=== PATIENT | male | born 1955 | race Caucasian/White ===

== ENCOUNTER 2017-10-19 18:27 | Emergency (ER) | payer MEDICARE, MEDICAID, SELFPAY ==
[2017-10-19 18:29] VITALS: BP 143/115; PULSE 88; RESP 16; TEMP 37.5; O2SAT 96; BMI 30.2
--- NOTE | 2017-10-19 21:20 | CT_ITS ---
STUDY: CT BRAIN WITHOUT CONTRAST REASON FOR EXAM: Male, 62 years old. Sore throat x3 weeks questionable injury RADIATION DOSAGE (If Supplied By Facility): CTDIvol = ( 44.99 ) mGy, DLP = ( 745.49 ) mGycm TECHNIQUE: Transaxial CT imaging of the brain was performed without administration of intravenous contrast material. Individualized dose optimization techniques were used for this CT. COMPARISON: None. FINDINGS: Normal soft tissue structures. Normal calvarium. There is mild cerebral atrophy with widening of the extra-axial spaces and ventricular dilatation. Normal white matter tracts of the cerebral hemispheres. Normal basal ganglia and thalami. Normal brainstem. Normal cerebellum. There is no intracranial hemorrhage. There are no findings of an acute ischemic infarction. Normal visualized paranasal sinuses. CT/Brain/Head without Contrast IMPRESSION: Chronic involutional changes of the brain. Electronically Signed: Brent Lee MD at 22:07 EDT , Service support ,
--- NOTE | 2017-10-19 21:21 | CT_ITS ---
STUDY: CT SOFT TISSUE NECK WITHOUT CONTRAST REASON FOR EXAM: Male, 62 years old. Sore throat x3 weeks RADIATION DOSAGE (If Supplied By Facility): CTDIvol = ( 22.63 ) mGy, DLP = ( 576.29 ) mGycm TECHNIQUE: The patient was scanned in a multi-detector CT scanner. High resolution transaxial imaging was performed without the administration of intravenous contrast material. Sagittal and coronal images were reconstructed. Individualized dose optimization techniques were used for this CT. COMPARISON: None. FINDINGS: The study is technically limited, being performed without intravenous contrast. Normal bilateral parotid glands. Normal bilateral bottom ironer spaces. There is a soft tissue mass containing several small calcifications of the right parapharyngeal region measuring 2.0 x 2.2 cm. Ill-defined diffuse soft tissue density of the right parapharyngeal region is noted. Normal bilateral carotid spaces. Normal bilateral sublingual and submandibular glands and spaces. Normal visualized nasopharynx. Normal retropharyngeal space. Normal perivertebral space. Normal visualized bilateral faucial tonsils. The visualized tongue, tongue base and oropharynx are normal. There are enlarged right cervical lymph nodes anterior and medial to the right sternocleidomastoid. Normal epiglottis, bilateral vallecula and hypopharynx. The pre-epiglottic and paraglottic adipose spaces are normal. Normal visualized bilateral piriform sinuses, aryepiglottic folds, vocal cords, and arytenoid-cricoid articulations. Normal subglottic trachea. Normal bilateral lobes of the thyroid gland. Normal visualized pulmonary apices. Normal visualized paranasal sinuses. There is nasal septal deviation toward the right. Normal visualized cervical spine. CT/Soft Tissue Neck without Contr IMPRESSION: The study is technically limited, being performed without intravenous contrast. Soft tissue mass containing several calcifications of the right parapharyngeal region measuring approximately 2.0 x 2.2 cm. There is diffusely increased ill-defined soft tissue density of the right parapharyngeal region. Findings raise the suspicion of malignancy. Right cervical adenopathy anteromedial to the right sternocleidomastoid. MRI is recommended for further evaluation. Electronically Signed: Brent Lee MD at 22:17 EDT , Service support ,
[2017-10-19 21:40] VITALS: RESP 18
--- NOTE | 2017-10-19 23:25 | ED.VISSUMM ---
- ER Visit Summary Date of Service: 10/19/17 Chief Complaint: Neck pain History of Present Illness: The patient is a 62 M who presents with neck pain that has been getting worse over the past 3 days. Patient describes the pain as a pressure. Patient states the pain is over his throat. Patient states the pain is worse with swallowing. Patient states he fell one week ago and thinks he may have hit his throat. Patient denies any loss of consciousness with the fall. Patient denies any chest pain or shortness of breath. Patient denies any difficulty breathing. Physical Examination: Vital signs are stable. Patient is afebrile. Patient is in no acute distress. Oral mucosa is pink and moist. Oropharynx is clear. Airway is patent. Tympanic membranes are clear bilaterally. There is some tenderness over the right anterior neck. There is no edema or ecchymosis. There is no bony crepitance or step-off. There is full range of motion of the cervical spine. Heart was regular rate and rhythm. Lungs are clear and equal bilaterally. Abdomen is soft and nontender. Cranial nerves II through XII are intact. There are no focal motor or sensory deficits noted. Test Results: CT scan of the brain was obtained and was within normal limits. CT scan of the soft tissue neck was obtained. There is a 2 x 2 centimeter mass in the right anterior neck. There is no involvement of the airway. Emergency Department Course and Treatment: Patient was given a dose of ibuprofen here. Patient is given a prescription for Breese. Patient was instructed to follow-up with his primary care physician in 3-5 days. Patient was also given a referral for ENT. Patient understood and was agreeable with the plan. All questions were answered. Disposition: Discharge home Impression: Neck pain This note was generated with [employer] dictation software. It may contain incorrect words, spelling, and punctuation that were not noted in review of the chart prior to signing ED Disposition - Plan for ED Patient: Disposition: Home or Assisted Living Chief Complaint: Sore Throat Diagnosis: Mass of right side of neck Instructions: ED Neck Pain No Trauma Prescriptions: Hydrocodone Bitart/Apap 5-325 [Breese 5/325] 1 tab PO Q6H PRN PRN 5 Days #20 tab PRN Reason: Pain Referrals: Riky Seals [Primary Care Provider] -
--- NOTE | 2017-10-19 23:28 | ED.DCSUM_ITS ---
- ER Visit Summary Date of Service: 10/19/17 Chief Complaint: Neck pain History of Present Illness: The patient is a 62 M who presents with neck pain that has been getting worse over the past 3 days. Patient describes the pain as a pressure. Patient states the pain is over his throat. Patient states the pain is worse with swallowing. Patient states he fell one week ago and thinks he may have hit his throat. Patient denies any loss of consciousness with the fall. Patient denies any chest pain or shortness of breath. Patient denies any difficulty breathing. Physical Examination: Vital signs are stable. Patient is afebrile. Patient is in no acute distress. Oral mucosa is pink and moist. Oropharynx is clear. Airway is patent. Tympanic membranes are clear bilaterally. There is some tenderness over the right anterior neck. There is no edema or ecchymosis. There is no bony crepitance or step-off. There is full range of motion of the cervical spine. Heart was regular rate and rhythm. Lungs are clear and equal bilaterally. Abdomen is soft and nontender. Cranial nerves II through XII are intact. There are no focal motor or sensory deficits noted. Test Results: CT scan of the brain was obtained and was within normal limits. CT scan of the soft tissue neck was obtained. There is a 2 x 2 centimeter mass in the right anterior neck. There is no involvement of the airway. Emergency Department Course and Treatment: Patient was given a dose of ibuprofen here. Patient is given a prescription for Newton. Patient was instructed to follow-up with his primary care physician in 3-5 days. Patient was also given a referral for ENT. Patient understood and was agreeable with the plan. All questions were answered. Disposition: Discharge home Impression: Neck pain This note was generated with [employer] dictation software. It may contain incorrect words, spelling, and punctuation that were not noted in review of the chart prior to signing ED Disposition - Plan for ED Patient: Disposition: Home or Assisted Living Chief Complaint: Sore Throat Diagnosis: Mass of right side of neck Instructions: ED Neck Pain No Trauma Prescriptions: Hydrocodone Bitart/Apap 5-325 [Newton 5/325] 1 tab PO Q6H PRN PRN 5 Days #20 tab PRN Reason: Pain Referrals: Riky Seals [Primary Care Provider] -
[2017-10-19] MEDS: Ibuprofen 400 MG Tablet 800 MG PO (23:46)
[2017-10-19 23:47] VITALS: BP 175/91; PULSE 117; RESP 18; O2SAT 99
== END 2017-10-19 23:48 | disposition home or self-care (01) ==
PROVIDERS: Emergency Provider Emergency Medicine; Family Provider Family Medicine; PCP Family Medicine
DX: R22.1 Localized swelling, mass and lump, neck (principal); M54.2 Cervicalgia; W19.XXXA Unspecified fall, initial encounter; Y93.9 Activity, unspecified; Y92.9 Unspecified place or not applicable; Z86.73 Personal history of transient ischemic attack (TIA), and cerebral infarction without residual deficits; I25.2 Old myocardial infarction; Z95.5 Presence of coronary angioplasty implant and graft; F17.200 Nicotine dependence, unspecified, uncomplicated
CPT/HCPCS: 70450; 70490; 99284

== ENCOUNTER 2019-02-07 21:28 | Emergency (ER) | payer MEDICARE, MEDICAID, SELFPAY ==
[2019-02-07 21:29] VITALS: BP 104/70; PULSE 78; RESP 18; TEMP 36.9; O2SAT 98; BMI 29.7
--- NOTE | 2019-02-07 22:07 | EKG12_ITS ---
Test Reason : Blood Pressure : / mmHG Vent. Rate : 075 BPM Atrial Rate : 075 BPM P-R Int : 180 ms QRS Dur : 092 ms QT Int : 422 ms P-R-T Axes : 064 076 085 degrees QTc Int : 471 ms Normal sinus rhythm Normal ECG Confirmed by LEDY MORRELL, ADRIENNE ([id number]), scientific publications editor GRETCHEN GLEASON ([id number]) on 02/12/2019 10:31:45 AM Referred By: DC Confirmed By:ADRIENNE VILLAFANA MD
--- NOTE | 2019-02-07 22:07 | CT_ITS ---
STUDY: CT BRAIN WITHOUT CONTRAST REASON FOR EXAM: Male, 63 years old. Fall. RADIATION DOSAGE (If Supplied By Facility): CTDIvol = ( 44.99 ) mGy, DLP = ( 798.92 ) mGycm TECHNIQUE: Transaxial CT imaging of the brain was performed without administration of intravenous contrast material. Individualized dose optimization techniques were used for this CT. COMPARISON: 10/19/2017 FINDINGS: No change. No acute abnormality. Normal soft tissue structures. Normal calvarium. There is mild cerebral atrophy with widening of the extra-axial spaces and ventricular dilatation. Normal white matter tracts of the cerebral hemispheres. Normal basal ganglia and thalami. Normal brainstem. Normal cerebellum. There is no intracranial hemorrhage. There are no findings of an acute ischemic infarction. Normal visualized paranasal sinuses. CT/Brain/Head without Contrast IMPRESSION: Chronic involutional changes of the brain. Electronically Signed: Jose Lara MD at 23:24 EDT , Service support ,
--- NOTE | 2019-02-07 22:08 | CT_ITS ---
STUDY: CT ABDOMEN AND PELVIS WITHOUT CONTRAST REASON FOR EXAM: Male, 63 years old. Fall. Hematuria. RADIATION DOSAGE (If Supplied By Facility): CTDIvol = ( 17.07 ) mGy, DLP = ( 921.40 ) mGycm TECHNIQUE: Transaxial images were obtained from the dome of the diaphragm to the symphysis pubis without oral contrast, and without intravenous contrast. Sagittal and coronal images were reconstructed. Individualized dose optimization techniques were used for this CT. COMPARISON: None. FINDINGS: The visualized lung bases are unremarkable. The visualized portions of the heart are within normal limits. Normal liver. Normal gallbladder and extrahepatic biliary system. Normal spleen. Normal pancreas. Normal bilateral adrenal glands. Normal right kidney. 3.7 cm cyst of the lower pole. Normal left kidney. Evaluation of the GI tract is limited by absence of oral contrast. Small hiatal hernia. Cannot exclude stomach wall thickening. No dilated loops of bowel or evidence for obstruction. Cannot exclude segmental thickening of the saxena of the small or large bowel. Cannot exclude enteritis or colitis. Moderate diffuse fecal retention. Diverticulosis without definite diverticulitis. Appendix within normal limits. There is diffuse atherosclerotic calcification of the abdominal aorta, with ectasia but without a demonstrated aneurysm. Normal inferior vena cava. Normal retroperitoneum. Normal urinary bladder. Bilateral small fat-containing inguinal hernias. Induration and increased density of the subcutaneous fat of the left buttocks consistent with bruising. Normal osseous structures. CT/Abdomen/Pelvis without Cont IMPRESSION: No acute abnormality in the abdomen or pelvis. Electronically Signed: Jose Lara MD at 23:29 EDT , Service support ,
--- NOTE | 2019-02-07 22:08 | CT_ITS ---
STUDY: CT CERVICAL SPINE WITHOUT CONTRAST REASON FOR EXAM: Male, 63 years old. Fall. RADIATION DOSAGE (If Supplied By Facility): CTDIvol = ( 27.24 ) mGy, DLP = ( 532.30 ) mGycm TECHNIQUE: High resolution transaxial imaging was performed without contrast material. Sagittal and coronal images were reconstructed. Individualized dose optimization techniques were used for this CT. COMPARISON: None FINDINGS: Normal craniovertebral junction. Normal anterior atlantoaxial articulation. Normal odontoid process. Normal cervical lordosis. Normal vertebral bodies and posterior osseous elements. C2-3: Normal endplates. Normal disc height and morphology. Normal central canal and intervertebral neuroforamina. C3-4: Normal endplates. Normal disc height and morphology. Normal central canal and intervertebral neuroforamina. C4-5: Normal endplates. Normal disc height and morphology. Normal central canal and intervertebral neuroforamina. C5-6: Normal endplates. Normal disc height and morphology. Normal central canal and intervertebral neuroforamina. C6-7: Normal endplates. Normal disc height and morphology. Normal central canal and intervertebral neuroforamina. C7-T1: Normal endplates. Normal disc height and morphology. Normal central canal and intervertebral neuroforamina. Normal visualized soft tissue structures. CT/Spine Cervical without Contras IMPRESSION: Normal unenhanced CT examination of the cervical spine. Electronically Signed: Jose Lara MD at 23:25 EDT , Service support ,
--- NOTE | 2019-02-07 22:10 | RAD_ITS ---
STUDY: X-RAY CHEST REASON FOR EXAM: Male, 63 years old. Fall. Chest pain. TECHNIQUE: Single frontal view of the chest. COMPARISON: None. FINDINGS: The lungs are clear and expanded. There is no demonstrated pleural abnormality. Normal size heart. Normal mediastinum and dirk. Normal visualized pulmonary arteries. Normal visualized aortic arch and descending thoracic aorta. Normal visualized thoracic spine. Normal visualized ribs, clavicles, and shoulders. There is no demonstrated abnormality of the visualized soft tissue structures of the upper abdomen. RAD/Chest 1 View (Portable) IMPRESSION: Normal x-ray examination of the chest. Electronically Signed: Jose Lara MD at 22:48 EDT , Service support ,
[2019-02-07 22:28] LABS: Absolute Lymphocyte Count 3.13 X10^3/uL (0.83-4.51); Absolute Neutrophil Count 2.9 X10^3/uL (2.0-7.7); Basophil# 0.05 X10^3/uL; Basophil% 0.7 % (0-1); Eosinophil# 0.28 X10^3/uL; Hematocrit 36.6 % (40-54); Hemoglobin 11.9 g/dL (13.0-16.5); Lymphocyte # 3.13 X10^3/ul (4.0); Lymphocyte % 45.2 % (19-41); Mean Corp Hgb Conc 32.5 g/dL (32-36); Mean Corpuscular Hgb 28.6 pg (27.0-32.0); Mean Platelet Vol. 10.5 fl (6.2-12.0); Monocyte# 0.51 X10^3/uL; Monocyte% 7.4 % (0-10); NRBC Flagged by Analyzer 0 % (0-5); Neutrophil # 2.94 X10^3/uL (2.7-7.7); Neutrophil % 42.4 % (47-70); Platelet Count 270 K/mm3 (150-450); RBC Distribution Width CV 15.3 % (11.6-14.6); RBC Distribution Width SD 48.8 fl (35.1-43.9); Red Blood Count 4.16 M/mm3 (4.6-6.2); White Blood Count 6.9 K/mm3 (4.4-11.0)
[2019-02-07] MEDS: Diphth,Pertuss(Acell),Tet Vac 0.5 ML Vial IM (22:31)
[2019-02-07 22:32] LABS: Bacteria 0 SEEN /hpf (None Seen); Mucous, Urine 0 SEEN /hpf (<or=2+); Red Blood Cells-Urine 0 SEEN /hpf (0-5); Squamous Epithelial Cells - UA 0 SEEN /hpf (0-5); White Blood Cells 0 SEEN /hpf (0-5)
[2019-02-07 22:38] LABS: Color, Urine Straw (Yellow); Glucose, Dipstick Normal (Normal); Ketone-Dipstick Negative (Negative); Leukocyte Esterase-Dipstick Negative /ul (Negative); Nitrite-Dipstick Negative (Negative); Occult Blood-Urine Negative /ul (Negative); Protein-Dipstick Negative (Negative); Urine Bilirubin Dipstick Negative (Negative); Urine Clarity Clear (Clear); Urine Urobilinogen Normal (Normal)
[2019-02-07 22:48] LABS: Anion Gap 7 (5-15); BUN 5 mg/dL (7-18); BUN/Creat Ratio 5.9 RATIO (10-20); Calcium,Total 8.6 mg/dL (8.5-10.1); Chloride 105 mmol/L (98-107); Creatinine, Serum 0.85 mg/dL (0.70-1.30); EST Glomerular Filtration Rate 97 mL/min (>60); Est Glom Filt Rate - Afr Amer 117 mL/min (>60); Estimated Creatinine Clearance 94.23 ml/min; Glucose 102 mg/dL (74-106); Potassium 3.5 mmol/L (3.5-5.1); Sodium Level 138 mmol/L (136-145)
[2019-02-07 22:59] VITALS: BP 130/77; PULSE 104; RESP 18; O2SAT 94
--- NOTE | 2019-02-07 23:12 | ED.RN ---
Dr. Weathers notified of alcohol 384
--- NOTE | 2019-02-08 00:10 | ED.VISSUMM ---
- ER Visit Summary Date of Service: 02/08/19 Chief Complaint: Fall History of Present Illness: The patient is a 63 M presenting with EMS after fall. He states his friend called EMS. He fell 2 hours ago. He initially stated that he blacked out but is not sure if he lost consciousness. He does not recall the events surrounding the fall. He has been drinking alcohol tonight. He states he had chest pain earlier tonight. He was also concerned that he urinated blood. Denies other complaints. Physical Examination: Vitals are stable. Patient is afebrile. Alert no acute distress. HEENT exam is unremarkable. Neck is supple. Nontender Lungs are clear and equal bilaterally. Heart is regular rate and rhythm. Abdomen is soft nontender nondistended. No guarding or rebound Extremities right forearm abrasion, active full range of motion, normal distal pulses. Skin is warm and dry. No focal neurologic deficit. Positive EtOH Remainder of exam is unremarkable. Emergency Department Course and Treatment: EKG is sinus rate of 75 with no acute ischemic changes. Chest x-ray shows no acute process. CT head and neck show no acute process. CT abdomen pelvis shows no acute process. CBC, chemistries unremarkable other than hemoglobin 11.9. Urinalysis shows 0 white blood cells, 0 red blood cells. Troponin is negative. Alcohol level 384. Patient was given tetanus IM. He was given aspirin p.o. He will be observed in the ED and have a repeat troponin and will be observed until sober. He will be checked out to the oncoming physician. Disposition: Pending Impression: Alcohol intoxication This note was generated with [employer] dictation software. It may contain incorrect words, spelling, and punctuation that were not noted in review of the chart prior to signing ED Disposition - Plan for ED Patient: Referrals: Riky Seals [Primary Care Provider] -
[2019-02-08] MEDS: Aspirin 325 MG Tablet PO (00:12)
[2019-02-08 00:13] VITALS: BP 123/83; PULSE 72; RESP 18; O2SAT 96
[2019-02-08 01:29] VITALS: BP 98/68; PULSE 61; RESP 18
[2019-02-08 02:10] VITALS: BP 111/76; PULSE 69; RESP 16; O2SAT 96
[2019-02-08 04:00] VITALS: BP 103/67; PULSE 64; RESP 16; O2SAT 98
--- NOTE | 2019-02-08 06:25 | ED.DEP ---
ED Disposition - Plan for ED Patient: Disposition: Home or Assisted Living Diagnosis: Alcohol intoxication Instructions: CHEST PAIN, Uncertain Cause, Alcohol Intoxication Referrals: Riky Seals [Primary Care Provider] - As Needed Eighty,Vannesa [STAFF PHYSICIAN] - (as needed for alcohol problems)
[2019-02-08 06:29] VITALS: BP 144/94; PULSE 65; RESP 15; O2SAT 94
== END 2019-02-08 06:36 | disposition home or self-care (01) ==
PROVIDERS: Emergency Provider Emergency Medicine; Family Provider Family Medicine; PCP Family Medicine
DX: Z04.3 Encounter for examination and observation following other accident (principal); F10.129 Alcohol abuse with intoxication, unspecified; W19.XXXA Unspecified fall, initial encounter; R07.9 Chest pain, unspecified; I25.10 Atherosclerotic heart disease of native coronary artery without angina pectoris; I10 Essential (primary) hypertension; E78.00 Pure hypercholesterolemia, unspecified; Z86.73 Personal history of transient ischemic attack (TIA), and cerebral infarction without residual deficits; Z72.0 Tobacco use; Y90.8 Blood alcohol level of 240 mg/100 ml or more
CPT/HCPCS: 70450; 71045; 72125; 74176; 80048; 80320; 81001; 84484; 85025; 90715; 93005; 99285; A4216; G0480

== ENCOUNTER 2019-02-20 19:59 | Observation (INO) | payer MEDICARE, MEDICAID, SELFPAY ==
[2019-02-20] VITALS (7 sets, daily range): BP systolic 93–110; BP diastolic 61–70; PULSE 73–82; RESP 16–24; TEMP 36.6–36.9; O2SAT 94–96; BMI 29.0; BMI 29.2; BMI 29.3
--- NOTE | 2019-02-20 20:14 | EKG12_ITS ---
Test Reason : CP Blood Pressure : / mmHG Vent. Rate : 078 BPM Atrial Rate : 078 BPM P-R Int : 172 ms QRS Dur : 080 ms QT Int : 408 ms P-R-T Axes : 060 068 066 degrees QTc Int : 465 ms Normal sinus rhythm Normal ECG Confirmed by VIVIANA MORRELL, KARL ([id number]), editor & co founder RENALDO BUCKLEY ([id number]) on 02/24/2019 1:18:55 PM Referred By: Kathleen Shelton Confirmed By:MARGE MICHELLE MD
[2019-02-20 20:27] LABS: Absolute Lymphocyte Count 3.37 X10^3/uL (0.83-4.51); Absolute Neutrophil Count 3.4 X10^3/uL (2.0-7.7); Basophil# 0.04 X10^3/uL; Basophil% 0.5 % (0-1); Eosinophil# 0.33 X10^3/uL; Eosinophils% 4.3 % (0-5); Hemoglobin 11.6 g/dL (13.0-16.5); Lymphocyte # 3.37 X10^3/ul (4.0); Lymphocyte % 43.6 % (19-41); Mean Corp Hgb Conc 32.2 g/dL (32-36); Mean Corpuscular Hgb 28.9 pg (27.0-32.0); Mean Corpuscular Volume 89.6 fL (80-94); Mean Platelet Vol. 9.7 fl (6.2-12.0); Monocyte# 0.59 X10^3/uL; Monocyte% 7.6 % (0-10); NRBC Flagged by Analyzer 0 % (0-5); Neutrophil # 3.36 X10^3/uL (2.7-7.7); Neutrophil % 43.5 % (47-70); Platelet Count 236 K/mm3 (150-450); RBC Distribution Width CV 15.8 % (11.6-14.6); Red Blood Count 4.02 M/mm3 (4.6-6.2); White Blood Count 7.7 K/mm3 (4.4-11.0)
[2019-02-20] MEDS: Albuterol 2.5 MG/3 ML VIAL.NEB. INHALATION (20:37)
[2019-02-20 20:45] LABS: Anion Gap 7 (5-15); BUN 9 mg/dL (7-18); BUN/Creat Ratio 9.4 RATIO (10-20); Calcium,Total 8.6 mg/dL (8.5-10.1); Chloride 104 mmol/L (98-107); Creatinine, Serum 0.96 mg/dL (0.70-1.30); EST Glomerular Filtration Rate 84 mL/min (>60); Est Glom Filt Rate - Afr Amer 102 mL/min (>60); Estimated Creatinine Clearance 86.06 ml/min; Glucose 93 mg/dL (74-106); Potassium 3.8 mmol/L (3.5-5.1); Sodium Level 136 mmol/L (136-145)
--- NOTE | 2019-02-20 20:50 | RAD_ITS ---
STUDY: X-RAY CHEST REASON FOR EXAM: Male, 63 years old. Chest pressure. TECHNIQUE: PA and lateral chest. COMPARISON: 02/07/2019. FINDINGS: The lungs are clear and expanded. There is no demonstrated pleural abnormality. Normal size heart. Normal mediastinum and dirk. Normal visualized pulmonary arteries. Normal visualized aortic arch and descending thoracic aorta. Normal visualized thoracic spine. Normal visualized ribs, clavicles, and shoulders. There is no demonstrated abnormality of the visualized soft tissue structures of the upper abdomen. RAD/Chest PA and Lateral IMPRESSION: Normal x-ray examination of the chest. Electronically Signed: Daya Renner MD at 21:15 EDT Tel , Service support ,
--- NOTE | 2019-02-20 21:34 | ED.DCSUM_ITS ---
History of Present Illness Chief Complaint: Chest Pain Informant: EMS Narrative: Patient presenting for evaluation secondary to chest pain. Patient has a underlying history of coronary artery disease with 3 stents. Patient states that today he developed chest pain. Patient states that about 630 prior to arrival he had an onset of sharp chest pain. He reports it was associated with some lightheadedness and diaphoresis. It lasted a couple minutes and then resolved. Patient states that he has been having intermittent bouts of this since then. It is not exertional. No real exacerbating relieving factors associated with it. Patient denies that he has had any sort of recent provocati ve testing in the last 1 to 2 years. Past Medical History - Allergies and Home Meds Allergies/Adverse Reactions: Allergies lisinopril Allergy (Verified 02/20/19 20:00) COUGH COUGH Primary Care Physician: Riky Seals [Primary Care Provider] - Past Medical History: - - Coronary artery disease Smoking Status: Current every day smoker Review of Systems All systems negative except as indicated Cardiovascular: Reports: Chest pain Physical Exam Vital Signs/Narrative: Vital Signs Temp Pulse Resp BP Pulse Ox 02/20/19 20:38 82 18 02/20/19 20:16 95 02/20/19 20:12 100/62 02/20/19 20:01 98.4 F 79 23 H 93/61 96 General: Well nourished, Well developed, No Acute Distress Head: Normocephalic, Atraumatic Eyes: Perrl, EOMI ENT: Moist mucous membranes, No rhinorrhea Neck: Supple, Nontender Cardiovascular: Regular rate, Regular rhythm, No murmurs Respiratory: No distress, Wheezing Abdomen: Soft, Nontender, Nondistended, Normal bowel sounds Back: Nontender, Normal Inspection Extremities: Nontender, No edema Skin: Normal color, No rash Neurological: Alert, Oriented x3, Cranial nerves II-XII grossly intact, Normal Strength, Normal Sensation Psychological: Normal affect, Normal Mood Diagnostic/Tx/Re-eval - EKG Initial EKG Interpretation: - - Sinus rhythm at [address] segments normal T waves no evidence of acute ischemia or arrhythmia - Medical Decision Making Patient presenting secondary to chest pain. EKG showed no ischemic changes. CBC chemistry and troponin found to be unremarkable. Patient's heart score is 4, I do believe that he requires admission for cardiac rule out. I discussed this with the hospitalist. ED Disposition - Plan for ED Patient: Disposition: Acute Care [facility] Diagnosis: Chest pain
--- NOTE | 2019-02-20 21:36 | HP.PCM_ITS ---
History of Present Illness Date of Admission: 02/20/19 Chief Complaint: chest pain The patient is a 63 year old M with a past medical history of CAD status post stents back in 1996 thereabouts. He was admitted to the ED on 02/20/2019 with a complaint of chest pain was started on the afternoon of admission. States chest pain was sharp with no aggravating or relieving factors. He had assisted lightheadedness and some diaphoresis but chest pain was nonradiating. Patient states he follows up with costume specialist in [place]. He still smokes about 1 pack/day and drinks alcohol though he is a bit evasive about the quantities. The ED, respiratory rate was 24 and blood pressure was a bit low at 97/70 though patient says he did not take his blood pressure this morning his blood pressure usually runs high. CBC was unremarkable about hemoglobin of 11.6. Chemistry was unremarkable and initial troponin was negative. Chest x-ray done was essentially normal. He has been admitted to be managed for chest pain to rule out ACS. [] Past Medical History Allergies lisinopril Allergy (Verified 02/20/19 20:00) COUGH COUGH Home Medications: Ambulatory Orders Medication Instructions Recorded Atorvastatin Calcium 20 mg PO DAILY 02/20/19 Clopidogrel Bisulfate [Plavix] 75 mg PO DAILY 02/20/19 Dexlansoprazole [Dexilant] 30 mg PO DAILY 02/20/19 Losartan Potassium 50 mg PO DAILY 02/20/19 Metoprolol Succinate [Toprol Xl] 100 mg PO DAILY 02/20/19 Paroxetine HCl [Paxil] 40 mg PO DAILY 02/20/19 Surgical History: no surgical history Psychiatric History: No pertinent psych hx Lives: Alone Smoking Status: Current every day smoker Tobacco Use: Cigarettes Alcohol: Heavy Drugs: None - *Family History Maternal History Items: Heart Disease, Hypertension Review of Systems Constitutional: Denies: Chills, Fever, Malaise, Weakness, Weight Change Eyes: Denies: Blurred vision HEENT: Denies: Head Aches, Sinus Congestion, Sinus Drainage Cardiovascular: Reports: Chest Pain. Denies: Chest Pressure, Chest Tightness, Heaviness, Light Headedness, Orthopnea, Palpitations Respiratory: Denies: Cough, Shortness of Breath, Shortness of breath at rest, Shortness of breath upon exertion, Sputum production Gastrointestinal: Denies: Abdominal Pain, Nausea, Vomiting Genitourinary: Denies: Dysuria Musculoskeletal: Denies: Joint Pain, Joint Tenderness Skin: Denies: Rash, Wounds Neurological: Denies: Numbness, Tingling, Focal weakness Psychiatric: Denies: Anxiety, Depression, Homicidal Ideations, Suicidal Ideations Hematologic/ Lymphatic: Denies: Easy Bruising, Easy Bleeding VTE Information - Inpt Only VTE Present on Admission: No VTE Pharm Prophylaxis ordered?: Yes Patient Problems: Active and Suspected Problems Chest pain (Acute) - Physical Exam General: Alert, Oriented x3, Cooperative, No apparent distress HEENT: Atraumatic, PERRLA, EOMI, Normocephalic Oral: Moist Mucosa Neck: Supple, No JVD, Negative Carotid Bruits Lungs: Clear to auscultation, Normal air movement Cardiovascular: Regular rate, Regular Rhythm, Normal S1, Normal S2, No murmurs Abdomen: Bowel Sounds Present, Soft, Non Tender, Non-Distended, No Hepato- splenomegaly Extremities: No clubbing, No cyanosis, No edema, Capillary Refill Less than 3 Seconds Skin: No rashes, No breakdown Musculoskeletal: No Tenderness to Palpation of Joints or Extremities Lymphatic: No Cervical, Supraclavicular, or Inguinal Adenopathy Neurological: Cranial nerves II-XII grossly intact, Neuro grossly intact, Motor Exam 5/5 strength throughout Psych/Mental Status: Normal Affect, Appropriate, Alert and oriented to time, place, person, mood and affect Vital Signs Temp Pulse Resp BP Pulse Ox 98.4 F 82 18 100/62 95 02/20/19 20:01 02/20/19 20:38 02/20/19 20:38 02/20/19 20:12 02/20/19 20:16 Oxygen Delivery Method Room Air Weight: 208 lb 8.917 oz Body Mass Index (BMI) 29.0 Laboratory Tests Past 24 Hrs 02/20/19 02/20/19 20:10 20:10 WBC 7.7 RBC 4.02 L Hgb 11.6 L Hct 36.0 L MCV 89.6 MCH 28.9 MCHC 32.2 RDW Std Deviation 52.0 H RDW Coeff of Madelin 15.8 H Plt Count 236 MPV 9.7 Immature Gran % (Auto) 0.500 Neut % (Auto) 43.5 L Lymph % (Auto) 43.6 H [place] % (Auto) 7.6 Eos % (Auto) 4.3 Baso % (Auto) 0.5 Absolute Neuts (auto) 3.4 Absolute Lymphs (auto) 3.37 Nucleated RBC % 0 Sodium 136 Potassium 3.8 Chloride 104 Carbon Dioxide 25.0 Anion Gap 7 BUN 9 Creatinine 0.96 Estim Creat Clear Calc 86.06 Est GFR (MDRD) Af Amer 102 Est GFR (MDRD) Non-Af 84 BUN/Creatinine Ratio 9.4 L Glucose 93 Calcium 8.6 Troponin I < 0.015 Diagnostic Data Chest X-Ray 02/20/19 20:50 IMPRESSION: Normal x-ray examination of the chest. Electronically Signed: Daya Renner MD at 21:15 EDT Tel , Service support , Assessment/Plan All Active Problems Chest pain (Acute) 63-year-old male admitted with complaint of chest pain. 1. Chest pain to r/o ACS * admit to PCU with telemetry * cycle troponins * PO aspirin 81mg daily, SL nitroglycerin prn * for stress test tomorrow if troponins are negative * 2. Hypotension of unclear etiology * says his BP is usually high, didnt take his meds today * BP was in the systolic during review and came up to 90 systolic after being given IV fluids. * BP meds and continue gentle hydration. * 3. History of CAD status post stents: On Plavix and statin. 4. Hypertension: Currently hypotensive. Will hold metoprolol and losartan. 5. Anxiety: On paroxetine. DVT Prophylaxis: Lovenox Code Visit OBSV E&M: 01140 Initial observation care L3
[2019-02-20] MEDS: 0.9% Normal Saline 1,000 ML 999 ML IV (21:45)
--- NOTE | 2019-02-20 23:12 | EKG12_ITS ---
Test Reason : CP ADMIT Blood Pressure : / mmHG Vent. Rate : 067 BPM Atrial Rate : 067 BPM P-R Int : 174 ms QRS Dur : 090 ms QT Int : 432 ms P-R-T Axes : 069 074 081 degrees QTc Int : 456 ms Normal sinus rhythm Normal ECG When compared with ECG of 20-FEB-2019 20:08, MANUAL COMPARISON REQUIRED, DATA IS UNCONFIRMED Confirmed by VIVIANA MORRELL, KARL ([id number]), advertising editor GRETCHEN GLEASON ([id number]) on 02/25/2019 1:52:02 PM Referred By: Kathleen Shelton Confirmed By:MARGE MICHELLE MD
[2019-02-21] VITALS: PULSE 72
--- NOTE | 2019-02-21 00:28 | NURSING ---
Pt came in with home meds from ED. States he does not want medications locked up on unit. Pt educated on not taking home medications while admitted to the hospital. Pt verbalized understanding.
[2019-02-21] MEDS: 0.9% Normal Saline 1,000 ML 150 ML IV (02:20)
[2019-02-21 02:27] LABS: Absolute Lymphocyte Count 2.73 X10^3/uL (0.83-4.51); Absolute Neutrophil Count 1.7 X10^3/uL (2.0-7.7); Basophil# 0.03 X10^3/uL; Basophil% 0.6 % (0-1); Eosinophil# 0.24 X10^3/uL; Eosinophils% 4.6 % (0-5); Hematocrit 35.3 % (40-54); Hemoglobin 11.1 g/dL (13.0-16.5); Lymphocyte # 2.73 X10^3/ul (4.0); Lymphocyte % 52.7 % (19-41); Mean Corp Hgb Conc 31.4 g/dL (32-36); Mean Corpuscular Hgb 28.5 pg (27.0-32.0); Mean Corpuscular Volume 90.5 fL (80-94); Mean Platelet Vol. 10.1 fl (6.2-12.0); Monocyte# 0.45 X10^3/uL; Monocyte% 8.7 % (0-10); NRBC Flagged by Analyzer 0 % (0-5); Neutrophil # 1.69 X10^3/uL (2.7-7.7); Neutrophil % 32.6 % (47-70); Platelet Count 198 K/mm3 (150-450); RBC Distribution Width CV 16.1 % (11.6-14.6); RBC Distribution Width SD 53.1 fl (35.1-43.9); White Blood Count 5.2 K/mm3 (4.4-11.0)
[2019-02-21 03:03] LABS: Anion Gap 8 (5-15); BUN 8 mg/dL (7-18); BUN/Creat Ratio 8.4 RATIO (10-20); Calcium,Total 8.3 mg/dL (8.5-10.1); Chloride 109 mmol/L (98-107); Creatinine, Serum 0.96 mg/dL (0.70-1.30); EST Glomerular Filtration Rate 85 mL/min (>60); Est Glom Filt Rate - Afr Amer 103 mL/min (>60); Estimated Creatinine Clearance 83.43 ml/min; Glucose 88 mg/dL (74-106); Potassium 3.9 mmol/L (3.5-5.1); Sodium Level 141 mmol/L (136-145)
[2019-02-21 04:00] VITALS: PULSE 64
[2019-02-21 05:00] VITALS: BP 155/94; PULSE 71; RESP 14; TEMP 36.4; O2SAT 99
[2019-02-21 05:23] VITALS: RESP 16
[2019-02-21] MEDS: Clopidogrel Bisulfate 75 MG Tablet PO (06:31)
[2019-02-21] MEDS: Aspirin 81 MG TAB.CHEW PO (06:31)
[2019-02-21 07:00] VITALS: PULSE 80
[2019-02-21 09:25] VITALS: BP 159/98; PULSE 70; RESP 14; TEMP 36.3; O2SAT 99
[2019-02-21] MEDS: Paroxetine 20 MG Tablet 40 MG PO (11:18)
[2019-02-21] MEDS: Pantoprazole Sodium 40 MG Tablet PO (11:18)
--- NOTE | 2019-02-21 11:24 | STRESSREP ---
Stress Test Report Date: 02/21/2019 Procedure: Pharmacologic stress nuclear imaging study Indications: Chest pain Consent: Per the patient Procedure: The patient underwent pharmacologic (Regadenoson) evaluation with a peak heart rate of 96 beats per minute (60 %predicted maximal heart rate) and a peak blood pressure of 162/90 mmHg. The baseline ECG demonstrated normal sinus rhythm. EKG during lexiscan infusion revealed no significant change from baseline. EKG post infusion revealed no significant change from baseline [There were no cardiac dysrhythmias pretest, during pharmacologic infusion, or recovery]. [There was no complaint of chest discomfort during pharmacologic infusion or recovery]. Patient had some dyspnea with Lexiscan infusion. The examination was discontinued secondary to completion of protocol. Impression: 1. Lexiscan stress test test is negative for Lexiscan infusion induced EKG changes of ischemia. 2. Lexiscan stress test test is negative for Lexiscan infusion induced chest pain. 3. Results of the nuclear portion of the test is as below Myocardial perfusion imaging study: Technique: The patient was injected with 12 millicuries of technetium 99m Cardiolite and subsequently rest SPECT Cardiolite nuclear imaging was obtained in the horizontal long, vertical long, and short axis views. The patient underwent pharmacologic (Regadenoson) evaluation. Please see above for details. The patient was injected with 34.3 millicuries of technetium 99m Cardiolite and subsequently stress SPECT Cardiolite nuclear imaging was obtained in the horizontal long, vertical long, and short axis views. A gated Cardiolite study at peak stress was obtained. Interpretation: Rest and stress SPECT Cardiolite nuclear imaging status post realignment, normalization, and attenuation correction demonstrate normal myocardial radioisotope uptake. Gated images reveal no significant regional wall motion abnormalities. The reported LVEF is 63 %. Impression: 1. There is no evidence of significant ischemia or infarction. 2. Estimated ejection fraction is 63%. This note was generated with [employer]IKT[employer] software. It may contain incorrect words, spelling, and punctuation that were not noted in checking the note before signing.
--- NOTE | 2019-02-21 11:55 | DCINST_ITS ---
- Discharge Diagnoses Current Active Problems: Current Active and Chronic Problems Chest pain (Acute) You will use the following diet at home:: Cardiac Your food should be the consistency of: Regular Your liquids should be the consistency of: Regular/Thin Discharge Activity: Return to Normal Activity Call your doctor if you observe: Shortness of breath, Chest pain - worsening Instructions: CHEST PAIN, NonCardiac Allergies/Adverse Reactions: Allergies lisinopril Allergy (Verified 02/20/19 20:00) COUGH COUGH Medications to take at Discharge Atorvastatin Calcium 20 mg PO DAILY 02/20/19 Clopidogrel Bisulfate [Plavix] 75 mg PO DAILY 02/20/19 Dexlansoprazole [Dexilant] 30 mg PO DAILY 02/20/19 Losartan Potassium 50 mg PO DAILY 02/20/19 Metoprolol Succinate [Toprol Xl] 100 mg PO DAILY 02/20/19 Paroxetine HCl [Paxil] 40 mg PO DAILY 02/20/19 Primary Care Physician: Riky Seals [Primary Care Provider] - Within 2 Weeks Test Results: Test results from this visit will be discussed in further detail at your follow- up appointment, if applicable. Proposed Discharge Date: 02/21/19
--- NOTE | 2019-02-21 11:56 | PCM.DC.SUM ---
Discharge Date and Diagnosis - Problem List Patient Problems: Active and Suspected Problems Chest pain (Acute) Date of Admission: 02/20/19 Date of Discharge: 02/21/19 - Primary Discharge Diagnosis Active and Suspected Problems Chest pain (Acute) Hospital Course and Treatment Imaging Results: 02/21/19 05:55 Nuclear Stress Test - [facility] [NM] AM (NON MEDS) Operations: None Procedures: Stress test Summary of Care Provided: The patient is a 63 year old M's with left-sided chest pain associated when he was pulling weeds. States it is worse when he coughs. Just feels weak. States that he has had a tach in the past but at that time his symptoms were different where he felt like he was having heartburn for 24 hours. Patient was then brought to the hospital and underwent a cardiac work-up, including stress test which were negative. On exam, patient had a does have a reproducible anterior chest wall tenderness and explained that this could be related with muscle strain or costochondritis. Reassurance was provided. Advised the patient to stop smoking and advised of the risk factors when he does return home regards to the initial nature associated with tobacco abuse. He expressed understanding and had no further questions. [] Patient Problems: Active and Suspected Problems Chest pain (Acute) - Physical Exam General: Alert, No apparent distress HEENT: Atraumatic, Normocephalic Oral: Moist Mucosa, No Gingival or Mucosal Lesions/ Ulcerations Musculoskeletal: - - Left anterior chest wall tenderness Vital Signs Temp Pulse Resp BP Pulse Ox 36.3 C L 70 14 159/98 H 99 02/21/19 09:25 02/21/19 09:25 02/21/19 09:25 02/21/19 09:25 02/21/19 09:25 Oxygen Delivery Method Room Air Weight: 92.6 kg Body Mass Index (BMI) 29.2 Intake and Output for Last 24 Hours 02/19/19 02/20/19 02/21/19 23:59 23:59 23:59 Intake Total 1653 / 1653 Balance 1653 / 1653 Laboratory Tests Past 24 Hrs 02/20/19 02/20/19 02/20/19 20:10 20:10 23:29 WBC 7.7 RBC 4.02 L Hgb 11.6 L Hct 36.0 L MCV 89.6 MCH 28.9 MCHC 32.2 RDW Std Deviation 52.0 H RDW Coeff of Madelin 15.8 H Plt Count 236 MPV 9.7 Immature Gran % (Auto) 0.500 Neut % (Auto) 43.5 L Lymph % (Auto) 43.6 H [place] % (Auto) 7.6 Eos % (Auto) 4.3 Baso % (Auto) 0.5 Absolute Neuts (auto) 3.4 Absolute Lymphs (auto) 3.37 Nucleated RBC % 0 Sodium 136 Potassium 3.8 Chloride 104 Carbon Dioxide 25.0 Anion Gap 7 BUN 9 Creatinine 0.96 Estim Creat Clear Calc 86.06 Est GFR (MDRD) Af Amer 102 Est GFR (MDRD) Non-Af 84 BUN/Creatinine Ratio 9.4 L Glucose 93 Calcium 8.6 Troponin I < 0.015 < 0.015 02/21/19 02/21/19 02/21/19 02:01 02:01 02:01 WBC 5.2 RBC 3.90 L Hgb 11.1 L Hct 35.3 L MCV 90.5 MCH 28.5 MCHC 31.4 L RDW Std Deviation 53.1 H RDW Coeff of Madelin 16.1 H Plt Count 198 MPV 10.1 Immature Gran % (Auto) 0.800 Neut % (Auto) 32.6 L Lymph % (Auto) 52.7 H [place] % (Auto) 8.7 Eos % (Auto) 4.6 Baso % (Auto) 0.6 Absolute Neuts (auto) 1.7 L Absolute Lymphs (auto) 2.73 Nucleated RBC % 0 Sodium 141 Potassium 3.9 Chloride 109 H Carbon Dioxide 24.0 Anion Gap 8 BUN 8 Creatinine 0.96 Estim Creat Clear Calc 83.43 Est GFR (MDRD) Af Amer 103 Est GFR (MDRD) Non-Af 85 BUN/Creatinine Ratio 8.4 L Glucose 88 Calcium 8.3 L Troponin I < 0.015 Discharge Diet: Low fat/ Low Cholesterol Discharge Activity: Return to Normal Activity Call your doctor if you observe: Shortness of breath, Chest pain - worsening Home Medications: Medications to take at Discharge Atorvastatin Calcium 20 mg PO DAILY 02/20/19 Clopidogrel Bisulfate [Plavix] 75 mg PO DAILY 02/20/19 Dexlansoprazole [Dexilant] 30 mg PO DAILY 02/20/19 Losartan Potassium 50 mg PO DAILY 02/20/19 Metoprolol Succinate [Toprol Xl] 100 mg PO DAILY 02/20/19 Paroxetine HCl [Paxil] 40 mg PO DAILY 02/20/19 Primary Care Physician: Riky Seals [Primary Care Provider] - Within 2 Weeks Patient Instructions: CHEST PAIN, NonCardiac Disposition: Home Minutes spent on discharge:: 24 Patient Condition:: Good Medical Necessity - Tobacco Use Smoking Status: Current every day smoker Tobacco Use: Cigarettes Meaningful Use Info Meaningful Use Diagnoses (Choose all that apply): None applicable Code Visit OBSV E&M: 71689 Observation care discharge
== END 2019-02-21 11:55 | disposition home or self-care (01) ==
LOC: ED 21:42 → PCU 21:58
PROVIDERS: Admitting Provider Student in an Organized Health Care Education/Training Program; Emergency Provider Emergency Medicine; Family Provider Family Medicine; PCP Family Medicine; Referring Provider Student in an Organized Health Care Education/Training Program
DX: R07.89 Other chest pain (principal); I95.9 Hypotension, unspecified; I25.10 Atherosclerotic heart disease of native coronary artery without angina pectoris; F41.9 Anxiety disorder, unspecified; F17.210 Nicotine dependence, cigarettes, uncomplicated; Z95.5 Presence of coronary angioplasty implant and graft; Z88.8 Allergy status to other drugs, medicaments and biological substances; Z79.899 Other long term (current) drug therapy
CPT/HCPCS: 36415; 71046; 78452; 80048; 84484; 85025; 93005; 93017; 94640; 96360; 96361; 99218; 99285; 99406; A9500; J7030; A4216; G0378; J2785

== ENCOUNTER 2019-03-28 11:11 | Emergency (ER) | payer MEDICARE, MEDICAID, SELFPAY ==
[2019-02-20 23:23] VITALS: BMI 29.2
[2019-03-28 11:12] VITALS: BP 151/95; PULSE 89; RESP 18; TEMP 36.6; O2SAT 100; BMI 29.0
--- NOTE | 2019-03-28 11:59 | EKG12_ITS ---
Test Reason : DIZZINESS Blood Pressure : / mmHG Vent. Rate : 082 BPM Atrial Rate : 082 BPM P-R Int : 164 ms QRS Dur : 086 ms QT Int : 394 ms P-R-T Axes : 052 064 080 degrees QTc Int : 460 ms Normal sinus rhythm Normal ECG Confirmed by JYOTSNA MORRELL, LUIS ALBERTO ([id number]), international editorial producer GRETCHEN GLEASON ([id number]) on 03/31/2019 8:55:59 AM Referred By: MULU Confirmed By:LUIS ALBERTO GOYAL MD
--- NOTE | 2019-03-28 12:58 | ED.DCSUM_ITS ---
History of Present Illness Chief Complaint: Dizziness Informant: Patient Onset: Today Narrative: Chief complaint reports dizziness however patient denies any symptoms. He comes for evaluation stating somebody took his medications 10 days ago. He does not have a secure home and stays with friends and sometimes in the park. He states he was at the park when it witnessing. Denies chest pain shortness of breath or lightheaded symptoms. No nausea or vomiting. He was seen physician in [place] I was trying to get situated with [facility] here. Past Medical History - Allergies and Home Meds Allergies/Adverse Reactions: Allergies lisinopril Allergy (Verified 03/28/19 11:12) COUGH COUGH Primary Care Physician: Riky Seals [Primary Care Provider] - Surgical History: no surgical history Smoking Status: Current every day smoker - Family History Maternal Family History: Reports: Heart Disease, Hypertension Review of Systems General: Denies: Chills, Fever, Sweats Eyes: Denies: Visual changes - bilaterally, Diplopia ENT: Denies: Rhinorrhea, Sore throat Cardiovascular: Denies: Chest pain, Palpitations Respiratory: Denies: Dyspnea, Cough, Dyspnea on exertion Gastrointestinal: Denies: Abdominal pain, Nausea, Vomiting, Diarrhea, Melena, Hematochezia Genitourinary: Denies: Dysuria, Hematuria, Frequency Musculoskeletal: Denies: Back pain, Extremity Pain Skin: Denies: Rash, Wounds Neurological: Denies: Headache, Weakness, Numbness Physical Exam Vital Signs/Narrative: Vital Signs Temp Pulse Resp BP Pulse Ox 03/28/19 11:12 97.8 F 89 18 151/95 H 100 Inital Vital Signs reviewed: Yes General: Well nourished, Well developed, No Acute Distress Head: Normocephalic, Atraumatic Eyes: Perrl, EOMI ENT: Moist mucous membranes, No rhinorrhea Neck: Supple, Nontender Cardiovascular: Regular rate, Regular rhythm, No murmurs Respiratory: No distress, CTA bilaterally, Chest nontender Abdomen: Soft, Nontender, Nondistended, Normal bowel sounds Back: Nontender, Normal Inspection Extremities: Nontender, No edema Skin: Normal color, No rash Neurological: Alert, Oriented x3, Cranial nerves II-XII grossly intact, Normal Strength, Normal Sensation Psychological: Normal affect, Normal Mood Diagnostic/Tx/Re-eval - EKG Initial EKG Interpretation: Sinus Rhythm - Normal sinus, rate of 82, no ST changes, T wave inversion in aVL. - Medical Decision Making Patient nontoxic, EKG per nursing protocol obtained shows nonspecific changes. Vitals stable slightly elevated blood pressure on arrival at 150 improved transiently with no intervention. Reports medications would cost $30 total for the month and he does not have any starr currently. I spoke with social work evaluated they are able to help with a month supply of medications to be dispensed from pharmacy here. Patient will follow up with [facility]. ED Disposition - Plan for ED Patient: Disposition: Home or Assisted Living Diagnosis: Medication refill Instructions: Med Refill Prescriptions: Atorvastatin Calcium 20 mg PO DAILY #30 tablet Losartan Potassium [Cozaar] 50 mg PO DAILY #30 tablet Dexlansoprazole [Dexilant] 30 mg PO DAILY #30 kathryn. Metoprolol Succinate 100 mg PO DAILY #30 tab.er.24h Paroxetine HCl [Paxil] 40 mg PO DAILY #30 tablet Clopidogrel Bisulfate [Plavix] 75 mg PO DAILY #30 tablet Referrals: Nubia Licea [NON-STAFF] - 5-7 Days
--- NOTE | 2019-03-28 13:26 | CM.ED ---
SOCIAL WORK INFORMANT: DR. HARDWICK REASON FOR REFERRAL: RESOURCES-RX ASSIST MET WITH PATIENT IN ROOM. INTRODUCED ROLE AND REASON FOR REFERRAL. PATIENT REPORTS IS CURRENTLY HOMELESS AND HAS BEEN STAYING WITH FRIENDS. PATIENT STATES HAS ALREADY SPOKEN WITH [facility] [employer] FOR ASSISTANCE WITH HOUSING. PATIENT REPORTS DOES NOT HAVE MONEY TO COVER CO-PAY FOR MEDICATIONS. PATIENT STATES BAG WITH [facility] AND MEDICATIONS WAS STOLEN. EMOTIONAL SUPPORT PROVIDED. PATIENT STATES HAS RECEIVED HELP FROM PEOPLE TO PEOPLE IN THE PAST. PATIENT HOPING TO GET CONNECTED WITH THE FREE CLINIC AND STATES WILL BE FOLLOWING UP WITH THEM. DISCUSSED WITH [employer] BUSINESS DEVELOPER AND RECEIVED APPROVAL TO ASSIST WITH MEDICATION COST. RX ASSIST FORM TO BE COMPLETED. PATIENT UPDATED THIS ASSISTANCE CAN ONLY BE PROVIDED THIS ONE TIME. PATIENT VERBALIZED UNDERSTANDING AND THANKED THIS WORKER. PRESCRIPTIONS AND RX ASSISTANCE FORM TAKEN TO PHARMACY. PLAN: HOME WITH FRIENDS. ASSISTANCE WITH MEDICATION COVERAGE PROVIDED.
[2019-03-28 13:39] VITALS: BP 132/80; PULSE 74; RESP 16; O2SAT 98
== END 2019-03-28 13:40 | disposition home or self-care (01) ==
PROVIDERS: Emergency Provider Emergency Medicine; Family Provider Family Medicine; PCP Family Medicine
DX: Z76.0 Encounter for issue of repeat prescription (principal); R42 Dizziness and giddiness; Z82.49 Family history of ischemic heart disease and other diseases of the circulatory system; Z88.8 Allergy status to other drugs, medicaments and biological substances; F17.200 Nicotine dependence, unspecified, uncomplicated
CPT/HCPCS: 93005; 99282

== ENCOUNTER → 2019-07-29 12:11 | Outpatient (CLI) | payer MEDICARE, MEDICAID, SELFPAY ==
--- NOTE | 2019-07-29 12:23 | CT_ITS ---
STUDY: CT BRAIN WITH AND WITHOUT CONTRAST REASON FOR EXAM: Male, 63 years old. POST CVA RADIATION DOSAGE (If Supplied By Facility): CTDIvol = ( 44.99 ) mGy, DLP = ( 1547.23 ) mGycm TECHNIQUE: Transaxial CT imaging of the brain was performed pre and post contrast administration. The examination was performed with intravenous administration of . Individualized dose optimization techniques were used for this CT. COMPARISON: Comparison is made with prior study dated February 07, 2019. FINDINGS: Normal soft tissue structures. Normal calvarium. There is mild cerebral atrophy with widening of the extra-axial spaces and ventricular dilatation. Normal white matter tracts of the cerebral hemispheres. 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 Normal brainstem. Normal cerebellum. There is no intracranial hemorrhage. There are no findings of an acute ischemic infarction. Atherosclerotic calcification of the vertebral arteries and cavernous portions of the internal carotid arteries bilaterally. Normal visualized paranasal sinuses. CT/Brain/Head W/WO Contrast IMPRESSION: Chronic involutional changes of the brain. 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 Electronically Signed: Lew Ojeda, at 13:25 EST , Service support ,
[2019-07-29 12:40] LABS: CREATININE FINGERSTICK 1.1 mg/dL (0.70-1.30); EGFR FINGERSTICK > 60.0000 mL/min (>60)
== END ==
PROVIDERS: PCP Nurse Practitioner Family; Referring Provider Nurse Practitioner Family; Visit Provider Nurse Practitioner Family
DX: R55 Syncope and collapse (principal)
CPT/HCPCS: 70470; Q9967

== ENCOUNTER 2020-01-24 17:18 | Emergency (ER) | payer MEDICARE, MEDICAID, SELFPAY ==
[2020-01-24 17:21] VITALS: BP 161/136; PULSE 98; RESP 17; TEMP 36.9; O2SAT 95; BMI 27.7
--- NOTE | 2020-01-24 17:47 | EKG12_ITS ---
Test Reason : SOB Blood Pressure : / mmHG Vent. Rate : 097 BPM Atrial Rate : 097 BPM P-R Int : 164 ms QRS Dur : 088 ms QT Int : 370 ms P-R-T Axes : 069 077 070 degrees QTc Int : 469 ms Normal sinus rhythm Normal ECG Confirmed by JYOTSNA MORRELL, LUIS ALBERTO ([id number]), publishing editor GRETCHEN GLEASON ([id number]) on 01/27/2020 9:26:53 AM Referred By: KATHRINE Confirmed By:LUIS ALBERTO GOYAL MD
--- NOTE | 2020-01-24 17:49 | CT_ITS ---
STUDY: CTA HEAD AND NECK WITH CONTRAST REASON FOR EXAM: Male, 64 years old. Weakness and dizziness, history of CVA. RADIATION DOSAGE (If Supplied By Facility): CTDIvol = ( 29.63 ) mGy, DLP = ( 1578.33 ) mGycm TECHNIQUE: CT angiography was performed with a multi-detector CT scanner. Data acquisition was obtained from the skull base through the vertex following intravenous administration of IV 100mL Isovue-370. MIP images were reconstructed from the axial data set. Post-processing of the angiographic images was performed, with multiplanar reformation and 3D reconstruction. Individualized dose optimization techniques were used for this CT. COMPARISON: No relevant priors. FINDINGS: Normal bilateral petrous carotid arteries. Normal right cavernous carotid artery with a normal supraclinoid bifurcation. There is mild calcified plaque formation of the left cavernous carotid artery, without a cross-sectional luminal stenosis. There is non-visualization of the right A1 segment of the anterior cerebral arteries likely due to aplastic development . Normal left A1 segments of the anterior cerebral artery. Normal intact anterior communicating artery (ACOM). Single prominent anterior cerebral artery bifurcates distally. Normal right M1 and M2 segments of the middle cerebral arteries, with a normal M1 bifurcation. Normal left M1 and M2 segments of the middle cerebral arteries, with a normal M1 bifurcation. There is non-visualization of the right posterior communicating artery (PCOM). Normal left posterior communicating artery (PCOM). There is a small left vertebral artery with a dominant right vertebral artery. Normal basilar artery with a normal basilar bifurcation. The visualized bilateral superior cerebellar (SCA) arteries are normal. There is no demonstrated definite aneurysm of the [place] of [place] within the scope and limitation of this examination. There is no demonstrated acute abnormality of the visualized brain. AORTIC ARCH: There is atherosclerotic calcific plaque formation of the aortic arch and great vessels arising from the aortic arch, without a hemodynamically significant stenosis. There is a normal origin of the brachiocephalic, left common carotid, and left subclavian arteries. Normal origins of the brachiocephalic, left common carotid, and left subclavian arteries. RIGHT CAROTID ARTERIES: Normal right common carotid artery (CCA). There is mild atherosclerotic plaque formation with minimal narrowing of the right carotid bulb. There is mild atherosclerotic plaque formation of the origin of the right internal carotid artery with less than 50% cross sectional diameter stenosis. Normal visualized cervical portion of the right internal carotid artery. Normal origin of the right external carotid artery (ECA). LEFT CAROTID ARTERIES: Normal left common carotid artery (CCA). There is mild atherosclerotic plaque formation with minimal narrowing of the left carotid bulb. There is mild atherosclerotic plaque formation of the origin of the left internal carotid artery with less than 50% cross sectional diameter stenosis. Normal visualized cervical portion of the left internal carotid artery. Normal origin of the left external carotid artery (ECA). VERTEBRAL ARTERIES: Normal bilateral vertebral arteries. CT/CTA Head AND Neck W/ Contrast IMPRESSION: 1. 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 Conclusion is unlikely. 2. No demonstrated flow limiting stenosis. 3. Mild atherosclerotic changes with less than 50% stenosis in the bulb region and proximal internal carotid arteries without significant stenosis. 4. Patent bilateral vertebral arteries. Electronically Signed: Juan Schaeffer MD at 19:00 EDT Tel , Service support ,
--- NOTE | 2020-01-24 17:50 | ED.DCSUM_ITS ---
History of Present Illness Chief Complaint: Dizziness Informant: Patient Onset: Weeks Timing: Waxes and wanes Current Severity: Moderate Maximum Severity: Moderate Narrative: Patient presents feeling weak and dizzy. He states he has not felt well for the last 3 weeks but symptoms seem to be progressively worsening. He does note he is been out of his fluoxetine for the past 2 days. He states he is not been able to sleep and eat. He feels like he might have another stroke as he has had a stroke and multiple TIAs in the past. He is not able to further delineate why he feels like he thinks he is going to have a stroke. - Past Medical History (1) Old myocardial infarction Status: Chronic (2) Atherosclerotic heart disease of [place] coronary artery without angina pectoris Status: Chronic (3) Essential hypertension Status: Chronic (4) Presence of stent in coronary artery Status: Chronic Comment: PCI/stent to mid RCA and CX 06/2013;PCI/KAT to instent restenosis of mid RCA 03/28/17 (5) Pure hypercholesterolemia Status: Chronic (6) CVA (cerebral vascular accident) Status: Chronic Past Medical History - Allergies and Home Meds Allergies/Adverse Reactions: Allergies lisinopril Allergy (Verified 01/24/20 17:25) COUGH COUGH Primary Care Physician: Shannon Conde NP-C [Primary Care Provider] - Prior records reviewed: Yes Surgical History: no surgical history Smoking Status: Current every day smoker - Family History Maternal Family History: Family History (Last Updated 08/12/19 @ 17:15 by Zoila Yousif) Father Heart disease Mother Alzheimers disease Brother COPD (chronic obstructive pulmonary disease) Brother Heart disease Sister Cancer Family History: Reports: Heart Disease, Hypertension Review of Systems General: Denies: Chills, Fever Eyes: Denies: Visual changes - bilaterally ENT: Denies: Bilateral ear pain Cardiovascular: Denies: Chest pain Respiratory: Denies: Dyspnea Gastrointestinal: Denies: Abdominal pain, Nausea, Vomiting Musculoskeletal: Denies: Extremity Pain Skin: Denies: Rash Neurological: Reports: Weakness - Generalized weakness. Denies: Headache Hematologic: Denies: Easy bruising, Easy bleeding Allergy: Denies: Uticaria Physical Exam Vital Signs/Narrative: Vital Signs Temp Pulse Resp BP Pulse Ox 01/24/20 17:21 98.5 F 98 17 161/136 H 95 Inital Vital Signs reviewed: Yes General: Well nourished, Well developed Head: Normocephalic ENT: Moist mucous membranes Neck: Supple Cardiovascular: Regular rate, Regular rhythm Respiratory: No distress, Wheezing Abdomen: Soft, Nontender Back: Nontender Extremities: Nontender Neurological: Alert, Oriented x3 Psychological: Normal affect Diagnostic/Tx/Re-eval Impressions Head/Neck CTA 01/24/20 17:49 IMPRESSION: 1. 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 Conclusion is unlikely. 2. No demonstrated flow limiting stenosis. 3. Mild atherosclerotic changes with less than 50% stenosis in the bulb region and proximal internal carotid arteries without significant stenosis. 4. Patent bilateral vertebral arteries. Electronically Signed: Juan Schaeffer MD at 19:00 EDT Tel , Service support , Chest X-Ray 01/24/20 19:00 IMPRESSION: No active pulmonary disease. Electronically Signed: Juan Schaeffer MD at 19:21 EDT Tel , Service support , 01/24/20 17:49 CTA Head AND Neck W/ Contrast [CT] Stat 01/24/20 19:00 Chest 1 View (Portable) [RAD] Stat Laboratory Results 01/24/20 01/24/20 17:28 17:28 WBC 5.3 RBC 4.04 L Hgb 12.4 L Hct 37.9 L MCV 93.8 MCH 30.7 MCHC 32.7 RDW Std Deviation 50.5 H RDW Coeff of Mad[place] 14.6 Plt Count 193 MPV 10.2 Immature Gran % (Auto) 0.400 Neut % (Auto) 43.3 L Lymph % (Auto) 42.2 H Whitman % (Auto) 7.9 Eos % (Auto) 5.3 H Baso % (Auto) 0.9 Absolute Neuts (auto) 2.3 Absolute Lymphs (auto) 2.23 Nucleated RBC % 0 Sodium 136 Potassium 4.7 Chloride 106 Carbon Dioxide 24.0 Anion Gap 6 BUN 5 L Creatinine 0.75 Estim Creat Clear Calc 105.44 Est GFR (MDRD) Af Amer 135 Est GFR (MDRD) Non-Af 112 BUN/Creatinine Ratio 6.6 L Glucose 99 Calcium 8.4 L Troponin I < 0.015 - Medical Decision Making Patient is given IV fluids here. He is given a dose of Paxil as well as a dose of Vistaril. Social work did meet with the patient. Test results are discussed with him and he is reassured with our findings here. Patient now states he thinks his symptoms are secondary to anxiety. He will be given a very short course of Vistaril for home and will follow-up with his doctor on Sunday. ED Disposition - Plan for ED Patient: Disposition: Home or Assisted Living Diagnosis: Dizziness, Anxiety Prescriptions: hydrOXYzine pamoate capsule [Vistaril] 50 mg PO TID PRN PRN #12 cap PRN Reason: Anxiety Transmission Status: Pending to [id number] Referrals: Shannon Conde, TAY-C [Primary Care Provider] - As soon as possible
[2020-01-24 17:59] LABS: Absolute Lymphocyte Count 2.23 X10^3/uL (0.83-4.51); Absolute Neutrophil Count 2.3 X10^3/uL (2.0-7.7); Basophil# 0.05 X10^3/uL; Basophil% 0.9 % (0-1); Eosinophil# 0.28 X10^3/uL; Eosinophils% 5.3 % (0-5); Hematocrit 37.9 % (40-54); Hemoglobin 12.4 g/dL (13.0-16.5); Lymphocyte # 2.23 X10^3/ul (4.0); Lymphocyte % 42.2 % (19-41); Mean Corp Hgb Conc 32.7 g/dL (32-36); Mean Corpuscular Hgb 30.7 pg (27.0-32.0); Mean Corpuscular Volume 93.8 fL (80-94); Mean Platelet Vol. 10.2 fl (6.2-12.0); Monocyte# 0.42 X10^3/uL; Monocyte% 7.9 % (0-10); NRBC Flagged by Analyzer 0 % (0-5); Neutrophil # 2.29 X10^3/uL (2.7-7.7); Neutrophil % 43.3 % (47-70); Platelet Count 193 K/mm3 (150-450); RBC Distribution Width CV 14.6 % (11.6-14.6); RBC Distribution Width SD 50.5 fl (35.1-43.9); Red Blood Count 4.04 M/mm3 (4.6-6.2); White Blood Count 5.3 K/mm3 (4.4-11.0)
[2020-01-24 18:05] VITALS: PULSE 96; RESP 22
[2020-01-24] MEDS: Ipratropium/Albuterol Sulfate 3 ML AMPUL.NEB INHALATION (18:05)
[2020-01-24] MEDS: 0.9% Normal Saline 1,000 ML 150 ML IV (18:07)
[2020-01-24 18:14] LABS: Anion Gap 6 (5-15); BUN 5 mg/dL (7-18); BUN/Creat Ratio 6.6 RATIO (10-20); Calcium,Total 8.4 mg/dL (8.5-10.1); Chloride 106 mmol/L (98-107); Creatinine, Serum 0.75 mg/dL (0.70-1.30); EST Glomerular Filtration Rate 112 mL/min (>60); Est Glom Filt Rate - Afr Amer 135 mL/min (>60); Estimated Creatinine Clearance 105.44 ml/min; Glucose 99 mg/dL (74-106); Potassium 4.7 mmol/L (3.5-5.1); Sodium Level 136 mmol/L (136-145)
--- NOTE | 2020-01-24 19:00 | RAD_ITS ---
STUDY: X-RAY CHEST REASON FOR EXAM: Male, 64 years old. Weakness and dizziness. TECHNIQUE: Single AP portable view of the chest. COMPARISON: 02/07/2019 FINDINGS: The lungs are clear and expanded. There is no demonstrated pleural abnormality. Normal size heart. Normal mediastinum and dirk. Normal visualized pulmonary arteries. Normal visualized aortic arch and descending thoracic aorta. Normal visualized thoracic spine. There is an old fracture of the outer end of the right clavicle. There is no demonstrated abnormality of the visualized soft tissue structures of the upper abdomen. RAD/Chest 1 View (Portable) IMPRESSION: No active pulmonary disease. Electronically Signed: Juan Schaeffer MD at 19:21 EDT Tel , Service support ,
--- NOTE | 2020-01-24 19:20 | CM.ED ---
SOCIAL WORK Informant: Dr. Damon Reason for Consult: Resources Met with patient in room. Introduced role and reason for referral. Patient states has been feeling like I'm having another stroke. Patient reports has been out of medications. Patient denies issues in paying for medications and states needs to see the doctor to get medications refilled. Patient reports has been having anxiety and states doctor took him off Ativan. Patient admits to alcohol use and states, I drink daily. 3 cans of beer a day. Patient requesting Dr. Damon give me something for this anxiety. Discussed follow up with counseling and psych services. Patient denies need to see a shrink. Encouraged patient to follow up with PCP- Dr. Conde on Sunday. Patient agrees with plan. Collaboration with Dr. Damon. Plan for discharge home with short term prescription for Vistaril. Rosa Isela Kim, POTASH FLAKER, PIECE JOBBER
[2020-01-24 19:48] VITALS: BP 131/72; PULSE 87; RESP 20; O2SAT 96
[2020-01-24] MEDS: hydrOXYzine PAM 25 MG Capsule 50 MG PO (20:39)
[2020-01-24] MEDS: Paroxetine 20 MG Tablet 40 MG PO (20:40)
[2020-01-24 20:41] VITALS: BP 132/70; PULSE 90; RESP 17; O2SAT 97
== END 2020-01-24 20:49 | disposition home or self-care (01) ==
PROVIDERS: Emergency Provider Emergency Medicine; PCP Nurse Practitioner Family
DX: R42 Dizziness and giddiness (principal); F41.9 Anxiety disorder, unspecified; Z86.73 Personal history of transient ischemic attack (TIA), and cerebral infarction without residual deficits; I25.2 Old myocardial infarction; I25.10 Atherosclerotic heart disease of native coronary artery without angina pectoris; I10 Essential (primary) hypertension; E78.00 Pure hypercholesterolemia, unspecified; Z79.02 Long term (current) use of antithrombotics/antiplatelets; Z79.899 Other long term (current) drug therapy; F17.200 Nicotine dependence, unspecified, uncomplicated
CPT/HCPCS: 70496; 70498; 71045; 80048; 84484; 85025; 93005; 94640; 96360; 96361; 99285; J7030; Q9967; A4216

== ENCOUNTER 2021-07-08 11:12 | Inpatient (IN) | payer MEDICARE, MEDICAID, SELFPAY ==
[2021-07-08] VITALS (23 sets, daily range): BP systolic 90–144; BP diastolic 53–89; PULSE 63–87; RESP 15–21; TEMP 36.2–36.9; O2SAT 94–100; BMI 25.1; BMI 26.7
--- NOTE | 2021-07-08 11:23 | EKG12_ITS ---
Test Reason : CP Blood Pressure : / mmHG Vent. Rate : 070 BPM Atrial Rate : 070 BPM P-R Int : 160 ms QRS Dur : 090 ms QT Int : 444 ms P-R-T Axes : 069 028 093 degrees QTc Int : 479 ms Normal sinus rhythm Inferior infarct , possibly acute ACUTE MS / STEMI Consider right ventricular involvement in acute inferior infarct Abnormal ECG Confirmed by LEDY MORRELL, ADRIENNE ([id number]), international editorial producer GRETCHEN GLEASON ([id number]) on 07/21/2021 8:52:35 AM Referred By: Ledy Abebe Confirmed By:ADRIENNE VILLAFANA MD
--- NOTE | 2021-07-08 11:27 | NURSING ---
STEMI CALLED [id number] STEMI DOCTOR CALLED BACK
--- NOTE | 2021-07-08 11:31 | EKG12_ITS ---
Test Reason : CP RIGHT SIDED Blood Pressure : / mmHG Vent. Rate : 076 BPM Atrial Rate : 076 BPM P-R Int : 160 ms QRS Dur : 078 ms QT Int : 432 ms P-R-T Axes : 074 033 095 degrees QTc Int : 486 ms Right sided EKG Normal sinus rhythm with sinus arrhythmia Inferior infarct , age undetermined : Possibly acute/recent Possible RV infarct: possibly acute Abnormal ECG Confirmed by LEDY MORRELL, ADRIENNE ([id number]), magazine editor GRETCHEN GLEASON ([id number]) on 07/21/2021 8:41:48 AM Referred By: Ledy Abebe Confirmed By:ADRIENNE VILLAFANA MD
--- NOTE | 2021-07-08 11:31 | RAD_ITS ---
STUDY: X-RAY CHEST REASON FOR EXAM: Male, 65 years old. chest pain TECHNIQUE: Single AP portable view of the chest. COMPARISON: 01/24/2020 FINDINGS: The lungs are clear and expanded. There is no demonstrated pleural abnormality. Normal size heart. Normal mediastinum and dirk. Normal visualized pulmonary arteries. Normal visualized aortic arch and descending thoracic aorta. Normal visualized thoracic spine. Normal visualized ribs, clavicles, and shoulders. There is no demonstrated abnormality of the visualized soft tissue structures of the upper abdomen. RAD/Chest 1 View (Portable) IMPRESSION: Normal x-ray examination of the chest. Electronically Signed: Klaus Farris MD at 12:02 EST Tel , Service support ,
--- NOTE | 2021-07-08 11:33 | ED.VIS.CHEST ---
HPI History of Present Illness Chief Complaint: Chest Pain Detail of Chief Complaint: Chest pain that started yesterday Informant: patient Onset/Context/Timing Current Severity: 02/15 Narrative Narrative: Patient presents with chest pain that started yesterday. He describes pain across his chest and radiating into his neck and down his left arm. Feels short of breath with it. He has had similar pains in the past when he had a heart attack. Patient has several heart stents and the last time was a couple years ago at [facility]. Patient currently rates the tightness an 8 out of 10. Patient has history of hypertension. Patient states that he is not been taking his medications. Prior Similar Symptoms: Yes PFSH [facility] Medical History (Updated 07/08/21 @ 11:[address] Britta Lopez DO) Alcohol abuse Atherosclerotic heart disease of [place] coronary artery without angina pectoris Essential hypertension History of stroke Old myocardial infarction Presence of stent in coronary artery (~03/28/17) Pure hypercholesterolemia Tobacco abuse Home Medications paroxetine HCl 40 mg PO DAILY 02/20/19 [History Last Taken Unknown] atorvastatin 20 mg PO DAILY #30 tab 03/28/19 [Rx Last Taken Unknown] clopidogrel 75 mg PO DAILY #30 tab 03/28/19 [Rx Last Taken Unknown] dexlansoprazole 30 mg PO DAILY #30 cap.[email or web address] 03/28/19 [Rx Last Taken Unknown] losartan 50 mg PO DAILY #30 tab 03/28/19 [Rx Last Taken Unknown] metoprolol succinate 100 mg PO DAILY #30 tab.er.24h 03/28/19 [Rx Last Taken Unknown] nitroglycerin 0.4 mg sublingual tablet 0.4 mg SUBLINGUAL Q5-15M PRN 08/12/19 [History Last Taken Unknown] hydroxyzine pamoate 50 mg PO TID PRN PRN #12 cap 01/24/20 [Rx Last Taken Unknown] Allergy/AdvReac Type Severity Reaction Status Date / Time lisinopril Allergy COUGH Verified 07/08/21 11:15 Family History (Updated 08/12/19 @ 17:15 by Zoila Yousif) Father Heart disease Mother Alzheimers disease Brother COPD (chronic obstructive pulmonary disease) Brother Heart disease Sister Cancer Lung Surgical History (Updated 01/24/20 @ 17:[address] Bethany Damon MD) History of gastrectomy History of tracheostomy Presence of coronary angioplasty implant and graft (~03/28/17) Social History (Updated 08/12/19 @ 17:16 by Zoila Yousif) Smoking Status: Current every day smoker alcohol intake: current details: occasional substance use type: does not use caffeine: Yes Type: coffee Number of servings: 2 ROS ROS ED Review of Systems ROS Unobtainable: other Constitutional Constitutional ED: Reports lethargy; Denies chills, fever(s), sweats or weight loss Eyes Eyes: Denies blurry vision, change in vision or diplopia ENT ENT ED: Denies rhinorrhea or sore throat Cardiovascular Cardiovascular: Reports chest pain and racing heartbeat; Denies orthopnea Respiratory/Chest Respiratory/Chest: Reports dyspnea and dyspnea on exertion; Denies cough, orthopnea or sputum Gastrointestinal Gastrointestinal: Denies abdominal pain, diarrhea, nausea or vomiting Genitourinary Genitourinary ED: Denies dysuria, hematuria or urinary frequency Musculoskeletal Musculoskeletal: Denies arthralgias, back pain, myalgias or neck pain Integumentary Denies abscess, Abrasions or rash Neurologic Neurologic: Denies headache(s) or weakness Psychiatric Psychiatric: Denies anxiety, depression or suicidal thoughts Endocrine Endocrinology: Denies polydipsia, polyphagia or polyuria Hematologic/Lymphatic Hematologic/Lymphatic: Denies easy bleeding, easy bruising or lymphadenopathy Allergic/Immunologic Allergic/Immunologic ED: Denies mouth swelling, tongue swelling or urticaria EXAM Physical Exam Const Vital Signs: 07/08/21 11:12 Temperature 97.2 F L Temperature Source Temporal Pulse Rate 72 Respiratory Rate 16 Blood Pressure 136/89 H Blood Pressure Mean 104 Pulse Ox 100 Oxygen Delivery Method Room Air Positive well nourished and well developed General Appearance ED: well developed and NAD HEENT Reports TM's clear and moist mucous membranes normocephalic and atraumatic; Negative for trauma or tenderness Tympanic Membrane ED: Yes TM's clear Eyes PERRL and EOMs intact bilaterally General Eye ED: Negative for pale conjunctiva or scleral icterus Neck no lymphadenopathy, supple and no JVD General: Negative for tenderness Chest Wall inspection of chest normal and palpation of chest normal Chest: Negative for tenderness Resp normal respiratory effort and clear to auscultation bilaterally Effort and Inspection: Negative for respiratory distress or pain with movement Auscultation: Negative for rhonchi, wheezes or diminished lung sounds Cardio regular rate, regular rhythm, S1 normal heart sound, S2 normal heart sound and no murmurs Peripheral Pulses: pulses 2+ throughout GI normal to inspection, nondistended, normoactive bowel sounds, soft to palpation, non-tender, non-distended and no masses Back/Spine no CVA tenderness and no thoracic nor lumbar tenderness Extremity normal to inspection General Extremety ED: Negative for edema General Extremity: Negative for edema Neuro oriented x3, CN's II-XII intact bilaterally, no sensory deficits noted and gait normal Sensorium / Orientation: awake, alert, oriented to person, oriented to place and oriented to time Motor Exam: strength 5/5 throughout and strength abnormal Psych mental status grossly normal Skin no rashes or lesions noted and no wounds MDM MDM MDM Narrative Medical decision making narrative: IV line established on arrival in triage. Patient had an EKG in triage that was handed to me which showed an acute ST elevation [place] in the inferior leads. I immediately called the a STEMI team and spoke with family lawyer Dr. Abebe who will evaluate patient and take the Drilling Plant Operator. Patient will be given aspirin, heparin, and morphine and Zofran. EKG Initial EKG: Attestation: I personally reviewed and interpreted this EKG as follows: Comments: Sinus rhythm with a rate of [address] elevation in two three and aVF with slight ST depression in leads I and aVL. Discharge Plan Dx/Rx/DC Orders Clinical Impression: Acute ST elevation myocardial infarction Disposition Disposition: Acute Care Hospital [facility]
--- NOTE | 2021-07-08 11:35 | EKG12_ITS ---
Test Reason : POST STEMI Blood Pressure : / mmHG Vent. Rate : 061 BPM Atrial Rate : 061 BPM P-R Int : 152 ms QRS Dur : 080 ms QT Int : 486 ms P-R-T Axes : -06 008 092 degrees QTc Int : 489 ms Normal sinus rhythm Inferior infarct , possibly acute ACUTE MT / STEMI Consider right ventricular involvement in acute inferior infarct Abnormal ECG Confirmed by LEDY MORRELL, ADRIENNE ([id number]), society editor GRETCHEN GLEASON ([id number]) on 07/21/2021 8:13:39 AM Referred By: Ledy Abebe Confirmed By:ADRIENNE VILLAFANA MD
[2021-07-08 11:43] LABS: Absolute Lymphocyte Count 1.54 X10^3/uL (0.83-4.51); Absolute Neutrophil Count 9.1 X10^3/uL (2.0-7.7); Basophil# 0.05 X10^3/uL; Basophil% 0.4 % (0-1); Eosinophil# 0.06 X10^3/uL; Eosinophils% 0.5 % (0-5); Hematocrit 40.7 % (40-54); Hemoglobin 13.9 g/dL (13.0-16.5); Lymphocyte # 1.54 X10^3/ul (0.83-4.51); Lymphocyte % 13.1 % (19-41); Mean Corp Hgb Conc 34.2 g/dL (32-36); Mean Corpuscular Hgb 31.2 pg (27.0-32.0); Mean Corpuscular Volume 91.5 fL (80-94); Mean Platelet Vol. 10.1 fl (6.2-12.0); Monocyte% 8.5 % (0-10); NRBC Flagged by Analyzer 0 % (0-5); Neutrophil # 9.06 X10^3/uL (2.7-7.7); Neutrophil % 77.2 % (47-70); Platelet Count 304 K/mm3 (150-450); RBC Distribution Width CV 12.9 % (11.6-14.6); RBC Distribution Width SD 43.3 fl (35.1-43.9); Red Blood Count 4.45 M/mm3 (4.6-6.2); White Blood Count 11.8 K/mm3 (4.4-11.0)
[2021-07-08] MEDS: Heparin Injection (Vial) 5,000 UNIT/ML VIAL 4000 UNIT IV (11:43)
[2021-07-08] MEDS: Aspirin 81 MG TAB.CHEW 324 MG PO (11:44)
[2021-07-08] MEDS: Morphine 4 MG/ML Syringe IV (11:45)
[2021-07-08] MEDS: Ondansetron 4 MG/2 ML Vial IV (11:45)
[2021-07-08 11:51] LABS: Partial Thromboplast Time 28.5 Seconds (24.1-36.2); Prothrombin Time (Protime)PT. 12.6 SECONDS (11.7-14.9)
[2021-07-08] MEDS: 0.9% Normal Saline 1,000 ML 150 ML IV ×2 (12:14→15:21)
[2021-07-08 12:28] LABS: Anion Gap 8 (5-15); BUN 10 mg/dL (7-18); Calcium,Total 9.4 mg/dL (8.5-10.1); Chloride 102 mmol/L (98-107); Creatinine, Serum 0.77 mg/dL (0.70-1.30); EST Glomerular Filtration Rate 109 mL/min (>60); Est Glom Filt Rate - Afr Amer 131 mL/min (>60); Estimated Creatinine Clearance 101.39 ml/min; Glucose 121 mg/dL (74-106); Sodium Level 135 mmol/L (136-145); Troponin-I HS 36155 pg/mL (3.0-78.0)
--- NOTE | 2021-07-08 13:58 | PCM.HP.STD ---
HPI - General General Date of Admission: 07/08/21 Date of Service: 07/08/21 Chief Complaint: Chest pain HPI Narrative The patient is a 65 y/o M w/ PMHx: CAD s/p PCI 03/2017, HTN, HLD, Hx prior CVA, Tobacco use, EtOH abuse who presents to the [facility] ED on 07/08/21 with history of onset of chest discomfort starting the day prior primarily midsternal and radiating into his neck as well as down towards his belly as well his bilateral upper extremities with associated diaphoresis, dyspnea, nausea and bouts of emesis rating his discomfort 10 of 10 in severity, described as a tightness. He does report it was similar to his prior chest discomfort preceding his PCI which he reports having had at [facility] years prior in 2016. Work-up in the ED included T 97.2, heart rate 72, BP 136/89, respiratory rate 16, 100% on room air, CBC with WC 11.8, hemoglobin 13.9, platelets 304 with mild left shift, unremarkable coags, BMP with sodium 135, glucose 121 otherwise not marked appearing, high-sensitivity troponin initial 36,155, EKG with inferior STEMI evident, chest x-ray with no acute cardiopulmonary findings. In the ED patient was administered normal saline, aspirin 324 mg p.o. x1, heparin 4000 unit bolus, morphine 4 mg IV x1 and Zofran 4 mg IV x1 patient transition to cardiac catheterization lab with electronic components assembler, Dr. Abebe with reported significantly occluded proximal RCA eventually receiving PCI following further intervention. Following cardiac catheterization and intervention patient noted complete resolution of chest discomfort and was transitioned to the ICU for further care. FOR[facility] Medical History (Updated 07/08/21 @ 14:[address] Delores Mendoza MD) Alcohol abuse Atherosclerotic heart disease of alutiiq coronary artery without angina pectoris Essential hypertension History of stroke Old myocardial infarction Presence of stent in coronary artery (~03/28/17) Pure hypercholesterolemia Tobacco abuse Allergy/AdvReac Type Severity Reaction Status Date / Time lisinopril Allergy COUGH Verified 07/08/21 11:15 Family History (Updated 08/12/19 @ 17:15 by Zoila Yousif) Father Heart disease Mother Alzheimers disease Brother COPD (chronic obstructive pulmonary disease) Brother Heart disease Sister Cancer Lung Surgical History History of gastrectomy History of tracheostomy Presence of coronary angioplasty implant and graft (~03/28/17) Social History (Updated 07/08/21 @ 14:[address] Delores Mendoza MD) housing: other details: Lives with a roommate. Smoking Status: Current every day smoker tobacco type: cigarettes Smoking packs per day: 1.5 Smoking cigarettes per day: 30.0 Years smoked: 50 Smoking pack-years: 75.00 alcohol intake: current alcohol intake frequency: 3 or more drinks per day Alcohol type: beer details: Daily. substance use type: does not use caffeine: Yes Type: coffee Number of servings: 2 ROS ROS Narrative Admission Review of Systems: CONSTITUTIONAL: No weight loss, fever, chills, + weakness or fatigue. HEENT: Eyes: No visual loss, blurred vision, double vision or yellow sclerae. Ears, Nose, Throat: No hearing loss, sneezing, congestion, runny nose or sore throat. SKIN: No rash or itching, lesions, wounds. CARDIOVASCULAR: Chest pain and tightness, No palpitations, edema, orthopnea, syncopal events. RESPIRATORY: + Shortness of breath, No cough or sputum, wheezing, hemoptysis. GASTROINTESTINAL: + Anorexia, nausea, vomiting, dyspepsia, No diarrhea, abdominal pain, melena, BRBPR. GENITOURINARY: No dysuria, frequency, urgency or retention. NEUROLOGICAL: No headache, dizziness, syncope, paralysis, ataxia, numbness or tingling in the extremities, change in bowel or bladder control, seizure. MUSCULOSKELETAL: + muscle, back pain, joint pain or stiffness. HEMATOLOGIC: No anemia, bleeding or bruising. LYMPHATICS: No enlarged nodes. No history of splenectomy. PSYCHIATRIC: + history of depression or anxiety. ENDOCRINOLOGIC: No reports of sweating, cold or heat intolerance. No polyuria or polydipsia. ALLERGIES: No history of asthma, hives, eczema or rhinitis. Vital Signs Vital Signs Vital Signs: 07/08/21 11:12 07/08/21 11:40 07/08/21 11:47 Temperature 97.2 F L Temperature Source Temporal Pulse Rate 72 Respiratory Rate 16 Respiratory Effort Respiratory Pattern Blood Pressure 136/89 H 144/88 H Blood Pressure Mean 104 Pulse Ox 100 Oxygen Delivery Method Room Air Room Air 07/08/21 12:12 07/08/21 12:20 Temperature 97.8 F Temperature Source Temporal Pulse Rate 87 Respiratory Rate 16 Respiratory Effort Normal Non-Labored Respiratory Pattern Normal Blood Pressure 137/78 H Blood Pressure Mean 97 Pulse Ox 97 Oxygen Delivery Method Room Air Weight Weight: 175 lb Body Mass Index (BMI) 25.1 Physical Exam Narrative Physical Examination: General: Awake, alert, oriented x 3 and cooperative, laying in the ICU bed, recent cardiac catheterization with sheath in place, on bedrest, notes chest pain completely resolved. Skin: Normal color, normal turgor, no icterus, no cyanosis. HEENT: AT/NC, EOMI, PERRLA, mildly dry MM, no carotid bruits or JVD noted. Lungs: Mildly diminished, greater bases, moderate effort, no rales, ronchi or wheezing. Heart: Regular rate and rhythm; no gallop, rub audible. Abdomen: Soft, NTTP, ND, mildly distant hyperactive BS, no HSM. Extremities: No cyanosis, clubbing, or edema. Neurological: Patient awake, alert, oriented as noted, cognitive function intact; pupils equally reactive to light and accommodation, cranial nerves II-XII grossly normal, moving all 4 extremities spontaneously however limited given bed rest currently with sheath in the right groin, wrist status post attempt for catheterization with compression in place with no bleeding evident, strength deferred given bedrest currently. Psychiatric: Affect appears mildly fatigued, mildly anxious, no acute evidence of depressive feelings. Results Lab / Micro Data Result Diagrams: 07/08/21 11:35 07/08/21 11:35 Labs: Laboratory Results - last 24 hr 07/08/21 11:35: WBC 11.8 H, RBC 4.45 L, Hgb 13.9, Hct 40.7, MCV 91.5, MCH 31.2, MCHC 34.2, RDW Std Deviation 43.3, RDW Coeff of Madelin 12.9, Plt Count 304, MPV 10.1, Immature Gran % (Auto) 0.300, Neut % (Auto) 77.2 H, Lymph % (Auto) 13.1 L, Dubois % (Auto) 8.5, Eos % (Auto) 0.5, Baso % (Auto) 0.4, Absolute Neuts (auto) 9.1 H, Absolute Lymphs (auto) 1.54, Nucleated RBC % 0 07/08/21 11:35: PT 12.6, INR 1.0, APTT 28.5 07/08/21 11:35: Sodium 135 L, Potassium 4.0, Chloride 102, Carbon Dioxide 25.0, Anion Gap 8, BUN 10, Creatinine 0.77, Estim Creat Clear Calc 101.39, Est GFR (MDRD) Af Amer 131, Est GFR (MDRD) Non-Af 109, BUN/Creatinine Ratio 13.0, Glucose 121 H, Calcium 9.4, Troponin I High Sens 43672 H* Radiology Impression Chest X-Ray 07/08/21 11:31 IMPRESSION: Normal x-ray examination of the chest. Electronically Signed: Klaus Farris MD at 12:02 EST Tel , Service support , Assessment & Plan Assessment/Plan (1) Acute ST elevation myocardial infarction: QUALIFIERS: Involved coronary artery: right coronary artery Qualified Code(s): I21.11 - ST elevation (STEMI) myocardial infarction involving right coronary artery PLAN: The patient is a 65 y/o M w/ PMHx: CAD s/p PCI 03/2017, HTN, HLD, Hx prior CVA, Tobacco use, EtOH abuse who presents to the [facility] ED on 07/08/21 with history of onset of chest discomfort starting the day prior primarily midsternal and radiating into his neck as well as down towards his belly as well his bilateral upper extremities with associated diaphoresis, dyspnea, nausea and bouts of emesis rating his discomfort 10 of 10 in severity. #1. Chest Pain w/ Acute STEMI: EKG in ED w/ acute inferior STEMI, CXR w/ no acute cardiopulmonary findings. Trop elevated, 36,155. Patient transition to the cardiac catheterization lab with 2 stents eventually placed in the RCA. Will admit to the ICU, continue cardiology consultation, maintain on bedrest given sheath still in place per cardiology direction, maintain on a monitored bed, continue serial cardiac enzymes and EKGs. Obtain magnesium level upon admission. Continue medical management w/ asa 81 mg daily, Brilinta 90 mg twice daily, metoprolol tartrate 25 mg twice daily, high-dose statin w/ AM FLP. Echocardiogram requested. #2. CAD: Status post prior PCI 03/2017, will continue as noted aspirin, Brilinta initiated, metoprolol, high-dose statin therapy. #3. Hypertension: We will initiate metoprolol 25 mg twice daily per discussion with cardiology, if necessary may add ARB as noted coughing with lisinopril on allergies. As needed IV hydralazine #4. Hyperlipidemia: We will add high-dose atorvastatin, FLP in AM. #5. Tobacco Abuse: Encouraged cessation, inpatient consultation per RT, NR if desired. #6. History of prior CVA: We will continue aspirin, statin, hypertensive regimen as noted. #7. EtOH Abuse: Patient notes routine consumption of 3, 12 ounce beers daily but from discussions do suspect that occasionally it may go up to 4 5. Alcohol and UDS requested. Magnesium and phosphorus levels requested. or Will maintain on CIWA protocol, MVI, thiamine and folic acid. Case management consulted. #8. DVT prophylaxis: SCDs, Lovenox to be initiated in AM. Charges/Coding Visit Charges Inpatient E&M: 59785 Init Hosp L3
--- NOTE | 2021-07-08 14:23 | ECHOCS_ITS ---
Reason For Study: STEMI Procedure This was a 2D Doppler, Color Flow transthoracic echocardiogram. Contrast injection was performed. Exam performed portable in ICU/CCU. Left Ventricle Normal LV size. Mild concentric left ventricular hypertrophy. Right Ventricle Normal right ventricle. Mitral Valve There is moderate to severe mitral annular calcification. Tricuspid Valve Normal tricuspid valve. Aortic Valve Trisinus/trileaflet aortic valve. Aortic sclerosis, no stenosis. Great Vessels No collapse of the inferior vena cava. Pericardium/Pleural No pericardial effusion. Medication Diluted definity 2ml given slow IV push to enhance endocardial definition. MMode/2D Measurements & Calculations LVIDd: 4.9 cm IVSd: 0.99 cm Ao root diam: 2.4 cm LVIDs: 3.4 cm LVPWd: 1.2 cm RVDd: 2.8 cm FS: 29.5 % LAV(MOD-bp): 29.1 ml LA A4 area: 15.5 cm2 LA dimension(2D): 3.4 cm LAV(MOD-bp) Indexed: 14.3 ml/m2 LAV(MOD-sp2): 17.7 ml LAV(MOD-sp4): 39.7 ml RA A4 area: 12.0 cm2 Doppler Measurements & Calculations MV E max vargas: 64.5 cm/sec Lat Peak E' Vargas: 8.6 cm/sec Med Peak E' Vargas: 4.6 cm/sec MV A max vargas: 83.0 cm/sec E/E' lat: 7.5 E/E' med: 14.1 MV E/A: 0.78 Ao V2 max: 109.4 cm/sec LV V1 max: 90.6 cm/sec PA V2 max: 59.5 cm/sec Ao max P.8 mmHg LV V1 max P.3 mmHg Ao V2 mean: 79.2 cm/sec Ao mean P.7 mmHg Ao V2 VTI: 19.8 cm TR max vargas: 242.0 cm/sec TR max P.4 mmHg ECHO/Echo Complete W/ Contrast Interpretation Summary Technically difficult study, patient supine, also patient with COPD. Image quality 5 out of 10 Contrast was used to enhance imaging. Overall left ventricular systolic function low normal visually estimated left v entricular ejection fraction 50 to 55%. Probable mild concentric left ventricular hypertrophy Grade 1 diastolic dysfunction Cannot exclude mild hypokinesis of the posterior wall. Hypokinesis of the basal septum is also probable. Other than that no discernible wall motion abnormalities. Left atrial size is normal Right atrium and right ventricle are of normal size, right ventricular systolic function appears normal. There is mild aortic sclerosis without stenosis or regurgitation There is dense mitral annular calcification particularly around the posterior m itral leaflet. The valve itself appears grossly normal functionally Tricuspid valve is grossly normal PA pressure not estimated because there was no appreciable tricuspid regurgitat ion No pericardial effusion Inferior vena cava mildly dilated and does not collapse with sniff test. No prior echo report is available for comparison. Ordering Physician: Delores Mendoza Referring Physician: Ledy Abebe Performed By: Amrita Chaidez, JESSICA, RVT
[2021-07-08 14:31] LABS: Magnesium 1.9 mg/dL (1.6-2.6)
[2021-07-08 14:39] LABS: Phosphorus 3.5 mg/dL (2.5-4.9)
--- NOTE | 2021-07-08 14:56 | PCS.PANDOC ---
PANDEMIC DOCUMENTATION INITIATED: Date: 07/08/2021 Time: 1410
[2021-07-08] MEDS: Morphine 2 MG/ML Syringe IV (16:29)
[2021-07-08] MEDS: LORazepam 1 MG Tablet 2 MG PO (16:30)
[2021-07-08] MEDS: 0.9% Normal Saline 1,000 ML 75 ML IV (18:08)
[2021-07-08] MEDS: LORazepam 1 MG Tablet PO ×2 (18:08→22:22)
--- NOTE | 2021-07-08 19:22 | CASEMGMT ---
RN CM note: RN CM to room to do initial RN CM assessment. Pt confused at this time. Unable to complete assessment. CM to attempt Sunday. Yohannes BSN RN CM
--- NOTE | 2021-07-08 19:26 | PCIREPORT_ITS ---
PCI Cardiac Cath Report PCI Report: Patient presented with acute inferior ST segment elevation myocardial infarction. He has multiple cardiac risk factors, medical noncompliance, and apparently stopped all his medications a year ago. He continues to smoke. He has COPD. He has had previous stenting, details were not available. Procedure details: Initial attempt to access the right radial artery had to be aborted because of inability to advance guidewire. Quickly moved to the right femoral access, single anterior percutaneous stick, 6 [place] sheath placed. Heparin administered ACT documented. All catheters were exchanged over a 0.035 guidewire. 6 [place] 3 DRC guide catheter was advanced in the right coronary artery was selectively engaged. Angiography of this vessel showed thrombotic total occlusion of the proximal vessel with LORNE 0 antegrade flow. 0.014 180 cm run-through wire was advanced without difficulty. Tubular segment of stenting was noted in the mid RCA, spanning more than 20 to 25 mm. 2.5 x 12 mm Emerge balloon was advanced, the lesion was dilated to 8 to 10 mary, heavy clot burden was identified. The balloon was removed. Aspiration catheter was advanced, multiple aspirations were performed, with significant improvement in clot burden. At this point, long tubular segment of disease was noted starting at the distal end of the previously deployed stents, mid segment of the RCA had about 50% smooth stenosis. There was vessel tortuosity. Additional balloon inflations were performed using the 2.5 x 12 mm balloon, the distal and mid RCA. The balloon was removed. A 3.0 x 38 mm Synergy MR drug-eluting stent was then deployed to cover the mid RCA. The stent balloon was removed. The distal RCA distal to the stented segment had an area of plaque rupture that needed to be covered. A 3.0 x 8 mm Synergy stent would not advance past the mid RCA because of tortuosity and prior stents. The stent was removed intact. A 0.014 180 cm Runthrough wire was advanced alongside the first Runthrough wire to provide additional support. The guide was advanced to deep-seated the RCA. In spite of this, attempts to advance a 3.0 x 8 mm drug-eluting stent were unsuccessful and the balloon was removed intact. The second run-through wire was removed. 6 [place] guide liner catheter was then advanced into the mid RCA, but when the stent was advanced the guide liner kept prolapsing back with the guide catheter. The stent was again retrieved. The 2.5 x 12 mm balloon was advanced, in the mid RCA, and inflated to low pressures. Over this, the guide liner was imaged forward into the distal mid RCA. The balloon was removed. 3.0 x 8 mm Synergy MR KAT was advanced, to the distal RCA, and deployed. Stent balloon was removed. 3.0 x 8 mm NC Emerge balloon was advanced, and the distal stent was postdilated. Using the same balloon, the mid RCA was postdilated. Stent balloon was removed, GuideLiner was removed, guide catheter was pulled back, subsequent angiography was performed, and showed excellent results, with 0% residual stenosis LORNE-3 antegrade flow and excellent myocardial blush. The guide catheter guidewire and guide liner were all removed. ACT was monitored patient was given Integrilin IV bolus x2 patient received Brilinta 180 mg p.o. A 5 [place] JL4 diagnostic catheter was advanced over a 0.035 guidewire and the left main coronary artery was selectively engaged, angiography of the left system was performed in multiple orthogonal views. The catheter was removed. A 5 [place] angled pigtail catheter was advanced across the aortic valve into the left ventricle. Left ventricular end-diastolic pressure was measured. Left ventriculography was performed in about 30 degree MARSH view. Slow manual pullback was performed. Selective right common femoral angiography was performed. The right femoral artery sheath was secured in place and patient was transferred to the intensive care unit. He was chest pain-free and hemodynamically stable. There were no immediate complications. Coronary angiography: Right dominant system. The right coronary artery arises from the right sinus of Valsalva. 100% proximal RCA occlusion with LORNE 0 antegrade flow RCA with prior stents in the proximal and mid segments Left main coronary artery with 0% stenosis, arises from the left sinus of Valsalva and bifurcates into the left circumflex artery and the left anterior descending artery. Left circumflex artery is nondominant. There is 70% proximal stenosis, then a radiopaque stent which is patent, after the stent there is 80% stenosis as the left circumflex artery continues as a moderately large obtuse marginal branch. The left anterior descending artery has a large first septal patient support specialist which courses parallel to the left anterior descending artery. In addition to this, the LAD course is characterized by 3 diagonal branches, the third and major diagonal branch courses parallel to the septal patient support specialist, and supplies part of the LAD distribution. Proximal left anterior descending artery has about 30% stenosis. First major diagonal branch measures about 2.25 mm and has about 50% stenosis. Second major diagonal branch measures about 2.5 mm divides into 2 secondary branches and has less than 20% stenosis. Third and major diagonal branch measures 2.5 to 2.75 mm and has less than 20% stenosis. Left ventriculography: Overall visually estimated left ventricular ejection fraction is about 50% There is possibly mild basal inferior hypokinesis. There is no appreciable mitral regurgitation. Left ventricular end-diastolic pressure is about 10 to 12 mmHg, no systolic gradient across the aortic valve. Summary: 1. Acute inferior ST segment elevation myocardial infarction related to 100% acute thrombotic occlusion of previously stented proximal right coronary artery. There was LORNE 0 flow prior to the procedure 2. With a combination of aspiration thrombectomy and balloon inflation, and stenting, final result with 0% residual stenosis and LORNE-3 flow. 3. Complex procedure with increased procedural time related to anatomic details, and the need for additional guide support, and vessel tortuosity, leading to technical challenges and distal stent deployment. 4. Preserved left ventricular ejection fraction of 50% and mild inferior hypokinesis 5. Normal LVEDP 6. 0% left main stenosis, 70% proximal 80% distal left circumflex stenosis, patent stent in between. 7. Anatomically aberrant LAD, with large septal patient support specialist supplying some of the proximal LAD distribution, and relatively large third diagonal branch coursing parallel to it, LAD also gives off a moderate sized first and second diagonal branches. 8. Right femoral access, after initial right radial access attempt, access as above common femoral artery bifurcation. No immediate complications Recommendations: Aggressive risk factor modification dual antiplatelet therapy including Brilinta high intensity statin beta-blockers as tolerated. Needs close outpatient follow-up. The importance of compliance was stressed at length with patient and family.
--- NOTE | 2021-07-08 19:44 | PCM.HP.CAR ---
HPI - General General Date of Admission: 07/08/21 Chief Complaint: Chest pain HPI Narrative SPRING QUIROZ, is a 65 M who presents to the emergency department with acute inferior ST segment elevation myocardial infarction. Code purple was alerted. Patient arrived to the cardiac catheterization laboratory, he was having significant chest discomfort. Does have history of prior PCI and stenting, details of which were not available at the time of initial contact with the patient. Patient has COPD, and is a current smoker, with greater than [id number]-[id number] history of smoking. History of prior myocardial infarction, EKG shows inferior Q waves. History of hypertension tension and nicotine addiction history of CVA by chart review, details not available. Intolerance to lisinopril-cough On physical examination patient was alert oriented, ill kempt, speaking in full sentences, not in any respiratory distress, moving all extremities and following commands. Rhythm was sinus. Oxygen saturation was 98% on 2 L nasal cannula. Breath sounds distant without crepitations or rhonchi heart sounds are distant regular without murmur rub or gallop distal pulses both lower extremities are strong to palpation. Good Jaden's test. Assessment: 1. Acute inferior ST elevation myocardial infarction patient with history of multivessel stenting, nicotine addiction interruption of medical therapy a year ago. 2. Clear class I 3. COPD based on body habitus and examination. Recommendations: Patient was loaded with aspirin and given IV heparin. Plan is to proceed with emergent coronary angiography and possible intervention procedure risk benefits and alternatives were discussed, risk discussed included but were not limited to PA, stroke, , peripheral vascular compromise and allergic reaction to dye. He expresses understanding. GI prophylaxis. Aggressive risk factor modification, dual antiplatelet therapy should probably be continued indefinitely in this patient, along with high risk statin therapy and close outpatient follow-up. You for allowing us to participate in this patient's care, please do not hesitate to call if further questions arise, Sincerely, Ledy Abebe MD [facility] Medical History (Updated 07/08/21 @ 14:[address] Delores Mendoza MD) Alcohol abuse Atherosclerotic heart disease of [place] coronary artery without angina pectoris Essential hypertension History of stroke Old myocardial infarction Presence of stent in coronary artery (~03/28/17) Pure hypercholesterolemia Tobacco abuse Allergy/AdvReac Type Severity Reaction Status Date / Time lisinopril Allergy COUGH Verified 07/08/21 11:15 Family History (Updated 08/12/19 @ 17:15 by Zoila Yousif) Father Heart disease Mother Alzheimers disease Brother COPD (chronic obstructive pulmonary disease) Brother Heart disease Sister Cancer Lung Surgical History History of gastrectomy History of tracheostomy Presence of coronary angioplasty implant and graft (~03/28/17) Social History (Updated 07/08/21 @ 14:[address] Delores Mendoza MD) housing: other details: Lives with a roommate. Smoking Status: Current every day smoker tobacco type: cigarettes Smoking packs per day: 1.5 Smoking cigarettes per day: 30.0 Years smoked: 50 Smoking pack-years: 75.00 alcohol intake: current alcohol intake frequency: 3 or more drinks per day Alcohol type: beer details: Daily. substance use type: does not use caffeine: Yes Type: coffee Number of servings: 2 Vital Signs Vital Signs Vital Signs: 07/08/21 11:12 07/08/21 11:40 07/08/21 11:47 Temperature 97.2 F L Temperature Source Temporal Pulse Rate 72 Respiratory Rate 16 Respiratory Effort Respiratory Pattern Blood Pressure 136/89 H 144/88 H Blood Pressure Mean 104 Blood Pressure Source Blood Pressure Position Blood Pressure Location Pulse Ox 100 Oxygen Delivery Method Room Air Room Air 07/08/21 12:12 07/08/21 12:20 07/08/21 14:30 Temperature 97.8 F Temperature Source Temporal Pulse Rate 87 65 Respiratory Rate 16 21 H Respiratory Effort Normal Non-Labored Respiratory Pattern Normal Blood Pressure 137/78 H 106/75 Blood Pressure Mean 97 85 Blood Pressure Source Monitor Blood Pressure Position Supine Blood Pressure Location Left Arm Pulse Ox 97 97 Oxygen Delivery Method Room Air Room Air 07/08/21 14:34 07/08/21 14:45 07/08/21 15:00 Temperature 98.0 F 98.0 F Temperature Source Temporal Temporal Pulse Rate 65 71 67 Respiratory Rate 21 H 18 20 H Respiratory Effort Respiratory Pattern Blood Pressure 111/60 114/61 110/59 L Blood Pressure Mean 77 78 76 Blood Pressure Source Arterial Line Monitor Monitor Blood Pressure Position Supine Supine Supine Blood Pressure Location Right Leg Left Arm Left Arm Pulse Ox 97 96 96 Oxygen Delivery Method Room Air Room Air Room Air 07/08/21 15:15 07/08/21 15:30 07/08/21 15:45 Temperature Temperature Source Pulse Rate 70 71 70 Respiratory Rate 21 H 21 H 19 H Respiratory Effort Respiratory Pattern Blood Pressure 112/59 L 109/57 L 107/56 L Blood Pressure Mean 76 74 73 Blood Pressure Source Monitor Monitor Monitor Blood Pressure Position Supine Supine Supine Blood Pressure Location Left Arm Left Arm Left Arm Pulse Ox 97 94 97 Oxygen Delivery Method Room Air Room Air Room Air 07/08/21 16:00 07/08/21 16:30 07/08/21 17:00 Temperature 98.1 F Temperature Source Temporal Pulse Rate 71 78 82 Respiratory Rate 19 H 18 17 Respiratory Effort Respiratory Pattern Blood Pressure 101/53 L 121/71 H 114/76 Blood Pressure Mean 69 87 88 Blood Pressure Source Monitor Monitor Monitor Blood Pressure Position Supine Supine Supine Blood Pressure Location Left Arm Left Arm Left Arm Pulse Ox 99 100 98 Oxygen Delivery Method Room Air Room Air Room Air 07/08/21 17:15 07/08/21 17:30 07/08/21 17:45 Temperature Temperature Source Pulse Rate 80 81 80 Respiratory Rate 18 16 18 Respiratory Effort Respiratory Pattern Blood Pressure 106/62 111/74 90/59 L Blood Pressure Mean 76 86 69 Blood Pressure Source Monitor Monitor Monitor Blood Pressure Position Supine Supine Supine Blood Pressure Location Left Arm Left Arm Left Arm Pulse Ox 99 98 98 Oxygen Delivery Method Room Air Room Air Room Air 07/08/21 18:00 07/08/21 18:30 07/08/21 19:00 Temperature Temperature Source Pulse Rate 80 81 84 Respiratory Rate 15 18 18 Respiratory Effort Respiratory Pattern Blood Pressure 123/78 H 92/72 117/79 Blood Pressure Mean 93 78 91 Blood Pressure Source Monitor Monitor Monitor Blood Pressure Position Supine Supine Supine Blood Pressure Location Left Arm Left Arm Left Arm Pulse Ox 99 99 98 Oxygen Delivery Method Room Air Room Air Room Air Weight Weight: 180 lb 15.992 oz Body Mass Index (BMI) 26.7 Cardiology Labs/Tests Cardiology Labs/Tests: 07/08/21 11:35: WBC 11.8 H, RBC 4.45 L, Hgb 13.9, Hct 40.7, MCV 91.5, MCH 31.2, MCHC 34.2, Plt Count 304, MPV 10.1, Immature Gran % (Auto) 0.300, Neut % (Auto) 77.2 H, Lymph % (Auto) 13.1 L, [place] % (Auto) 8.5, Eos % (Auto) 0.5, Baso % (Auto) 0.4, Absolute Neuts (auto) 9.1 H, Nucleated RBC % 0 07/08/21 11:35: PT 12.6, INR 1.0, APTT 28.5 07/08/21 11:35: Sodium 135 L, Potassium 4.0, Chloride 102, Carbon Dioxide 25.0, Anion Gap 8, BUN 10, Creatinine 0.77, Est GFR (MDRD) Af Amer 131, Est GFR (MDRD) Non-Af 109, BUN/Creatinine Ratio 13.0, Glucose 121 H, Calcium 9.4 07/08/21 11:35: Magnesium 1.9 07/08/21 11:35: Phosphorus 3.5 Cardiology Impression Chest X-Ray 07/08/21 11:31 IMPRESSION: Normal x-ray examination of the chest. Electronically Signed: Spring Farris MD at 12:02 EST Tel , Service support , Rhythm: EKG: ECHO: Stress Test: Cardiac Cath: PCI: CT Surgery: Holter monitor: EPS: PPM: CXR: Chest CT Scan:
[2021-07-08] MEDS: LORazepam 2 MG/ML Syringe IV (20:04)
[2021-07-08] MEDS: Thiamine Hydrochloride 100 MG Tablet PO (20:04)
[2021-07-08] MEDS: 0.9% Saline Lock 10 ML Syringe IV (20:08)
[2021-07-08] MEDS: TICAGRELOR 90 MG TABLET PO (20:08)
[2021-07-08 23:16] LABS: Amphetamine Urine VISTA NEGATIVE (<1000 ng/mL); Barbiturate Urine VISTA NEGATIVE (< 200 ng/mL); Benzodiazepine Urine VISTA POSITIVE (< 200 ng/mL); Cocaine Urine VISTA NEGATIVE (< 300 ng/mL); Ecstacy Urine VISTA NEGATIVE (< 500 ng/mL); Methadone Urine VISTA NEGATIVE (< 300 ng/mL); PCP Urine VISTA NEGATIVE (< 25 ng/mL); THC Urine VISTA POSITIVE (< 50 ng/mL); Vista UDS pH Range 5
[2021-07-09] VITALS (25 sets, daily range): BP systolic 75–145; BP diastolic 57–94; PULSE 80–105; RESP 14–21; TEMP 36.6–37.1; O2SAT 95–100
[2021-07-09] MEDS: LORazepam 1 MG Tablet PO ×6 (02:24→20:54)
[2021-07-09 05:41] LABS: Absolute Lymphocyte Count 1.65 X10^3/uL (0.83-4.51); Absolute Neutrophil Count 4.7 X10^3/uL (2.0-7.7); Basophil# 0.05 X10^3/uL; Basophil% 0.7 % (0-1); Eosinophil# 0.08 X10^3/uL; Eosinophils% 1.1 % (0-5); Hematocrit 39.4 % (40-54); Hemoglobin 12.7 g/dL (13.0-16.5); Lymphocyte # 1.65 X10^3/ul (0.83-4.51); Lymphocyte % 22.9 % (19-41); Mean Corp Hgb Conc 32.2 g/dL (32-36); Mean Corpuscular Hgb 31.1 pg (27.0-32.0); Mean Corpuscular Volume 96.6 fL (80-94); Mean Platelet Vol. 10.4 fl (6.2-12.0); Monocyte# 0.71 X10^3/uL; Monocyte% 9.9 % (0-10); NRBC Flagged by Analyzer 0 % (0-5); Neutrophil # 4.67 X10^3/uL (2.7-7.7); Platelet Count 226 K/mm3 (150-450); RBC Distribution Width CV 13.1 % (11.6-14.6); RBC Distribution Width SD 46.7 fl (35.1-43.9); Red Blood Count 4.08 M/mm3 (4.6-6.2); White Blood Count 7.2 K/mm3 (4.4-11.0)
--- NOTE | 2021-07-09 05:55 | EKG12_ITS ---
Test Reason : AM EKG Blood Pressure : / mmHG Vent. Rate : 085 BPM Atrial Rate : 085 BPM P-R Int : 166 ms QRS Dur : 086 ms QT Int : 382 ms P-R-T Axes : 081 -02 098 degrees QTc Int : 454 ms Normal sinus rhythm Inferior infarct , age undetermined -possibly acute/recent Abnormal ECG Confirmed by LEDY MORRELL, ADRIENNE ([id number]), website/blog editor GRETCHEN GLEASON ([id number]) on 07/21/2021 8:11:07 AM Referred By: Ledy Abebe Confirmed By:ADRIENNE VILLAFANA MD
[2021-07-09 06:07] LABS: Anion Gap 6 (5-15); BUN 9 mg/dL (7-18); BUN/Creat Ratio 12.8 RATIO (10-20); Calcium,Total 8.6 mg/dL (8.5-10.1); Chloride 104 mmol/L (98-107); EST Glomerular Filtration Rate 120 mL/min (>60); Est Glom Filt Rate - Afr Amer 146 mL/min (>60); Estimated Creatinine Clearance 108.01 ml/min; Glucose 90 mg/dL (74-106); Potassium 3.9 mmol/L (3.5-5.1); Sodium Level 137 mmol/L (136-145)
[2021-07-09] MEDS: Pantoprazole Sodium 20 MG Tablet PO ×3 (09:20→20:55)
[2021-07-09] MEDS: Folic Acid 1 MG Tablet PO (09:21)
[2021-07-09] MEDS: Multivitamins,Ther W-Minerals Tablet 1 TABLET PO (09:21)
[2021-07-09] MEDS: Metoprolol Tartrate 25 MG Tablet PO ×3 (09:21→20:55)
[2021-07-09] MEDS: TICAGRELOR 90 MG TABLET PO ×2 (09:22→20:55)
[2021-07-09] MEDS: Thiamine Hydrochloride 100 MG Tablet PO ×2 (09:22→17:24)
[2021-07-09] MEDS: Aspirin 81 MG TAB.CHEW PO (09:22)
[2021-07-09] MEDS: Enoxaparin 40 MG/0.4 ML Syringe SC (09:23)
[2021-07-09 09:47] LABS: ACT Activated Clotting Time 148
--- NOTE | 2021-07-09 10:48 | NURSING ---
called son to give update. Son states he lives in [place] and his father and him do not stay in touch, States his father is hard to get hold of and is not sure of fathers living arrangements. He thinks he stays with one of his brothers or sisters. He states Edna (the patients sister) is the most level headed so he suggested contacting her 1st. States Neymar is hard to get hold of.
--- NOTE | 2021-07-09 13:55 | PN.HOSP_ITS ---
Subjective Subjective Patient seen and examined. He had no active complaints and appeared stable. He did appear to be lethargic and confused. Review of systems otherwise negative. Objective Data Objective Data Vital Signs: Vital Signs Temp Pulse Resp BP Pulse Ox 97.9 F 91 16 102/67 100 07/09/21 12:00 07/09/21 12:00 07/09/21 12:00 07/09/21 12:00 07/09/21 12:00 Oxygen Delivery Method Room Air Weight: 180 lb 8.937 oz Body Mass Index (BMI) 26.7 Intake & Output: Intake and Output for Last 24 Hours 07/07/21 07/08/21 07/09/21 23:59 23:59 23:59 Intake Total 2800.0 / 2800.0 1807.5 / 1807.5 Output Total 300 / 300 600 / 600 Balance 2500.0 / 2500.0 1207.5 / 1207.5 Lab / Micro Data Result Diagrams: 07/09/21 05:30 07/09/21 05:30 Labs: Laboratory Results - last 24 hr 07/08/21 11:35: Magnesium 1.9 07/08/21 11:35: Phosphorus 3.5 07/08/21 16:15: Ethyl Alcohol 6.0 07/08/21 16:15: Troponin I High Sens [id number] H* 07/08/21 18:00: Troponin I High Sens [id number] H* 07/08/21 21:25: Troponin I High Sens [id number] H* 07/08/21 22:45: Urine Opiates Screen POSITIVE H, Urine Methadone Screen NEGATIVE, Ur Barbiturates Screen NEGATIVE, Ur Phencyclidine Scrn NEGATIVE, Ur Amphetamines Screen NEGATIVE, U Methamphetamin-MDMA NEGATIVE, U Benzodiazepines Scrn POSITIVE H, Urine Cocaine Screen NEGATIVE, U Cannabinoids Screen POSITIVE H , Ur Drug Screen Comment 07/09/21 05:30: WBC 7.2, RBC 4.08 L, Hgb 12.7 L, Hct 39.4 L, MCV 96.6 H D, MCH 31.1, MCHC 32.2 D, RDW Std Deviation 46.7 H, RDW Coeff of [place] 13.1, Plt Count 226, MPV 10.4, Immature Gran % (Auto) 0.400, Neut % (Auto) 65.0, Lymph % (Auto) 22.9, [place] % (Auto) 9.9, Eos % (Auto) 1.1, Baso % (Auto) 0.7, Absolute Neuts (auto) 4.7, Absolute Lymphs (auto) 1.65, Nucleated RBC % 0 07/09/21 05:30: Sodium 137, Potassium 3.9, Chloride 104, Carbon Dioxide 27.0, Anion Gap 6, BUN 9, Creatinine 0.70, Estim Creat Clear Calc 108.01, Est GFR (MDRD) Af Amer 146, Est GFR (MDRD) Non-Af 120, BUN/Creatinine Ratio 12.8, Glucose 90, Calcium 8.6 Physical Exam Const alert and average body habitus Orientation / Consciousness: lethargic Exam Limitations: altered mental status HEENT head/scalp atraumatic Head and Scalp: normocephalic Mouth: dry mucous membranes Eyes PERRL, EOMs intact bilaterally and conjunctivae normal Neck no lymphadenopathy, supple and no JVD Resp normal respiratory effort, no retractions and no use of accessory muscles Cardio regular rate, regular rhythm, S1 normal heart sound, S2 normal heart sound and no murmurs GI normal to inspection, nondistended, normoactive bowel sounds, soft to palpation, non-tender and non-distended Extremity normal to inspection, full ROM and no clubbing, cyanosis or edema Peripheral Pulses: Yes pulses 2+ throughout Skin no rashes or lesions noted Neuro CN's II-XII intact bilaterally Neuro Narrative: lethargic, confused Sensorium / Orientation: awake and alert Assessment & Plan Assessment/Plan (1) Acute ST elevation myocardial infarction: QUALIFIERS: Involved coronary artery: right coronary artery Qualified Code(s): I21.11 - ST elevation (STEMI) myocardial infarction involving right coronary artery PLAN: #STEMi * S/p cardiac cath. He had a significantly occluded proximal RCA and received PCI with stent placement * On aspirin and Brilinta as well as high intensity statin and metoprolol * 2D echo pending. * #CAD s/p stents: On medication as above #Acute metabolic encephalopathy * Patient was on Ativan taper on account of concerns about alcohol withdrawal as he had quite a significant alcohol consumption. * PT OT consult. Fall precautions. * urine tox was positive for opiates, benzodiazepines nad cannabinoids. Serum al cohol level was 6. * #Hyperlipidemia: On high intensity statin #Hypertension: * On metoprolol 25 mg twice daily. IV hydralazine as needed. * Patient has allergy to VAISHALI inhibitor. * We will add an ARB as needed. * #History of CVA: on aspirin and statin. DVT prophylaxis: lovenox Charges/Coding Visit Charges Inpatient E&M: 15356 [facility] Hosp L3
[2021-07-09 14:16] LABS: Prothrombin Time (Protime)PT. 12.5 SECONDS (11.7-14.9)
[2021-07-09 14:40] LABS: ALB/GLOB Ratio 0.7 RATIO (0.9-2.4); AST(SGOT) 318 U/L (15-37); Alanine Aminotransfer ALT/SGPT 56 U/L (16-61); Albumin, Serum 2.9 g/dL (3.2-5.0); Alkaline Phosphatase 68 U/L (45-117); Cholesterol 220 mg/dL (200); Globulin 3.9 g/dL (2.2-4.2); High Density Lipoprotein 55 mg/dL; Protein, Total 6.8 g/dL (6.4-8.2); Triglycerides 114 mg/dL; Very Low Density Lipoprotein 23 mg/dL (5-40)
--- NOTE | 2021-07-09 14:43 | NURSING ---
called brother number disconnected called sister to let her know of transfer to [facility] will come see him tomorrow wants social worker delinquency prevention to call her sunday after 11 she works until 11
--- NOTE | 2021-07-09 18:54 | PCM.PN.CARD ---
Subjective Subjective Patient reports no chest discomfort pressure tightness heaviness palpitations or shortness of breath. Objective Data Patient is awake alert oriented x3, following commands. Lungs are clear heart sounds are regular without murmur rub or gallop no jugular venous distention no carotid bruit right groin is soft nontender right radial access site is without hematoma distal pulses symmetric no peripheral edema. Assessment: 1. Patient with prior multivessel coronary artery disease and multivessel PCI and stenting 2. Medication noncompliance-off all medicines for over a year 3. Presented with acute inferior ST segment elevation myocardial infarction with reciprocal anterior changes, underwent complex PCI and stenting of totally occluded right coronary artery, 2 additional stents were used 4. Doing well clinically and hemodynamically. 5. Preserved LV systolic function Recommendations: 1. Aggressive risk factor modification 2. Dual antiplatelet therapy for life 3. Staged intervention to the left circumflex artery can be done as an outpatient or during this hospital stay versus continued medical therapy and additional intervention to be be based on symptoms Vital Signs: Vital Signs Temp Pulse Resp BP Pulse Ox 98.7 F 86 18 108/66 96 07/09/21 17:20 07/09/21 17:20 07/09/21 17:20 07/09/21 17:20 07/09/21 17:20 Oxygen Delivery Method Room Air Weight: 180 lb 8.937 oz Body Mass Index (BMI) 26.7 Intake & Output: Intake and Output for Last 24 Hours 07/07/21 07/08/21 07/09/21 23:59 23:59 23:59 Intake Total 2800.0 / 2800.0 2672.5 / 2672.5 Output Total 300 / 300 1150 / 1150 Balance 2500.0 / 2500.0 1522.5 / 1522.5 Lab / Micro Data Result Diagrams: 07/09/21 05:30 07/09/21 05:30 Labs: Laboratory Results - last 24 hr 07/08/21 18:00: Troponin I High Sens [id number] H* 07/08/21 21:25: Troponin I High Sens [id number] H* 07/08/21 22:45: Urine Opiates Screen POSITIVE H, Urine Methadone Screen NEGATIVE, Ur Barbiturates Screen NEGATIVE, Ur Phencyclidine Scrn NEGATIVE, Ur Amphetamines Screen NEGATIVE, U Methamphetamin-MDMA NEGATIVE, U Benzodiazepines Scrn POSITIVE H, Urine Cocaine Screen NEGATIVE, U Cannabinoids Screen POSITIVE H, Ur Drug Screen Comment 07/09/21 05:30: Total Bilirubin 0.80, AST 318 H, ALT 56, Alkaline Phosphatase 68, Total Protein 6.8, Albumin 2.9 L, Globulin 3.9, Albumin/Globulin Ratio 0.7 L, Triglycerides 114, Cholesterol 220 H, LDL Cholesterol 142 H, VLDL Cholesterol 23, HDL Cholesterol 55 07/09/21 05:30: WBC 7.2, RBC 4.08 L, Hgb 12.7 L, Hct 39.4 L, MCV 96.6 H D, MCH 31.1, MCHC 32.2 D, RDW Std Deviation 46.7 H, RDW Coeff of [place] 13.1, Plt Count 226, MPV 10.4, Immature Gran % (Auto) 0.400, Neut % (Auto) 65.0, Lymph % (Auto) 22.9, [place] % (Auto) 9.9, Eos % (Auto) 1.1, Baso % (Auto) 0.7, Absolute Neuts (auto) 4.7, Absolute Lymphs (auto) 1.65, Nucleated RBC % 0 07/09/21 05:30: PT 12.5, INR 1.0 07/09/21 05:30: Sodium 137, Potassium 3.9, Chloride 104, Carbon Dioxide 27.0, Anion Gap 6, BUN 9, Creatinine 0.70, Estim Creat Clear Calc 108.01, Est GFR (MDRD) Af Amer 146, Est GFR (MDRD) Non-Af 120, BUN/Creatinine Ratio 12.8, Glucose 90, Calcium 8.6 Cardiology Labs/Tests 07/09/21 05:30: Total Bilirubin 0.80, Triglycerides 114, Cholesterol 220 H, LDL Cholesterol 142 H, VLDL Cholesterol 23, HDL Cholesterol 55 07/09/21 05:30: WBC 7.2, RBC 4.08 L, Hgb 12.7 L, Hct 39.4 L, MCV 96.6 H D, MCH 31.1, MCHC 32.2 D, Plt Count 226, MPV 10.4, Immature Gran % (Auto) 0.400, Neut % (Auto) 65.0, Lymph % (Auto) 22.9, [place] % (Auto) 9.9, Eos % (Auto) 1.1, Baso % (Auto) 0.7, Absolute Neuts (auto) 4.7, Nucleated RBC % 0 07/09/21 05:30: PT 12.5, INR 1.0 07/09/21 05:30: Sodium 137, Potassium 3.9, Chloride 104, Carbon Dioxide 27.0, Anion Gap 6, BUN 9, Creatinine 0.70, Est GFR (MDRD) Af Amer 146, Est GFR (MDRD) Non-Af 120, BUN/Creatinine Ratio 12.8, Glucose 90, Calcium 8.6 Rhythm: EKG: ECHO: Stress Test: Cardiac Cath: PCI: CT Surgery: Holter monitor: EPS: PPM: CXR: Chest CT Scan:
[2021-07-09] MEDS: Atorvastatin Calcium 80 MG Tablet PO ×2 (20:55)
[2021-07-10] VITALS (12 sets, daily range): BP systolic 108–125; BP diastolic 62–95; PULSE 73–83; RESP 16–18; TEMP 36.4–36.9; O2SAT 95–100
[2021-07-10] MEDS: LORazepam 1 MG Tablet PO ×6 (01:57→20:59)
[2021-07-10] MEDS: 0.9% Saline Lock 10 ML Syringe IV (01:57)
[2021-07-10 05:12] LABS: Absolute Lymphocyte Count 1.61 X10^3/uL (0.83-4.51); Absolute Neutrophil Count 4.4 X10^3/uL (2.0-7.7); Basophil# 0.03 X10^3/uL; Basophil% 0.4 % (0-1); Eosinophil# 0.17 X10^3/uL; Eosinophils% 2.4 % (0-5); Hematocrit 38.6 % (40-54); Hemoglobin 12.5 g/dL (13.0-16.5); Lymphocyte # 1.61 X10^3/ul (0.83-4.51); Mean Corp Hgb Conc 32.4 g/dL (32-36); Mean Corpuscular Hgb 31.2 pg (27.0-32.0); Mean Corpuscular Volume 96.3 fL (80-94); Mean Platelet Vol. 10.6 fl (6.2-12.0); Monocyte# 0.78 X10^3/uL; Monocyte% 11.1 % (0-10); NRBC Flagged by Analyzer 0 % (0-5); Neutrophil # 4.37 X10^3/uL (2.7-7.7); Neutrophil % 62.4 % (47-70); Platelet Count 222 K/mm3 (150-450); RBC Distribution Width CV 12.9 % (11.6-14.6); RBC Distribution Width SD 45.9 fl (35.1-43.9); Red Blood Count 4.01 M/mm3 (4.6-6.2)
[2021-07-10 05:39] LABS: Anion Gap 6 (5-15); BUN 12 mg/dL (7-18); BUN/Creat Ratio 15.6 RATIO (10-20); Calcium,Total 8.5 mg/dL (8.5-10.1); Chloride 103 mmol/L (98-107); Creatinine, Serum 0.77 mg/dL (0.70-1.30); EST Glomerular Filtration Rate 109 mL/min (>60); Est Glom Filt Rate - Afr Amer 131 mL/min (>60); Estimated Creatinine Clearance 98.19 ml/min; Glucose 91 mg/dL (74-106); Potassium 3.5 mmol/L (3.5-5.1); Sodium Level 136 mmol/L (136-145)
[2021-07-10] MEDS: Pantoprazole Sodium 20 MG Tablet PO ×2 (08:09→21:01)
[2021-07-10] MEDS: Metoprolol Tartrate 25 MG Tablet PO ×2 (08:09→21:00)
[2021-07-10] MEDS: Folic Acid 1 MG Tablet PO (08:09)
[2021-07-10] MEDS: TICAGRELOR 90 MG TABLET PO ×2 (08:09→20:59)
[2021-07-10] MEDS: Aspirin 81 MG TAB.CHEW PO (08:10)
[2021-07-10] MEDS: Multivitamins,Ther W-Minerals Tablet 1 TABLET PO (08:10)
[2021-07-10] MEDS: Enoxaparin 40 MG/0.4 ML Syringe SC (08:10)
[2021-07-10] MEDS: Thiamine Hydrochloride 100 MG Tablet PO ×2 (08:10→17:24)
--- NOTE | 2021-07-10 11:05 | PN.HOSP_ITS ---
Subjective Subjective Patient seen and examined. He still complains of feeling tired. He has no other complaints. Review of systems otherwise negative. Objective Data Objective Data Vital Signs: Vital Signs Temp Pulse Resp BP Pulse Ox 97.8 F 80 16 117/93 H 95 07/10/21 10:10 07/10/21 10:10 07/10/21 10:10 07/10/21 10:10 07/10/21 10:10 Oxygen Delivery Method Room Air Weight: 176 lb 9.444 oz Body Mass Index (BMI) 26.7 Intake & Output: Intake and Output for Last 24 Hours 07/08/21 07/09/21 07/10/21 23:59 23:59 23:59 Intake Total 2800.0 / 2800.0 2672.5 / 2752.5 80 / 80 Output Total 300 / 300 1150 / 1150 Balance 2500.0 / 2500.0 1522.5 / 1602.5 80 / 80 Lab / Micro Data Result Diagrams: 07/10/21 04:30 07/10/21 04:30 Labs: Laboratory Results - last 24 hr 07/09/21 05:30: Total Bilirubin 0.80, AST 318 H, ALT 56, Alkaline Phosphatase 68, Total Protein 6.8, Albumin 2.9 L, Globulin 3.9, Albumin/Globulin Ratio 0.7 L , Triglycerides 114, Cholesterol 220 H, LDL Cholesterol 142 H, VLDL Cholesterol 23, HDL Cholesterol 55 07/09/21 05:30: PT 12.5, INR 1.0 07/10/21 04:30: WBC 7.0, RBC 4.01 L, Hgb 12.5 L, Hct 38.6 L, MCV 96.3 H, MCH 31.2, MCHC 32.4, RDW Std Deviation 45.9 H, RDW Coeff of [place] 12.9, Plt Count 222, MPV 10.6, Immature Gran % (Auto) 0.700, Neut % (Auto) 62.4, Lymph % (Auto) 23.0, [place] % (Auto) 11.1 H, Eos % (Auto) 2.4, Baso % (Auto) 0.4, Absolute Neuts (auto) 4.4, Absolute Lymphs (auto) 1.61, Nucleated RBC % 0 07/10/21 04:30: Sodium 136, Potassium 3.5, Chloride 103, Carbon Dioxide 27.0, Anion Gap 6, BUN 12, Creatinine 0.77, Estim Creat Clear Calc 98.19, Est GFR (MDRD) Af Amer 131, Est GFR (MDRD) Non-Af 109, BUN/Creatinine Ratio 15.6, Glucose 91, Calcium 8.5 Physical Exam Const alert, oriented x3 and no apparent distress Orientation / Consciousness: lethargic Exam Limitations: no limitations HEENT head/scalp atraumatic and moist oral mucous membranes Head and Scalp: normocephalic Eyes PERRL, EOMs intact bilaterally and conjunctivae normal Neck no lymphadenopathy, supple and no JVD Resp normal respiratory effort, no retractions and no use of accessory muscles Cardio regular rate, regular rhythm, S1 normal heart sound, S2 normal heart sound and no murmurs GI normal to inspection, nondistended, normoactive bowel sounds, soft to palpation, non-tender and non-distended Extremity normal to inspection, full ROM and no clubbing, cyanosis or edema Peripheral Pulses: Yes pulses 2+ throughout Skin no rashes or lesions noted Neuro oriented x3 and CN's II-XII intact bilaterally Neuro Narrative: lethargic, confused Sensorium / Orientation: awake and alert Psych affect normal Assessment & Plan Assessment/Plan (1) Acute ST elevation myocardial infarction: QUALIFIERS: Involved coronary artery: right coronary artery Qualified Code(s): I21.11 - ST elevation (STEMI) myocardial infarction involving right coronary artery PLAN: #STEMi * S/p cardiac cath. He had a significantly occluded proximal RCA and received PCI with stent placement * On aspirin and Brilinta as well as high intensity statin and metoprolol * 2D echo pending. * #CAD s/p stents: On medication as above #Acute metabolic encephalopathy * improved. Thought to be due to ativan he was receiving due to concerns about alcohol withdrawal. * PT OT consult. Fall precautions. * urine tox was positive for opiates, benzodiazepines and cannabinoids. Serum alcohol level was 6. * #Hyperlipidemia: On high intensity statin #Hypertension: * On metoprolol 25 mg twice daily. IV hydralazine as needed. * Patient has allergy to VAISHALI inhibitor. * We will add an ARB as needed. * #History of CVA: on aspirin and statin. DVT prophylaxis: lovenox Charges/Coding Visit Charges Inpatient E&M: 50053 Subs Hosp L2
--- NOTE | 2021-07-10 16:05 | PCM.PN.CARD ---
Subjective Subjective Assessment: 1. Patient with prior multivessel coronary artery disease and multivessel PCI and stenting 2. Medication noncompliance-off all medicines for over a year 3. Presented with acute inferior ST segment elevation myocardial infarction with reciprocal anterior changes, underwent complex PCI and stenting of totally occluded right coronary artery, 2 additional stents were used 4. Doing well clinically and hemodynamically. 5. Preserved LV systolic function Recommendations: 1. Aggressive risk factor modification 2. Dual antiplatelet therapy for life 3. Staged intervention to the left circumflex artery can be done as an outpatient or during this hospital stay versus continued medical therapy and additional intervention to be be based on symptoms Objective Data Patient continues to remain stable, alert oriented x3, watching television, lungs are clear heart sounds are regular right groin is soft vital signs are stable telemetry shows no dysrhythmia. EKG shows persistent inferior Q waves with] this patient has had prior inferior wall myocardial infarction], and significant improvement in the ST elevation noted on admission. Subtle inferior ST elevation is still present. Assessment: 1. Patient with prior multivessel coronary artery disease and multivessel PCI and stenting 2. Medication noncompliance-off all medicines for over a year 3. Presented with acute inferior ST segment elevation myocardial infarction with reciprocal anterior changes, underwent complex PCI and stenting of totally occluded right coronary artery, 2 additional stents were used 4. Doing well clinically and hemodynamically. 5. Preserved LV systolic function Recommendations: 1. Aggressive risk factor modification 2. Dual antiplatelet therapy for life 3. Staged intervention to the left circumflex artery can be done as an outpatient or during this hospital stay versus continued medical therapy and additional intervention to be be based on symptoms, personally I favor discharge with outpatient follow-up rather than additional stenting, better to make sure that this patient will comply with medications. Close outpatient cardiology follow-up is recommended. Vital Signs: Vital Signs Temp Pulse Resp BP Pulse Ox 97.8 F 73 16 117/93 H 95 07/10/21 10:10 07/10/21 11:00 07/10/21 10:10 07/10/21 10:10 07/10/21 10:10 Oxygen Delivery Method Room Air Weight: 176 lb 9.444 oz Body Mass Index (BMI) 26.7 Intake & Output: Intake and Output for Last 24 Hours 07/08/21 07/09/21 07/10/21 23:59 23:59 23:59 Intake Total 2800.0 / 2800.0 2672.5 / 2752.5 320 / 320 Output Total 300 / 300 1150 / 1150 Balance 2500.0 / 2500.0 1522.5 / 1602.5 320 / 320 Lab / Micro Data Result Diagrams: 07/10/21 04:30 07/10/21 04:30 Labs: Laboratory Results - last 24 hr 07/10/21 04:30: WBC 7.0, RBC 4.01 L, Hgb 12.5 L, Hct 38.6 L, MCV 96.3 H, MCH 31.2, MCHC 32.4, RDW Std Deviation 45.9 H, RDW Coeff of Madelin 12.9, Plt Count 222, MPV 10.6, Immature Gran % (Auto) 0.700, Neut % (Auto) 62.4, Lymph % (Auto) 23.0, Mcduffie % (Auto) 11.1 H, Eos % (Auto) 2.4, Baso % (Auto) 0.4, Absolute Neuts (auto) 4.4, Absolute Lymphs (auto) 1.61, Nucleated RBC % 0 07/10/21 04:30: Sodium 136, Potassium 3.5, Chloride 103, Carbon Dioxide 27.0, Anion Gap 6, BUN 12, Creatinine 0.77, Estim Creat Clear Calc 98.19, Est GFR (MDRD) Af Amer 131, Est GFR (MDRD) Non-Af 109, BUN/Creatinine Ratio 15.6, Glucose 91, Calcium 8.5 Cardiology Labs/Tests 07/10/21 04:30: WBC 7.0, RBC 4.01 L, Hgb 12.5 L, Hct 38.6 L, MCV 96.3 H, MCH 31.2, MCHC 32.4, Plt Count 222, MPV 10.6, Immature Gran % (Auto) 0.700, Neut % (Auto) 62.4, Lymph % (Auto) 23.0, Mcduffie % (Auto) 11.1 H, Eos % (Auto) 2.4, Baso % (Auto) 0.4, Absolute Neuts (auto) 4.4, Nucleated RBC % 0 07/10/21 04:30: Sodium 136, Potassium 3.5, Chloride 103, Carbon Dioxide 27.0, Anion Gap 6, BUN 12, Creatinine 0.77, Est GFR (MDRD) Af Amer 131, Est GFR (MDRD) Non-Af 109, BUN/Creatinine Ratio 15.6, Glucose 91, Calcium 8.5 Rhythm: EKG: ECHO: Stress Test: Cardiac Cath: PCI: CT Surgery: Holter monitor: EPS: PPM: CXR: Chest CT Scan:
[2021-07-10] MEDS: Atorvastatin Calcium 80 MG Tablet PO (20:59)
[2021-07-11] VITALS (7 sets, daily range): BP systolic 117–132; BP diastolic 78–87; PULSE 66–81; RESP 16–18; TEMP 36.2–36.6; O2SAT 99–100
--- NOTE | 2021-07-11 00:01 | PCS.PANDOC ---
PANDEMIC DOCUMENTATION INITIATED: Date: 02/21/2021 Time: 190
[2021-07-11] MEDS: LORazepam 1 MG Tablet PO ×2 (01:37→08:08)
[2021-07-11 06:17] LABS: Absolute Neutrophil Count 4.6 X10^3/uL (2.0-7.7); Basophil# 0.03 X10^3/uL; Basophil% 0.4 % (0-1); Eosinophil# 0.26 X10^3/uL; Eosinophils% 3.8 % (0-5); Hematocrit 36.6 % (40-54); Hemoglobin 11.8 g/dL (13.0-16.5); Lymphocyte % 18.9 % (19-41); Mean Corp Hgb Conc 32.2 g/dL (32-36); Mean Corpuscular Hgb 30.7 pg (27.0-32.0); Mean Corpuscular Volume 95.3 fL (80-94); Mean Platelet Vol. 10.8 fl (6.2-12.0); Monocyte% 10.2 % (0-10); NRBC Flagged by Analyzer 0 % (0-5); Neutrophil # 4.55 X10^3/uL (2.7-7.7); Neutrophil % 66.1 % (47-70); Platelet Count 217 K/mm3 (150-450); RBC Distribution Width CV 12.9 % (11.6-14.6); RBC Distribution Width SD 44.7 fl (35.1-43.9); Red Blood Count 3.84 M/mm3 (4.6-6.2); White Blood Count 6.9 K/mm3 (4.4-11.0)
[2021-07-11 06:44] LABS: Anion Gap 7 (5-15); BUN 11 mg/dL (7-18); BUN/Creat Ratio 14.8 RATIO (10-20); Calcium,Total 8.7 mg/dL (8.5-10.1); Chloride 107 mmol/L (98-107); Creatinine, Serum 0.74 mg/dL (0.70-1.30); EST Glomerular Filtration Rate 113 mL/min (>60); Est Glom Filt Rate - Afr Amer 136 mL/min (>60); Estimated Creatinine Clearance 102.18 ml/min; Glucose 88 mg/dL (74-106); Potassium 3.6 mmol/L (3.5-5.1); Sodium Level 138 mmol/L (136-145)
--- NOTE | 2021-07-11 07:37 | CRPHASE1_ITS ---
Patient Communication PHII Cardiac Rehab Discussed with Patient:: Yes Guide to Cardiac Rehab Given to Patient:: Yes Cardiac Rehab Facility Choice List Given to Patient:: Yes Choice Program [facility] PHII:: Communication Given to CR Regional Business Development Manager:: Ledy Abebe Phase II Cardiac Rehab:: Yes Sessions:: 36 sessions - 3 days/wk, 12 weeks Cardiac Rehabilitation Info Cardiac Rehabilitation Program Information: Cardiac Rehabilitation is important for patients like you who are recovering from a heart problem. Cardiac rehabilitation programs are recognized as integral to the continued care of the patient with coronary heart disease. The cardiac rehabilitation program is designed to optimize a patient's physical, psychological, and social functioning. Health rn intensive care unit work in cardiac rehabilitation programs and assist you with getting the treatments you need to get stronger and healthier - like exercise, healthy eating habits, and medications. Cardiac rehabilitation has been show to help people with heart problems live longer and have better life enjoyment than people who do not go to cardiac rehabilitation. Please contact the Cardiac Rehabilitation Program at [facility] at in two weeks if you have not heard from them.
--- NOTE | 2021-07-11 07:38 | CRPH1.INSTRU ---
General Education CAD and cardiac anatomy and function:: Patient communicates acknowledgment, Patient returns demonstration Explanation of diagnoses and procedures:: Patient communicates acknowledgment, Patient returns demonstration Sign/Symptoms of NC:: Patient communicates acknowledgment, Patient returns demonstration Antiplatelet therapy: Patient communicates acknowledgment, Patient returns demonstration Proper use of NTG-SL: Patient communicates acknowledgment, Patient returns demonstration Emergency procedures and activation of EMS: Patient communicates acknowledgment, Patient returns demonstration Compliance of all prescribed medications: Patient communicates acknowledgment, Patient returns demonstration Smoking Patient Nicotine/Smoking Risk Factors Are:: Cigarettes Recommendations Include:: Second-hand smoke recommendation, Participation in a smoking cessation program Nicotine/Smoking Response Code:: Patient communicates acknowledgment, Needs reinforcement Dyslipidemia Patient Dyslipidemia Risk Factors Are:: Total Cholesterol, Triglycerides, HDL, LDL Recommendations Include:: Lipid profile not available Dyslipidemia Response Code:: Patient communicates acknowledgment, Needs reinforcement Overweight/Obesity Patient Overweight/Obesity Risk Factors Are:: Overweight = 26-29 Recommendations Include:: Weight loss of 5-10%, Reduced calorie diet, Exercise 5-7 times/week Overweight/Obesity:: Patient communicates acknowledgment, Needs reinforcement Hypertension Patient Hypertension Risk Factors Are:: No documented hx of HTN Recommendations Include:: Maintain BP <130/85, Decrease/maintain normal body weight, Moderation of ETOH Hypertension:: Needs reinforcement Heart Disease Patient Heart Disease Risk Factors Are:: Previous cardiac event Recommendations Include:: Educated family members of their risk, Educated family members of importance of prevention of heart disease Heart Disease Response Code:: Needs reinforcement Diabetes Patient Diabetes Risk Factors Are:: No documented hx of diabetes Sedentary Patient Sedentary Risk Factors Are:: Lack of regular exercise Recommendations Include:: Aerobic exercise 5-7 times/week for 20-30 minutes continuously, Benefits of regular exercise, Discussed home walking program, Monitored Outpatient Cardiac Rehab Sedentary Response Code:: Needs reinforcement Stress Patient Stress Risk Factors Are:: Patient denies stress as a risk factor Recommendations Include:: Identification of stressors, and assessment of coping skills, Stress management techniques Stress Response Code:: Needs reinforcement
[2021-07-11] MEDS: Enoxaparin 40 MG/0.4 ML Syringe SC (08:08)
[2021-07-11] MEDS: TICAGRELOR 90 MG TABLET PO (08:08)
[2021-07-11] MEDS: Aspirin 81 MG TAB.CHEW PO (08:08)
[2021-07-11] MEDS: Metoprolol Tartrate 25 MG Tablet PO (08:09)
[2021-07-11] MEDS: Pantoprazole Sodium 20 MG Tablet PO (08:09)
--- NOTE | 2021-07-11 08:09 | PN.CARD_ITS ---
Subjective Subjective Patient seen and evaluated. Appears to be doing well. No cardiac complaints. Angiogram reviewed from this weekend. Objective Data Vital Signs: Vital Signs Temp Pulse Resp BP Pulse Ox 97.5 F L 74 18 117/81 H 100 07/11/21 03:00 07/11/21 07:00 07/11/21 03:00 07/11/21 03:00 07/11/21 03:00 Oxygen Delivery Method Room Air Weight: 176 lb 2.389 oz Body Mass Index (BMI) 26.7 Intake & Output: Intake and Output for Last 24 Hours 07/09/21 07/10/21 07/11/21 23:59 23:59 23:59 Intake Total 2672.5 / 2752.5 560 / 560 Output Total 1150 / 1150 Balance 1522.5 / 1602.5 560 / 560 Lab / Micro Data Result Diagrams: 07/11/21 05:06 07/11/21 05:06 Labs: Laboratory Results - last 24 hr 07/11/21 05:06: WBC 6.9, RBC 3.84 L, Hgb 11.8 L, Hct 36.6 L, MCV 95.3 H, MCH 30.7, MCHC 32.2, RDW Std Deviation 44.7 H, RDW Coeff of Madelin 12.9, Plt Count 217, MPV 10.8, Immature Gran % (Auto) 0.600, Neut % (Auto) 66.1, Lymph % (Auto) 18.9 L, Greenlee % (Auto) 10.2 H, Eos % (Auto) 3.8, Baso % (Auto) 0.4, Absolute Neuts ( auto) 4.6, Absolute Lymphs (auto) 1.30, Nucleated RBC % 0 07/11/21 05:06: Sodium 138, Potassium 3.6, Chloride 107, Carbon Dioxide 24.0, Anion Gap 7, BUN 11, Creatinine 0.74, Estim Creat Clear Calc 102.18, Est GFR (MDRD) Af Amer 136, Est GFR (MDRD) Non-Af 113, BUN/Creatinine Ratio 14.8, Glucose 88, Calcium 8.7 Cardiology Labs/Tests 07/11/21 05:06: WBC 6.9, RBC 3.84 L, Hgb 11.8 L, Hct 36.6 L, MCV 95.3 H, MCH 30.7, MCHC 32.2, Plt Count 217, MPV 10.8, Immature Gran % (Auto) 0.600, Neut % (Auto) 66.1, Lymph % (Auto) 18.9 L, Greenlee % (Auto) 10.2 H, Eos % (Auto) 3.8, Baso % (Auto) 0.4, Absolute Neuts (auto) 4.6, Nucleated RBC % 0 07/11/21 05:06: Sodium 138, Potassium 3.6, Chloride 107, Carbon Dioxide 24.0, Anion Gap 7, BUN 11, Creatinine 0.74, Est GFR (MDRD) Af Amer 136, Est GFR (MDRD) Non-Af 113, BUN/Creatinine Ratio 14.8, Glucose 88, Calcium 8.7 Rhythm: EKG: ECHO: Stress Test: Cardiac Cath: PCI: CT Surgery: Holter monitor: EPS: PPM: CXR: Chest CT Scan: Physical Exam Const alert, oriented x3 and no apparent distress General Appearance: cooperative HEENT hearing grossly normal bilaterally Head and Scalp: atraumatic Eyes EOMs intact bilaterally Neck General: normal visual inspection Chest inspection of chest normal and palpation of chest normal Resp normal respiratory effort Auscultation: clear to auscultation bilaterally Cardio regular rate, regular rhythm, S1 normal heart sound and S2 normal heart sound Jugular Venous Distention: JVD GI normal to inspection, nondistended, normoactive bowel sounds Extremity normal capillary refill and no pedal edema Peripheral Pulses: Yes pulses 2+ throughout and femoral pulses present Skin no rashes or lesions noted Neuro oriented x3 and CN's II-XII intact bilaterally Psych Appearance: grossly normal and appropriate Assessment & Plan Assessment/Plan (1) Acute ST elevation myocardial infarction: QUALIFIERS: Involved coronary artery: right coronary artery Qualified Code(s): I21.11 - ST elevation (STEMI) myocardial infarction involving right coronary artery PLAN: Patient suffered an acute ST elevation myocardial infarction with a previously thrombosed stent. Patient had been noncompliant with medications. He underwent angioplasty and stenting of the above vessel as well as the mid right coronary artery and the distal right coronary artery. * He would need to pursue aspirin as well as ticagrelor * He would need to continue low-dose beta-faustina * He will need to be on high intensity statin * His ejection fraction was estimated to be 50 to 55% * He does have a significant left circumflex artery lesion also in a previously stented vessel. He would need to have this staged. Smoking cessation has been emphasized (2) Pure hypercholesterolemia: PLAN: Patient is currently on high intensity statin which will be continued (3) Essential hypertension: PLAN: He does have a history of hypertension and will remain on the beta- faustina as well as the addition of an ARB with losartan 25 mg a day (4) Presence of stent in coronary artery: PLAN: His previously placed stents as discussed above. He will need to have interval PCI to the circumflex artery. He can be discharged today for outpatient follow-up in my office in 2 to 4 weeks. Thank you for allowing me to participate in the care of your patient. Please don't hesitate to call if any issues arise.
[2021-07-11] MEDS: Thiamine Hydrochloride 100 MG Tablet PO (08:10)
[2021-07-11] MEDS: Multivitamins,Ther W-Minerals Tablet 1 TABLET PO (08:10)
[2021-07-11] MEDS: Folic Acid 1 MG Tablet PO (08:10)
[2021-07-11] MEDS: Losartan Potassium 25 MG Tablet PO (10:07)
--- NOTE | 2021-07-11 11:11 | PCM.DC ---
Discharge Instructions Diet Discharge Diet: Low fat / Low cholesterol Activity Discharge Activity: Return to Normal Activity Dressing / Incision Call your doctor if your incision/area has: Continuous Slow Oozing and Foul Smelling Discharge Call your doctor if you observe: Fever of 101 or Higher, Shortness of breath, Dizziness, Fainting spells, Swelling in the ankles, Chest pain and Increased palpitations (irregular heartbeat) Follow Up Care Test Results: Test results from this visit will be discussed in further detail at your follow-up appointment, if applicable. Discharge Plan Admission Admit Date/Time: 07/08/21 13:52 Attending Provider: Andriy Prescott Primary Care Provider: Care Physician,No Primary Consulting Providers: Ledy Abebe Discharge Orders/Prescriptions Prescriptions: New atorvastatin 80 mg Tablet 80 mg PO QHS Qty: 30 RF: 0 losartan 25 mg Tablet 25 mg PO DAILY Qty: 30 RF: 0 aspirin 81 mg Tablet,Chewable 81 mg PO BREAKFAST Qty: 30 RF: 0 metoprolol tartrate 25 mg Tablet 25 mg PO BID Qty: 60 RF: 0 Brilinta 90 mg Tablet 90 mg PO BID Qty: 60 RF: 0 Referrals / Follow Up: Abrahan Felix MD [STAFF PHYSICIAN] - Within 1 Month Care Physician,No Primary [Primary Care Provider] - Within 1 Week Disposition Disposition (needs filled in before D/C Order can be placed): Home, Self Care
--- NOTE | 2021-07-11 11:30 | CASEMGMT ---
CLAUDIO PACHECO assessment: Face to Face with patient for initial transition planning/care coordination assessment. CLAUDIO PACHECO introduced self and role at [facility], pt voices understanding and consents to assessment. Pt is sitting up in bed on room air in no distress. Pt is A/Ox4 and answers all questions appropriately. Care providers, pharmacy, and demographics verified. Presentation: Pt c/o chest pressure since last night with N/V, SOB Admitting dx: STEMI PCP: Nubia Yadav Specialists: Pt states no current specialists. Preferred Pharmacy: [facility]-pt to be sent home on Brilinta and per [facility], co-pay is $9.85 and pt provided with Brilinta month free trial card, voices understanding. Insurance: [facility] A/B, [facility] Prescription Benefit: KRISTEN Living Will/HPOA: Pt does not have LW/HPOA and declines AD info. LNOK: Santana Peter, son; Neymar Peter, brother Living Arrangements: Pt lives alone in apt with no steps and states no concerns at home. Pt is independent with ADL's. Transportation: Pt states brothers drive or takes taxi. Pt states no transportation concerns. DME/HHC: Pt states no current DME or need for any DME. Pt states no hx of HHC or SNF. Pt states no concerns with going home at time of discharge. Pt is disabled. Pt states smokes 1.5 pack cigarettes daily and drinks 6pk beer daily. Pt declines ETOH resources. Pt voices no further concerns/needs. CM to follow for any further discharge planning/needs. Advised pt to ask for CM if any further questions/concerns/needs arise, voices understanding. Pt Goal: Home Plan: [place] CLAUDIO PACHECO
--- NOTE | 2021-07-11 12:43 | CASEMGMT ---
Social Work Per nursing note patient sister, Edna contacted (patient provided permission for this prior to patient leaving) Edna reports to have no questions but to have thought that social service worker needed to speak with family prior to discharge. This social service worker explained that patient is alert and oriented but often times discharge planning will involve collaborating with patient and family. Edna with no questions. Merissa Bello MSW, LUIS
--- NOTE | 2021-07-11 15:55 | DS.PCM_ITS ---
Providers Date of Admission: 07/08/21 Primary Care Physician: Dr. Nubia Licea Consultations 07/08/21 14:23 Consult: Cardiology Routine Consulting Provider: Ledy Abebe Reason for Consult: STEMI EMERGENT Consult: No MD Notified: Yes Date Notified: 07/08/21 Time Notified: 13:57 Method of Notification: discussed case. Reason For Visit: STEMI Diagnosis Discharge Diagnosis (1) Acute ST elevation myocardial infarction: Status: Acute Code(s): I21.3 - ST elevation (STEMI) myocardial infarction of unspecified site Qualifiers: Involved coronary artery: right coronary artery Qualified Code(s): I21.11 - ST elevation (STEMI) myocardial infarction involving right coronary artery (2) Pure hypercholesterolemia: Status: Chronic Code(s): E78.00 - Pure hypercholesterolemia, unspecified (3) Essential hypertension: Status: Chronic Code(s): I10 - Essential (primary) hypertension (4) Presence of stent in coronary artery: Status: Chronic Code(s): Z95.5 - Presence of coronary angioplasty implant and graft Medications at Discharge Home Medications aspirin 81 mg PO BREAKFAST #30 tab 07/11/21 atorvastatin 80 mg PO QHS #30 tab 07/11/21 losartan 25 mg PO DAILY #30 tab 07/11/21 metoprolol tartrate 25 mg PO BID #60 tab 07/11/21 ticagrelor [Brilinta] 90 mg PO BID #60 tab 07/11/21 Hospital Course Operations None Procedures Cardiac catheterization Summary of Care Provided Minutes Spent on Discharge: 40 Hospital Course: Per HPI: The patient is a 65 y/o M w/ PMHx: CAD s/p PCI 03/2017, HTN, HLD, Hx prior CVA, Tobacco use, EtOH abuse who presents to the [facility] ED on 07/08/21 with history of onset of chest discomfort starting the day prior primarily midsternal and radiating into his neck as well as down towards his belly as well his bilateral upper extremities with associated diaphoresis, dyspnea, nausea and sami uts of emesis rating his discomfort 10 of 10 in severity, described as a tightness. He does report it was similar to his prior chest discomfort preceding his PCI which he reports having had at [facility] years prior in 2017. Work-up in the ED included T 97.2, heart rate 72, BP 136/89, resp iratory rate 16, 100% on room air, CBC with WC 11.8, hemoglobin 13.9, platelets 304 with mild left shift, unremarkable coags, BMP with sodium 135, glucose 121 otherwise not marked appearing, high-sensitivity troponin initial 36,155, EKG with inferior STEMI evident, chest x-ray with no acute cardiopulmonary findings. In the ED patient was administered normal saline, aspirin 324 mg p.o. x1, heparin 4000 unit bolus, morphine 4 mg IV x1 and Zofran 4 mg IV x1 patient transition to cardiac catheterization lab with typo machine operator, Dr. Abebe with reported significantly occluded proximal RCA eventually receiving PCI following further intervention. Following cardiac catheterization and intervention jose elias ragland noted complete resolution of chest discomfort and was transitioned to the ICU for further care. Hospital Course: 1. STEMI/CAD status post stent/HLD/HTN/history of CVA?65-year-old male presented to the hospital with chest pain. He underwent a cardiac cath and had 2 stents placed in the RCA. He is feeling much better today, without any chest pain. His discharge was delayed secondary to a metabolic encephalopathy there is concern that he has been getting some Ativan secondary to history of alcohol withdrawal but once this was discontinued his mental status normalized. In discussion with cardiology changes were made to his medications, he was discharged on twice daily as well his metoprolol, losartan, Lipitor, and aspirin. I discussed with him the plan for discharge today and he expressed understanding of the risks and benefits of going home and he wants to go home today. He will need to follow-up with cardiology as an outpatient. Physical Exam Const alert, oriented x3 and no apparent distress General Appearance: cooperative HEENT normocephalic and moist oral mucous membranes Eyes PERRL, EOMs intact bilaterally and conjunctivae normal Neck supple and no JVD Resp normal respiratory effort, no retractions, no use of accessory muscles and clear to auscultation bilaterally Auscultation: Negative for crackles, rales, rhonchi or wheezes Cardio regular rate, regular rhythm, S1 normal heart sound, S2 normal heart sound and no murmurs GI soft to palpation, non-tender and non-distended; Negative for hepatosplenomegaly Extremity no clubbing, cyanosis or edema Skin no rashes or lesions noted Neuro no focal motor deficits and no sensory deficits noted Psych affect normal Appearance: appropriate Weight / BMI Weight Weight: 176 lb 2.389 oz Body Mass Index (BMI) 26.7 ABG / Lab / Microbiology Data Result Diagrams: 07/11/21 05:06 07/11/21 05:06 Laboratory: Laboratory Results - last 24 hr 07/11/21 05:06: WBC 6.9, RBC 3.84 L, Hgb 11.8 L, Hct 36.6 L, MCV 95.3 H, MCH 30.7, MCHC 32.2, RDW Std Deviation 44.7 H, RDW Coeff of Madelin 12.9, Plt Count 217, MPV 10.8, Immature Gran % (Auto) 0.600, Neut % (Auto) 66.1, Lymph % (Auto) 18.9 L, Bullock % (Auto) 10.2 H, Eos % (Auto) 3.8, Baso % (Auto) 0.4, Absolute Neuts (auto) 4.6, Absolute Lymphs (auto) 1.30, Nucleated RBC % 0 07/11/21 05:06: Sodium 138, Potassium 3.6, Chloride 107, Carbon Dioxide 24.0, Anion Gap 7, BUN 11, Creatinine 0.74, Estim Creat Clear Calc 102.18, Est GFR (MDRD) Af Amer 136, Est GFR (MDRD) Non-Af 113, BUN/Creatinine Ratio 14.8, Glucose 88, Calcium 8.7 D/C Instructions Discharge Diet: Low fat / Low cholesterol Call your doctor if your incision/area has: Continuous Slow Oozing and Foul Smelling Discharge Call your doctor if you observe: Fever of 101 or Higher, Shortness of breath, Dizziness, Fainting spells, Swelling in the ankles, Chest pain and Increased palpitations (irregular heartbeat) Meaningful Use Info Meaningful Use Diagnoses (Choose all that apply): None applicable Discharge Plan Admission Admit Date/Time: 07/08/21 13:52 Attending Provider: Andriy Prescott Primary Care Provider: Nubia Licea Consulting Providers: Ledy Abebe Discharge Orders/Prescriptions Prescriptions: New atorvastatin 80 mg Tablet 80 mg PO QHS Qty: 30 RF: 0 losartan 25 mg Tablet 25 mg PO DAILY Qty: 30 RF: 0 aspirin 81 mg Tablet,Chewable 81 mg PO BREAKFAST Qty: 30 RF: 0 metoprolol tartrate 25 mg Tablet 25 mg PO BID Qty: 60 RF: 0 Brilinta 90 mg Tablet 90 mg PO BID Qty: 60 RF: 0 Referrals / Follow Up: Abrahan Felix MD [STAFF PHYSICIAN] - Within 1 Month Care Physician,No Primary [NON-STAFF] - Within 1 Week Disposition Disposition (needs filled in before D/C Order can be placed): Home, Self Care Charges/Coding Visit Charges Inpatient E&M: 23776 Disch Hosp
== END 2021-07-11 12:54 | disposition home or self-care (01) | DRG 246 ==
LOC: ED 11:37 → ICU 14:55 → PCU 07-09 14:51
PROVIDERS: Family Medicine; Student in an Organized Health Care Education/Training Program; Admitting Provider Internal Medicine Interventional Cardiology; Emergency Provider Emergency Medicine; Referring Provider Internal Medicine Interventional Cardiology; Visit Provider Family Medicine
DX: I21.11 ST elevation (STEMI) myocardial infarction involving right coronary artery (principal); G92.8 Other toxic encephalopathy; F10.139 Alcohol abuse with withdrawal, unspecified; I25.10 Atherosclerotic heart disease of native coronary artery without angina pectoris; T42.4X5A Adverse effect of benzodiazepines, initial encounter; I10 Essential (primary) hypertension; E78.00 Pure hypercholesterolemia, unspecified; J44.9 Chronic obstructive pulmonary disease, unspecified; I25.2 Old myocardial infarction; Y90.0 Blood alcohol level of less than 20 mg/100 ml; F17.210 Nicotine dependence, cigarettes, uncomplicated; Z91.14 Patient's other noncompliance with medication regimen; Z95.5 Presence of coronary angioplasty implant and graft; Z79.82 Long term (current) use of aspirin; Z79.899 Other long term (current) drug therapy; Z86.73 Personal history of transient ischemic attack (TIA), and cerebral infarction without residual deficits
CPT/HCPCS: 36415; 71045; 80048; 80061; 80307; 82040; 82077; 82247; 83735; 84075; 84100; 84156; 84450; 84460; 84484; 85025; 85610; 85730; 92941; 93005; 93306; 93458; 97802; 99152; 99153; 99251; C1757; J7030; Q9957; Q9967; A4216; C1725; C1769; C1874; C1887; C1894; C8929; C9606; G0463; J1327; J2405

== ENCOUNTER 2022-05-02 17:48 | Observation (INO) | payer MEDICARE, MEDICAID, SELFPAY ==
[2022-05-02] VITALS (8 sets, daily range): BP systolic 105–129; BP diastolic 63–90; PULSE 74–101; RESP 15–20; TEMP 36.4–36.6; O2SAT 95–100; BMI 24.4; BMI 21.0
[2022-05-02 18:15] LABS: Bacteria 0 SEEN /hpf (None Seen); Mucous, Urine 0 SEEN /hpf (<or=2+); Red Blood Cells-Urine 0 SEEN /hpf (0-5); White Blood Cells 0 SEEN /hpf (0-5)
[2022-05-02 18:31] LABS: Color, Urine Straw (Yellow); Glucose, Dipstick Normal (Normal); Ketone-Dipstick Negative (Negative); Leukocyte Esterase-Dipstick Negative /ul (Negative); Nitrite-Dipstick Negative (Negative); Occult Blood-Urine Negative /ul (Negative); Protein-Dipstick Negative (Negative); Specific Gravity, Urine 1.005 (1.002-1.030); Urine Bilirubin Dipstick Negative (Negative); Urine Clarity Clear (Clear); Urine Urobilinogen Normal (Normal); Urine pH 6.5 (5.0 - 8.0)
[2022-05-02 18:54] LABS: Squamous Epithelial Cells - UA 0-5 SEEN /hpf (0-5)
--- NOTE | 2022-05-02 18:55 | EDS_ITS ---
HPI History of Present Illness Chief Complaint: Weakness Narrative Narrative: 66-year-old male here for diffuse weakness. History of CAD, STEMI, hyperlipidemia, hypertension on aspirin and Plavix. Notes he has not been taking his medicines for 6 months. The patient states he is having diffuse weakness for the last 5 days and chest pain that started this morning. Chest pain is midsternal, constant, worse with exertion reminds him of prior heart attacks. Denies any lower extremity edema, syncope. Denies any cough or fever. The patient denies recent surgery in the last 4 weeks or immobilization in the last 3 days, denies previous diagnosis of DVT or PE, hemoptysis, unilateral leg swelling or malignancy with treatment the last 6 months. No estrogen use noted. Old chart reviewed: Last catheterization in June 2021 [facility] Medical History Acute ST elevation myocardial infarction Alcohol abuse Atherosclerotic heart disease of [place] coronary artery without angina pectoris Essential hypertension History of stroke Old myocardial infarction Presence of stent in coronary artery (~03/28/17) Pure hypercholesterolemia Tobacco abuse Home Medications aspirin 81 mg chewable tablet 81 mg PO BREAKFAST #90 tabs 07/21/21 [Rx Last Taken Unknown] atorvastatin 80 mg tablet 80 mg PO QHS pt lost hospital RX #90 tabs 07/21/21 [Rx Last Taken Unknown] losartan 25 mg tablet 25 mg PO DAILY Pt lost hospital RX #90 tabs 07/21/21 [Rx Last Taken Unknown] metoprolol tartrate 25 mg tablet 25 mg PO BID pt lost hospital RX #180 tabs 07/21/21 [Rx Last Taken Unknown] ticagrelor 90 mg tablet (Brilinta) 90 mg PO BID #60 tabs 07/21/21 [Rx Last Taken Unknown] Allergy/AdvReac Type Severity Reaction Status Date / Time lisinopril Allergy COUGH Verified 05/02/22 17:52 Family History (Updated 08/12/19 @ 17:15 by Zoila Yousif) Father Heart disease Mother Alzheimers disease Brother COPD (chronic obstructive pulmonary disease) Brother Heart disease Sister Cancer Lung Surgical History History of gastrectomy History of tracheostomy Presence of coronary angioplasty implant and graft (~03/28/17) Social History (Updated 07/08/21 @ 14:[address] Delores Mendoza MD) housing: other details: Lives with a roommate. Smoking Status: Current every day smoker tobacco type: cigarettes alcohol intake: current alcohol intake frequency: 3 or more drinks per day Alcohol type: beer details: Daily. substance use type: does not use caffeine: Yes Type: coffee Number of servings: 2 ROS ROS ED ROS Narrative Constitutional: Denies fever, endorses diffuse weakness HEENT: Denies sore throat Neck: Denies neck pain Cardiovascular: Endorses chest pain Respiratory: Endorses shortness of breath GI: Denies nausea vomiting or abdominal pain : Denies changes in urinary habits Musculoskeletal: Denies muscle or joint pain Neurologic: Endorses diffuse weakness, denies focal weakness, numbness, slurred speech or loss of sensation Skin denies rash EXAM Physical Exam Narrative Exam Narrative: Nursing triage notes reviewed, Vital signs reviewed Constitutional: please see mdm HENT: MMM Eyes: Pupils equal round and reactive to light, Extraocular muscles intact Neck: No stridor, no JVD, full neck ROM Lungs: Clear to auscultation, No wheezing or rales. No increased work of breathing, no conversational dyspnea, no accessory muscle use, no nasal flaring. No respiratory distress noted Heart: Regular rate and rhythm, No murmurs, No rubs and No gallops, 2+ distal pulses (radial, femoral, posterior tibial) in all extremities Abdomen: Soft, there is no tenderness, rigidity, rebound or guarding, no obvious peritoneal signs, no palpable pulsatile abdominal masses, no auscultated abdominal bruit : No CVAT Extremities: No edema Neuro: No focal neurological deficits, cranial nerves II through XII intact, 5/5 strength in all extremities. Intact sensation to light touch in all extremities, 2+ reflexes bilateral patella dens. Normal gait. No ataxia. Skin: No rash or lesions noted Const Vital Signs: 05/02/22 17:49 05/02/22 18:57 05/02/22 18:57 Temperature 97.6 F L Temperature Source Temporal Pulse Rate 101 H 95 Respiratory Rate 16 20 H Respiratory Effort Normal Non-Labored Respiratory Pattern Normal Blood Pressure 129/90 H Blood Pressure Mean 103 Pulse Ox 100 98 Oxygen Delivery Method Room Air Room Air 05/02/22 19:07 05/02/22 19:36 Temperature Temperature Source Pulse Rate 74 Respiratory Rate 15 Respiratory Effort Respiratory Pattern Blood Pressure 113/81 H Blood Pressure Mean 91 Pulse Ox 97 99 Oxygen Delivery Method Room Air Room Air MDM MDM MDM Narrative Medical decision making narrative: 66-year-old male history of CAD status post stents presents with chest pain and diffuse weakness in the setting of med noncompliance. Initially hemodynamically stable, afebrile and nontoxic-appearing. No focal cardiopulmonary normalities. No focal neurologic deficits on my initial exam. Concern for ACS, arrhythmia, myocardial ischemia, anemia, electrolyte abnormalities. EKG without evidence of STEMI. Obtain labs including troponin, BNP. Labs and images were remarkable for no evidence of myocardial ischemia in EKG or troponin. Chest x-ray no evidence of pneumonia, pneumothorax pulmonary edema. Patient's work-up is unremarkable initially however his heart score is elevated at 5 story is very concerning with exertional chest pain that he states is anginal STEMI equivalent off medicine. I believe he deserves inpatient admission for observation, serial biomarkers and cardiology consultation. Will discuss with the hospitalist. Lab Data Attestation: I reviewed the patient's lab results. Lab results narrative: CBC with no leukocytosis, not anemic, no thrombocytopenia BMP without significant electrolyte abnormalities, no anion gap, no KVNG, Troponin negative UA without evidence of infection Chest x-ray no acute finding Labs: Laboratory Results - last 24 hr 05/02/22 05/02/22 05/02/22 18:05 19:20 19:20 WBC 4.6 RBC 3.92 L Hgb 10.2 L Hct 33.7 L MCV 86.0 MCH 26.0 L MCHC 30.3 L RDW Std Deviation 63.4 H RDW Coeff of Madelin 20.4 H Plt Count 358 MPV 9.9 Immature Gran % (Auto) 0.200 Neut % (Auto) 40.9 L Lymph % (Auto) 41.9 H [place] % (Auto) 10.5 H Eos % (Auto) 5.0 Baso % (Auto) 1.5 H Absolute Neuts (auto) 1.9 L Absolute Lymphs (auto) 1.91 Nucleated RBC % 0 Sodium 143 Potassium 3.8 Chloride 112 H Carbon Dioxide 24.0 Anion Gap 7 BUN 6 L Creatinine 0.56 L Estim Creat Clear Calc 146.27 Est GFR (MDRD) Af Amer 187 Est GFR (MDRD) Non-Af 155 BUN/Creatinine Ratio 10.6 Glucose 87 Calcium 8.2 L Troponin I High Sens 48 B-Natriuretic Peptide Urine Color Straw Urine Clarity Clear Urine pH 6.5 Ur Specific [place] 1.005 Urine Protein Negative Urine Glucose (UA) Normal Urine Ketones Negative Urine Occult Blood Negative Urine Nitrite Negative Urine Bilirubin Negative Urine Urobilinogen Normal Ur Leukocyte Esterase Negative Urine RBC 0 SEEN Urine WBC 0 SEEN Ur Squamous Epith Cells 0-5 SEEN Urine Bacteria 0 SEEN Urine Mucus 0 SEEN 05/02/22 19:20 WBC RBC Hgb Hct MCV MCH MCHC RDW Std Deviation RDW Coeff of Madelin Plt Count MPV Immature Gran % (Auto) Neut % (Auto) Lymph % (Auto) [place] % (Auto) Eos % (Auto) Baso % (Auto) Absolute Neuts (auto) Absolute Lymphs (auto) Nucleated RBC % Sodium Potassium Chloride Carbon Dioxide Anion Gap BUN Creatinine Estim Creat Clear Calc Est GFR (MDRD) Af Amer Est GFR (MDRD) Non-Af BUN/Creatinine Ratio Glucose Calcium Troponin I High Sens B-Natriuretic Peptide 147.2 H Urine Color Urine Clarity Urine pH Ur Specific [place] Urine Protein Urine Glucose (UA) Urine Ketones Urine Occult Blood Urine Nitrite Urine Bilirubin Urine Urobilinogen Ur Leukocyte Esterase Urine RBC Urine WBC Ur Squamous Epith Cells Urine Bacteria Urine Mucus Radiography Diagnostic Testing: Clinical Impression(s) from Imaging Studies Chest X-Ray 05/02/22 19:41 IMPRESSION: There are no acute findings. Electronically Signed: Martín Araujo MD at 20:13 EDT Reading Location ID and State: [facility] [place] / [place] , Service support , EKG Initial EKG: Attestation: I personally reviewed and interpreted this EKG as follows: Comments: EKG normal sinus rhythm, normal axis, normal intervals, no STEMI Discharge Plan Triage Chief Complaint: Weakness ED Provider: Coleman Coleman Dx/Rx/DC Orders Prescriptions: No Action atorvastatin 80 mg tablet 80 mg PO QHS Qty: 90 3RF losartan 25 mg tablet 25 mg PO DAILY Qty: 90 3RF metoprolol tartrate 25 mg tablet 25 mg PO BID Qty: 180 3RF Brilinta 90 mg tablet 90 mg PO BID Qty: 60 11RF aspirin 81 mg tablet,chewable 81 mg PO BREAKFAST Qty: 90 3RF Primary Care Provider: Nubia Licea Referrals: Nubia Licea [Primary Care Provider] -
--- NOTE | 2022-05-02 19:25 | EKG12_ITS ---
Test Reason : CP/WEAKNESS Blood Pressure : / mmHG Vent. Rate : 096 BPM Atrial Rate : 096 BPM P-R Int : 172 ms QRS Dur : 102 ms QT Int : 374 ms P-R-T Axes : 070 067 080 degrees QTc Int : 472 ms Normal sinus rhythm Inferior infarct , age undetermined Abnormal ECG Confirmed by LEDY MORRELL, ADRIENNE ([id number]), editor city GRETCHEN GLEASON ([id number]) on 05/04/2022 10:39:38 AM Referred By: CHYNA/NELLI Confirmed By:ADRIENNE VILLAFANA MD
--- NOTE | 2022-05-02 19:41 | RAD_ITS ---
STUDY: X-RAY CHEST REASON FOR EXAM: Male, 66 years old. CHEST PAIN chest pain TECHNIQUE: XR Chest 1 View COMPARISON: 07/08/2021 FINDINGS: There is no demonstrated pleural abnormality. Normal size heart. Normal mediastinum and dirk. Normal visualized pulmonary arteries. Normal visualized aortic arch and descending thoracic aorta. Normal visualized thoracic spine. Normal visualized ribs, clavicles, and shoulders. There is no demonstrated abnormality of the visualized soft tissue structures of the upper abdomen. RAD/Chest 1 View (Portable) IMPRESSION: There are no acute findings. Electronically Signed: Martín Araujo MD at 20:13 EDT ,
[2022-05-02 19:51] LABS: Absolute Lymphocyte Count 1.91 X10^3/uL (0.83-4.51); Absolute Neutrophil Count 1.9 X10^3/uL (2.0-7.7); Basophil# 0.07 X10^3/uL; Basophil% 1.5 % (0-1); Eosinophil# 0.23 X10^3/uL; Hematocrit 33.7 % (40-54); Hemoglobin 10.2 g/dL (13.0-16.5); Lymphocyte # 1.91 X10^3/ul (0.83-4.51); Lymphocyte % 41.9 % (19-41); Mean Corp Hgb Conc 30.3 g/dL (32-36); Mean Platelet Vol. 9.9 fl (6.2-12.0); Monocyte# 0.48 X10^3/uL; Monocyte% 10.5 % (0-10); NRBC Flagged by Analyzer 0 % (0-5); Neutrophil # 1.86 X10^3/uL (2.7-7.7); Neutrophil % 40.9 % (47-70); POSITIVE MORPHOLOGY YES; Platelet Count 358 K/mm3 (150-450); RBC Distribution Width CV 20.4 % (11.6-14.6); RBC Distribution Width SD 63.4 fl (35.1-43.9); Red Blood Count 3.92 M/mm3 (4.6-6.2); White Blood Count 4.6 K/mm3 (4.4-11.0)
[2022-05-02 19:53] LABS: Differential Indicated SCAN CRITERIA MET
--- NOTE | 2022-05-02 19:54 | ED.RN ---
pt was given aspirin by ems per pt
[2022-05-02 20:09] LABS: Anion Gap 7 (5-15); BUN 6 mg/dL (7-18); BUN/Creat Ratio 10.6 RATIO (10-20); Calcium,Total 8.2 mg/dL (8.5-10.1); Chloride 112 mmol/L (98-107); Creatinine, Serum 0.56 mg/dL (0.70-1.30); EST Glomerular Filtration Rate 155 mL/min (>60); Est Glom Filt Rate - Afr Amer 187 mL/min (>60); Estimated Creatinine Clearance 146.27 ml/min; Glucose 87 mg/dL (74-106); Potassium 3.8 mmol/L (3.5-5.1); Sodium Level 143 mmol/L (136-145); Troponin-I HS (w/2H Reflex) 48 pg/mL (3.0-78.0)
[2022-05-02 20:37] LABS: BNP,B-Type NATRIURETIC PEPTIDE 147.2 pg/mL (0-100)
[2022-05-02 20:57] LABS: Anisocytosis 1+; Differential Comment SCANNED; Hypochromasia 1+
[2022-05-02 21:48] LABS: Reflex Troponin-HS? (from REC) Y
[2022-05-02 22:34] LABS: Troponin-I HS 50 pg/mL (3.0-78.0)
--- NOTE | 2022-05-02 22:42 | HP.PCM.HOS_ITS ---
HPI - General General Date of Admission: 05/02/22 Date of Service: 05/02/22 Chief Complaint: chest pain HPI Narrative SPRING QUIROZ, is a 66 M who presents with midsternal chest pain. Began today. Just was not feeling well with that but then denied any other symptoms. Patient had a ST elevation myocardial infarction in June. Patient was on medications but was feeling dizzy so stopped all his medications and has not been taking any of his cardiac medications including the aspirin and ticagrelor since then. Patient present here EKG and troponins were negative. Hospital service was contacted for admission for the patient having chest pain. [facility] Medical History (Updated 05/02/22 @ 22:[address] Oumar Shetty DO) Acute ST elevation myocardial infarction Alcohol abuse Atherosclerotic heart disease of [place] coronary artery without angina pectoris Essential hypertension History of stroke Old myocardial infarction Presence of stent in coronary artery (~03/28/17) Pure hypercholesterolemia Tobacco abuse Home Medications aspirin 81 mg chewable tablet 81 mg PO BREAKFAST #90 tabs 07/21/21 [Rx Last Taken Unknown] atorvastatin 80 mg tablet 80 mg PO QHS pt lost hospital RX #90 tabs 07/21/21 [Rx Last Taken Unknown] losartan 25 mg tablet 25 mg PO DAILY Pt lost hospital RX #90 tabs 07/21/21 [Rx Last Taken Unknown] metoprolol tartrate 25 mg tablet 25 mg PO BID pt lost hospital RX #180 tabs 07/21/21 [Rx Last Taken Unknown] ticagrelor 90 mg tablet (Brilinta) 90 mg PO BID #60 tabs 07/21/21 [Rx Last Taken Unknown] Allergy/AdvReac Type Severity Reaction Status Date / Time lisinopril Allergy COUGH Verified 05/02/22 17:52 Family History Father Heart disease Mother Alzheimers disease Brother COPD (chronic obstructive pulmonary disease) Brother Heart disease Sister Cancer Lung Surgical History History of gastrectomy History of tracheostomy Presence of coronary angioplasty implant and graft (~03/28/17) Social History housing: other details: Lives with a roommate. Smoking Status: Current every day smoker tobacco type: cigarettes alcohol intake: current alcohol intake frequency: 3 or more drinks per day Alcohol type: beer details: Daily. substance use type: does not use caffeine: Yes Type: coffee Number of servings: 2 ROS ROS Narrative All review of systems were negative except as mentioned above in the history of present illness and the other review of systems. Vital Signs Vital Signs Vital Signs: 05/02/22 17:49 05/02/22 18:57 05/02/22 18:57 Temperature 36.4 C L Temperature Source Temporal Pulse Rate 101 H 95 Respiratory Rate 16 20 H Respiratory Effort Normal Non-Labored Respiratory Pattern Normal Blood Pressure 129/90 H Blood Pressure Mean 103 Blood Pressure Source Blood Pressure Position Blood Pressure Location Pulse Ox 100 98 Oxygen Delivery Method Room Air Room Air 05/02/22 19:07 05/02/22 19:36 05/02/22 21:39 Temperature 36.6 C Temperature Source Oral Pulse Rate 74 86 Respiratory Rate 15 19 H Respiratory Effort Respiratory Pattern Blood Pressure 113/81 H 105/63 Blood Pressure Mean 91 77 Blood Pressure Source Blood Pressure Position Blood Pressure Location Pulse Ox 97 99 95 Oxygen Delivery Method Room Air Room Air Room Air 05/02/22 21:39 05/02/22 22:26 Temperature 36.6 C 36.4 C L Temperature Source Oral Axillary Pulse Rate 86 96 Respiratory Rate 19 H 18 Respiratory Effort Respiratory Pattern Blood Pressure 105/63 121/79 H Blood Pressure Mean 77 93 Blood Pressure Source Monitor Blood Pressure Position Supine Blood Pressure Location Left Arm Pulse Ox 95 98 Oxygen Delivery Method Room Air Room Air Weight Weight: 70.5 kg Body Mass Index (BMI) 21.0 Physical Exam Const alert and no apparent distress HEENT normocephalic, head/scalp atraumatic, hearing grossly normal bilaterally and moist oral mucous membranes Eyes PERRL Resp normal respiratory effort, no retractions, no use of accessory muscles and clear to auscultation bilaterally Cardio regular rate, regular rhythm, S1 normal heart sound and S2 normal heart sound GI normal to inspection, nondistended, normoactive bowel sounds, soft to palpation, non-tender and non-distended Extremity normal to inspection Neuro oriented x3, moves all extremities and no focal motor deficits Psych affect normal Results Lab / Micro Data Attestation: I reviewed the patient's lab results. Result Diagrams: 05/02/22 19:20 05/02/22 19:20 Labs: Laboratory Results - last 24 hr 05/02/22 18:05: Urine Color Straw, Urine Clarity Clear, Urine pH 6.5, Ur Specific [place] 1.005, Urine Protein Negative, Urine Glucose (UA) Normal, Urine Ketones Negative, Urine Occult Blood Negative, Urine Nitrite Negative, Urine Bilirubin Negative, Urine Urobilinogen Normal, Ur Leukocyte Esterase Negative, Urine RBC 0 SEEN, Urine WBC 0 SEEN, Ur Squamous Epith Cells 0-5 SEEN, Urine Bacteria 0 SEEN, Urine Mucus 0 SEEN 05/02/22 19:20: WBC 4.6, RBC 3.92 L, Hgb 10.2 L, Hct 33.7 L, MCV 86.0, MCH 26.0 L, MCHC 30.3 L, RDW Std Deviation 63.4 H, RDW Coeff of Madelin 20.4 H, Plt Count 358, MPV 9.9, Immature Gran % (Auto) 0.200, Neut % (Auto) 40.9 L, Lymph % (Auto) 41.9 H, Iron % (Auto) 10.5 H, Eos % (Auto) 5.0, Baso % (Auto) 1.5 H, Absolute Neuts (auto) 1.9 L, Absolute Lymphs (auto) 1.91, Nucleated RBC % 0, Differential Comment SCANNED, Hypochromasia 1+, Anisocytosis 1+ 05/02/22 19:20: Sodium 143, Potassium 3.8, Chloride 112 H, Carbon Dioxide 24.0, Anion Gap 7, BUN 6 L, Creatinine 0.56 L, Estim Creat Clear Calc 146.27, Est GFR (MDRD) Af Amer 187, Est GFR (MDRD) Non-Af 155, BUN/Creatinine Ratio 10.6, Glucose 87, Calcium 8.2 L, Troponin I High Sens 48 05/02/22 19:20: B-Natriuretic Peptide 147.2 H 05/02/22 22:08: Troponin I High Sens 50 EKG Initial EKG: Attestation: I personally reviewed and interpreted this EKG as follows: Prior EKG tracings: available for review EKG Rhythm Intrepretation: Sinus Rhythm Radiology Impression Chest X-Ray 05/02/22 19:41 IMPRESSION: There are no acute findings. Electronically Signed: Martín Araujo MD at 20:13 EDT , Assessment & Plan Assessment/Plan (1) Unstable angina: PLAN: No evidence of myocardial infarction Plan is check an echo and a stress test Monitor troponins Consult cardiology and the above are abnormal (2) Alcohol abuse: PLAN: Patient drinks 3-4 beers per day. Not sure I can rely on his estimation. He does state that he feels shaky when he does not drink. Start thiamine and folate Will not initiate any treatment for alcohol withdrawal at this time. (3) History of coronary angioplasty: PLAN: Patient has stopped taking his medications on his own due to feeling dizzy. Instead of notifying someone he just stopped all his medications altoget her. Talked with the patient that his reportedly did not take his antiplatelets. We will try different 1 from ticagrelor instead of that using clopidogrel but also using aspirin. He was agreeable to that. PLAN: Plan VTE prophylaxis: Not indicated given current observation status. Charges/Coding Visit Charges OBSV E&M: 56990 Initial observation care L3
--- NOTE | 2022-05-02 23:04 | EKG12_ITS ---
Test Reason : CP ADMIT Blood Pressure : / mmHG Vent. Rate : 087 BPM Atrial Rate : 087 BPM P-R Int : 178 ms QRS Dur : 096 ms QT Int : 402 ms P-R-T Axes : 066 069 080 degrees QTc Int : 483 ms Normal sinus rhythm Inferior infarct , age undetermined Abnormal ECG Confirmed by LEDY MORRELL, ADRIENNE ([id number]), newspaper copy editor GRETCHEN GLEASON ([id number]) on 05/04/2022 10:30:35 AM Referred By: Confirmed By:ADRIENNE VILLAFANA MD
--- NOTE | 2022-05-02 23:49 | NURSING ---
per pt he is not aking home medications at this time.
[2022-05-03] MEDS: Clopidogrel Bisulfate 300 MG Tablet PO (00:03)
[2022-05-03 02:29] LABS: Troponin-I HS 53 pg/mL (3.0-78.0)
[2022-05-03 02:39] LABS: AST(SGOT) 33 U/L (15-37); Alanine Aminotransfer ALT/SGPT 20 U/L (16-61); Albumin, Serum 2.5 g/dL (3.2-5.0); Alkaline Phosphatase 82 U/L (45-117); Bilirubin, Direct 0.12 mg/dL (0.00-0.30); Globulin 3.6 g/dL (2.2-4.2); Protein, Total 6.1 g/dL (6.4-8.2); Thyroid Stim Hormone (TSH) 1.08 uIU/mL (0.358-3.74)
[2022-05-03 03:00] VITALS: PULSE 88
[2022-05-03 04:30] VITALS: BP 145/88; PULSE 98; RESP 18; TEMP 36.6; O2SAT 97
[2022-05-03 04:39] VITALS: BP 145/88; BP 147/92; BP 156/86; PULSE 100; PULSE 115; PULSE 95
--- NOTE | 2022-05-03 05:55 | EKG12_ITS ---
Test Reason : AM EKG Blood Pressure : / mmHG Vent. Rate : 096 BPM Atrial Rate : 096 BPM P-R Int : 178 ms QRS Dur : 094 ms QT Int : 374 ms P-R-T Axes : 080 080 088 degrees QTc Int : 472 ms Normal sinus rhythm Inferior infarct , age undetermined Abnormal ECG When compared with ECG of 02-MAY-2022 23:08, MANUAL COMPARISON REQUIRED, DATA IS UNCONFIRMED Confirmed by JYOTSNA MORRELL, LUIS ALBERTO ([id number]), editor trade journal GRETCHEN GLEASON ([id number]) on 05/04/2022 10:28:24 AM Referred By: Confirmed By:LUIS ALBERTO GOYAL MD
--- NOTE | 2022-05-03 05:55 | ECHOD_ITS ---
Reason For Study: CHEST PAIN Procedure This was a 2D Doppler, Color Flow transthoracic echocardiogram. The exam was of adequate technical quality. Exam performed in department. Left Ventricle Normal LV size. Apical false tendon noted. Segmental dysfunction with preserved ejection fraction (see wall motion). The estimated ejection fraction is 55 %. No evidence for diastolic dysfunction. Infero-Basal: Akinetic. Mid-Lateral : Hypokinetic. Mid-Posterior: Hypokinetic. Mid-Inferior: Akinetic. Mid-inferoseptal : Hypokinetic. Inferior [place] : Hypokinetic. Lateral [place] : Hypokinetic. Right Ventricle Normal RV size. Normal systolic function. Atria Normal left atrium. Normal right atrium. No doppler evidence for ASD. Mitral Valve There is moderate mitral annular calcification. Extension of the mitral annular calcification onto the base of the posterior mitral valve leaflet. Trivial mitral valve insufficiency. Tricuspid Valve Normal tricuspid valve. Trivial tricuspid valve insufficiency. Right ventricular systolic pressure estimated to be 44 mmHg. Aortic Valve Trisinus/trileaflet aortic valve. Mild focal aortic valve calcification. Pulmonic Valve The pulmonic valve is not well visualized. Trivial pulmonic valve insufficiency. Great Vessels Normal sized aortic root. Pericardium/Pleural No pericardial effusion. MMode/2D Measurements & Calculations LVIDd: 4.6 cm IVSd: 0.89 cm Ao root diam: 3.2 cm LVIDs: 3.5 cm LVPWd: 0.93 cm RVDd: 2.9 cm FS: 24.8 % LAV(MOD-bp): 38.2 ml LVAd ap4: 32.5 cm2 SV(MOD-sp4): 54.2 ml LAV(MOD-bp) Indexed: 20.0 ml/m2 LVLd ap4: 7.8 cm LAV(MOD-sp2): 37.5 ml EDV(MOD-sp4): 109.9 ml LAV(MOD-sp4): 38.1 ml EDV(sp4-el): 114.0 ml LVAs ap4: 20.9 cm2 LVLs ap4: 6.8 cm ESV(MOD-sp4): 55.7 ml ESV(sp4-el): 54.8 ml EF(MOD-sp4): 49.3 % EF(sp4-el): 52.0 % SV(sp4-el): 59.2 ml LA A4 area: 15.6 cm2 LA dimension(2D): 3.3 cm RA A4 area: 13.3 cm2 Time Measurements MV dec time: 0.09 sec Doppler Measurements & Calculations MV E max vargas: 118.3 cm/sec Lat Peak E' Vargas: 17.4 cm/sec Ao V2 max: 174.1 cm/sec MV A max vargas: 155.2 cm/sec E/E' lat: 6.8 Ao max P.1 mmHg MV E/A: 0.76 LV V1 max: 120.9 cm/sec PA V2 max: 146.9 cm/sec TR max vargas: 319.1 cm/sec LV V1 max P.8 mmHg TR max P.7 mmHg ECHO/Echo Complete Interpretation Summary Segmental dysfunction with preserved ejection fraction (see wall motion). The estimated ejection fraction is 55 %. Apical false tendon noted. There is moderate mitral annular calcification. Extension of the mitral annular calcification onto the base of the posterior mi tral valve leaflet. Trivial mitral valve insufficiency. Trivial tricuspid valve insufficiency. Mild focal aortic valve calcification. Trivial pulmonic valve insufficiency. Right ventricular systolic pressure estimated to be 44 mmHg. No evidence for diastolic dysfunction. Ordering Physician: Oumar Shetty Referring Physician: HUSSAIN CASTRO Performed By: Azalea Costello RDCS
[2022-05-03] MEDS: Clopidogrel Bisulfate 75 MG Tablet PO (06:19)
[2022-05-03] MEDS: Aspirin 81 MG TAB.CHEW PO (06:19)
--- NOTE | 2022-05-03 06:57 | NURSING ---
phone call received from lindsay Warren. pt is aware. pt gives this Rn consent to talk with and provided updates to nephew. per pt they live together.
[2022-05-03 07:22] VITALS: PULSE 94
--- NOTE | 2022-05-03 09:40 | STRESSREP_ITS ---
Stress Test Report Date: Procedure: Pharmacologic stress nuclear imaging study Indications: Chest pain; CAD; PCI Consent: Per the patient Procedure: The patient underwent pharmacologic (Regadenoson 0.4mg ) evaluation with a peak heart rate of 133 beats per minute (85%predicted maximal heart rate) and a resting blood pressure of 162/84 mmHg and a peak blood pressure of 162/84 mmHg. The baseline ECG demonstrated normal sinus rhythm. The peak pharmacologic ECG demonstrated no obvious ECG changes. There were no cardiac dysrhythmias pretest, during pharmacologic infusion, or recovery. There was no complaint of chest discomfort during pharmacologic infusion or recovery. The examination was discontinued secondary to completion of protocol. Impression: 1. Pharmacologic (Regadenoson) evaluation 2. Peak pharmacologic ECG with no obvious ECG changes. 3. There were no cardiac dysrhythmias pretest, during pharmacologic infusion, or recovery. 4. Nuclear images pending Myocardial perfusion imaging study: Technique: The patient was injected with 12.0 millicuries of technetium 99m Cardiolite and subsequently rest SPECT Cardiolite nuclear imaging was obtained in the horizontal long, vertical long, and short axis views. The patient underwent pharmacologic (Regadenoson) evaluation with a peak heart rate of 133 beats per minute (85% percent predicted maximal heart rate) and a resting blood pressure of 162/84 mmHg and a peak blood pressure of 162/84 mmHg. The patient was injected with 34.8 millicuries of technetium 99m Cardiolite and subsequently stress SPECT Cardiolite nuclear imaging was obtained in the horizontal long, vertical long, and short axis views. A gated Cardiolite study at peak stress was obtained. Interpretation: Rest and stress SPECT Cardiolite nuclear imaging status post realignment and normalization (attenuation correction was not performed) demonstrate the appearance of absence of myocardial perfusion/tracer uptake in portions of the basal to distal inferior septal, basal to distal inferior, basal to distal inferolateral, inferoapical, and lateral apical segments without significant change between rest and stress. There is diminished end-systolic thickening and brightening.. The gated Cardiolite study demonstrates diminished myocardial thickening and inward wall motion. The reported LVEF is 43%. Impression: 1. Rest and stress SPECT Cardiolite nuclear imaging demonstrate myocardial perfusion changes appearing compatible with a previous myocardial injury/infarction pattern in portions of the basal to distal inferoseptal, basal to distal inferior, basal to distal inferolateral, inferoapical, and lateral apical segments with no myocardial perfusion changes considered diagnostic for associated stress-induced myocardial ischemia. 2. The gated Cardiolite study reports an LVEF of 43%. This note was generated with [employer] software. It may contain incorrect words, spelling, and punctuation that were not noted in checking the note before signing.
[2022-05-03 10:27] VITALS: BP 150/94; PULSE 103; RESP 18; TEMP 36.8; O2SAT 100
[2022-05-03 10:29] VITALS: BP 150/94; PULSE 103
[2022-05-03] MEDS: Thiamine Hydrochloride 100 MG Tablet PO (10:29)
[2022-05-03] MEDS: Folic Acid 1 MG Tablet PO (10:29)
[2022-05-03] MEDS: Metoprolol Tartrate 25 MG Tablet PO (10:29)
--- NOTE | 2022-05-03 11:41 | DCINST_ITS ---
Discharge Instructions Diet Discharge Diet: Low fat / Low cholesterol and 2000 mg Sodium Diet Activity Discharge Activity: Return to Normal Activity Follow Up Care Test Results: Test results from this visit will be discussed in further detail at your follow- up appointment, if applicable. Discharge Plan Admission Admit Date/Time: 05/02/22 22:35 Primary Reason for Your Visit: Acute chest pain Attending Provider: Tonie Gee Primary Care Provider: Nubia Licea Consulting Providers: Oumar Shetty Instructions Additional Instructions / Restrictions: Continue on low salt and low-fat diet You are strongly advised to quit drinking alcohol Follow-up with your primary care doctor within 1 week Discharge Orders/Prescriptions Prescriptions: Continued atorvastatin 80 mg tablet 80 mg PO QHS Qty: 90 3RF losartan 25 mg tablet 25 mg PO DAILY Qty: 90 3RF metoprolol tartrate 25 mg tablet 25 mg PO BID Qty: 180 3RF Brilinta 90 mg tablet 90 mg PO BID Qty: 60 11RF aspirin 81 mg tablet,chewable 81 mg PO BREAKFAST Qty: 90 3RF Referrals / Follow Up: Nubia Licea [Primary Care Provider] - In 1 Week Disposition Disposition (needs filled in before D/C Order can be placed): Home, Self Care
--- NOTE | 2022-05-03 11:51 | DS.PCM_ITS ---
Providers Date of Admission: 05/02/22 Date of Discharge: 05/03/22 Primary Care Physician: Dr. Nubia Licea Reason For Visit: CHEST PAIN Diagnosis Discharge Diagnosis (1) Unstable angina: Status: Acute Code(s): I20.0 - Unstable angina (2) Alcohol abuse: Status: Acute Code(s): F10.10 - Alcohol abuse, uncomplicated (3) History of coronary angioplasty: Status: Acute Code(s): Z98.61 - Coronary angioplasty status Medications at Discharge Home Medications aspirin 81 mg chewable tablet 81 mg PO BREAKFAST #90 tabs 07/21/21 atorvastatin 80 mg tablet 80 mg PO QHS pt lost hospital RX #90 tabs 07/21/21 losartan 25 mg tablet 25 mg PO DAILY Pt lost hospital RX #90 tabs 07/21/21 metoprolol tartrate 25 mg tablet 25 mg PO BID pt lost hospital RX #180 tabs 07/21/21 ticagrelor 90 mg tablet (Brilinta) 90 mg PO BID #60 tabs 07/21/21 Hospital Course Operations None Procedures Nuclear stress test Summary of Care Provided Minutes Spent on Discharge: 35 Hospital Course: 66 y/o male with PMHx of CAD s/p stents, Hypertension, Hyperlipidemia, chronic smoker, chronic alcohol abuse who comes in with complaints of midsternal chest pain. Patient's admitting EKG and troponins were unremarkable. He was admitted as unstable angina. He was managed in the progressive care unit. No acute events on telemetry. He underwent stress test that was unremarkable. 2D echo showed an EF of 55%, apical false tendon noted, moderate mitral annular calcification, extension mitral annular calcification to the base of the posterior mitral valve leaflet. RVSP was 44. Patient denied any more chest pain at time of being seen. He insisted on being discharged. He stated that he was going to continue to drink his beer. He denied going into alcohol withdrawal although he had visible tremors. He was strongly recommended to follow-up with his primary care doctor within a week. Physical Exam Narrative Physical exam: General: Alert, Oriented x3, Cooperative, no apparent distress HEENT: Atraumatic Oral: Moist Mucosa Neck: Supple Lungs: Diminished to auscultation Cardiovascular: HS I+II, regular, no murmurs Abdomen: Bowel Sounds Present, Soft, Non Tender Extremities: No edema Skin: No rashes, No breakdown Neurological: Grossly intact Psych/Mental Status: Appropriate Weight / BMI Weight Weight: 70.5 kg Body Mass Index (BMI) 21.0 ABG / Lab / Microbiology Data Result Diagrams: 05/02/22 19:20 05/02/22 19:20 Laboratory: Laboratory Results - last 24 hr 05/02/22 18:05: Urine Color Straw, Urine Clarity Clear, Urine pH 6.5, Ur Specific [place] 1.005, Urine Protein Negative, Urine Glucose (UA) Normal, Urine Ketones Negative, Urine Occult Blood Negative, Urine Nitrite Negative, Urine Bilirubin Negative, Urine Urobilinogen Normal, Ur Leukocyte Esterase Negative, Urine RBC 0 SEEN, Urine WBC 0 SEEN, Ur Squamous Epith Cells 0-5 SEEN, Urine Bacteria 0 SEEN, Urine Mucus 0 SEEN 05/02/22 19:20: WBC 4.6, RBC 3.92 L, Hgb 10.2 L, Hct 33.7 L, MCV 86.0, MCH 26.0 L, MCHC 30.3 L, RDW Std Deviation 63.4 H, RDW Coeff of [place] 20.4 H, Plt Count 358, MPV 9.9, Immature Gran % (Auto) 0.200, Neut % (Auto) 40.9 L, Lymph % (Auto) 41.9 H, [place] % (Auto) 10.5 H, Eos % (Auto) 5.0, Baso % (Auto) 1.5 H, Absolute Neuts (auto) 1.9 L, Absolute Lymphs (auto) 1.91, Nucleated RBC % 0, Differential Comment SCANNED, Hypochromasia 1+, Anisocytosis 1+ 05/02/22 19:20: Sodium 143, Potassium 3.8, Chloride 112 H, Carbon Dioxide 24.0, Anion Gap 7, BUN 6 L, Creatinine 0.56 L, Estim Creat Clear Calc 146.27, Est GFR (MDRD) Af Amer 187, Est GFR (MDRD) Non-Af 155, BUN/Creatinine Ratio 10.6, Glucose 87, Calcium 8.2 L, Troponin I High Sens 48 05/02/22 19:20: B-Natriuretic Peptide 147.2 H 05/02/22 22:08: Troponin I High Sens 50 05/03/22 02:00: Troponin I High Sens 53 05/03/22 02:00: Total Bilirubin 0.20, Direct Bilirubin 0.12, AST 33, ALT 20, Alkaline Phosphatase 82, Total Protein 6.1 L, Albumin 2.5 L, Globulin 3.6, TSH 1.08 Radiography Diagnostic Testing: Radiology Impression Chest X-Ray 05/02/22 19:41 IMPRESSION: There are no acute findings. Electronically Signed: Martín Araujo MD at 20:13 EDT Reading Location ID and State: [facility] / [place] , Service support , Echocardiogram 05/03/22 05:55 Interpretation Summary Segmental dysfunction with preserved ejection fraction (see wall motion). The estimated ejection fraction is 55 %. Apical false tendon noted. There is moderate mitral annular calcification. Extension of the mitral annular calcification onto the base of the posterior mitral valve leaflet. Trivial mitral valve insufficiency. Trivial tricuspid valve insufficiency. Mild focal aortic valve calcification. Trivial pulmonic valve insufficiency. Right ventricular systolic pressure estimated to be 44 mmHg. No evidence for diastolic dysfunction. Ordering Physician: Oumar Shetty Referring Physician: NUBIA LICEA Performed By: Azalea Costello RDCS D/C Instructions Discharge Diet: Low fat / Low cholesterol and 2000 mg Sodium Diet Meaningful Use Info Meaningful Use Diagnoses (Choose all that apply): None applicable Discharge Plan Admission Admit Date/Time: 05/02/22 22:35 Primary Reason for Your Visit: Acute chest pain Attending Provider: Tonie Gee Primary Care Provider: Nubia Licea Consulting Providers: Oumar Shetty Instructions Additional Instructions / Restrictions: Continue on low salt and low-fat diet You are strongly advised to quit drinking alcohol Follow-up with your primary care doctor within 1 week Discharge Orders/Prescriptions Prescriptions: Continued atorvastatin 80 mg tablet 80 mg PO QHS Qty: 90 3RF losartan 25 mg tablet 25 mg PO DAILY Qty: 90 3RF metoprolol tartrate 25 mg tablet 25 mg PO BID Qty: 180 3RF Brilinta 90 mg tablet 90 mg PO BID Qty: 60 11RF aspirin 81 mg tablet,chewable 81 mg PO BREAKFAST Qty: 90 3RF Referrals / Follow Up: Nubia Licea [Primary Care Provider] - In 1 Week Disposition Disposition (needs filled in before D/C Order can be placed): Home, Self Care Charges/Coding Visit Charges OBSV E&M: 15962 Observation care discharge
== END 2022-05-03 11:40 | disposition home or self-care (01) ==
LOC: ED 21:48 → PCU 22:57
PROVIDERS: Emergency Provider Emergency Medicine; Visit Provider Internal Medicine
DX: I25.110 Atherosclerotic heart disease of native coronary artery with unstable angina pectoris (principal); Z98.61 Coronary angioplasty status; R53.1 Weakness; I10 Essential (primary) hypertension; Z79.02 Long term (current) use of antithrombotics/antiplatelets; Z79.82 Long term (current) use of aspirin; E78.00 Pure hypercholesterolemia, unspecified; F10.10 Alcohol abuse, uncomplicated; Z79.899 Other long term (current) drug therapy; I25.2 Old myocardial infarction; F17.210 Nicotine dependence, cigarettes, uncomplicated; Z91.199 Patient's noncompliance with other medical treatment and regimen due to unspecified reason; R94.31 Abnormal electrocardiogram [ECG] [EKG]; R06.02 Shortness of breath
CPT/HCPCS: 36415; 71045; 78452; 80048; 80076; 81001; 83880; 84443; 84484; 85025; 93005; 93017; 93306; 99218; 99285; A9500; A4216; G0378; J2785

== ENCOUNTER 2023-04-09 04:51 | Emergency (ER) | payer MEDICARE, MEDICAID, SELFPAY ==
[2023-04-09 04:52] VITALS: BP 151/106; PULSE 100; RESP 18; TEMP 36.1; O2SAT 99; BMI 21.6
--- NOTE | 2023-04-09 05:04 | EX.ED.DYSGE1 ---
HPI History of Present Illness Chief Complaint: Anxiety [facility] Medical History (Updated 05/11/22 @ 00:10 by Background Jamari) Acute ST elevation myocardial infarction Alcohol abuse Atherosclerotic heart disease of [place] coronary artery without angina pectoris Essential hypertension History of stroke Old myocardial infarction Presence of stent in coronary artery (~03/28/17) Pure hypercholesterolemia Tobacco abuse Home Medications hydroxyzine pamoate 25 mg capsule (Vistaril) 25 mg PO TID PRN anxiety #21 caps 04/09/23 [Rx Last Taken Unknown] Allergy/AdvReac Type Severity Reaction Status Date / Time lisinopril Allergy COUGH Verified 04/09/23 04:59 Family History Father Heart disease Mother Alzheimers disease Brother COPD (chronic obstructive pulmonary disease) Brother Heart disease Sister Cancer Lung Surgical History History of gastrectomy History of tracheostomy Presence of coronary angioplasty implant and graft (~03/28/17) Social History housing: other details: Lives with a roommate. Smoking Status: Current every day smoker tobacco type: cigarettes alcohol intake: current alcohol intake frequency: 3 or more drinks per day Alcohol type: beer details: Daily. substance use type: does not use caffeine: Yes Type: coffee Number of servings: 2 EXAM Physical Exam Const Vital Signs: 04/09/23 04:52 Temperature 97.0 F L Temperature Source Temporal Pulse Rate 100 Respiratory Rate 18 Blood Pressure 151/106 H Blood Pressure Mean 121 Pulse Ox 99 Oxygen Delivery Method Room Air MDM MDM MDM Narrative Medical decision making narrative: HISTORY OF PRESENT ILLNESS: 67-year-old male here with concern for something bad can happen. States not sleeping well. States he feel anxious. He further states shortness of breath today said he felt diffusely weak. This began earlier today but has since resolved. States he just needs medicine for anxiety . The patient denies recent surgery in the last 4 weeks or immobilization in the last 3 days, denies previous diagnosis of DVT or PE, hemoptysis, unilateral leg swelling or malignancy with treatment the last 6 months or palliative. No estrogen use noted. No recent illnesses or cough endorsed. No vomiting. No recent bleeding diathesis. No chest pain endorsed. The patient denies any SI, HI, auditory visual hallucinations. REVIEW OF SYSTEMS: Pertinent positives: Anxiety, shortness of breath Pertinent negatives: Chest pain, lower extremity edema, syncope PHYSICAL EXAM: Nursing triage notes reviewed, Vital signs reviewed Constitutional: please see [facility] HENT: MMM Eyes: Pupils equal round and reactive to light, Extraocular muscles intact Neck: No stridor, no JVD, full neck ROM Lungs: Clear to auscultation, No wheezing or rales. No increased work of breathing, no conversational dyspnea, no accessory muscle use, no nasal flaring. No respiratory distress noted Heart: Regular rate and rhythm, No murmurs, No rubs and No gallops, 2+ distal pulses (radial, femoral, posterior tibial) in all extremities Abdomen: Soft, there is no tenderness, rigidity, rebound or guarding, no obvious peritoneal signs, no palpable pulsatile abdominal masses, no auscultated abdominal bruit : No CVAT Extremities: No edema Neuro: No focal neurological deficits, cranial nerves II through XII intact, 5/5 strength in all extremities. Intact sensation to light touch in all extremities, 2+ reflexes bilateral patella tendons. Normal gait. No ataxia. Skin: No rash or lesions noted MEDICAL DECISION MAKING: Chief Complaint: Anxiety, insomnia External records reviewed: nuclear stress test from 2019 reviewed Factors affecting care: History of hypertension, CVA, hyperlipidemia, CAD Social determinants of health: Alcohol abuse, tobacco abuse History obtained from others: none Consults: none [facility] Narrative: Patient was initially mildly hypertensive otherwise hemodynamically stable, afebrile, nontoxic-appearing. No focal cardiopulmonary abnormalities. There is no tongue fasciculations, no diaphoresis patient's not appear anxious. I considered the following differential diagnosis: ACS, arrhythmia, pneumonia, COVID, PE I considered pulmonary embolism however lower suspicion given lack of risk factors. Low risk Wells score. I offered the patient an ED evaluation which consisted of labs and imaging studies to further elucidate the etiology of the patient's complaint. The patient was alert and oriented x3 and refused imaging and labs with the knowledge that we may miss a life-limiting etiology including all the differentials that were just mentioned stating he just wanted medicine for his anxiety. I offered him 1 oral Ativan here and a nonnarcotic Atarax prescription for home-going. He stated he would return if symptoms change or worsen. The patient and/or family, caregivers express understanding. The patient and/or family, caregivers agrees with the plan. Shared decision making: I will have a discussion with the patient and or visitors regarding risk/benefits of further testing or admission. They will be made aware of of the risk/benefits inherent in this decision they will be given the opportunity to voice understanding. Total critical care time today provided was at least 0minutes. This excludes separately billable procedures. Critical care time (if documented) is secondary to the patient having high probability of clinically significant/life threatening deterioration in the patient's condition which required my urgent intervention. Impression: 1. Anxiety 2. Elevated blood pressure 3. History of CAD Dispo: discharge Discharge Plan Triage Chief Complaint: Anxiety ED Provider: Coleman Coleman Dx/Rx/DC Orders Instructions: ED Anxiety Reaction Prescriptions: New hydroxyzine pamoate [Vistaril] 25 mg capsule 25 mg PO TID PRN (Reason: anxiety) Qty: 21 0RF Primary Care Provider: Nubia Licea Referrals: Nubia Licea [Primary Care Provider] - Activity Restrictions/Additional Instructions: Thank you for trusting us with your care today! Please take Tylenol (2 pills, 650 mg), ibuprofen (2 pills, 400 mg) every 6 hours as needed for pain and fever control. Please take Atarax as needed for anxiety control. Please return to the emergency department if your symptoms change or worsen. Specifically develop thoughts of wanting to hurt yourself or other people. If you develop chest pain, shortness of breath, focal weakness, focal numbness or if your symptoms change or worsen in any way. Please follow with your primary care physician for further outpatient evaluation and management. Disposition Disposition: Home, Self Care
[2023-04-09] MEDS: LORazepam 1 MG Tablet 2 MG PO (05:29)
[2023-04-09 05:42] VITALS: PULSE 79; RESP 18; O2SAT 98
== END 2023-04-09 07:29 | disposition home or self-care (01) ==
PROVIDERS: Emergency Provider Emergency Medicine; Visit Provider Emergency Medicine
DX: F41.9 Anxiety disorder, unspecified (principal); R03.0 Elevated blood-pressure reading, without diagnosis of hypertension; E78.00 Pure hypercholesterolemia, unspecified; F10.10 Alcohol abuse, uncomplicated; I25.10 Atherosclerotic heart disease of native coronary artery without angina pectoris; G47.00 Insomnia, unspecified; F17.210 Nicotine dependence, cigarettes, uncomplicated; R06.02 Shortness of breath
CPT/HCPCS: 99284

== ENCOUNTER 2024-03-01 10:13 | Emergency (ER) | payer MEDICARE, MEDICAID, SELFPAY ==
[2024-03-01 10:14] VITALS: BP 124/85; PULSE 95; RESP 16; TEMP 36.1; O2SAT 100; BMI 21.7
--- NOTE | 2024-03-01 10:27 | EX.ED.VISEXT ---
HPI History of Present Illness Chief Complaint: Bite Narrative Narrative: 68-year-old male with no significant past medical history presents with dog bite to his left hand and scratches on his left thigh that he sustained from a random dog attack yesterday evening. This was greater than 6 hours ago. He states that he was out for his walk when an unknown dog approached. He states he was bitten on the left hand and that the dog had a hold of him. He tried to shake it off. He sustained scratches to his left thigh as well where he may have been bit a second time versus from pause. Patient is unsure of his last tetanus immunization. He denies any fevers or chills, no other injuries except for mainly to his left hand. He is right-hand dominant. ROS ROS ED ROS Narrative Constitutional: No fever, no chills. HEENT: No sore throat. No neck pain. No loss of vision. No rhinorrhea. Cardiovascular: No chest pain. No palpitations. No pedal edema. Respiratory: No cough, no shortness of breath. Abdominal: No abdominal pain. No nausea. No vomiting. Genitourinary: No dysuria. No hematuria. Musculoskeletal: No myalgias. Left hand pain. Neurologic: No headaches. No dizziness. No lightheadedness. Skin: No rash. No change in color. Linear scratches to left thigh, 2. Psychiatric: No depression. No anxiety. [facility] Medical History (Updated 03/01/24 @ 10:59 by Jf Belle MD) Acute ST elevation myocardial infarction History of stroke Pure hypercholesterolemia Old myocardial infarction Alcohol abuse Tobacco abuse Essential hypertension Presence of stent in coronary artery (~03/28/17) Atherosclerotic heart disease of [place] coronary artery without angina pectoris Home Medications ?Medication ?Instructions ?Recorded ?Last Taken ?Type hydroxyzine pamoate 25 mg capsule 25 mg PO TID PRN anxiety #21 caps 04/09/23 Unknown Rx (Vistaril) Allergy/AdvReac Type Severity Reaction Status Date / Time lisinopril Allergy COUGH Verified 03/01/24 10:17 Family History Father Heart disease Mother Alzheimers disease Brother COPD (chronic obstructive pulmonary disease) Brother Heart disease Sister Cancer Lung Surgical History History of tracheostomy History of gastrectomy Presence of coronary angioplasty implant and graft (~03/28/17) Social History housing: other details: Lives with a roommate. Smoking Status: Current every day smoker tobacco type: cigarettes alcohol intake: current alcohol intake frequency: 3 or more drinks per day Alcohol type: beer details: Daily. substance use type: does not use caffeine: Yes Type: coffee Number of servings: 2 EXAM Physical Exam Narrative Exam Narrative: GCS 15. ABCs intact. Regular rate and rhythm. Lungs are clear to auscultation bilaterally. Abdomen soft nontender with normal active bowel sounds. Neurological examination nonfocal and nonlateralizing. There is evidence of a bite michael on the left hand without active bleeding in the area of the fifth metacarpal. He appears neurovascular intact distally with good capillary refill of the fifth digit. Full range of motion of fingers of left hand. Palpable radial pulse. Is more of a superficial abrasion in the shape of the mouth. There are 2 linear scratches without active bleeding on his left thigh that appear more consistent with a possible rash than an actual bite. No evidence of foreign body in either wound. Const Vital Signs: 03/01/24 10:14 Temperature 97.0 F L Temperature Source Temporal Pulse Rate 95 Respiratory Rate 16 Blood Pressure 124/85 H Blood Pressure Mean 98 Pulse Ox 100 Oxygen Delivery Method Room Air MDM MDM MDM Narrative Medical decision making narrative: Concern is for fracture of the left metacarpal versus foreign body including tooth. Patient is unsure of his immunization status for tetanus. I have low suspicion for rabies. He was given a booster shot of Tdap. I discussed with him prophylactic antibiotic use. I do not feel he needs an x-ray of the femur, but x-rays of the left hand were obtained to rule out fracture and foreign body. X-rays interpreted by myself independently show no evidence of acute fracture. I was informed by the RN that the patient did not want to wait for any results and was going to leave, so she made him sign out AGAINST MEDICAL ADVICE, and before I had the opportunity to discuss further with him prophylactic antibiotics, he left AGAINST MEDICAL ADVICE. He was in stable condition. History & Record Review Discussion w/independent historian: Patient Discharge Plan Triage Chief Complaint: Bite ED Provider: Jf Belle Dx/Rx/DC Orders Clinical Impression: Dog bite of left hand, Left against medical advice Instructions: ED Dog Bite Prescriptions: No Action hydroxyzine pamoate [Vistaril] 25 mg capsule 25 mg PO TID PRN (Reason: anxiety) Qty: 21 0RF Primary Care Provider: Nubia Licea Referrals: Nubia Licea [Primary Care Provider] - 3-5 Days if not improving Print Language: Yoruba Disposition Disposition: Home, Self Care
[2024-03-01] MEDS: Diphth,Pertuss(Acell),Tet Vac 0.5 ML Vial IM (10:31)
--- NOTE | 2024-03-01 10:40 | RAD_ITS ---
INDICATION: Dog bite, trauma EXAMINATION/TECHNIQUE: X-RAY - LEFT XR Hand Min 3 Views 3 VIEWS COMPARISON: No relevant prior comparison study available FINDINGS: SOFT TISSUES: No soft tissue swelling or gas. No radiopaque foreign body. BONES/JOINTS: No acute fracture or subluxation.. Normal alignment. Preservation of the joint space.. No sclerotic or destructive changes observed. RAD/Hand Min 3 Views IMPRESSION: No evidence of acute fracture. No demonstrated radiopaque foreign body. Electronically Signed: Juan Schaeffer MD at 11:29 EDT ,
--- NOTE | 2024-03-01 10:52 | ED.RN ---
PT REQUESTING TO LEAVE AMA. DR. VALERIO INFORMED
== END 2024-03-01 11:06 | disposition left against medical advice (07) ==
PROVIDERS: Emergency Provider Emergency Medicine; Visit Provider Emergency Medicine
DX: S61.452A Open bite of left hand, initial encounter (principal); I25.10 Atherosclerotic heart disease of native coronary artery without angina pectoris; W54.0XXA Bitten by dog, initial encounter; Z53.29 Procedure and treatment not carried out because of patient's decision for other reasons; E78.00 Pure hypercholesterolemia, unspecified; I10 Essential (primary) hypertension; Z23 Encounter for immunization
CPT/HCPCS: 73130; 90471; 90715; 99283

== ENCOUNTER → 2024-06-11 | Outpatient (CLI) | payer MEDICARE, MEDICAID, SELFPAY ==
[2024-06-11 12:46] LABS: Absolute Lymphocyte Count 1.85 X10^3/uL (0.83-4.51); Absolute Neutrophil Count 2.9 X10^3/uL (2.0-7.7); Basophil# 0.05 X10^3/uL; Basophil% 0.9 % (0-1); Eosinophil# 0.24 X10^3/uL; Eosinophils% 4.4 % (0-5); Hemoglobin 9.3 g/dL (13.0-16.5); Lymphocyte # 1.85 X10^3/ul (0.83-4.51); Lymphocyte % 33.8 % (19-41); Mean Corpuscular Hgb 25.4 pg (27.0-32.0); Mean Corpuscular Volume 84.7 fL (80-94); Mean Platelet Vol. 10.2 fl (6.2-12.0); Monocyte# 0.47 X10^3/uL; Monocyte% 8.6 % (0-10); NRBC Flagged by Analyzer 0 % (0-5); Neutrophil # 2.85 X10^3/uL (2.7-7.7); Neutrophil % 52.1 % (47-70); Platelet Count 209 K/mm3 (150-450); RBC Distribution Width CV 17.2 % (11.6-14.6); RBC Distribution Width SD 52.7 fl (35.1-43.9); Red Blood Count 3.66 M/mm3 (4.6-6.2); White Blood Count 5.5 K/mm3 (4.4-11.0)
[2024-06-11 13:22] LABS: ALB/GLOB Ratio 0.5 RATIO (0.9-2.4); AST(SGOT) 24 U/L (15-37); Alanine Aminotransfer ALT/SGPT 11 U/L (16-61); Albumin, Serum 2.4 g/dL (3.2-5.0); Alkaline Phosphatase 117 U/L (45-117); Anion Gap 8 (5-15); BUN 5 mg/dL (7-18); BUN/Creat Ratio 8.2 RATIO (10-20); Calcium,Total 8.6 mg/dL (8.5-10.1); Chloride 105 mmol/L (98-107); Cholesterol 113 mg/dL (200); Creatinine, Serum 0.61 mg/dL (0.70-1.30); EST Glomerular Filtration Rate 140 mL/min (>60); Est Glom Filt Rate - Afr Amer 169 mL/min (>60); Globulin 4.6 g/dL (2.2-4.2); Glucose 86 mg/dL (74-106); High Density Lipoprotein 44 mg/dL; Sodium Level 135 mmol/L (136-145); Triglycerides 58 mg/dL; Very Low Density Lipoprotein 12 mg/dL (5-40)
== END | disposition home or self-care (01) ==
LOC: VSLAB 11:20
PROVIDERS: PCP Nurse Practitioner Family; Visit Provider Nurse Practitioner Family
DX: Z13.1 Encounter for screening for diabetes mellitus (principal); E78.5 Hyperlipidemia, unspecified; I10 Essential (primary) hypertension
CPT/HCPCS: 36415; 80053; 80061; 84443; 85025

== ENCOUNTER 2025-01-09 16:02 | Inpatient (IN) | payer MEDICARE, MEDICAID, SELFPAY ==
[2025-01-09 16:05] VITALS: BP 129/75; PULSE 98; RESP 28; TEMP 37.2; O2SAT 100; BMI 23.3
--- NOTE | 2025-01-09 16:11 | EX.ED.DYSGE1 ---
HPI History of Present Illness Chief Complaint: Weakness [facility] Medical History (Updated 01/09/25 @ 20:[address] Nick Monk DO) Acute ST elevation myocardial infarction History of stroke Pure hypercholesterolemia Old myocardial infarction Alcohol abuse Tobacco abuse Essential hypertension Presence of stent in coronary artery (~03/28/17) Atherosclerotic heart disease of [place] coronary artery without angina pectoris Home Medications ?Medication ?Instructions ?Recorded ?Last Taken ?Type hydroxyzine pamoate 25 mg capsule 25 mg PO TID PRN anxiety #21 caps 04/09/23 Unknown Rx (Vistaril) Allergy/AdvReac Type Severity Reaction Status Date / Time lisinopril Allergy COUGH Verified 01/09/25 16:11 Family History Father Heart disease Mother Alzheimers disease Brother COPD (chronic obstructive pulmonary disease) Brother Heart disease Sister Cancer Lung Surgical History History of tracheostomy History of gastrectomy Presence of coronary angioplasty implant and graft (~03/28/17) Social History housing: other details: Lives with a roommate. Smoking Status: Current every day smoker tobacco type: cigarettes alcohol intake: current alcohol intake frequency: 3 or more drinks per day Alcohol type: beer details: Daily. substance use type: does not use caffeine: Yes Type: coffee Number of servings: 2 EXAM Physical Exam Const Vital Signs: 01/09/25 16:05 01/09/25 18:04 01/09/25 19:30 Temperature 99 F 98.6 F Temperature Source Oral Pulse Rate 98 95 91 Respiratory Rate 28 H 16 18 Blood Pressure 129/75 H 103/63 120/70 Blood Pressure Mean 93 76 86 Pulse Ox 100 100 99 Oxygen Delivery Method Room Air Room Air 01/09/25 20:00 Temperature Temperature Source Pulse Rate 90 Respiratory Rate 18 Blood Pressure 122/68 H Blood Pressure Mean 86 Pulse Ox 100 Oxygen Delivery Method Room Air MDM MDM MDM Narrative Medical decision making narrative: HISTORY OF PRESENT ILLNESS: Chief complaint: Weakness 69-year-old male history of CAD status post coronary angioplasty, alcohol abuse, CVA, hyperlipidemia, hypertension, history of tobacco use presents with weakness. Notes diffuse weakness and difficulty ambulating. Notes he fell approxi-1 week ago injuring his chest abdomen. Notes chest pain currently. Is not pressure is not exertional. Also complains of nausea. Denies focal weakness. Denies vomiting or diarrhea. Denies urinary complaints. Denies cough fever or chills. Denies any bleeding diathesis. States he is not taking his medicines in months. REVIEW OF SYSTEMS: Pertinent positives: Weakness, fall Pertinent negatives: As per HPI PHYSICAL EXAM: Nursing triage notes reviewed, Vital signs reviewed Constitutional: please see mdm HENT: MMM, no intraoral lesions Eyes: Pupils equal round and reactive to light, Extraocular muscles intact Neck: No stridor, no JVD, full neck ROM, no cervical spine step-offs deformities Lungs: Clear to auscultation, No wheezing or rales. No increased work of breathing, no conversational dyspnea, no accessory muscle use, no nasal flaring. No respiratory distress noted Heart: Regular rate and rhythm, No murmurs, No rubs and No gallops, 2+ distal pulses (radial, femoral, posterior tibial) in all extremities Abdomen: Soft, there is no tenderness, rigidity, rebound or guarding, no obvious peritoneal signs, no palpable pulsatile abdominal masses, no auscultated abdominal bruit : No CVAT, pelvis stable to compression Extremities: No edema Back: No T or L-spine step-offs or deformities Neuro: No new focal neurological deficits, cranial nerves II through XII intact, 5/5 strength in all present extremities. Intact sensation to light touch in all present extremities, 2+ reflexes bilateral patella tendons. Short shuffling gait but non-ataxic. Skin: No rash or lesions noted MEDICAL DECISION MAKING: Chief Complaint: please see HPI External records reviewed: Reviewed prior stress test. Stress test from 2021 shows Factors affecting care: As per HPI Social determinants of health: none History obtained from others: Family Consults: Internal medicine (Dr. Vaughn, Dr. Johnson) [facility] Narrative: The patient was initially hemodynamically stable, tachypneic, afebrile saturating under percent room air. Exam initially with no focal cardiopulmonary abnormalities I considered the following differential diagnosis: ICH, infectious etiologies, electrolyte disturbance, dehydration, UTI, CHF, PE, alcohol intoxication, CVA, intra-abdominal pathologies amongst others I obtained a broad lab and imaging workup to further determine if the patient was suffering from a life-threatening etiology. Initially resuscitated the patient with 1 L normal saline gave Tylenol and Zofran for symptomatic control of nausea and pain. ALL IMAGES (IF OBTAINED) HAVE BEEN PERSONALLY REVIEWED AND INTERPRETED BY MYSELF. EKG with normal sinus rhythm rate of 97, left axis deviation, slightly prolonged QT interval, no obvious STEMI CT PE study negative for PE or signs of heart failure CT scan of the brain negative for ICH CT abdomen pelvis shows evidence of possible liver cirrhosis Lactate elevated consistent with endorgan hypoperfusion consistent with liver dysfunction BMP with hyponatremia, no acute kidney injury LFTs show no evidence of hepatobiliary pathology. BNP elevated consistent with volume overload Serum alcohol negative Lipase is wnl indicating no pancreatic inflammation. High-sensitivity troponin is negative, no evidence of myocardial ischemia The synthesis of the patient's history, physical exam, lab and images suggest likely sequelae of chronic alcohol use and med noncompliance including beer [place] (hyponatremia), dehydration and heart failure. Given the patient's difficulty ambulating, frequent falls, evidence of medication noncompliance and signs of hyponatremia I opted to offer patient admission. Will discuss with hospitalist. Initially paged Dr. Vaughn at approximately 6:50 PM he requested that I paged the overnight hospitalist as the shift was over in 10 minutes to assure continuity of care. Will repage hospitalist at 7:[address] Johnson who agreed to admit the patient to PCU. The patient and/or family, caregivers express understanding. The patient and/or family, caregivers agrees with the plan. Shared decision making: I will have a discussion with the patient and or visitors regarding risk/benefits of further testing or admission. They will be made aware of of the risk/benefits inherent in this decision they will be given the opportunity to voice understanding. Total critical care time today provided was at least 0 minutes. This excludes separately billable procedures. Critical care time (if documented) is secondary to the patient having high probability of clinically significant/life threatening deterioration in the patient's condition which required my urgent intervention. Impression: 1. Diffuse weakness 2. Elevated lactate 3. Hyponatremia 4. Med noncompliance 5. Liver cirrhosis Dispo: Admit to PCU This note was generated with [employer] dictation software. It may contain incorrect words, spelling, and punctuation that were not noted in review of the chart prior to si Lab Data Labs: Laboratory Results - last 24 hr 01/09/25 01/09/25 01/09/25 16:50 17:35 19:39 Sodium 125 L Potassium 4.3 Chloride 91 L Carbon Dioxide 21.0 Anion Gap 13 BUN 25 H Creatinine 0.85 Estim Creat Clear Calc 87.08 Est GFR (MDRD) Non-Af 95 BUN/Creatinine Ratio 28.8 H Glucose 106 H Lactic Acid 2.3 H* Calcium 9.5 Total Bilirubin 0.62 Direct Bilirubin 0.33 H AST 22 ALT 13 Alkaline Phosphatase 62 Troponin T High Sens 11 Troponin T Hi Sens 2 Hr 11 NT pro BNP II 4108 H Total Protein 6.2 Albumin 2.6 L Globulin 3.6 Lipase 11 L Ethyl Alcohol < 10.1 Radiography Diagnostic Testing: Clinical Impression(s) from Imaging Studies Brain CT 01/09/25 16:28 IMPRESSION: 1. Generalized brain atrophy. 2. Small vessel ischemic/degenerative changes. 3. No acute intracranial hemorrhage, midline shift or mass effect. If symptoms persist, further evaluation with MRI is recommended. Reading Location: [facility] Chest CTA 01/09/25 16:28 IMPRESSION: 1. No pulmonary embolism. 2. Small esophageal hiatal hernia. 3. Lung emphysema/COPD. Reading Location: [facility] Abdomen/Pelvis CT 01/09/25 16:29 IMPRESSION: 1. Fatty liver with hepatic surface irregularity and ascites, concerning for cirrhosis. 2. Apparent asymmetric wall thickening of the ascending colon and cecum. This was not as prominent in the prior exam. Underlying mass can not be excluded. Further evaluation with colonoscopy may be beneficial. 3. Small esophageal hiatal hernia. 4. Scattered calcified atherosclerotic disease of aorta measuring up to 3.7 cm diameter. 5. Fecal retention in the colon consistent with constipation. 6. Inguinal hernias, bilaterally. Reading Location: [facility] Discharge Plan Triage Chief Complaint: Weakness ED Provider: Coleman Coleman Dx/Rx/DC Orders Primary Care Provider: Care Physician,No Primary
--- NOTE | 2025-01-09 16:28 | EKG12_ITS ---
Test Reason : Blood Pressure : */* mmHG Vent. Rate : 97 BPM Atrial Rate : 97 BPM P-R Int : 164 ms QRS Dur : 104 ms QT Int : 372 ms P-R-T Axes : 59 34 88 degrees QTcB Int : 472 ms Normal sinus rhythm Inferior infarct , age undetermined Anterolateral infarct , age undetermined Abnormal ECG Confirmed by JYOTSNA MORRELL, LUIS ALBERTO ([id number]), editorial manager GRETCHEN GLEASON ([id number]) on 01/12/2025 10:31:57 AM Referred By: Confirmed By: LUIS ALBERTO GOYAL MD
--- NOTE | 2025-01-09 16:28 | CT_ITS ---
EXAM: CT Head Without Intravenous Contrast CLINICAL INDICATION: FALL, HEAD TRAUMA TECHNIQUE: Axial computed tomography images of the head/brain without intravenous contrast. This CT exam was performed using one or more of the following dose reduction techniques: automated exposure control, adjustment of the mA and/or kV according to patient size, and/or use of iterative reconstruction technique. COMPARISON: CT Head dated 01/24/2020 FINDINGS: BRAIN AND EXTRA-AXIAL SPACES: The cerebral and cerebellar sulci are prominent consistent with brain atrophy. Areas of decreased attenuation in the deep cerebral white matter are consistent with small vessel ischemic/degenerative changes. No acute intracranial hemorrhage, midline shift or mass effect. If symptoms persist, further evaluation with MRI is recommended. BONES/JOINTS: Unremarkable. No acute fracture. SOFT TISSUES: Unremarkable. SINUSES: Unremarkable as visualized. No acute sinusitis. MASTOID AIR CELLS: Unremarkable as visualized. No mastoid effusion. CT/Brain/Head without Contrast IMPRESSION: 1. Generalized brain atrophy. 2. Small vessel ischemic/degenerative changes. 3. No acute intracranial hemorrhage, midline shift or mass effect. If symptoms persist, further evaluation with MRI is recommended. Reading Location: [id number]
--- NOTE | 2025-01-09 16:28 | CT_ITS ---
EXAM: CT Angiography Chest Without and With Intravenous Contrast CLINICAL INDICATION: CHEST PAIN TECHNIQUE: Axial computed tomographic angiography images of the chest without and with intravenous contrast. This CT exam was performed using one or more of the following dose reduction techniques: automated exposure control, adjustment of the mA and/or kV according to patient size, and/or use of iterative reconstruction technique. MIP reconstructed images were created and reviewed. COMPARISON: No relevant prior studies available. FINDINGS: PULMONARY ARTERIES: Unremarkable. No pulmonary embolism. AORTA: No acute findings. No thoracic aortic aneurysm. LUNGS AND PLEURAL SPACES: Lung emphysema/COPD. No mass. No consolidation. No significant effusion. No pneumothorax. HEART: Unremarkable. No cardiomegaly. No significant pericardial effusion. No evidence of RV dysfunction. MEDIASTINUM: Small esophageal hiatal hernia. BONES/JOINTS: No acute fracture. No dislocation. SOFT TISSUES: Unremarkable. LYMPH NODES: Unremarkable. No enlarged lymph nodes. INTRAPERITONEAL SPACE: Partially visualized ascites. Possible cirrhosis. CT/CTA Chest W/WO Contrast IMPRESSION: 1. No pulmonary embolism. 2. Small esophageal hiatal hernia. 3. Lung emphysema/COPD. Reading Location: [id number]
--- NOTE | 2025-01-09 16:29 | CT_ITS ---
EXAM: CT Abdomen and Pelvis With Intravenous Contrast CLINICAL INDICATION: ABDOMINAL PAIN TECHNIQUE: Axial computed tomography images of the abdomen and pelvis with intravenous contrast. This CT exam was performed using one or more of the following dose reduction techniques: automated exposure control, adjustment of the mA and/or kV according to patient size, and/or use of iterative reconstruction technique. COMPARISON: CT Abdomen Pelvis dated 02/07/2019 FINDINGS: LUNG BASES: Partially visualized lung emphysema. No consolidation. MEDIASTINUM: Small esophageal hiatal hernia. ABDOMEN: LIVER: See below. GALLBLADDER AND BILE DUCTS: Unremarkable. No calcified stones. No ductal dilation. PANCREAS: Unremarkable. No mass. No ductal dilation. SPLEEN: Unremarkable. No splenomegaly. ADRENALS: Unremarkable. No mass. KIDNEYS AND URETERS: Unremarkable. No solid mass. No hydronephrosis. STOMACH AND BOWEL: Apparent asymmetric wall thickening of the ascending colon and cecum. This was not as prominent in the prior exam. Underlying mass can not be excluded. Further evaluation with colonoscopy may be beneficial. Fecal retention in the colon consistent with constipation. No obstruction. PELVIS: APPENDIX: No findings to suggest acute appendicitis. BLADDER: Unremarkable. No mass. REPRODUCTIVE: Unremarkable as visualized. ABDOMEN and PELVIS: INTRAPERITONEAL SPACE: Fatty liver with hepatic surface irregularity and ascites, concerning for cirrhosis. No free air. BONES/JOINTS: No acute fracture. No dislocation. SOFT TISSUES: Inguinal hernias, bilaterally. VASCULATURE: Scattered calcified atherosclerotic disease of aorta measuring up to 3.7 cm diameter. No abdominal aortic aneurysm. LYMPH NODES: Unremarkable. No enlarged lymph nodes. CT/Abdomen/Pelvis W IV Cont ONLY IMPRESSION: 1. Fatty liver with hepatic surface irregularity and ascites, concerning for c irrhosis. 2. Apparent asymmetric wall thickening of the ascending colon and cecum. This was not as prominent in the prior exam. Underlying mass can not be excluded. Further evaluation with colonoscopy may b e beneficial. 3. Small esophageal hiatal hernia. 4. Scattered calcified atherosclerotic disease of aorta measuring up to 3.7 cm diameter. 5. Fecal retention in the colon consistent with constipation. 6. Inguinal hernias, bilaterally. Reading Location: [facility]
--- OUTSIDE RECORDS SUMMARY | 2025-01-09 16:35 | XMS RPT_ITS | CCD ---
Author Organization [facility] CliniSymn Care Team Providers Care Trailer Chief Name Role Phone UNKNOWN, PROVIDER Unavailable Unavailable Fracasso, Riky Unavailable Unavailable Fatuma Ash Unavailable Unavailable UNKNOWN, PROVIDER Unavailable Unavailable Fracasso, Riky Unavailable Unavailable Rupert Holland Unavailable Unavailable UNKNOWN, PROVIDER Unavailable Unavailable Fracasso, Riky Unavailable Unavailable PROVIDER, UNKNOWN Unavailable Unavailable Marek Berry Unavailable Unavailable UNKNOWN, PROVIDER Unavailable Unavailable Fracasso, Riky Unavailable Unavailable Zaheer Garcia Unavailable Unavailable UNKNOWN, PROVIDER Unavailable Unavailable Fracasso, Riky Unavailable Unavailable Unavailable Primary Care Provider Unavailabl e Juan Manuel VSC, Christen Primary Care Unavailabl e Juan Manuel VSC, Christen Referring Unavailabl e Juan Manuel VSC, Christen Attending Unavailabl e Juan Manuel VSC, Christen Primary Care Unavailabl e Juan Manuel VSC, Christen Attending UnavailJf Walker Attending Unavailable Nubia Licea Primary Care Unavailable Juan Manuel GUITAR TECHNICIAN, Christen Primary Care Provider CHRISTEN ZAMBRANO Primary Care Unavailable CHRISTEN CHOWDARY Attending Unavailable CHRISTEN ZAMBRANO Primary Care Unavailable CHRISTEN CHOWDARY Referring Unavailable Allergies Allergy Classification Reported Allergen(s) Allergy Type Date of Onset Reaction(s) Facility (2 sources) Lisinopril Drug Allergy 05-02-2022 COUGH [facility] (1 source) Lisinopril Drug Allergy 03-01-2024 [facility] Repository Medications Current Medications Medication Drug Class(es) Dates Sig (Normalized) Sig (Original) [id number] 200 actuat albuterol 0.09 mg/actuat metered dose inhaler (3 sources) beta2-Adrenergic Agonist Start: 11-11-2024 take 2 puff(s) by inhalation every four hours as needed for wheezing albuterol HFA (PROVENTIL HFA, VENTOLIN HFA) 90 mcg/actuation inhaler Inhale 2 puffs as instructed every 4 hours as needed for wheezing/shortnes s of breath. 8 g 11/11/2024 Active doxycycline hyclate 100 mg oral tablet (3 sources) Tetracycline-class Drug Start: 11-11-2024 End: 11-18-2024 take 1 tablet by mouth twice daily doxycycline (VIBRA-TABS) 100 mg tablet Take 1 tablet by mouth two times a day for 7 days. 14 tablet 11/11/2024 11/18/2024 Active FLUoxetine 20 mg oral capsule (5 sources) Serotonin Reuptake Inhibitor Start: 09-21-2022 take 1 capsule by mouth once daily FLUoxetine (PROZAC) 20 mg capsule Take 20 mg by mouth once daily. 09/21/2022 Active hydrOXYzine pamoate 25 mg oral capsule (1 source) Antihistamine Start: 04-09-2023 take 1 capsule by mouth three times daily Hydroxyzine Pamoate (Vistaril) 25 mg capsule Active 25 MG PO THREE TIMES A DAY April 09, 2023 12:00am predniSONE 10 mg oral tablet (3 sources) Start: 11-11-2024 End: 11-20-2024 predniSONE (DELTASONE) 10 mg tablet Take 4 tabs daily for 3 days, then 2 tabs daily for 3 days, then 1 tab daily for 3 days with food. 21 tablet 11/11/2024 11/20/2024 Active propranolol hydrochloride 10 mg oral tablet (5 sources) beta-Adrenergic Gonzalo Start: 09-21-2022 take 1 tablet by mouth every twelve hours as needed propranolol (INDERAL) 10 mg tablet Take 10 mg by mouth twice daily as needed. For Anxiety 09/21/2022 Active Completed/Discontinued Medications Medication Drug Class(es) Dates Sig (Normalized) Sig (Original) aspirin 81 mg chewable tablet (4 sources) Platelet Aggregation Inhibitor, Nonsteroidal Anti-inflammatory Drug Start: 07-11-2021 End: 04-09-2023 take 81 mg by mouth at breakfast Aspirin Discontinued 81 MG PO WITH BREAKFAST July 21, 2021 5:01pm April 09, 2023 4:59am atorvastatin 80 mg oral tablet (6 sources) HMG-CoA Reductase Inhibitor Start: 07-11-2021 End: 04-09-2023 take 80 mg by mouth at bedtime Atorvastatin Discontinued 80 MG PO AT BEDTIME July 21, 2021 5:00pm April 09, 2023 4:59am Start: 02-20-2019 End: 08-12-2019 take 20 mg by mouth once daily Atorvastatin Discontinu ed 20 MG PO DAILY February 20, 2019 12:00am August 12, 2019 6:17pm clopidogrel 75 mg oral tablet (2 sources) P2Y12 Platelet Inhibitor Start: 02-20-2019 End: 08-12-2019 take 75 mg by mouth once daily Clopidogrel Discontinued 75 MG PO DAILY February 20, 2019 12:00am August 12, 2019 6:17pm dexlansoprazole 30 mg delayed release oral capsule (2 sources) Proton Pump Inhibitor Start: 02-20-2019 End: 08-12-2019 take 30 mg by mouth once daily Dexlansoprazole Discontinued 30 MG PO DAILY February 20, 2019 12:00am August 12, 2019 6:17pm losartan potassium 25 mg oral tablet (6 sources) Angiotensin 2 Receptor Gonzalo Start: 07-11-2021 End: 04-09-2023 take 25 mg by mouth once daily Losartan Discontinued 25 MG PO DAILY July 21, 2021 5:00pm April 09, 2023 4:59am Start: 02-20-2019 End: 08-12-2019 take 50 mg by mouth once daily Losartan Discontinued 5 0 MG PO DAILY February 20, 2019 12:00am August 12, 2019 6:16pm metoprolol tartrate 25 mg oral tablet (6 sources) beta-Adrenergic Gonzalo Start: 07-11-2021 End: 04-09-2023 take 25 mg by mouth twice daily Metoprolol Tartrate Discontinued 25 MG PO TWICE A DAY July 21, 2021 5:00pm April 09, 2023 4:59am Start: 02-20-2019 End: 08-12-2019 take 100 mg by mouth once daily Metoprolol Succinate Discontinued 100 MG PO DAILY February 20, 2019 12:00am August 12, 2019 6:17pm PARoxetine hydrochloride 40 mg oral tablet (2 sources) Serotonin Reuptake Inhibitor Start: 03-28-2019 End: 08-12-2019 take 40 mg by mouth once daily Paroxetine Hcl Discontinued 40 MG PO DAILY March 28, 2019 12:00am August 12, 2019 6:18pm ticagrelor 90 mg oral tablet (4 sources) Start: 07-11-2021 End: 04-09-2023 take 1 tablet by mouth twice daily Ticagrelor (Brilinta) 90 mg tablet Discontinued 90 MG PO TWICE A DAY 60 July 21, 2021 5:01pm April 09, 2023 4:59am Problems Active Problems Problem Classification Problem Date Documented Da te Episodic/Chronic Abdominal hernia (2 sources) Diaphragmatic hernia without obstruction or gangrene; Translations: [Diaphragmatic hernia without obstruction or gangrene] Onset: 10-20-2017 Episodic Abdominal pain (2 sources) Unspecified abdominal pain; Translations: [Unspecified abdominal pain] Onset: 11-23-2017 Episodic Acute cerebrovascular disease (2 sources) Cerebrovascular accident; Translations: [Cerebral infarction, unspecified] 01-24-2020 Chronic Acute myocardial infarction (2 sources) Non-ST elevation (NSTEMI) myocardial infarction; Translations: [Non-ST elevation (NSTEMI) myocardial infarction] Onset: 03-28-2017 Chronic Administrative/social admission (2 sources) Repeated prescription; Translations: [Encounter for issue of repeat prescription] 03-29-2019 Episodic Alcohol-related disorders (3 sources) Alcohol dependence with withdrawal delirium; Translations: [Alcohol abuse] Onset: 10-20-2017 05-02-2022 Chronic Alcohol-related disorders (2 sources) Alcohol intoxication; Translations: [Alcohol use, unspecified with intoxication, unspecified] 02-09-2019 Episodic Allergic reactions (4 sources) Allergy status to other drugs, medicaments and biological substances status; Translations: [Allergy status to narcotic agent status] Onset: 12-04-2017 Episodic Anxiety disorders (6 sources) Other specified anxiety disorders; Translations: [Anxiety disorder, unspecified] Onset: 10-20-2017 01-25-2020 Chronic Bacterial infection (2 sources) Personal history of Methicillin resistant Staphylococcus aureus infection; Translations: [Personal history of methicillin resis staph infection] Onset: 11-23-2017 Episodic Chronic obstructive pulmonary disease and bronchiectasis (2 sources) Acute exacerbation of chronic obstructive airways disease; Translations: [Chronic obstructive pulmonary disease with (acute) exacerbation] Onset: 11-11-2024 11-11-2024 Chronic Complications of surgical procedures or medical care (2 sources) Gastrostomy infection; Translations: [Gastrostomy infection] Onset: 11-26-2017 Episodic Conditions associated with dizziness or vertigo (2 sources) Dizziness; Translations: [Dizziness and giddiness] 01-25-2020 Episodic Coronary atherosclerosis and other heart disease (13 sources) Atherosclerotic heart disease of ramona coronary artery without angina pectoris; Translations: [Atherosclerotic heart disease of ramona coronary artery with unspecified angina pectoris] Onset: 03-28-2017 01-24-2020 Chronic Diabetes mellitus without complication (2 sources) Hyperglycemia, unspecified; Translations: [Hyperglycemia, unspecified] Onset: 10-20-2017 Episodic Disorders of lipid metabolism (2 sources) Hyperlipidemia, unspecified; Translations: [Hyperlipidemia, unspecified] Onset: 12-04-2017 Chronic Essential hypertension (2 sources) Essential (primary) hypertension; Translations: [Essential (primary) hypertension] Onset: 12-04-2017 Chronic External Injury - Fall (2 sources) Unspecified fall, initial encounter; Translations: [Unspecified fall, initial encounter] Onset: 10-20-2017 Mood disorders (2 sources) Major depressive disorder, recurrent, unspecified; Translations: [Major depressive disorder, recurrent, unspecified] Onset: 03-28-2017 Chronic Nonspecific chest pain (4 sources) Chest pain, unspecified; Translations: [Chest pain] Onset: 03-28-2017 02-20-2019 Episodic Open wounds of extremities (1 source) Open bite of left hand, initial encounter; Translations: [Open bite of left hand, initial encounter] Onset: 06-18-2024 Episodic Other aftercare (6 sources) 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; Translations: [Encounter for palliative care] Onset: 10-20-2017 Episodic Other circulatory disease (2 sources) Personal history of transient ischemic attack (TIA), and cerebral infarction without residual deficits; Translations: [Prsnl hx of TIA (TIA), and cereb infrc w/o resid deficits] Onset: 12-04-2017 Episodic Other fractures (2 sources) Fracture of other parts of neck, initial encounter; Translations: [Fracture of other parts of neck, initial encounter] Onset: 10-20-2017 Episodic Other gastrointestinal disorders (2 sources) Encounter for attention to gastrostomy; Translations: [Encounter for attention to gastrostomy] Onset: 12-04-2017 Chronic Other gastrointestinal disorders (4 sources) Dysphagia, oropharyngeal phase; Translations: [Dysphagia, unspecified] Onset: 10-20-2017 Episodic Other injuries and conditions due to external causes (2 sources) History of falling; Translations: [History of falling] Onset: 10-20-2017 Episodic Other lower respiratory disease (2 sources) Other specified respiratory disorders; Translations: [Other specified respiratory disorders] Onset: 10-20-2017 Episodic Other lower respiratory disease (1 source) Cough; Translations: [Subacute cough] 10-12-2022 Episodic Other lower respiratory disease (2 sources) Cough; Translations: [Acute cough] 11-11-2024 Episodic Other non-traumatic joint disorders (1 source) Pain in right shoulder; Translations: [Pain in right shoulder] Onset: 08-08-2024 Episodic Other nutritional; endocrine; and metabolic disorders (2 sources) Obesity, unspecified; Translations: [Obesity, unspecified] Onset: 10-20-2017 Chronic Other screening for suspected conditions (not mental disorders or infectious disease) (1 source) Encounter for screening for diabetes mellitus; Translations: [Encounter for screening for diabetes mellitus] Onset: 07-10-2024 Episodic Other skin disorders (2 sources) Mass of neck; Translations: [Localized swelling, mass and lump, neck] 10-20-2017 Episodic Pleurisy; pneumothorax; pulmonary collapse (2 sources) Atelectasis; Translations: [Atelectasis] Onset: 10-20-2017 Episodic Pneumonia (2 sources) Pneumonia due to Methicillin resistant Staphylococcus aureus; Translations: [Pneumonia due to Methicillin resistant Staphylococcus aureus] Onset: 10-20-2017 Episodic Respiratory failure; insufficiency; arrest (2 sources) Acute respiratory failure with hypoxia; Translations: [Acute respiratory failure with hypoxia] Onset: 10-20-2017 Episodic Skin and subcutaneous tissue infections (2 sources) Cellulitis of abdominal wall; Translations: [Cellulitis of abdominal wall] Onset: 11-23-2017 Episodic Spondylosis; intervertebral disc disorders; other back problems (2 sources) Cervicalgia; Translations: [Cervicalgia] Onset: 10-20-2017 Episodic Substance-related disorders (2 sources) Nicotine dependence, cigarettes, uncomplicated; Translations: [Nicotine dependence, cigarettes, uncomplicated] Onset: 12-04-2017 Chronic Unclassified (2 sources) Body mass index (BMI) 31.0-31.9, adult; Translations: [Body mass index (BMI) 31.0-31.9, adult] Onset: 10-20-2017 Chronic Unclassified (4 sources) Physical restraint status; Translations: [Procedure and treatment not carried out, unspecified reason] Onset: 10-20-2017 Episodic Unclassified (2 sources) Stenosis of coronary artery stent, initial encounter; Translations: [Stenosis of coronary artery stent, initial encounter] Onset: 03-28-2017 Unclassified (2 sources) Acute respiratory distress; Translations: [Acute respiratory distress] Onset: 10-20-2017 Unclassified (2 sources) Pain due to other internal prosthetic devices, implants and grafts, initial encounter; Translations: [Pain due to other internal prosth dev/grft, init] Onset: 11-23-2017 Unclassified (2 sources) Pure hypercholesterolemia, unspecified; Translations: [Pure hypercholesterolemia, unspecified] Onset: 03-28-2017 Unclassified (1 source) Acute cough; Translations: [Acute cough] Onset: 11-11-2024 Past or Other Problems Problem Classification Problem Date Documented Da te Episodic/Chronic Coronary atherosclerosis and other heart disease (4 sources) Presence of coronary angioplasty implant and graft; Translations: [Past history of procedure] Onset: 12-04-2017 07-11-2021 Episodic Results Test Name Value Interpretation Reference Range Facility OV 11-11-2024 CNOV Office Visit (UCTR ) -------- BRITTANIKLAUS ([id number]) 1955 M Date Time Provider Department 11/11/24 4:00 PM CHRISTEN CHOWDARY [facility] During your visit today, we recorded the following information about you: Temperature Pulse Respiration Blood pressure 97.6 degrees 98/minute 18/minute 122/72 Weight 81.7 kg Christen Chowdary, JUNITO.AUTOMATIC LATHE TENDER 11/11/2024 4:29 PM Signed [facility] Subjective Klaus Peter is a 69 year old male. Patient presents with: Cough: Cough, congestion and diarrhea x > 1 month 69 year old male with PMH COPD, HTN and hyperlpidiemia presents for illness Acute onset Over a month ago +cough +chest congestion +productive Keeping him up at night Denies hemoptysis Denies CP Denies body aches or fatigue I've used 400 dollars in OTC +tobacco usage and denies that his usage has been affected He is out of his albuterol inhaler The history is provided by the patient. No soil analyst was used. Cough This is a new problem. The current episode started more than 1 week ago. The problem occurs constantly. The problem has been gradually worsening. The cough is Productive of sputum. There has been no fever. Associated symptoms include rhinorrhea, shortness of breath and wheezing. Pertinent negatives include no chest pain, no chills, no sweats, no weight loss, no ear congestion, no ear pain, no headaches, no sore throat, no myalgias and no eye redness. Treatments tried: OTC. The treatment provided no relief. He is a smoker. His past medical history is significant for bronchitis and COPD. His past medical history does not include pneumonia, bronchiectasis, emphysema or asthma. PAST MEDICAL HISTORY Diagnosis Date Alcohol abuse Coronary artery disease History of stroke Hyperlipidemia Hypertension No past surgical history on file. ALLERGIES Patient has no known allergies. MEDICATIONS doxycycline (VIBRA-TABS) 100 mg tablet Take 1 tablet by mouth two times a day for 7 days. predniSONE (DELTASONE) 10 mg tablet Take 4 tabs daily for 3 days, then 2 tabs daily for 3 days, then 1 tab daily for 3 days with food. albuterol HFA (PROVENTIL HFA, VENTOLIN HFA) 90 mcg/actuation inhaler Inhale 2 puffs as instructed every 4 hours as needed for wheezing/shortness of breath. FLUoxetine (PROZAC) 20 mg capsule Take 20 mg by mouth once daily. (Patient not taking: Reported on 11/11/2024) propranolol (INDERAL) 10 mg tablet Take 10 mg by mouth twice daily as needed. For Anxiety (Patient not taking: Reported on 11/11/2024) No family history on file. Social History Tobacco Use Smoking status: Every Day Types: Cigarettes Smokeless tobacco: Never Review of Systems Constitutional: Negative for chills and weight loss. HENT: Positive for rhinorrhea. Negative for ear pain and sore throat. Eyes: Negative for redness. Respiratory: Positive for cough, shortness of breath and wheezing. Cardiovascular: Negative for chest pain. Musculoskeletal: Negative for myalgias. Neurological: Negative for headaches. Objective BP 122/72 Pulse 98 Temp 36.4 ?C (97.6 ?F) (Tympanic) Resp 18 Wt 81.7 kg (180 lb 1.9 oz) SpO2 95% Physical Exam Vitals and nursing note reviewed. Constitutional: General: He is not in acute distress. Appearance: Normal appearance. He is not ill-appearing, toxic-appearing or diaphoretic. Comments: Stale tobacco smoke HENT: Head: Normocephalic and atraumatic. Right Ear: External ear normal. Left Ear: External ear normal. Nose: Nose normal. No congestion or rhinorrhea. Mouth/Throat: Mouth: Mucous membranes are moist. Pharynx: Oropharynx is clear. No oropharyngeal exudate or posterior oropharyngeal erythema. Eyes: General: Right eye: No discharge. Left eye: No discharge. Extraocular Movements: Extraocular movements intact. Conjunctiva/sclera: Conjunctivae normal. Pupils: Pupils are equal, round, and reactive to light. Cardiovascular: Rate and Rhythm: Normal rate and regular rhythm. Pulses: Normal pulses. Heart sounds: Normal heart sounds. No murmur heard. No friction rub. No gallop. Pulmonary: Effort: Pulmonary effort is normal. No respiratory distress. Breath sounds: Normal breath sounds. No stridor. No wheezing, rhonchi or rales. Comments: Diminized breath sounds Chest: Chest wall: No tenderness. Abdominal: General: Abdomen is flat. There is no distension. Palpations: Abdomen is soft. There is no mass. Tenderness: There is no abdominal tenderness. There is no guarding or rebound. Hernia: No hernia is present. Musculoskeletal: General: No swelling, tenderness, deformity or signs of injury. Normal range of motion. Cervical back: Normal range of motion and neck supple. No rigidity or tenderness. Right lower leg: No edema. Left lower leg: No edema. Lymphadenopathy: Cervical: No cervical adenopathy. Skin: (more content not included)... Normal [facility] XR CHEST 2V FRONTAL/LATon XR CHEST 2V FRONTAL/LAT * * *Final Report* * * DATE OF EXAM: Nov 11 2024 4:46PM WOX [id number] - XR CHEST 2V FRONTAL/LAT / PROCEDURE REASON: Acute cough * * * * Physician Interpretation * * * * EXAMINATION: CHEST RADIOGRAPH (2 VIEW FRONTAL and LATERAL) CLINICAL HISTORY: Acute cough MQ: XC2_6 EXAM DATE/TIME: 11/11/2024 4:46 PM COMPARISON: Chest x-ray 10/12/2022 RESULT: Lines, tubes, and devices: None. Lungs and pleura: No consolidation. No lung mass. Blunting of the costophrenic angles LEFT greater than RIGHT consistent with small pleural effusions. No vascular redistribution. No pneumothorax. Cardiomediastinal silhouette: Stable cardiomediastinal silhouette. There is coronary artery calcification. Bones and soft tissues: Unremarkable. IMPRESSION: Small bilateral pleural effusions new from prior study . Policy Change Clerks Supervisor: [facility] Transcribe Date/Time: Nov 11 2024 4:47P Dictated by : BALJIT QUIROZ MD This examination was interpreted and the report reviewed and electronically signed by: BALJIT QUIROZ MD on Nov 11 2024 4:50PM EST [id number] Normal [facility] XR Chest PA and Lateralon IMPRESSION: Small bilateral pleural effusions new from prior study . Policy Change Clerks Supervisor: [employer] Transcribe Date/Time: Nov 11 2024 4:47P Dictated by : BALJIT QUIROZ MD This examination was interpreted and the report reviewed and electronically signed by: BALJIT QUIROZ MD on Nov 11 2024 4:50PM EST DIVISION OF RADIOLOGY * * *Final Report* * * DATE OF EXAM: Nov 11 2024 4:46PM WOX [id number] - XR CHEST 2V FRONTAL/LAT / PROCEDURE REASON: Acute cough * * * * Physician Interpretation * * * * EXAMINATION: CHEST RADIOGRAPH (2 VIEW FRONTAL & LATERAL) CLINICAL HISTORY: Acute cough MQ: XC2_6 EXAM DATE/TIME: 11/11/2024 4:46 PM COMPARISON: Chest x-ray 10/12/2022 RESULT: Lines, tubes, and devices: None. Lungs and pleura: No consolidation. No lung mass. Blunting of the costophrenic angles LEFT greater than RIGHT consistent with small pleural effusions. No vascular redistribution. No pneumothorax. Cardiomediastinal silhouette: Stable cardiomediastinal silhouette. There is coronary artery calcification. Bones and soft tissues: Unremarkable. DIVISION OF RADIOLOGY Provider, [facility] Delores Catlett - 11/11/2024 * * *Final Report* * * DATE OF EXAM: Nov 11 2024 4:46PM WOX [id number] - XR CHEST 2V FRONTAL/LAT / PROCEDURE REASON: Acute cough * * * * Physician Interpretation * * * * EXAMINATION: CHEST RADIOGRAPH (2 VIEW FRONTAL & LATERAL) CLINICAL HISTORY: Acute cough MQ: XC2_6 EXAM DATE/TIME: 11/11/2024 4:46 PM COMPARISON: Chest x-ray 10/12/2022 RESULT: Lines, tubes, and devices: None. Lungs and pleura: No consolidation. No lung mass. Blunting of the costophrenic angles LEFT greater than RIGHT consistent with small pleural effusions. No vascular redistribution. No pneumothorax. Cardiomediastinal silhouette: Stable cardiomediastinal silhouette. There is coronary artery calcification. Bones and soft tissues: Unremarkable. IMPRESSION IMPRESSION: Small bilateral pleural effusions new from prior study . Policy Change Clerks Supervisor: [employer] Transcribe Date/Time: Nov 11 2024 4:47P Dictated by : BALJIT QUIROZ MD This examination was interpreted and the report reviewed and electronically signed by: BALJIT QUIROZ MD on Nov 11 2024 4:50PM EST [facility] Radiology Study observation (narrative) [facility] XR Chest PA and LateralOrder ed By: [facility] Provider on 11-11-2024 [facility] CBC W/Diff, Automatedon 12-0 Absolute Lymph 1.85 X10 3/uL Normal 0.83-4.51 [facility] Comment on above: Performed By: #### L 500.4050, L100.0100, L500.4100, [id number] #### [facility] [address] [place], [address] Absolute Neut 2.9 X10 3/uL Normal 2.0-7.7 [facility] Comment on above: Performed By: #### L 500.4050, L100.0100, L500.4100, [id number] #### [facility] [address] [place], [address] Basophils/100 WBC (Bld) 0.9 % Normal 0-1 [facility] Comment on above: Performed By: #### L 500.4050, L100.0100, L500.4100, [id number] #### [facility] [address] [place], [address] Eosinophils/100 WBC (Bld) 4.4 % Normal 0-5 [facility] Comment on above: Performed By: #### L 500.4050, L100.0100, L500.4100, [id number] #### [facility] [address] [place], [address] Erythrocyte distribution width (RBC) [Ratio] 17.2 % High 11.6-14.6 [facility] Comment on above: Performed By: #### L 500.4050, L100.0100, L500.4100, [id number] #### [facility] [address] [place], [address] Hematocrit (Bld) [Volume fraction] 31.0 % Low 40-54 [facility] Comment on above: Performed By: #### L 500.4050, L100.0100, L500.4100, [id number] #### [facility] [address] [place], [address] Hemoglobin (Bld) [Mass/Vol] 9.3 g/dL Low 13.0-16.5 [facility] Comment on above: Performed By: #### L 500.4050, L100.0100, L500.4100, [id number] #### [facility] [address] [place], [address] IG% 0.200 Normal 0.0-0.9 [facility] Comment on above: Result Comment: IG% - Immature Granulocytes (promyelocytes, myelocytes and metamyelocytes) > 1% indicates that a LEFT SHIFT is Present. Performed By: #### L 500.4050, L100.0100, L500.4100, [id number] #### [facility] [facility] [address] [place], [address] Lymphocytes/100 WBC (Bld) 33.8 % Normal 19-41 [facility] Comment on above: Performed By: #### L 500.4050, L100.0100, L500.4100, L501.9520 #### [facility] [address] [place], [address] MCH (RBC) [Entitic mass] 25.4 pg Low 27.0-32.0 [facility] Comment on above: Performed By: #### L 500.4050, L100.0100, L500.4100, L501.9520 #### [facility] [address] [place], [address] MCHC (RBC) [Mass/Vol] 30.0 g/dL Low 32-36 [facility] Comment on above: Performed By: #### L 500.4050, L100.0100, L500.4100, L501.9520 #### [facility] [address] [place], [address] MCV (RBC) [Entitic vol] 84.7 fL Normal 80-94 [facility] Comment on above: Performed By: #### L 500.4050, L100.0100, L500.4100, L501.9520 #### [facility] [address] [place], [address] Monocytes/100 WBC (Bld) 8.6 % Normal 0-10 [facility] Comment on above: Performed By: #### L 500.4050, L100.0100, L500.4100, [id number] #### [facility] [address] [place], [address] Neutrophils/100 WBC (Bld) 52.1 % Normal 47-70 [facility] Comment on above: Performed By: #### L 500.4050, L100.0100, L500.4100, [id number] #### [facility] [address] [place], [address] Nucleated RBC (Bld) [#/Vol] 0 10*3/uL Normal 0-5 [facility] Comment on above: Performed By: #### L 500.4050, L100.0100, L500.4100, L501.9520 #### [facility] [address] [place], [address] Platelet mean volume (Bld) [Entitic vol] 10.2 fL Normal 6.2-12.0 [facility] Comment on above: Performed By: #### L 500.4050, L100.0100, L500.4100, L501.9520 #### [facility] [address] [place], [address] Platelets (Bld) [#/Vol] 209 10*3/uL Normal 150-450 [facility] Comment on above: Performed By: #### L 500.4050, L100.0100, L500.4100, L501.9520 #### [facility] [address] [place], [address] RBC (Bld) [#/Vol] 3.66 10*6/uL Low 4.6-6.2 [facility] Comment on above: Performed By: #### L 500.4050, L100.0100, L500.4100, L501.9520 #### [facility] [address] [place], [address] RDW SD 52.7 fl High 35.1-43.9 [facility] Comment on above: Performed By: #### L 500.4050, L100.0100, L500.4100, L501.9520 #### [facility] [address] [place], [address] WBC (Bld) [#/Vol] 5.5 10*3/uL Normal 4.4-11.0 [facility] Comment on above: Performed By: #### L 500.4050, L100.0100, L500.4100, L501.9520 #### [facility] [address] [place], [address] Comprehensive Metabolic Prof ilon 06-11-2024 Albumin [Mass/Vol] 2.4 g/dL Low 3.2-5.0 [facility] Comment on above: Performed By: #### L 500.4050, L100.0100, L500.4100, L501.9520 #### [facility] [address] [place], [address] Albumin/Globulin [Mass ratio] 0.5 {ratio} Low 0.9-2.4 [facility] Comment on above: Performed By: #### L 500.4050, L100.0100, L500.4100, L501.9520 #### [facility] [address] [place], [address] ALK P 117 U/L Normal 45-117 [facility] Comment on above: Performed By: #### L 500.4050, L100.0100, L500.4100, L501.9520 #### [facility] [address] [place], [address] ALT [Catalytic activity/Vol] 11 U/L Low 16-61 [facility] Comment on above: Performed By: #### L 500.4050, L100.0100, L500.4100, L501.9520 #### [facility] [address] [place], [address] AST [Catalytic activity/Vol] 24 U/L Normal 15-37 [facility] Comment on above: Performed By: #### L 500.4050, L100.0100, L500.4100, L501.9520 #### [facility] [address] [place], [address] Bilirubin [Mass/Vol] 0.30 mg/dL Normal 0.20-1.00 [facility] Comment on above: Result Comment: For patients on eltrombopag therapy, use of Dimension Brinkley TBIL is not recommended. Performed By: #### L 500.4050, L100.0100, L500.4100, L501.9520 #### [facility] [address] [place], [address] BUN/CRE 8.2 RATIO Low 10-20 [facility] Comment on above: Performed By: #### L 500.4050, L100.0100, L500.4100, L501.9520 #### [facility] [address] [place], [address] CA,Total 8.6 mg/dL Normal 8.5-10.1 [facility] Comment on above: Performed By: #### L 500.4050, L100.0100, L500.4100, L501.9520 #### [facility] [address] [place], [address] Chloride [Moles/Vol] 105 mmol/L Normal 98-107 [facility] Comment on above: Performed By: #### L 500.4050, L100.0100, L500.4100, L501.9520 #### [facility] [address] [place], [address] CO2 [Moles/Vol] 22.0 mmol/L Normal 21.0-32.0 [facility] Comment on above: Performed By: #### L 500.4050, L100.0100, L500.4100, L501.9520 #### [facility] [address] [place], [address] Creatinine [Mass/Vol] 0.61 mg/dL Low 0.70-1.30 [facility] Comment on above: Result Comment: The validity of the calculated GFR GFRAA in patients over 70 years has not been determined. Clinical correlation is essential. Performed By: #### L 500.4050, L100.0100, L500.4100, L501.9520 #### [facility] [address] [place], [address] EST GFR - AA 169 mL/min Normal >60 [facility] Comment on above: Result Comment: Afri can Martiniquais GFR Calc Performed By: #### L 500.4050, L100.0100, L500.4100, L501.9520 #### [facility] [address] [place], [address] GAP 8 Normal 5-15 [facility] Comment on above: Performed By: #### L 500.4050, L100.0100, L500.4100, L501.9520 #### [facility] [address] [place], [address] GFR/1.73 sq M.predicted among non-blacks MDRD (S/P/Bld) [Vol rate/Area] 140 mL/min/{1.73_m2} Normal >60 [facility] Comment on above: Result Comment: Non- GFR Calc Performed By: #### L 500.4050, L100.0100, L500.4100, L501.9520 #### [facility] [address] [place], [address] Globulin (S) [Mass/Vol] 4.6 g/dL High 2.2-4.2 [facility] Comment on above: Performed By: #### L 500.4050, L100.0100, L500.4100, L501.9520 #### [facility] [address] [place], [address] Glucose [Mass/Vol] 86 mg/dL Normal 74-106 [facility] Comment on above: Performed By: #### L 500.4050, L100.0100, L500.4100, L501.9520 #### [facility] [address] [place], [address] Potassium [Moles/Vol] 4.0 mmol/L Normal 3.5-5.1 [facility] Comment on above: Performed By: #### L 500.4050, L100.0100, L500.4100, L501.9520 #### [facility] [address] [place], [address] Sodium [Moles/Vol] 135 mmol/L Low 136-145 [facility] Comment on above: Performed By: #### L 500.4050, L100.0100, L500.4100, L501.9520 #### [facility] [address] [place], [address] T PROT 7.0 g/dL Normal 6.4-8.2 [facility] Comment on above: Performed By: #### L 500.4050, L100.0100, L500.4100, L501.9520 #### [facility] [address] [place], [address] Urea nitrogen [Mass/Vol] 5 mg/dL Low 7-18 [facility] Comment on above: Performed By: #### L 500.4050, L100.0100, L500.4100, L501.9520 #### [facility] [address] [place], [address] Lipid Profileon 06-11-2024 Cholesterol [Mass/Vol] 113 mg/dL Normal 200 [facility] Comment on above: Result Comment: <200 mg/dL Desirable 200-240 mg/dL Borderline >240 mg/dL High Risk Performed By: #### L 500.4050, L100.0100, L500.4100, L501.9520 #### [facility] [address] [place], [address] Cholesterol in HDL [Mass/Vol] 44 mg/dL Normal [facility] Comment on above: Result Comment: The drugs N-Acetylcysteine and Metamizole may falsely depress this assay. Reference Range HDL <40 mg/dL Low HDL Cholesterol HDL >or= 60 mg/dL High HDL Cholesterol Performed By: #### L 500.4050, L100.0100, L500.4100, L501.9520 #### [facility] [address] [place], [address] Cholesterol in LDL [Mass/Vol] 57 mg/dL Normal 0-130 [facility] Comment on above: Performed By: #### L 500.4050, L100.0100, L500.4100, L501.9520 #### [facility] [address] [place], [address] Cholesterol in VLDL [Mass/Vol] 12 mg/dL Normal 5-40 [facility] Comment on above: Performed By: #### L 500.4050, L100.0100, L500.4100, L501.9520 #### [facility] [address] [place], [address] Triglyceride [Mass/Vol] 58 mg/dL Normal [facility] Comment on above: Result Comment: The drugs N-Acetylcysteine and Metamizole may falsely depress this assay. Serum Triglycerides Reference Interval Normal <150 mg/dL Borderline high 150 - 199 mg/dL High 200 - 499 mg/dL Very High > or = 500 mg/dL Performed By: #### L 500.4050, L100.0100, L500.4100, L501.9520 #### [facility] [address] [place], [address] Thyroid Stim Hormone (TSH)on 06-11-2024 TSH 1.080 uIU/mL Normal 0.358-3.740 [facility] Comment on above: Performed By: #### L 500.4050, L100.0100, L500.4100, L501.9520 #### [facility] [address] [place], [address] Emergency Department Summary on 03-01-2024 Emergency Department Summary [facility] Medical Records Department [address] [place] [address] Emergency Department Summary 03/01/24 MR#: [id number] Acct: [id number] Name: KLAUS PETER Rep #: [id number] : 1955 68 From: Jf Belle MD PCP: Dr. Nubia Licea Status:REG ER Location: ED HPI History of Present Illness Chief Complaint: Bite Narrative Narrative: 68-year-old male with no significant past medical history presents with dog bite to his left hand and scratches on his left thigh that he sustained from a random dog attack yesterday evening. This was greater than 6 hours ago. He states that he was out for his walk when an unknown dog approached. He states he was bitten on the left hand and that the dog had a hold of him. He tried to shake it off. He sustained scratches to his left thigh as well where he may have been bit a second time versus from pause. Patient is unsure of his last tetanus immunization. He denies any fevers or chills, no other injuries except for mainly to his left hand. He is right-hand dominant. ROS ROS ED ROS Narrative Constitutional: No fever, no chills. HEENT: No sore throat. No neck pain. No loss of vision. No rhinorrhea. Cardiovascular: No chest pain. No palpitations. No pedal edema. Respiratory: No cough, no shortness of breath. Abdominal: No abdominal pain. No nausea. No vomiting. Genitourinary: No dysuria. No hematuria. Musculoskeletal: No myalgias. Left hand pain. Neurologic: No headaches. No dizziness. No lightheadedness. Skin: No rash. No change in color. Linear scratches to left thigh, 2. Psychiatric: No depression. No anxiety. [facility] Medical History (Updated 03/01/24 @ 10:59 by Jf Belle MD) Acute ST elevation myocardial infarction History of stroke Pure hypercholesterolemia Old myocardial infarction Alcohol abuse Tobacco abuse Essential hypertension Presence of stent in coronary artery ( 03/28/17) Atherosclerotic heart disease of ramona coronary artery without angina pectoris Home Medications ???Medication ???Instructions ???Recorded ???Last Taken ???Type hydroxyzine pamoate 25 mg capsule 25 mg PO TID PRN anxiety #21 caps 04/09/23 Unknown Rx (Vistaril) Allergy/AdvReac Type Severity Reaction Status Date / Time lisinopril Allergy COUGH Verified 03/01/24 10:17 Family History Father Heart disease Mother Alzheimers disease Brother COPD (chronic obstructive pulmonary disease) Brother Heart disease Sister Cancer Lung Surgical History History of tracheostomy History of gastrectomy Presence of coronary angioplasty implant and graft ( 03/28/17) Social History housing: other details: Lives with a roommate. Smoking Status: Current every day smoker tobacco type: cigarettes alcohol intake: current alcohol intake frequency: 3 or more drinks per day Alcohol type: beer details: Daily. substance use type: does not use caffeine: Yes Type: coffee Number of servings: 2 EXAM Physical Exam Narrative Exam Narrative: GCS 15. ABCs intact. Regular rate and rhythm. Lungs are clear to auscultation bilaterally. Abdomen soft nontender with normal active bowel sounds. Neurological examination nonfocal and nonlateralizing. There is evidence of a bite baljit on the left hand without active bleeding in the area of the fifth metacarpal. He appears neurovascular intact distally with good capillary refill of the fifth digit. Full range of motion of fingers of left hand. Palpable radial pulse. Is more of a superficial abrasion in the shape of the mouth. There are 2 linear scratches without active bleeding on his left thigh that appear more consistent with a possible rash than an actual bite. No evidence of foreign body in either wound. Const Vital Signs: 03/01/24 10:14 Temperature 97.0 F L Temperature Source Temporal Pulse Rate 95 Respiratory Rate 16 Blood Pressure 124/85 H Blood Pressure Mean 98 Pulse Ox 100 Oxygen Delivery Method Room Air MDM MDM MDM Narrative Medical decision making narrative: Concern is for fracture of the left metacarpal versus foreign body including tooth. Patient is unsure of his immunization status for tetanus. I have low suspicion for rabies. He was given a booster shot of Tdap. I discussed with him prophylactic antibiotic use. I do not feel he needs an x-ray of the femur, but x-rays of the left hand were obtained to rule out fracture and foreign body. X-rays interpreted by myself independently show no evidence of acute fracture. I was informed by the RN that the patient did not want to wait for any results and was going to leave, so she (more content not included)... Normal [facility] Hand Min 3 Viewson 4 Hand Min 3 Views [facility] Imaging Services [address] [place] [address] Hand Min 3 Views MR#: [id number] Acct: [id number] Name: KLAUS PETER Rep #: [id number] : 1955 M 68 From: Juan Núñez PCP: Dr. Nubia Licea Status: DEP ER Study: Hand Min 3 Views Date of Exam: 03/01/24 Exam# [id number] Ordering Dr: Jf Belle MD [id number] INDICATION: Dog bite, trauma EXAMINATION/TECHNIQUE: X-RAY - LEFT XR Hand Min 3 Views 3 VIEWS COMPARISON: No relevant prior comparison study available FINDINGS: SOFT TISSUES: No soft tissue swelling or gas. No radiopaque foreign body. BONES/JOINTS: No acute fracture or subluxation.. Normal alignment. Preservation of the joint space.. No sclerotic or destructive changes observed. RAD/Hand Min 3 Views IMPRESSION: No evidence of acute fracture. No demonstrated radiopaque foreign body. Electronically Signed: Juan Schaeffer MD at 11:29 EDT , CC: Dr. Jf Belle MD; Dr. Nubia Licea Policy Change Clerks Supervisor: Signed Normal [facility] XR Chest PA and Lateralon IMPRESSION: No evidence of active disease [employer] Change Clerks Supervisor: EDISON Transcribe Date/Time: Oct 12 2022 11:14A Dictated by : BALJIT QUIROZ MD This examination was interpreted and the report reviewed and electronically signed by: BALJIT QUIROZ MD on Oct 12 2022 11:14AM [facility] DIVISION OF RADIOLOGY * * *Final Report* * * DATE OF EXAM: Oct 12 2022 11:00AM WOX 5291 - XR CHEST 2V FRONTAL/LAT / PROCEDURE REASON: Subacute cough * * * * Physician Interpretation * * * * EXAMINATION: CHEST RADIOGRAPH (2 VIEW FRONTAL & LATERAL) CLINICAL HISTORY: Subacute cough MQ: XC2_6 EXAM DATE/TIME: 10/12/2022 11:00 AM COMPARISON: No relevant prior studies available. RESULT: Lines, tubes, and devices: None. Lungs and pleura: No consolidation. No lung mass. No pleural effusion. No pneumothorax. Cardiomediastinal silhouette: Normal cardiomediastinal silhouette. Bones and soft tissues: Unremarkable. DIVISION OF RADIOLOGY Provider, [facility] - 10/12/2022 * * *Final Report* * * DATE OF EXAM: Oct 12 2022 11:00AM WOX 5291 - XR CHEST 2V FRONTAL/LAT / PROCEDURE REASON: Subacute cough * * * * Physician Interpretation * * * * EXAMINATION: CHEST RADIOGRAPH (2 VIEW FRONTAL & LATERAL) CLINICAL HISTORY: Subacute cough MQ: XC2_6 EXAM DATE/TIME: 10/12/2022 11:00 AM COMPARISON: No relevant prior studies available. RESULT: Lines, tubes, and devices: None. Lungs and pleura: No consolidation. No lung mass. No pleural effusion. No pneumothorax. Cardiomediastinal silhouette: Normal cardiomediastinal silhouette. Bones and soft tissues: Unremarkable. IMPRESSION IMPRESSION: No evidence of active disease Policy Change Clerks Supervisor: PSCB Transcribe Date/Time: Oct 12 2022 11:14A Dictated by : BALJIT QUIROZ MD This examination was interpreted and the report reviewed and electronically signed by: BALJIT QUIROZ MD on Oct 12 2022 11:14AM EST [facility] Radiology Study observation (narrative) [facility] XR Chest PA and LateralOrder ed By: [facility] Provider on 10-12-2022 [facility] Absolute lymphocyte counton 05-02-2022 Lymphocytes Auto (Unsp spec) [#/Vol] 1.91 10*3/uL 0.83-4.51 [facility] Work Phone: Basophil percentageon 2021 Basophils/100 WBC (Bld) 1.5 % 0-1 [facility] Work Phone: Chloride [Moles/Vol] 112 mmol/L 98-107 [facility] Work Phone: [phone] Eosinophils/100 WBC (Bld) 5.0 % 0-5 [facility] Work Phone: [phone] Glucose [Mass/Vol] 87 mg/dL 74-106 [facility] Work Phone: [phone] Neutrophils (Bld) [#/Vol] 1.9 10*3/uL 2.0-7.7 [facility] Work Phone: Neutrophils/100 WBC (Bld) 40.9 % 47-70 [facility] Work Phone: [phone] Potassium [Moles/Vol] 3.8 mmol/L 3.5-5.1 [facility] Work Phone: Sodium [Moles/Vol] 143 mmol/L 136-145 [facility] Work Phone: WBC (Bld) [#/Vol] 4.6 10*3/uL 4.4-11.0 [facility] Work Phone: Basophil percentage 0 SEEN /hpf 0-5 [facility] Work Phone: [phone] Bilirubin Test strip Ql (U)o n 05-02-2022 Bilirubin Ql (U) Negative Negative [facility] Work Phone: [phone] Blood erythrocytes count (nu mber/volume)on 05-02-2022 RBC (Bld) [#/Vol] 3.92 10*6/uL 4.6-6.2 [facility] Work Phone: Blood hemoglobin measurement (mass/volume)on 05-02-2022 Hemoglobin (Bld) [Mass/Vol] 10.2 g/dL 13.0-16.5 [facility] Work Phone: Blood lymphocytes/100 leukoc yteson 05-02-2022 Lymphocytes/100 WBC (Bld) 41.9 % 19-41 [facility] Work Phone: Blood manual differential co mment interpretation (narrative result)on 05-02-2022 Manual differential comment Lj (Bld) [Interp] SCANNED [facility] Work Phone: Blood monocytes/100 leukocyt eson 05-02-2022 Monocytes/100 WBC (Bld) 10.5 % 0-10 [facility] Work Phone: Blood platelet mean volumeon 05-02-2022 Platelet mean volume (Bld) [Entitic vol] 9.9 fL 6.2-12.0 [facility] Work Phone: Determination of erythrocyte mean corpuscular volume (MCV)on 05-02-2022 MCV (RBC) [Entitic vol] 86.0 fL 80-94 [facility] Work Phone: Hematocrit Auto (Bld) [Volum e fraction]on 05-02-2022 Hematocrit (Bld) [Volume fraction] 33.7 % 40-54 [facility] Work Phone: Hypochromatic red blood cell detectionon 05-02-2022 Hypochromia Ql (Bld) 1+ [facility] Work Phone: Ketones Test strip Ql (U)on 05-02-2022 Ketones Ql (U) Negative Negative [facility] Work Phone: Laboratory - Chemistry and C hemistry - challengeon 05-02-2022 CO2 [Moles/Vol] 24.0 mmol/L 21.0-32.0 [facility] Work Phone: Natriuretic peptide B (Bld) [Mass/Vol] 147.2 pg/mL 0-100 [facility] Work Phone: Urea nitrogen/Creatinine [Mass ratio] 10.6 mg/mg 10-20 [facility] Work Phone: Laboratory - Hematology and Cell countson 05-02-2022 Anisocytosis Ql (Bld) 1+ [facility] Work Phone: Erythrocyte distribution width (RBC) [Entitic vol] 63.4 fL 35.1-43.9 [facility] Work Phone: Erythrocyte distribution width (RBC) [Ratio] 20.4 % 11.6-14.6 [facility] Work Phone: Immature granulocytes/100 WBC (Bld) 0.200 % 0.0-0.9 [facility] Work Phone: Comment on above: IG% - Immature Granu locytes (promyelocytes, myelocytes and metamyelocytes) > 1% indicates that a LEFT SHIFT is Present. MCH (RBC) [Entitic mass] 26.0 pg 27.0-32.0 [facility] Work Phone: Nucleated RBC/100 WBC (Bld) [Ratio] 0 % 0-5 [facility] Work Phone: MCHC Auto (RBC) [Mass/Vol]on 05-02-2022 MCHC (RBC) [Mass/Vol] 30.3 g/dL 32-36 [facility] Work Phone: Mucus LM Ql (Urine sed)on Mucus Ql (Urine sed) 0 SEEN /hpf [facility] Work Phone: Nitrite Test strip Ql (U)on 05-02-2022 Nitrite Ql (U) Negative Negative [facility] Work Phone: No Panel Informationon 05-02 Estimated Creatinine Clearance Calc 146.27 ml/min [facility] Work Phone: Estimated GFR (MDRD) Amer 187 mL/min >60 [facility] Work Phone: Comment on above: GFR Calc Estimated GFR (MDRD) Non-Af Amer 155 mL/min >60 [facility] Work Phone: Comment on above: Non- GFR Calc Troponin I High Sensitivity 48 pg/mL 3.0-78.0 [facility] Work Phone: Comment on above: Please Note: New Ewelina t Units and Gender Specific Reference Ranges. For more information see Policy Stat Procedure [place] High Sensitivity Troponin (TNIH) and attachments. Platelets bldon 05-02-2022 Platelets (Bld) [#/Vol] 358 10*3/uL 150-450 [facility] Work Phone: Protein Test strip Ql (U)on 05-02-2022 Protein Ql (U) Negative Negative [facility] Work Phone: Serum or plasma calcium devan urement (mass/volume)on 05-02-2022 Calcium [Mass/Vol] 8.2 mg/dL 8.5-10.1 [facility] Work Phone: Serum or plasma creatinine m easurement (mass/volume)on 05-02-2022 Creatinine [Mass/Vol] 0.56 mg/dL 0.70-1.30 [facility] Work Phone: Comment on above: The validity of the calculated GFR & GFRAA in patients over 70 years has not been determined. Clinical correlation is essential. Serum or plasma urea nitroge n measurement (mass/volume)on 05-02-2022 Urea nitrogen [Mass/Vol] 6 mg/dL 7-18 [facility] Work Phone: Squamous epithelial cells de tection in urine sediment by light microscopyon 05-02-2022 Epithelial cells.squamous LM Ql (Urine sed) 0-5 SEEN /hpf 0-5 [facility] Work Phone: Thin prep Papanicolaou smear with manual screeningon 05-02-2022 Thin prep Papanicolaou smear with manual screening 7 5-15 [facility] Work Phone: Urine blood detectionon 04-09 RBC Ql (U) Negative Negative [facility] Work Phone: RBC Ql (U) 0 SEEN /hpf 0-5 [facility] Work Phone: Urine clarityon 05-02-2022 Clarity (U) Clear Clear [facility] Work Phone: Urine color determinationon 05-02-2022 Color (U) Straw Yellow [facility] Work Phone: Urine glucose detectionon Glucose Ql (U) Normal mg/dl Normal [facility] Work Phone: Urine leukocyte esterase det ection by dipstickon 05-02-2022 Leukocyte esterase Test strip Ql (U) Negative Negative [facility] Work Phone: Urine pHon 05-02-2022 pH (U) 6.5 [pH] 5.0 - 8.0 [facility] Work Phone: Urine sediment bacteria coun t by microscopy (number/high power field)on 05-02-2022 Bacteria LM.HPF (Urine sed) [#/Area] 0 /[HPF] None Seen [facility] Work Phone: Urine specific gravity measu rementon 05-02-2022 Specific gravity (U) [Rel density] 1.005 1.002-1.030 [facility] Work Phone: Urobilinogen Auto test strip Ql (U)on 05-02-2022 Urobilinogen Ql (U) Normal mg/dl Normal [facility] Work Phone: Comp Metabolic Panelon 11-23 Alanine aminotransferase (ALT) 38 U/L Normal 13-69 [facility] Comment on above: Performed By: #### [facility] [facility] [place], CMP3 ####[facility] [place] [address] Calcium 9.0 mg/dL Normal 8.4-10.2 [facility] Comment on above: Performed By: #### H KD CMP3 ####[place] [address] [place] [address] Alkaline phosphatase (ALP) 125 U/L Normal 38-126 [facility] Comment on above: Performed By: #### H KD, CMP3 ####[place] [address] [place] [address] Anion gap 9 Normal [facility] Comment on above: Performed By: #### H KD, CMP3 ####[place] [address] [place] [address] Aspartate aminotransferase (AST) 35 U/L Normal 15-46 [facility] Comment on above: Performed By: #### H KD CMP3 ####[place] [address] [place] [address] Bilirubin (total) 0.4 mg/dL Normal 0.2-1.3 [facility] Comment on above: Performed By: #### H KD CMP3 ####[place] [address] [place] [address] CO2 27 mmol/L Normal 22-30 [facility] Comment on above: Performed By: #### H KD CMP3 ####[place] [address] [place] [address] Creatinine 0.69 mg/dL Normal 0.52-1.25 [facility] Comment on above: Performed By: #### H KD CMP3 ####[place] [address] [place] [address] eGFR (black) mL/min/{1.73_m2} Normal >60 [facility] Comment on above: Performed By: #### H KD CMP3 ####[place] [address] [place] [address] eGFR (non-black) mL/min/{1.73_m2} Normal >60 [facility] Comment on above: Result Comment: Sour ce- MDRD equation with creatinine calibration to IDMS(NKDEP) eGFR not recommended for drug dose adjustment Performed By: #### H EMDF, CMP3 ####[facility] [place] [address] Glucose mass conc 89 mg/dL Normal 70-100 [facility] Comment on above: Performed By: #### H EMDF, CMP3 ####[facility] [place] [address] Protein 7.7 g/dL Normal 6.3-8.2 [facility] Comment on above: Performed By: #### H EMDF, CMP3 ####[facility] [place] [address] Urea nitrogen 10 mg/dL Normal 7-20 [facility] Comment on above: Performed By: #### H EMDF, CMP3 ####[facility] [place] [address] Potassium molar conc 4.5 mmol/L Normal 3.5-5.1 [facility] Comment on above: Performed By: #### H EMDF, CMP3 ####[place] [address] [place] [address] Sodium 140 mmol/L Normal 137-145 [facility] Comment on above: Performed By: #### H EMDF, CMP3 ####[facility] [place] [address] Albumin 4.1 g/dL Normal 3.5-5.0 [facility] Comment on above: Performed By: #### H EMDF, CMP3 ####[place] [address] [place] [address] Chloride 104 mmol/L Normal 98-107 [facility] Comment on above: Performed By: #### H EMDF, CMP3 ####[facility] [place] [address] Hemogram w/ Autodiffon 11-23 Abs Baso Cnt 0.0 10*3/uL Normal 0.0-0.2 [facility] Comment on above: Performed By: #### H EMDF, CMP3 ####[facility] [place] [address] Basophils/100 WBC Auto (Bld) 0.5 % Normal 0.0-2.0 [facility] Comment on above: Performed By: #### H EMDArun CMP3 ####[place] [address] [place] [address] Eosinophils 0.1 10*3/uL Normal 0.0-0.5 [facility] Comment on above: Performed By: #### H EMDArun, CMP3 ####[place] [address] [place] [address] Eosinophils/100 leukocytes 1.4 % Normal 1.0-6.0 [facility] Comment on above: Performed By: #### H EMDArun CMP3 ####[place] [address] [place] [address] Erythrocyte distribution width Auto Ratio (RBC) 15.1 % High 11.5-14.5 [facility] Comment on above: Performed By: #### H EMDArun CMP3 ####[place] [address] [place] [address] Erythrocytes (RBC) 4.11 10*6/uL Low 4.40-5.90 [facility] Comment on above: Performed By: #### H EMDArun CMP3 ####[place] [address] [place] [address] Granulocytes/100 WBC (Bld) 64.1 % Normal 40.0-80.0 [facility] Comment on above: Performed By: #### H KD CMP3 ####[place] [address] [place] [address] Hematocrit (HCT) 38.3 % Low 40.0-52.0 [facility] Comment on above: Performed By: #### H KD CMP3 ####[place] [address] [place] [address] Hemoglobin mass conc (Bld) 12.5 g/dL Low 13.0-18.0 [facility] Comment on above: Performed By: #### H EMDArun CMP3 ####[place] [address] [place] [address] Lymphocytes 2.3 10*3/uL Normal 1.0-4.3 [facility] Comment on above: Performed By: #### H EMDArun CMP3 ####[place] [address] [place] [address] Lymphocytes/100 leukocytes 26.7 % Normal 20.0-40.0 [facility] Comment on above: Performed By: #### H EMDF, CMP3 ####[place] [address] [place] [address] MCH 30.4 pg Normal 26.0-34.0 [facility] Comment on above: Performed By: #### H EMDF, CMP3 ####[place] [address] [place] [address] MCHC mass conc (RBC) 32.7 % Normal 32.0-36.0 [facility] Comment on above: Performed By: #### H EMDF, CMP3 ####[address] [place] [address] MCV 93.1 fL Normal 80.0-98.0 [facility] Comment on above: Performed By: #### H EMDF, CMP3 ####[address] [place] [address] Monocytes 0.6 10*3/uL Normal 0.0-0.8 [facility] Comment on above: Performed By: #### H EMDF, CMP3 ####[address] [place] [address] Monocytes/100 leukocytes 7.3 % Normal 2.0-10.0 [facility] Comment on above: Performed By: #### H EMDF, CMP3 ####[address] [place] [address] Neutrophils 5.6 10*3/uL Normal 1.8-7.0 [facility] Comment on above: Performed By: #### H EMDF, CMP3 ####[address] [place] [address] Platelet mean volume (PMV) 8.3 fL Normal 7.4-10.4 [facility] Comment on above: Performed By: #### H EMDF, CMP3 ####[place] [address] [place] [address] Platelets 262 10*3/uL Normal 140-440 [facility] Comment on above: Performed By: #### H EMDF, CMP3 ####[facility] [place] [address] WBC (Leukocytes) 8.7 10*3/uL Normal 3.6-10.7 [facility] Comment on above: Performed By: #### H KAYLEE YI ####[facility] [place] [address] CR Chest Portableon 10-28-19 18 CR Chest Portable Patient Name: KLAUS FARRELL Diagnostic Radiology Exam Date/Time 10/27/2017 04:40:00 EDT Exam CR Chest Portable Ordering Physician ANNE-MARIE ANDREWS Accession Number [id number] CPT4 Codes 73139 () Reason For Exam left lower lobe atelectasis/ infiltrate Report Chest one view HISTORY: Left lower lobe atelectasis COMPARISON: 10/25/2017 Tracheostomy. A few unchanged strands of atelectasis in the left lower lung. The right lung is clear. No pleural effusions. The heart and pulmonary vessels are normal. IMPRESSION: A few unchanged strands of atelectasis in the left lower lung. Report Dictated on Final Dictating Physician: MD BAILEY MALAY Signed Date and Time: 10/27/2017 9:35 am Signed by: MD BAILEY MALAY Transcribed Date and Time: 10/27/2017 9:36 Normal [facility] CR Chest Portableon 10-26-19 18 CR Chest Portable Patient Name: KLAUS FARRELL Diagnostic Radiology Exam Date/Time 10/25/2017 09:27:28 EDT Exam CR Chest Portable Ordering Physician ANNE-MARIE ANDREWS Accession Number [id number] CPT4 Codes 53287 () Reason For Exam aspiration Report CHEST: CLINICAL INDICATION: Aspiration TECHNIQUE: AP portable chest COMPARISON: 10/23/2017 FINDINGS: Tracheostomy cannula is again seen. The enteric tube is been removed. The cardiomediastinal silhouette appears unchanged from the prior exam. New hazy left basilar opacity. The right lung is clear. The osseous structures are unremarkable. IMPRESSION: New hazy left basilar opacity which could be related to a small developing effusion, atelectasis or infiltrate including aspiration. Report Dictated on Final Dictating Physician: MD GARCIA NICHOLAS Signed Date and Time: 10/25/2017 11:22 am Signed by: MD GARCIA NICHOLAS Transcribed Date and Time: 10/25/2017 11:23 Normal [facility] CR Chest Portableon 10-25-19 18 CR Chest Portable Patient Name: KLAUS FARRELL Diagnostic Radiology Exam Date/Time 10/23/2017 23:45:59 EDT Exam CR Chest Portable Ordering Physician KATIA AYALA JUDITH A. Accession Number [id number] CPT4 Codes 31004 () Reason For Exam NG placement Report HISTORY: Nasogastric tube placement Portable AP chest at 2338 hours. Since yesterday's examination a nasogastric tube is in place with tip in the left upper quadrant. No other significant change Report Dictated on Workstation: [id number] Final Dictating Physician: MD BABB WILLIAM Signed Date and Time: 10/24/2017 1:32 am Signed by: MD BABB WILLIAM Transcribed Date and Time: 10/24/2017 1:33 Normal [facility] CR Chest Portableon 10-23-19 18 CR Chest Portable Patient Name: KLAUS FARRELL Diagnostic Radiology Exam Date/Time 10/22/2017 04:28:56 EDT Exam CR Chest Portable Ordering Physician MD GIA, [facility] Accession Number [id number] CPT4 Codes 66787 () Reason For Exam CHF Report Portable upright AP view of the chest, 10/22/2017. Reason for examination: Shortness of breath. COMPARISON: October 20, 2017. FINDINGS: Cardiac size is within normal limits. Pulmonary vasculature is normal. Lungs are free of infiltrate. There may mild atelectasis in the left lung base. No pleural effusion or pneumothorax is identified. A tracheostomy catheter is again noted. IMPRESSION: Mild atelectasis in the left lower lung. Report Dictated on Final Dictating Physician: MD SALEEM JOE M Signed Date and Time: 10/22/2017 4:35 am Signed by: MD SALEEM JOE M Transcribed Date and Time: 10/22/2017 4:36 Normal [facility] Echo Complete w/wo Contrasto n 10-22-2017 Echo Complete w/wo Contrast Patient Name: KLAUS PETER Ultrasound Exam Date/Time 10/22/2017 09:32:30 EDT Exam Echo Complete w/wo Contrast Ordering Physician FATUMA ASH Accession Number [id number] Reason For Exam angina Report TRANSTHORACIC ECHOCARDIOGRAM PATIENT: Klaus Peter STUDY DATE: 10/22/2017 : 1955 AGE: 62 HT/WT: 177.8 cm (70 94.4 kg in) (207.6 lb) GENDER: M BP: 161 / 98 LOCATION: [facility] PATIENT Inpatient [facility] STATUS: *ORDERING PHYSICIAN: * Fatuma Ash MD *READING PHYSICIAN: * Fatuma Ash MD *WASHERY ENGINEER: Georgiana Langley --- --- INDICATIONS: Angina Pectoris, Unspecified ([id number]). --- --- CONCLUSIONS SUMMARY: 1. Left ventricle: The cavity size is normal. Wall thickness is normal. Systolic function is normal. The estimated ejection fraction is 56%. 2. Right ventricle: The cavity size is normal. Systolic function is normal. 3. Tricuspid valve: There is trivial, less than 1+ regurgitation. 4. Pulmonic valve: There is trivial, less than 1+ regurgitation. --- --- STUDY DATA: Complete transthoracic echocardiogram. Procedure: Image quality was fair. M-mode, complete 2D, complete spectral Doppler, and color flow Doppler images were acquired and archived for permanent storage and are available for subsequent review. Study status: Routine. Patient status: Inpatient. --- --- FINDINGS LEFT VENTRICLE: Average LV Global Longitudinal Strain is -19 The cavity size is normal. Wall thickness is normal. Systolic function is normal. The estimated ejection fraction is 56%. E/e' average: 11.1 RIGHT VENTRICLE: The cavity size is normal. Systolic function is normal. VENTRICULAR SEPTUM: There is no evidence of a ventricular septal defect. LEFT ATRIUM: The atrium is normal in size. RIGHT ATRIUM: The atrium is normal in size. ATRIAL SEPTUM: Color Doppler shows no evidence of shunt. MITRAL VALVE: Mildly calcified annulus. Doppler: There is trivial, less than 1+ regurgitation. Peak gradient (D): 4 mm Hg. AORTIC VALVE: Structurally normal valve. Trileaflet. Doppler: There is no significant regurgitation. Peak gradient (S): 6 mm Hg. Peak velocity (S): 1.3 m/sec. TRICUSPID VALVE: Structurally normal valve. Doppler: There is trivial, less than 1+ regurgitation. PULMONIC VALVE: Structurally normal valve. Doppler: There is trivial, less than 1+ regurgitation. AORTA: The aorta is normal. PULMONARY ARTERY: Main pulmonary artery: Normal. PERICARDIUM: There is no pericardial effusion. --- --- Measurements Left ventricle Value 03/28/2017 Reference Longitudinal strain, 2D 19.01 % --------- LV ID, ED (L) 4.1 cm 4.2 4.2 - 5.9 LV ID, ES 3.3 cm 3.3 --------- LV PW thickness, ED (H) 1.1 cm 1.3 0.6 - 1.0 LV end-systolic volume 35 ml 37 22 - 58 LV ejection fraction (L) 49 % >=55 LV end-systolic volume/bsa 16 ml/m2 17 12 - 30 LV E/e', lateral 10.5 10 --------- LV E/e', medial 11.8 16.2 --------- LV E/e', average 11.1 12.4 --------- Ventricular septum Value 03/28/2017 Reference IVS thickness, ED 0.9 cm 1.1 0.6 - 1.0 LVOT Value 03/28/2017 Reference LVOT ID, A-P 2.0 cm 1.9 --------- LVOT mean velocity, S 0.6 m/sec --------- LVOT VTI, S 20.3 cm --------- LVOT peak gradient, S 2 mm Hg --------- Stroke volume (SV), LVOT DP 62 ml --------- Stroke index (SV/bsa), LVOT DP 29 ml/m2 --------- Aortic valve Value 03/28/2017 Reference Aortic valve peak velocity, S 1.3 m/sec --------- Aortic peak gradient, S 6 mm Hg --------- Aorta Value 03/28/2017 Reference Aortic root ID, ED (sinus) 3.1 cm 2.9 <4.3 Left atrium Value 03/28/2017 Reference LA volume/bsa, ES, 2-p 35 ml/m2 28 --------- Mitral valve Value 03/28/2017 Reference Mitral E-wave peak velocity 1 m/sec 1 --------- Mitral A-wave peak velocity 1.1 m/sec 0.7 --------- Mitral deceleration time 229 ms 272 --------- Mitral peak gradient, D 4 mm Hg 4 --------- Mitral E/A ratio, peak 1.0 1.4 --------- Mitral regurg vena contracta 0.35 cm 0.27 --------- Right atrium Value 03/28/2017 Reference RA area, ES, A4C 17 cm2 17 10 - 18 Right ventricle Value 03/28/2017 Reference RV ID, minor axis, ED, A4C base 3.8 cm 2.4 - 4.2 RV ID, minor axis, ED, A4C mid 2.9 cm 2.0 - 3.5 Legend: (L) and (H) baljit values outside specified reference range. Electronically signed by Fatuma Ash MD 10/22/2017 12:22 Final Dictated: 10/22/2017 12:23 pm Dictating Physician: FATUMA ASH Signed Date and Time: 10/22/2017 12:22 pm Signed by: FATUMA ASH [facility] CR Chest Portableon 10-21-19 18 CR Chest Portable Patient Name: KLAUS FARRELL Diagnostic Radiology Exam Date/Time 10/20/2017 19:07:51 EDT Exam CR Chest Portable Ordering Physician MD GIA, [facility] Accession Number [id number] CPT4 Codes 18096 () Reason For Exam Trach Placement Report EXAM TYPE: RADIOLOGIC EXAMINATION, CHEST, SINGLE VIEW FRONTAL (CXR SINGLE VIEW) EXAM DATE AND TIME: 10/20/2017 7:07 PM EDT INDICATION: Tracheostomy tube placement COMPARISON: 10/20/2017 at 1000 TECHNIQUE: A single frontal view of the thorax was obtained and reviewed. Special views: None. FINDINGS: 1. Lines/Tubes/Devices/Hard carrasco: Interval placement of a tracheostomy tube in expected position. 2. Lungs: No consolidation or pulmonary edema. 3. Pleura: No pneumothorax or large pleural effusions. 4. Heart and mediastinum: Normal cardiomediastinal contours. IMPRESSION: Interval placement of a tracheostomy tube in expected position. Report Dictated on Final Dictating Physician: MD MONTANA NEIL Signed Date and Time: 10/20/2017 7:17 pm Signed by: MD MONTANA NEIL Transcribed Date and Time: 10/20/2017 7:18 Normal [facility] CR Chest Portable Patient Name: KLAUS FARRELL Diagnostic Radiology Exam Date/Time 10/20/2017 10:07:51 EDT Exam CR Chest Portable Ordering Physician [facility] Accession Number [id number] CPT4 Codes 45568 () Reason For Exam sob Report Reason for examination: Shortness of breath. A portable chest is obtained at 1000 hours. Comparison is dated 03/26/2017. The trachea is midline. The mediastinal and cardiac silhouette are normal. The pulmonary vasculature is normal. No acute infiltrates, pleural effusion or pneumothorax is seen. The osseous structures appear intact. IMPRESSION: No acute cardiopulmonary process. Report Dictated on Final Dictating Physician: MD BABB LAUREN B Signed Date and Time: 10/20/2017 10:32 am Signed by: MD BABB LAUREN B Transcribed Date and Time: 10/20/2017 10:34 Normal [facility] CR Neck Soft Tissueon 2017 CR Neck Soft Tissue Patient Name: KLAUS FARRELL Diagnostic Radiology Exam Date/Time 10/20/2017 10:07:51 EDT Exam CR Neck Soft Tissue Ordering Physician MD KARLA, GABRIELE Peterson Accession Number [id number] CPT4 Codes 33137 () Reason For Exam stridor Report Reason for examination: Stridor, difficulty swallowing solids and liquids, neck swelling. AP and lateral views of the soft tissues of the neck are performed at. On the AP view there is marked narrowing of the hypopharynx which deviates towards the left. The epiglottis is poorly delineated. There is increase in right parapharyngeal and retropharyngeal soft tissues. CT is recommended for further evaluation. There is carotid atherosclerosis on the left. The osseous structures appear intact. IMPRESSION: Narrowing and left deviation of the hypopharynx with increased right parapharyngeal and retropharyngeal soft tissue. Poorly defined epiglottis. Further evaluation with CT is recommended. Findings were communicated to Dr. Hoskins in the ED on 10/20/2017 at 10:49 AM. Report Dictated on Final Dictating Physician: MD BABB LAUREN B Signed Date and Time: 10/20/2017 10:50 am Signed by: MD BABB LAUREN B Transcribed Date and Time: 10/20/2017 10:[address] [facility] [address] Soft Tissue Neck w/ Contr krystle 10-20-2017 CT Soft Tissue Neck w/ Contrast Patient Name: KLAUS PETER CT Exam Date/Time 10/20/2017 12:23:[address] Soft Tissue Neck w/ Contrast Ordering Physician MD KARLA, GABRIELE Peterson Accession Number [id number] CPT4 Codes 94971 (), Q9967 () Reason For Exam MASS OR LUMP, NECK Report Indication: Right neck mass. Following the intravenous administration of contrast material, contiguous axial CT images were obtained from the level of the skull base to the level the lung apices. Coronal and sagittal reconstructed CT images of the neck were also obtained. No prior studies were performed at this institution for comparison. There is soft tissue enlargement of the right peritonsillar region and right aspect of the tongue base extending inferiorly into the larynx to the level of the vocal cords. Several areas of low attenuation are identified within this soft tissue enlargement. These may represent abscesses or necrotic masses/malignancy. There is mass effect on the airway with narrowing of the airway and displacement of the airway to the left. There is diffuse thickening and inflammatory changes of the epiglottis. There are inflammatory changes and fluid within the soft tissues of the neck on the right with loss of the fat planes and scattered enlarged lymph nodes in the right jugulodigastric region and deep to the right sternocleidomastoid muscle. Inflammatory changes abuts/involve the right submandibular gland. The soft tissue fluid and inflammatory change extends to the level of the thoracic inlet on the right. Several small calcifications are identified within the right palatine tonsil corresponding to changes of chronic tonsillitis as well. The patient is essentially edentulous. The parotid glands, left submandibular gland and thyroid gland are normal in appearance. The vascular bundles are intact. The visualized portions of the paranasal sinuses are clear. Tiny amount of nonspecific fluid are identified in inferior mastoid air cells bilaterally. There is nasal septal deviation to the right. The lung apices are clear. IMPRESSION: 1. Extensive soft tissue thickening in the right peritonsillar region and involving the right aspect of the tongue base extending into the larynx to the level of vocal cords. Several low attenuating areas within the soft tissue enlargement which may represent abscesses or necrotic masses/malignancy. Inflammatory changes and fluid within the soft tissues of the right aspect of the neck with loss of the fat planes and scattered lymphadenopathy. Thickening and inflammatory changes of the epiglottis. Mass effect and narrowing of the airway with displacement of the airway to the left. The findings were discussed with Dr. Hoskins of the emergency department at approximately 1:30 PM on 10/20/2017. Report Dictated on Final Dictating Physician: DO ALICEA ANTHONY Signed Date and Time: 10/20/2017 1:43 pm Signed by: DO ALICEA ANTHONY Transcribed Date and Time: 10/20/2017 1:44 Normal [facility] Diagnostic Catherizationon 0 03-28-2017 Diagnostic Catherization Patient Name: KLAUS PETERN: [id number] [employer] [employer] Exam Date/Time 03/28/2017 13:28:46 EDT Exam Diagnostic Catherization Ordering Physician MD SKINNER JUSTIN Accession Number [id number] Reason For Exam Chest pain, unspecified Report [facility] --- --- CARDIAC CATHETERIZATION Patient: Klaus Peter Procedure Date: 03/28/2017 : 1955 Age: 61 Gender: M Patient Type: I Procedure physician: Hermann Skinner MD Fellow: Referring Physician: Hermann Skinner MD --- --- INDICATIONS: Non ST elevated myocardial infarction. --- --- Procedures performed: - Right common femoral angiography. - Right coronary angiography. - Percutaneous intervention on the 90% restenosis in the mid right coronary. Interventional IVUS examination. Stent placement. --- --- SUMMARY: 1. Mr. Peter is a very pleasant 61yo M with CAD s/p PCI who presents with NSTEMI. He was cathed by Dr. Ash which revealed severe in-stent restenosis/thrombosis in the mid RCA stent (see separate report). Interventional cardiology was consulted for possible intervention. The RCA was stented with a 3.5x38 drug eluting stent, IVUS guided. Nitroglycerin and nitroprusside were given following stent placement with excellent result and flow. 2. Right coronary: Mid-vessel lesion: There is a 90%restenosis. The distal vessel supplies a moderate-sized vascular territory. The lesion is a likely culprit for the patient's clinical presentation. The lesion was stented (see 1st lesion intervention), with intravascular ultrasound. Following intervention, the lesion has a residual stenosis of 5%, an excellent angiographic appearance, and LORNE grade 3 flow (brisk flow). IMPRESSIONS: 1. Acute coronary syndrome. Reperfusion was successfully achieved. 2. Successful PCI of the RCA with a 3.5x38 drug eluting stent, IVUS guided. RECOMMENDATIONS: 1. Tobacco cessation counseling should be done. 2. Patient management should include aggressive risk factor modification. 3. Patient management should include a cardiac rehabilitation program. The patient was counseled regarding the importance of adherence to the prescribed antiplatelet therapy and a low fat diet. 4. Add optimal medical therapy of the patient's disease. 5. Add statin therapy. 6. Add beta blockers. 7. Add aspirin, 81mgPOdaily. 8. Add ticagrelor (Brilinta), 90mgPObid, for 12 mon. --- --- HISTORY: Chest pain. Stable angina. PMH: Chronic lung disease. Functional status: CCS class II (slight limitation of ordinary activity). Ri sk factors: Current tobacco use. Hypertension. Dyslipidemia. Diet: General diet; unrestricted in protein, unrestricted in sodium, and unrestricted in flui d intake. Allergies: OTHER allergy. --- --- LABS, PRIOR TESTS, PROCEDURES, and SURGERY: Catheterization with coronary intervention. --- --- PROCEDURE IN DETAIL: Study status: Cardiac cath: urgent. Percutaneous coronary intervention: urgent. Percutaneous coronary intervention performed for high risk NSTEMI or unstable angina. Consent: The risks, benefits, and alter natives to the procedure and sedation were explained to the patient and informe d consent was obtained. Fluoroscopy time: Fluoroscopy time: 7.2 min. Fluoros copy dose: Fluoroscopy dose: 91.1 cGy. Location: Catheterization [facility]. PROCEDURE: 1. Initial setup. The patient was brought to the laboratory. A baseline ECG was recorded. Intravenous access was obtained. Surface ECG leads, blood pressure measurements, and pulse oximetric signals were monitored. 2. Skin preparation. The planned puncture sites were prepped and draped in the usual sterile manner. 3. Local anesthesia. 1% Lidocaine was administered. 4. Local anesthesia. 2% Lidocaine was administered. 5. Selective right common femoral angiography, under fluoroscopic guidance. A 6Fr/12cm Engage catheter was advanced into the right common femoral artery. Contrast was injected. Images were obtained. 6. Selective right coronary angiography. A 6 Fr JR Guide catheter was advanced into the right coronary vessel ostium under fluoroscopic guidance. Contrast was injected. Images were obtained in multiple projections. 7. Activated clotting time measurement. ACT was 298 sec. 8. Right femoral artery hemostasis. The sheath was removed. Vessel closure was achieved with a 6Fr/7Fr Vascade 6/7F device. 1st lesion intervention: Percutaneous intervention on the 90% restenosis in the mid right coronary. 1. Wire placement. A .014/180cm Runthrough NS wire was placed. 2. Intravascular ultrasound evaluation, using a .014 [place] catheter. 3. Stent placement. A 3.5 mm (D) x 38 mm (L), Xience Alpine RX (drug eluting) stent was advanced across the lesion and deployed with a single inflation and a maximum pressure of 18 mary. STUDY COMPLETION: The estimated blood loss was 10 ml. All catheters inserted during the procedure were removed. The patient tolerated the procedure well and was discharged from the lab. There were no complications. Administered medica tions: Aspirin, 324mg, ASPIRIN. Clopidogrel (Plavix), 75mg, PLAVIX. Heparin , 8000units, HEPARIN. Nitroglycerin, 500mcg, into the coronary artery, NITROGL YCERIN (IC). Nitroprusside, 300mcg, Nipride IC (100mcg/cc). Midazolam, for a total dose of 2mg, VERSED. Fentanyl, for a total dose of 50mcg, FENTANYL. Con trast: 1. ISOVUE 300MG/CC 60 ml (total dose). --- --- CORONARY ARTERIES: The coronary circulation is right dominant. Left main: Not injected. Right coronary: Mid-vessel lesion: There is a 90%restenosis. This lesion is consistent with atherosclerotic disease. There is a filling defect consistent w ith thrombus. There is LORNE grade 3 flow (brisk flow) across the lesion. The di stal vessel supplies a moderate-sized vascular territory. The lesion is a likel y culprit for the patient's clinical presentation. The lesion was stented (see 1st lesion intervention), with intravascular ultrasound. Following intervention , the lesion has a residual stenosis of 5%, an excellent angiographic appearanc e, and LORNE grade 3 flow (brisk flow). There were no site complications. LEFT VENTRICLE: A recent LV gram is available. HEMODYNAMICS: + --+ + !Stage description !Condition1:Room Air -! + --+ + !Arterial pressure s/d (m)!149/67 (104) ! 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 --- --- CARDIAC CATHETERIZATION Patient: Klaus Peter Procedure Date: 03/28/2017 : 1955 Age: 61 Gender: M Patient Type: I Procedure physician: Fatuma Ash MD Fellow: Referring Physician: Fatuma Ash MD --- --- INDICATIONS: Angina. --- --- Procedures performed: - Left coronary angiography. - Right coronary angiography. - Left heart catheterization with angiography. - Ascending aortography. --- --- SUMMARY: 1. Left ventricle: The estimated ejection fraction is 60%. Wall motion is normal; there are no regional wall motion abnormalities. 2. Left main: Normal. 3. LAD: Minor luminal irregularities. 4. 1st diagonal: Proximal vessel lesion: There is a 40% stenosis. 5. Left circumflex: Prior intervention: stent in the midl left circumflex. The stented segment is patent. Mid-vessel lesion: There is a 60% stenosis. 6. Right coronary: Prior intervention #1:[Intervention] in the mid RCA. with 90% stenosis indistal stent RECOMMENDATIONS: The patient should undergo coronary percutaneous coronary intervention. --- --- HISTORY: Chest pain. Stable angina. PMH: Chronic lung disease. Functional status: CCS class II (slight limitation of ordinary activity). Ri sk factors: Current tobacco use. Hypertension. Dyslipidemia. Diet: General diet; unrestricted in protein, unrestricted in sodium, and unrestricted in flui d intake. Allergies: OTHER allergy. --- --- LABS, PRIOR TESTS, PROCEDURES, and SURGERY: Catheterization with coronary intervention. --- --- PROCEDURE IN DETAIL: Study status: Cardiac cath: urgent. Consent: The risks, benefits, and alternatives to the procedure and sedation were explained to the patient and informed consent was obtained. Fluoroscopy time: Fluorosco py time: 3.2 min. Fluoroscopy dose: Fluoroscopy dose: 71.9 cGy. Location: Catheterization laboratory. PROCEDURE: 1. Initial setup. The patient was brought to the laboratory. A baseline ECG was recorded. Intravenous access was obtained. Surface ECG leads, blood pressure measurements, and pulse oximetric signals were monitored. 2. Skin preparation. The planned puncture sites were prepped and draped in the usual sterile manner. 3. Local anesthesia. 1% Lidocaine was administered to the right groin. 4. Right femoral artery access. A 6Fr/12cm Engage sheath was advanced into the vessel. 5. Selective left coronary angiography. A 6Fr x 100cm JL4 catheter was advanced into the left coronary vessel ostium under fluoroscopic guidance. Contrast was injected. Images were obtained in multiple projections. 6. Selective right coronary angiography. A 6Fr x 100cm JR4 catheter was advanced into the right coronary vessel ostium under fluoroscopic guidance. Contrast was injected. Images were obtained in multiple projections. 7. Left heart catheterization with angiography. A 6Fr x 100cm Pigtail Str catheter was advanced across the aortic valve to the left ventricle under fluoroscopic guidance. 39 ml of contrast was injected at 13 ml/s. 8. Ascending aortography. A 6Fr x 100cm Pigtail Str catheter was positioned in the ascending aorta. 20 ml of contrast was injected at 10 ml/s. 9. Right femoral artery hemostasis. The sheath was sutured in place. STUDY COMPLETION: All catheters inserted during the procedure were removed. The patient tolerated the procedure well and was discharged from the lab. There were no complications. Contrast: 1. ISOVUE 300MG/CC 159 ml (total dose). --- --- CORONARY ARTERIES: The coronary circulation is right dominant. The left main bifurcates normally into the LAD and circumflex. Left main: Normal. LAD: Minor luminal irregularities. 1st diagonal: Proximal vessel lesion: There is a 40% stenosis. Left circumflex: Prior intervention: stent in the midl left circumflex. The stented segment is patent. Mid-vessel lesion: There is a 60% stenosis. Right coronary: Prior intervention #1:[Intervention] in the mid RCA. with 90% stenosis indistal stent LEFT VENTRICLE: The estimated ejection fraction is 60%. Wall motion is normal; there are no regional wall motion abnormalities. HEMODYNAMICS: + --+ + !Stage description !Condition1:Room Air -! + --+ + !LV pressure s/ed !157/38 ! + --+ + !Arterial pressure s/d (m)!149/68 (104) ! + --+ + Prepared and electronically signed by Fatuma Ash MD 03/28/2017 13:31 Final Dictated: 03/28/2017 1:32 pm Dictating Physician: FATUMA ASH Signed Date and Time: 03/28/2017 1:32 pm Signed by: FATUMA ASH [facility] Echo Complete w/wo Contrasto n 03-28-2017 Echo Complete w/wo Contrast Patient Name: KLAUS PETER Ultrasound Exam Date/Time 03/28/2017 13:35:35 EDT Exam Echo Complete w/wo Contrast Ordering Physician FATUMA ASH Accession Number [id number] Reason For Exam angina Report TRANSTHORACIC ECHOCARDIOGRAM PATIENT: Klaus Peter STUDY DATE: 03/28/2017 : 1955 AGE: 61 HT/WT: 177.8 cm (70 87.5 kg in) (192.6 lb) GENDER: M BP: 144 / 97 LOCATION: [facility] PATIENT Observation [facility] STATUS: *ORDERING PHYSICIAN: * Fatuma Ash MD *READING PHYSICIAN: * Fatuma Ash MD *WASHERY ENGINEER: * Sylwia Mendoza --- --- INDICATIONS: Angina Pectoris, Unspecified ([id number]). --- --- HISTORY: PMH: Myocardial infarction. Risk factors: Hypertension. S/P PCI --- --- CONCLUSIONS SUMMARY: 1. Left ventricle: The cavity size is normal. Wall thickness is mildly increased. Systolic function is normal. The estimated ejection fraction is 57%. 2. Right ventricle: Systolic function is normal by visual assessment. Right ventricular systolic pressure is within the normal range. 3. Tricuspid valve: There is trivial, less than 1+ regurgitation. --- --- STUDY DATA: Complete transthoracic echocardiogram. Procedure: Image quality was fair. M-mode, complete 2D, complete spectral Doppler, and color flow Doppler images were acquired and archived for permanent storage and are available for subsequent review. Study status: Routine. Patient status: Observation. --- --- FINDINGS LEFT VENTRICLE: E/e' average 12.00 The cavity size is normal. Wall thickness is mildly increased. Systolic function is normal. The estimated ejection fraction is 57%. RIGHT VENTRICLE: Not well visualized. The cavity size is normal. Systolic function is normal by visual assessment. Right ventricular systolic pressure is within the normal range. LEFT ATRIUM: The atrium is normal in size. RIGHT ATRIUM: The atrium is normal in size. MITRAL VALVE: Mildly calcified annulus. Doppler: There is no significant regurgitation. Peak gradient (D): 4.40 mm Hg. AORTIC VALVE: Structurally normal valve. Doppler: There is no significant regurgitation. TRICUSPID VALVE: Structurally normal valve. Doppler: There is trivial, less than 1+ regurgitation. PULMONIC VALVE: Not well visualized. Structurally normal valve. Doppler: There is no significant regurgitation. AORTA: The aorta is normal. PERICARDIUM: The pericardium is normal in appearance. SYSTEMIC VEINS: Inferior vena cava: The vessel is normal in size. The IVC collapses by greater than 50% with inspiration. --- --- Measurements Left ventricle Value Reference LV ID, ED 4.2 cm 4.2 - 5.9 LV ID, ES 3.3 cm --------- LV PW thickness, ED (H) 1.3 cm 0.6 - 1.0 LV end-systolic volume 37 ml 22 - 58 LV end-systolic volume/bsa 17 ml/m2 12 - 30 LV E/e', lateral 10 --------- LV E/e', medial 16.2 --------- LV E/e', average 12.4 --------- Ventricular septum Value Reference IVS thickness, ED (H) 1.1 cm 0.6 - 1.0 LVOT Value Reference LVOT ID, A-P 1.9 cm --------- Aorta Value Reference Aortic root ID, ED (sinus) 2.9 cm <4.2 Left atrium Value Reference LA volume/bsa, S 28 ml/m2 16 - 28 LA volume, ES, 2-p 59 ml --------- LA volume/bsa, ES, 2-p 28 ml/m2 --------- Mitral valve Value Reference Mitral E-wave peak velocity 1.05 m/sec --------- Mitral A-wave peak velocity 0.74 m/sec --------- Mitral deceleration time 272 ms --------- Mitral peak gradient, D 4.40 mm Hg --------- Mitral E/A ratio, peak 1.42 --------- Mitral regurg vena contracta 0.27 cm --------- Pulmonary arteries Value Reference PA pressure, S, DP 26 mm Hg --------- Right atrium Value Reference RA area, ES, A4C 17 cm2 Systemic veins Value Reference Estimated RAP 3 mm Hg --------- Right ventricle Value Reference RV pressure, S, DP 26 mm Hg --------- Legend: (L) and (H) baljit values outside specified reference range. Electronically signed by Fatuma Ash MD 03/29/2017 09:01 Final Dictated: 03/30/2017 1:04 am Dictating Physician: FATUMA ASH Signed Date and Time: 03/29/2017 9:02 am Signed by: FATUMA ASH [facility] CR Chest Portableon 03-27-20 CR Chest Portable Patient Name: KLAUS FARRELL Diagnostic Radiology Exam Date/Time 03/26/2017 22:23:17 EDT Exam CR Chest Portable Ordering Physician MD CHU MICHAEL JAMES Accession Number [id number] CPT4 Codes 09542 () Reason For Exam chest pain Report Indication: Chest pain. Portable frontal views of the chest timed 2220 is compared to the study dated 06/17/2013. The heart is not enlarged. The mediastinum and pulmonary vascularity are within normal limits. Within the limits of the portable technique, the lungs are clear. IMPRESSION: 1. No active intrathoracic disease. No significant change when compared to the previous study. Report Dictated on Final Dictating Physician: DO ALICEA ANTHONY Signed Date and Time: 03/26/2017 10:41 pm Signed by: DO ALICEA ANTHONY Transcribed Date and Time: 03/26/2017 10:42 [facility] Vital Signs Date Time Vital Sign Value Performing Clinician Facility 11-11-2024 16:07-0400 Body temperature 97.59 [degF] Christen Chowdary FRENCH COMBER.AUTOMATIC LATHE TENDER Work Phone: [facility] 11-11-2024 16:07-0400 Body weight 81.7 kg Christen Chowdary FRENCH COMBER.AUTOMATIC LATHE TENDER Work Phone: [facility] 11-11-2024 16:07-0400 Diastolic blood pressure 72 mm[Hg] Christen Chowdary FRENCH COMBER.AUTOMATIC LATHE TENDER Work Phone: [facility] 11-11-2024 16:07-0400 Heart rate 98 /min Christen Chowdary FRENCH COMBER.AUTOMATIC LATHE TENDER Work Phone: [facility] 11-11-2024 16:07-0400 Respiratory rate 18 /min Christen Chowdary FRENCH COMBER.AUTOMATIC LATHE TENDER Work Phone: [facility] 11-11-2024 16:07-0400 SaO2% (BldA) [Mass fraction] 95 % Christen Chowdary FRENCH COMBER.AUTOMATIC LATHE TENDER Work Phone: [facility] 11-11-2024 16:07-0400 Systolic blood pressure 122 mm[Hg] Christen Chowdary FRENCH COMBER.AUTOMATIC LATHE TENDER Work Phone: [facility] 04-09-2023 05:42-0400 Heart rate 79 /min [facility] 04-09-2023 05:42-0400 Respiratory rate 18 /min [facility] 04-09-2023 05:42-0400 SaO2% (BldA) [Mass fraction] 98 % [facility] 04-09-2023 04:52-0400 Body height 177.8 cm [facility] 04-09-2023 04:52-0400 Body mass index (BMI) [Ratio] 21.6 kg/m2 [facility] 04-09-2023 04:52-0400 Body temperature 97 [degF] [facility] 04-09-2023 04:52-0400 Body weight 68.4 kg [facility] 04-09-2023 04:52-0400 Diastolic blood pressure 106 mm[Hg] [facility] 04-09-2023 04:52-0400 Systolic blood pressure 151 mm[Hg] [facility] 05-02-2022 21:39-0400 Body temperature 97.8 [degF] [facility] Work Phone: 05-02-2022 21:39-0400 Diastolic blood pressure 63 mm[Hg] [facility] Work Phone: 05-02-2022 21:39-0400 Heart rate 86 /min [facility] Work Phone: 05-02-2022 21:39-0400 Respiratory rate 19 /min [facility] Work Phone: 05-02-2022 21:39-0400 SaO2% (BldA) [Mass fraction] 95 % [facility] Work Phone: 05-02-2022 21:39-0400 Systolic blood pressure 105 mm[Hg] [facility] Work Phone: 05-02-2022 17:49-0400 Body height 182.88 cm [facility] Work Phone: 05-02-2022 17:49-0400 Body mass index (BMI) [Ratio] 24.4 kg/m2 [facility] Work Phone: 05-02-2022 17:49-0400 Body weight 81.64 kg [facility] Work Phone: Encounters Encounter Date Encounter Type Care Provider Facility Start: 11-11-2024 End: 11-11-2024 Subsequent hospital visit by physician Xr [facility] Work Phone: Radiology Comment on above: Acute cough [R05.1] Start: 11-11-2024 End: 11-11-2024 Patient encounter procedure Christen Chowdary APRN.AUTOMATIC LATHE TENDER Work Phone: [facility] Comment on above: Acute cough (Primary Dx); COPD with exacerbation (HCC) Start: 11-11-2024 End: 11-11-2024 ambulatory CHRISTEN JUAN MANUEL Facility:[facility] Start: 11-11-2024 End: 11-11-2024 Follow-up encounter Flor HACKETT Work Phone: [facility] Start: 09-02-2024 End: 09-02-2024 ambulatory Cheyenne Bacon MA [facility] Start: 09-02-2024 End: 09-02-2024 Patient encounter procedure Cheyenne Bacon MA [facility] Comment on above: Population Health Na vigation Outreach ([employer] Unknown PCP/) Start: 08-08[facility] Start: 06-11-2024 End: 06-11-[address] [facility] Facility:[facility] Start: 03-01-2024 End: 03-01-2024 Emergency department patient visit Jf Belle Facility:[facility] Start: 04-09-2023 End: 04-09-2023 Emergency department patient visit [facility] Work Phone: Start: 10-12-2022 End: 10-12-2022 Subsequent hospital visit by physician Xr [facility] Work Phone: Radiology Comment on above: Subacute cough [R05. 2] Start: 05-02-2022 Evaluation and manag ement of inpatient [facility]-Progressive Care Unit Start: 05-02-2022 observation encounter [facility] Work Phone: Start: 12-04-2017 Ambulatory Zaheer Garcia [facility] Start: 11-26-2017 Ambulatory Marek Berry [facility] Start: 11-23-2017 Emergency department patient visit PROVIDER UNKNOWN [facility] Start: 10-20-2017 Evaluation and manag ement of inpatient PROVIDER UNKNOWN [facility] Start: 03-28-2017 Evaluation and manag ement of inpatient PROVIDER UNKNOWN [facility] Procedures Date Procedure Procedure Detail Performing Clinician Start: 11-11-2024 Radiologic exam ches t 2 views Christen Chowdary APRN.CNP Work Phone: Start: 10-12-2022 Radiologic exam ches t 2 views Darien Tee MD Work Phone: Start: 05-02-2022 Plain chest X-ray Start: 12-13-2018 Lipid 1996 panel - S jama or Plasma [facility] [place] Work Phone: Plan of Treatment Date Care Activity Detail Author Start: 03-01-2034 Urine microalbumin profile DTaP,Tdap,Td Vaccine (3 - Td or Tdap) [facility] Start: 2032 RSV Vaccine (1 - 1-dose 75+ series) RSV Vaccine (1 - 1-dose 75+ series) [facility] Start: 02-07-2029 Urine microalbumin profile DTaP,Tdap,Td Vaccine (2 - Td or Tdap) [facility] Start: 03-09-2025 Influenza vaccination Influenza Vaccine (Season Ended) [facility] Start: 07-09-2024 Advance Directive Discussion Advance Directive Discussion [facility] Start: 03-09-2024 Covid-19 Vaccine ( season) Covid-19 Vaccine ( season) [facility] Start: 03-09-2024 Influenza vaccination [facility] Start: 12-14-2023 Lipid panel Lipid Screening [facility] Start: 07-09-2023 Advance Directive Discussion Advance Directive Discussion [facility] Start: 06-27-2023 Pneumococcal Vaccine: 50+ (3 of 3 - PCV20 or PCV21) Pneumococcal Vaccine: 50+ (3 of 3 - PCV20 or PCV21) [facility] Start: 06-27-2023 Pneumococcal Vaccine: 65+ (3 of 3 - PPSV23 or PCV20) Pneumococcal Vaccine: 65+ (3 of 3 - PPSV23 or PCV20) [facility] Start: 05-02-2022 Following clinical pathway protocol [facility] Work Phone: Start: 05-02-2022 Troponin I measurement [facility] Work Phone: Start: 05-02-2022 [facility] Work Phone: Start: 12-13-2021 Diabetes Screening Diabetes Screening [facility] Start: 2012 Prostate specific antigen measurement Prostate Cancer Screening Discussion [facility] Start: 10-16-2007 Shingrix Vaccine (1 of 2) Shingrix Vaccine (1 of 2) [facility] Start: 2002 Prostate specific antigen measurement Prostate Cancer Screening Discussion [facility] Start: 2002 Screening for malignant neoplasm of colon [facility] Start: 10-16-1975 Anxiety Screening Anxiety Screening [facility] Start: 10-16-1975 Depression Screening Depression Screening [facility] Start: 10-16-1975 Hepatitis C screening Hepatitis C Screening [facility] Start: 1955 Abdominal aortic aneurysm screening Abdominal Aortic Aneurysm Screening [facility] Patient Education ED Anxiety Reaction [facility] Work Phone: Patient referral [facility] Work Phone: Troponin I measurement [facility] Work Phone: Immunizations Immunization Date Immunization Notes Care Provider Fa cility 02-07-2019 tetanus toxoid, redu hugh diphtheria toxoid, and acellular pertussis vaccine, adsorbed [facility] 04-08-2018 Influenza virus vaccine [facility] 04-08-2018 pneumococcal conjuga te vaccine, 13 valent [facility] 04-08-2018 influenza virus vaccine, unspecified formulation [facility] [place] Work Phone: [facility] Payers Date Payer Category Payer Medicaid [id number] 2024 Self-pay [id number] 2022 Medicare 2022 Medicare (Managed Care) [employer] [id number] 2022 Medicare [id number] Medicare MEDICARE PART A B [id number] Medicare [employer] MEDICARE PPO [id number] Unknown [id number] Unknown [id number] Unknown [id number] Social History Date Type Detail Facility Start: 05-02-2022 End: 04-09-2023 Tobacco smoking status SDIS Unknown if ever smoked [facility] Start: 02-20-2019 Heavy [facility] Start: 02-20-2019 None [facility] Start: 02-20-2019 Alone [facility] Start: 02-21-2019 Cigarettes [facility] Start: 1955 Sex Assigned At Male [facility] Start: 10-12-2022 Tobacco smoking stat RUSTIS Smokes tobacco daily [facility] History of tobacco use Cigarette Smoker [facility] Start: 10-12-2022 Tobacco use and exposure Smokeless tobacco non-user [facility] Start: 10-12-2022 History of Social function [facility] Start: 10-12-2022 Tobacco use panel [facility] Start: 1955 Sex assigned at Not on file [facility] Medical Equipment Procedure Code Equipment Code Equipment Origin al Text Equipment Identifier Dates ([id number]) Drug-eluting coronary artery stent, bioabsorbable-polyme r-coated ()[id number] FDA Start: 07-08-2021 ([id number]) Drug-eluting coronary artery stent, bioabsorbable-polyme r-coated ()[id number] FDA Start: 07-08-2021 Mental Status Date Assessment Result Facility 05-02-2022 Cognitive function Voice/Name [facility] Work Phone: Clinical Notes 10-12-2022 to 11-11-2024 Telephone Encounter - Zoila Langston RN - 11/11/2024 5:18 PM EDTTelephone Encounter - Zoila Langston RN - 11/11/2024 5:18 PM Reny Salcido Tech - 11/11/2024 4:40 PM EDT Note Date & Type Note Facility 11-11-2024 Telephone encount er Note PATIENT NOTIFIED OF INFORMATION [facility] [facility] 11[facility] Miscellaneous Notes Formattin g of this note might be different from the original. PATIENT NOTIFIED OF INFORMATION Called patient left voicemail to return call. If patient returns call, please let him know that chest x-ray revealed no pneumonia. Continue medications given at visit. His x-ray did reveal small amount of fluid on the lungs. He needs close follow-up with PCP within 1 week for evaluation of this. documented in this encounter [facility] 11-11-2024 Telephone encount er Note Called patient left voicemail to return call. If patient returns call, please let him know that chest x-ray revealed no pneumonia. Continue medications given at visit. His x-ray did reveal small amount of fluid on the lungs. He needs close follow-up with PCP within 1 week for evaluation of this. [facility] Work Phone: 11-11-2024 History of Presen t illness Narrative Radiology Service Progress Note PATIENT NAME: Klaus Peter DATE OF SERVICE: November 11, 2024 TIME: 4:34 PM PATIENT IDENTITY VERIFICATION COMPLETED USING TWO (2) IDENTIFIERS: Name and Date of confirmed by patient verbally. FALL SCREENING: Has the patient had 2 falls in the last year or 1 fall with injury or currently using an Ambulatory Assistive Device (Walker, Cane, Wheelchair, Crutches, etc.)? No PATIENT GENDER DATA: Assigned male at PATIENT RELEVANT IMPLANT DATA REVIEWED: Not Applicable PATIENT PRESENTS WITH AN IMPLANTABLE OR ATTACHED ROOM ATTENDANT: No RADIOLOGY DEPARTMENT: General X-ray: Exam(s) Completed: Chest X-Ray PERIPHERAL IV DATA: Not applicable SIGNED BY: Marcie Gilmore November 11, 2024 4:34 PM documented in this encounter [facility] 11-11-2024 Note HNO ID: [id number] Author: RENY SAMPSON Tech Service: ? Author Type: Technologist Type: Progress Notes Filed: 11/11/2024 16:47 Note Text: Radiology Service Progress Note PATIENT NAME: Klaus Peter DATE OF SERVICE: November 11, 2024 TIME: 4:34 PM PATIENT IDENTITY VERIFICATION COMPLETED USING TWO (2) IDENTIFIERS: Name and Date of confirmed by patient verbally. FALL SCREENING: Has the patient had 2 falls in the last year or 1 fall with injury or currently using an Ambulatory Assistive Device (Walker, Cane, Wheelchair, Crutches, etc.)? No PATIENT GENDER DATA: Assigned male at PATIENT RELEVANT IMPLANT DATA REVIEWED: Not Applicable PATIENT PRESENTS WITH AN IMPLANTABLE OR ATTACHED ROOM ATTENDANT: No RADIOLOGY DEPARTMENT: General X-ray: Exam(s) Completed: Chest X-Ray PERIPHERAL IV DATA: Not applicable SIGNED BY: Marcie Gilmore November 11, 2024 4:34 PM [facility] 11-11-2024 Note HNO ID: [id number] Author: CHRISTEN CHOWDARY APRN.KATIA Service: ? Author Type: Nurse Practitioner Type: Progress Notes Filed: 11/11/2024 16:29 Note Text: [facility] Subjective Klaus Peter is a 69 year old male. Patient presents with: Cough: Cough, congestion and diarrhea x > 1 month 69 year old male with PMH COPD, HTN and hyperlpidiemia presents for illness Acute onset Over a month ago +cough +chest congestion +productive Keeping him up at night Denies hemoptysis Denies CP Denies body aches or fatigue I've used 400 dollars in OTC +tobacco usage and denies that his usage has been affected He is out of his albuterol inhaler The history is provided by the patient. No soil analyst was used. Cough This is a new problem. The current episode started more than 1 week ago. The problem occurs constantly. The problem has been gradually worsening. The cough is Productive of sputum. There has been no fever. Associated symptoms include rhinorrhea, shortness of breath and wheezing. Pertinent negatives include no chest pain, no chills, no sweats, no weight loss, no ear congestion, no ear pain, no headaches, no sore throat, no myalgias and no eye redness. Treatments tried: OTC. The treatment provided no relief. He is a smoker. His past medical history is significant for bronchitis and COPD. His past medical history does not include pneumonia, bronchiectasis, emphysema or asthma. PAST MEDICAL HISTORY Diagnosis Date Alcohol abuse Coronary artery disease History of stroke Hyperlipidemia Hypertension No past surgical history on file. ALLERGIES Patient has no known allergies. MEDICATIONS doxycycline (VIBRA-TABS) 100 mg tablet Take 1 tablet by mouth two times a day for 7 days. predniSONE (DELTASONE) 10 mg tablet Take 4 tabs daily for 3 days, then 2 tabs daily for 3 days, then 1 tab daily for 3 days with food. albuterol HFA (PROVENTIL HFA, VENTOLIN HFA) 90 mcg/actuation inhaler Inhale 2 puffs as instructed every 4 hours as needed for wheezing/shortness of breath. FLUoxetine (PROZAC) 20 mg capsule Take 20 mg by mouth once daily. (Patient not taking: Reported on 11/11/2024) propranolol (INDERAL) 10 mg tablet Take 10 mg by mouth twice daily as needed. For Anxiety (Patient not taking: Reported on 11/11/2024) No family history on file. Social History Tobacco Use Smoking status: Every Day Types: Cigarettes Smokeless tobacco: Never Review of Systems Constitutional: Negative for chills and weight loss. HENT: Positive for rhinorrhea. Negative for ear pain and sore throat. Eyes: Negative for redness. Respiratory: Positive for cough, shortness of breath and wheezing. Cardiovascular: Negative for chest pain. Musculoskeletal: Negative for myalgias. Neurological: Negative for headaches. Objective BP 122/72 Pulse 98 Temp 36.4 ?C (97.6 ?F) (Tympanic) Resp 18 Wt 81.7 kg (180 lb 1.9 oz) SpO2 95% Physical Exam Vitals and nursing note reviewed. Constitutional: General: He is not in acute distress. Appearance: Normal appearance. He is not ill-appearing, toxic-appearing or diaphoretic. Comments: Stale tobacco smoke HENT: Head: Normocephalic and atraumatic. Right Ear: External ear normal. Left Ear: External ear normal. Nose: Nose normal. No congestion or rhinorrhea. Mouth/Throat: Mouth: Mucous membranes are moist. Pharynx: Oropharynx is clear. No oropharyngeal exudate or posterior oropharyngeal erythema. Eyes: General: Right eye: No discharge. Left eye: No discharge. Extraocular Movements: Extraocular movements intact. Conjunctiva/sclera: Conjunctivae normal. Pupils: Pupils are equal, round, and reactive to light. Cardiovascular: Rate and Rhythm: Normal rate and regular rhythm. Pulses: Normal pulses. Heart sounds: Normal heart sounds. No murmur heard. No friction rub. No gallop. Pulmonary: Effort: Pulmonary effort is normal. No respiratory distress. Breath sounds: Normal breath sounds. No stridor. No wheezing, rhonchi or rales. Comments: Diminized breath sounds Chest: Chest wall: No tenderness. Abdominal: General: Abdomen is flat. There is no distension. Palpations: Abdomen is soft. There is no mass. Tenderness: There is no abdominal tenderness. There is no guarding or rebound. Hernia: No hernia is present. Musculoskeletal: General: No swelling, tenderness, deformity or signs of injury. Normal range of motion. Cervical back: Normal range of motion and neck supple. No rigidity or tenderness. Right lower leg: No edema. Left lower leg: No edema. Lymphadenopathy: Cervical: No cervical adenopathy. Skin: General: Skin is warm and dry. Capillary Refill: Capillary refill takes less than 2 seconds. Coloration: Skin is not jaundiced or pale. Findings: No bruising, lesion or rash. Neurological: General: No focal deficit present. Mental Status: He is alert and oriented to person, sb (more content not included)... [facility] 11-11-2024 History of Presen t illness Narrative [facility] Subjective Klaus Peter is a 69 year old male. Patient presents with: Cough: Cough, congestion and diarrhea x > 1 month 69 year old male with PMH COPD, HTN and hyperlpidiemia presents for illness Acute onset Over a month ago +cough +chest congestion +productive Keeping him up at night Denies hemoptysis Denies CP Denies body aches or fatigue I've used 400 dollars in OTC +tobacco usage and denies that his usage has been affected He is out of his albuterol inhaler The history is provided by the patient. No soil analyst was used. Cough This is a new problem. The current episode started more than 1 week ago. The problem occurs constantly. The problem has been gradually worsening. The cough is Productive of sputum. There has been no fever. Associated symptoms include rhinorrhea, shortness of breath and wheezing. Pertinent negatives include no chest pain, no chills, no sweats, no weight loss, no ear congestion, no ear pain, no headaches, no sore throat, no myalgias and no eye redness. Treatments tried: OTC. The treatment provided no relief. He is a smoker. His past medical history is significant for bronchitis and COPD. His past medical history does not include pneumonia, bronchiectasis, emphysema or asthma. PAST MEDICAL HISTORY Diagnosis Date Alcohol abuse Coronary artery disease History of stroke Hyperlipidemia Hypertension No past surgical history on file. ALLERGIES Patient has no known allergies. MEDICATIONS doxycycline (VIBRA-TABS) 100 mg tablet Take 1 tablet by mouth two times a day for 7 days. predniSONE (DELTASONE) 10 mg tablet Take 4 tabs daily for 3 days, then 2 tabs daily for 3 days, then 1 tab daily for 3 days with food. albuterol HFA (PROVENTIL HFA, VENTOLIN HFA) 90 mcg/actuation inhaler Inhale 2 puffs as instructed every 4 hours as needed for wheezing/shortness of breath. FLUoxetine (PROZAC) 20 mg capsule Take 20 mg by mouth once daily. (Patient not taking: Reported on 11/11/2024) propranolol (INDERAL) 10 mg tablet Take 10 mg by mouth twice daily as needed. For Anxiety (Patient not taking: Reported on 11/11/2024) No family history on file. Social History Tobacco Use Smoking status: Every Day Types: Cigarettes Smokeless tobacco: Never Review of Systems Constitutional: Negative for chills and weight loss. HENT: Positive for rhinorrhea. Negative for ear pain and sore throat. Eyes: Negative for redness. Respiratory: Positive for cough, shortness of breath and wheezing. Cardiovascular: Negative for chest pain. Musculoskeletal: Negative for myalgias. Neurological: Negative for headaches. Objective BP 122/72 Pulse 98 Temp 36.4 C (97.6 F) (Tympanic) Resp 18 Wt 81.7 kg (180 lb 1.9 oz) SpO2 95% Physical Exam Vitals and nursing note reviewed. Constitutional: General: He is not in acute distress. Appearance: Normal appearance. He is not ill-appearing, toxic-appearing or diaphoretic. Comments: Stale tobacco smoke HENT: Head: Normocephalic and atraumatic. Right Ear: External ear normal. Left Ear: External ear normal. Nose: Nose normal. No congestion or rhinorrhea. Mouth/Throat: Mouth: Mucous membranes are moist. Pharynx: Oropharynx is clear. No oropharyngeal exudate or posterior oropharyngeal erythema. Eyes: General: Right eye: No discharge. Left eye: No discharge. Extraocular Movements: Extraocular movements intact. Conjunctiva/sclera: Conjunctivae normal. Pupils: Pupils are equal, round, and reactive to light. Cardiovascular: Rate and Rhythm: Normal rate and regular rhythm. Pulses: Normal pulses. Heart sounds: Normal heart sounds. No murmur heard. No friction rub. No gallop. Pulmonary: Effort: Pulmonary effort is normal. No respiratory distress. Breath sounds: Normal breath sounds. No stridor. No wheezing, rhonchi or rales. Comments: Diminized breath sounds Chest: Chest wall: No tenderness. Abdominal: General: Abdomen is flat. There is no distension. Palpations: Abdomen is soft. There is no mass. Tenderness: There is no abdominal tenderness. There is no guarding or rebound. Hernia: No hernia is present. Musculoskeletal: General: No swelling, tenderness, deformity or signs of injury. Normal range of motion. Cervical back: Normal range of motion and neck supple. No rigidity or tenderness. Right lower leg: No edema. Left lower leg: No edema. Lymphadenopathy: Cervical: No cervical adenopathy. Skin: General: Skin is warm and dry. Capillary Refill: Capillary refill takes less than 2 seconds. Coloration: Skin is not jaundiced or pale. Findings: No bruising, lesion or rash. Neurological: General: No focal deficit present. Mental Status: He is alert and oriented to person, place, and time. Cranial Nerves: No cranial nerve deficit. Sensory: No sensory deficit. Motor: No weakness. Coordination: Coordination normal. Gait: Gait normal. Deep Tendon Reflexes: Reflexes normal. Psychiatric: Mood and Affect: Mood normal. Behavior: Behavior normal. Thought Content: Thought content normal. {ASSESSMENT/PLAN: 1. Acute cough - ICD9: 786.2, ICD10: R05.1 (primary diagnosis) X 1 month Worse at night History of tobacco - XR CHEST 2V FRONTAL/LAT-obtained and will call with results 2. COPD with exacerbation (HCC) - ICD9: 491.21, ICD10: J44.1 History of +tobacco smoker Cough keeping up at night RX Prednisone taper RX Doxy Refilled Albuterol Staff to call with results. ANd if necessary add on for dual coverage if pneumonia Discussed red flags F/U with PCP Christen Chowdary APRN.AUTOMATIC LATHE TENDER MDM Procedures documented in this encounter [facility] 09-02-2024 Note HNO ID: [id number] Author: CHEYENNE BACON MA Service: ? Author Type: Counselor/Art Therapist Type: Progress Notes Filed: 09/02/2024 12:40 Note Text: POPULATION HEALTH NAVIGATION OUTREACH Action/FYI Upon reviewing the patient's chart, it was found in Care Everywhere that his current PCP is EMILY Mcwilliams with [facility]. PCP field updated. Reason for Outreach Attribution: Unknown PCP Report Care Gaps due: N/A Patient Contacted: Unable or unnecessary to reach patient: PCP field updated Outside PCP Navigation Signature: Cheyenne Bacon MA September 02, 2024 12:39 PM [facility] 09-02-2024 History of Presen t illness Narrative POPULATION HEALTH NAVIGATION OUTREACH Action/FYI Upon reviewing the patient's chart, it was found in Care Everywhere that his current PCP is EMILY Mcwilliams with [facility]. PCP field updated. Reason for Outreach Attribution: Unknown PCP Report Care Gaps due: N/A Patient Contacted: Unable or unnecessary to reach patient: PCP field updated Outside PCP Navigation Signature: Cheyenne Bacon MA September 02, 2024 12:39 PM documented in this encounter [facility] 09-02-2024 Note Patient Outreach (NE TNAV) KLAUS PETER ([id number]) 1955 M Date Time Provider Department 09/02/24 CHEYENNE BACON NETCORRINAV During your visit today, we recorded the following information about you: Cheyenne Bacon MA 09/02/2024 12:40 PM Signed POPULATION HEALTH NAVIGATION OUTREACH Action/FYI Upon reviewing the patient's chart, it was found in Care Everywhere that his current PCP is EMILY Mcwilliams with [facility]. PCP field updated. Reason for Outreach Attribution: Unknown PCP Report Care Gaps due: N/A Patient Contacted: Unable or unnecessary to reach patient: PCP field updated Outside PCP Navigation Signature: Cheyenne Bacon MA September 02, 2024 12:39 PM Allergies As of Date: 09/02/2024 (No Known Allergies) Date Reviewed: 10/12/2022 Reviewed by: Neva Lerner MA - Fully Assessed Reason for Visit: Population Health Navigation Outreach [[id number]] Cmt: [employer] Unknown PCP Prescriptions as of 09/02/2024 - FLUoxetine (PROZAC) 20 mg capsule Take 20 mg by mouth once daily. - propranolol (INDERAL) 10 mg tablet Take 10 mg by mouth twice daily as needed. For Anxiety Problem List As Of Date: 09/02/2024 (None) Encounter Status:Closed by CHEYENNE BACON on 09/02/24 [facility] 04-09-2023 Discharge summary Note Date/Time April 09, 2023 5:06am [facility] Medical Records Department [address] [place] [address] Emergency Department Summary 04/09/23 MR#: [id number] Acct: [id number] Name: KLAUS PETER Rep #:[id number] : 1955 67 From: Coleman Woodard PCP: Dr. Nubia Licea Status:PRE ER Location: ED HPI History of Present Illness Chief Complaint: Anxiety [facility] Medical History (Updated 05/11/22 @ 00:10 by Background Das[place]) Acute ST elevation myocardial infarction Alcohol abuse Atherosclerotic heart disease of [place] coronary artery without angina pectoris Essential hypertension History of stroke Old myocardial infarction Presence of stent in coronary artery (~03/28/17) Pure hypercholesterolemia Tobacco abuse Home Medications hydroxyzine pamoate 25 mg capsule (Vistaril) 25 mg PO TID PRN anxiety #21 caps 04/09/23 [Rx Last Taken Unknown] Allergy/AdvReac Type Severity Reaction Status Date / Time lisinopril Allergy COUGH Verified 04/09/23 04:59 Family History Father Heart disease Mother Alzheimers disease Brother COPD (chronic obstructive pulmonary disease) Brother Heart disease Sister Cancer Lung Surgical History History of gastrectomy History of tracheostomy Presence of coronary angioplasty implant and graft (~03/28/17) Social History housing: other details: Lives with a roommate. Smoking Status: Current every day smoker tobacco type: cigarettes alcohol intake: current alcohol intake frequency: 3 or more drinks per day Alcohol type: beer details: Daily. substance use type: does not use caffeine: Yes Type: coffee Number of servings: 2 EXAM Physical Exam Const Vital Signs: 04/09/23 04:52 Temperature 97.0 F L Temperature Source Temporal Pulse Rate 100 Respiratory Rate 18 Blood Pressure 151/106 H Blood Pressure Mean 121 Pulse Ox 99 Oxygen Delivery Method Room Air MDM MDM MDM Narrative Medical decision making narrative: HISTORY OF PRESENT ILLNESS: 67-year-old male here with concern for something bad can happen. States not sleeping well. States he feel anxious. He further states shortness of breath today said he felt diffusely weak. This began earlier today but has since resolved. States he just needs medicine for anxiety . The patient denies recent surgery in the last 4 weeks or immobilization in the last 3 days, denies previous diagnosis of DVT or PE, hemoptysis, unilateral leg swelling or malignancy with treatment the last 6 months or palliative. No estrogen use noted. No recent illnesses or cough endorsed. No vomiting. No recent bleedingdiathesis. No chest pain endorsed. The patient denies any SI, HI, auditory visual hallucinations. REVIEW OF SYSTEMS: Pertinent positives: Anxiety, shortness of breath Pertinent negatives: Chest pain, lower extremity edema, syncope PHYSICAL EXAM: Nursing triage notes reviewed, Vital signs reviewed Constitutional: please see [facility] HENT: MMM Eyes: Pupils equal round and reactive to light, Extraocular muscles intact Neck: No stridor, no JVD, full neck ROM Lungs: Clear to auscultation, No wheezing or rales. No increased work of breathing, no conversational dyspnea, no accessory muscle use, no nasal flaring. No respiratory distress noted Heart: Regular rate and rhythm, No murmurs, No rubs and No gallops, 2+ distal pulses (radial, femoral, posterior tibial) in all extremities Abdomen: Soft, there is no tenderness, rigidity, rebound or guarding, no obviousperitoneal signs, no palpable pulsatile abdominal masses, no auscultated abdominal bruit : No CVAT Extremities: No edema Neuro: No focal neurological deficits, cranial nerves II through XII intact, 5/5strength in all extremities. Intact sensation to light touch in all extremities,2+ reflexes bilateral patella tendons. Normal gait. No ataxia. Skin: No rash or lesions noted MEDICAL DECISION MAKING: Chief Complaint: Anxiety, insomnia External records reviewed: nuclear stress test from 2019 reviewed Factors affecting care: History of hypertension, CVA, hyperlipidemia, CAD Social determinants of health: Alcohol abuse, tobacco abuse History obtained from others: none Consults: none [facility] Narrative: Patient was initially mildly hypertensive otherwise hemodynamically stable, afebrile, nontoxic-appearing. No focal cardiopulmonary abnormalities. There isno tongue fasciculations, no diaphoresis patient's not appear anxious. I considered the following differential diagnosis: ACS, arrhythmia, pneumonia, COVID, PE I considered pulmonary embolism however lower suspicion given lack of risk factors. Low risk Wells score. I offered the patient an ED evaluation which consisted of labs and imaging studies to further elucidate the etiology of the patient's complaint. The patient was alert and oriented x3 and refused imaging and labs with the knowledge that we may miss a life-limiting etiology including all the differentials that were just mentioned stating he just wanted medicine for his anxiety. I offered him 1 oral Ativan here and a nonnarcotic Atarax prescriptionfor home-going. He stated he would return if symptoms change or worsen. The patient and/or family, caregivers express understanding. The patient and/orfamily, caregivers agrees with the plan. Shared decision making: I will have a discussion with the patient and or visitors regarding risk/benefits of further testing or admission. They will be made aware of of the risk/benefits inherent in this decision they will be given the opportunity to voice understanding. Total critical care time today provided was at least 0minutes. This excludes separately billable procedures. Critical care time (if documented) is secondary to the patient having high probability of clinically significant/life threatening deterioration in the patient's condition which required my urgent intervention. Impression: 1. Anxiety 2. Elevated blood pressure 3. History of CAD Dispo: discharge Discharge Plan Triage Chief Complaint: Anxiety ED Provider: Coleman Coleman Dx/Rx/DC Orders Instructions: ED Anxiety Reaction Prescriptions: New hydroxyzine pamoate [Vistaril] 25 mg capsule 25 mg PO TID PRN (Reason: anxiety) Qty: 21 0RF Primary Care Provider: Nubia Licea Referrals: Nubia Licea [Primary Care Provider] - Activity Restrictions/Additional Instructions: Thank you for trusting us with your care today! Please take Tylenol (2 pills, 650 mg), ibuprofen (2 pills, 400 mg) every 6 hoursas needed for pain and fever control. Please take Atarax as needed for anxiety control. Please return to the emergency department if your symptoms change or worsen. Specifically develop thoughts of wanting to hurt yourself or other people. If you develop chest pain, shortness of breath, focal weakness, focal numbness or if your symptoms change or worsen in any way. Please follow with your primary care physician for further outpatient evaluationand management. Disposition Disposition: Home, Self Care What to do if you have Problems For any increased pain, shortness of breath, bleeding, nausea or vomiting, chestpain, or any unexpected problems, contact your Primary Care Provider. Call [facility] ([phone]) or report to the closest Emergency Room. Call 911 if necessary. 04/09/23 05 <Electronically signed by Coleman Coleman DO> Cosigner Signature (if applicable): CC: Dr. Nubia Licea ~ Signed [facility] Work Phone: 1(325) 511-354904-06-2023 History of Present illness Narrative* Danna Murdock RT(R) - 10/12/2022 10:40 AM EDT Radiology Service Progress Note PATIENT NAME: Klaus Peter DATE OF SERVICE: October 12, 2022 TIME: 10:55 AM PATIENT IDENTITY VERIFICATION COMPLETED USING TWO (2) IDENTIFIERS: Name and Date of confirmedby patient verbally. FALL SCREENING: Has the patient had 2 falls in the last year or 1 fall with injury or currently using an Ambulatory Assistive Device (Walker, Cane, Wheelchair, Crutches, etc.)? No PATIENT GENDER DATA: Male PATIENT RELEVANT IMPLANT DATA REVIEWED: Not Applicable RADIOLOGY DEPARTMENT: General X-ray: Exam(s) Completed: Chest X-Ray PERIPHERAL IV DATA: Not applicable SIGNED BY: RT Eren(R) October 12, 2022 10:55 AM [facility] [place] noteNo assessment information availableWCorey [facility] Work Phone: Evaluation note* Diagnosis Subacute cough Cough documented in this encounter [facility] note* Diagnosis Acute cough- Primary COPD with exacerbation (HCC) Obstructive chronic bronchitis with exacerbation Acute cough [facility] [facility] note* Diagnosis [facility] Additional Instructions Thank you for trusting us with your care today! Please take Tylenol (2 pills, 650 mg), ibuprofen (2 pills, 400 mg) every 6 hours as needed for pain and fever control. Please take Atarax as needed for anxiety control. Please return to the emergency department if your symptoms change or worsen. Specifically develop thoughts of wanting to hurt yourself or other people. If you develop chest pain, shortness of breath, focal weakness, focal numbness or if your symptoms change or worsen in any way. Please follow with your primary care physician for further outpatient evaluation and management.[facility] Work Phone: Reason for visit Narrative* Diagnostic Procedure Only (Routine) - Denied Specialty Diagnoses / Procedures Referred By Contac t Referred To Contact Radiology / [facility] Diagnoses Dx: Subacute cough [R05.2] Procedures XR CHEST Darien Tee MD [address] [place] [address] [facility] [address] [place] [address] Referral ID Status Reason Start Date Expiration Date Visits Re quested Visits Authorized [id number] Denied 10/12/2022 01/10/2023 1 0 [facility] Summary Purpose Family History No Family History Records Found Relationship Condition Age at Onset Recorded Date/T daniella father Cardiac disease Unknown mother Alzheimer's disease Unknown brother Chronic obstructive pulmonary disease Unk nown brother Cardiac disease Unknown sister Malignant neoplasm Unknown Advance Directives No Advanced Directives Records Found Advance Directive Response Recorded Date/ Time Living Will No May 02 6:57pm Power of Horticulture/Floriculture Teacher No May 02, 2022 6:57pm Advance Directive Response Recorded Date/ Time Living Will No April 09 3 4:55am Power of Horticulture/Floriculture Teacher No April 09 023 4:55am Chief Complaint and Reason for Visit Chief Complaint CHEST PAIN Chief Complaint anxiety Additional Source Comments (unrecognized sect ion and content) No Status Records FoundNo Status Records FoundNo Status Records Found INFORMATION SOURCE (unrecogn ized section and content) DATE CREATED AUTHOR 12/26/2017 [facility] DATE CREATED AUTHOR AUTHOR'S ORGANIZ ATION 08/10/2024 [facility] DATE CREATED AUTHOR AUTHOR'S ORGANIZ ATION 11/14/2024 [facility] Goals (unrecognized section and content) Goals may be documented in a n alternate sectionGoals may be documented in an alternate section Care Teams (unrecognized sec tion and content) Team Status: Active Member Role Status Dates Dr. Riky Seals DO Family Provider Active Dr. Nubia Licea Primary Care Provider Active Team Status: Inactive Member Role Status Dates Dr. Nubia Licea Primary Care Provider Active Dr. Coleman Coleman , DO Emergency Provider Active Trailer Chief Relationship Specialty Start Date End Date Christen Zambrano NP [address] [place] [address] PCP - General Family Medicine 09/02/24 Trailer Chief Relationship Specialty Start Date End Date Christen Zambrano NP [address] [place] [address] PCP - General Family Medicine 09/02/24 Trailer Chief Relationship Specialty Start Date End Date Christen Zambrano NP [address] [place] [address] PCP - General Family Medicine 09/02/24 Trailer Chief Relationship Specialty Start Date End Date Christen Zambrano NP [address] [place] [address] PCP - General Family Medicine 09/02/24 Source Comments (unrecognize d section and content) In the event this informatio n is protected by the Federal Confidentiality of Alcohol and Drug Abuse Patient Records regulations: The Federal rules restrict any use of the information to criminally investigate or prosecute any alcohol or drug abuse patient.[facility] the event this information is protected by the Federal Confidentiality of Alcohol and Drug Abuse Patient Records regulations: The Federal rules restrict any use of the information to criminally investigate or prosecute any alcohol or drug abuse patient.[facility] the event this information is protected by the Federal Confidentiality of Alcohol and Drug Abuse Patient Records regulations: The Federal rules restrict any use of the information to criminally investigate or prosecute any alcohol or drug abuse patient.[facility] the event this information is protected by the Federal Confidentiality of Alcohol and Drug Abuse Patient Records regulations: The Federal rules restrict any use of the information to criminally investigate or prosecute any alcohol or drug abuse patient.[facility] the event this information is protected by the Federal Confidentiality of Alcohol and Drug Abuse Patient Records regulations: The Federal rules restrict any use of the information to criminally investigate or prosecute any alcohol or drug abuse patient.[facility] Reason for Visit (unrecogniz ed section and content) Reason Comments Cough Cough, congestion an d diarrhea x > 1 month FOR RECORDS PERTAINING TO PATIENTS WHO ARE OR HAVE BEEN ENROLLED IN A CHEMICAL DEPENDENCY/SUBSTANCEABUSE PROGRAM, SOME INFORMATION MAY BE OMITTED. This clinical summary was aggregated from multiple sources. Caution should be exercised in using it in the provision of clinical care. This summary normalizes information from multiple sources, and as a consequence, information in this document may materially change the coding, format and clinical context of patient data. In addition, data may be omitted in some cases. CLINICAL DECISIONS SHOULD BE BASED ON THE PRIMARY CLINICAL RECORDS. [facility] [employer] [facility]. provides no warranty or guarantee of the accuracy or completeness of information in this document.
[2025-01-09] MEDS: 0.9% Normal Saline (500mL Bag) 500 ML 1000 ML IV (16:47)
[2025-01-09 17:27] LABS: AST(SGOT) 22 U/L (<=37); Alanine Aminotransfer ALT/SGPT 13 U/L (<=46); Albumin, Serum 2.6 g/dL (3.4-4.8); Alkaline Phosphatase 62 U/L (40-129); Anion Gap 13 (5-15); BUN 25 mg/dL (4-19); BUN/Creat Ratio 28.8 RATIO (10-20); Bilirubin, Direct 0.33 mg/dL (0.00-0.30); Calcium,Total 9.5 mg/dL (7.6-11.0); Carbon Dioxide 21.0 mmol/L (21.0-32.0); Chloride 91 mmol/L (98-108); Estimated Creatinine Clearance 87.08 ml/min (50-250); Globulin 3.6 g/dL (2.2-4.2); Glucose 106 mg/dL (70-99); Lipase 11 U/L (13-75); Potassium 4.3 mmol/L (3.3-5.1); Pro- Brain NATRIURETIC PEPTIDE 4108 pg/mL (<=900); Troponin T High Sensitivity 11 ng/L (<=22)
[2025-01-09 18:04] VITALS: BP 103/63; PULSE 95; RESP 16; O2SAT 100
[2025-01-09 18:17] LABS: Alcohol, Blood (Medical)-Serum < 10.1 mg/dL (<=10.0)
[2025-01-09 19:30] VITALS: BP 120/70; PULSE 91; RESP 18; TEMP 37; O2SAT 99
--- NOTE | 2025-01-09 19:38 | PCM.HP.STD ---
[facility] - General General Date of Admission: 01/09/25 Date of Service: 01/09/25 Chief Complaint: Generalized Weakness, Ambulatory Dysfunction and Fall. HPI Narrative SPRING PETER, is a 69 M with a past medical history of essential hypertension, hyperlipidemia, CAD; s/p STEMI with subsequent RCA stent (2012) with in-stent restenosis (2016), chronic tobacco abuse; subsequent COPD, chronic EtOH abuse; with patient admitting to 3 beers daily, history of CVA, generalized anxiety; on as needed hydroxyzine 3 times daily, history of tracheostomy, history of history of gastrectomy, OA, history of medical noncompliance; with patient not taking his medications for months and previous history of adult [id number] in the setting of multiple addictions and poor self-care who presents to [facility] ER complaining of generalized weakness, ambulatory dysfunction and fall. Mr. Peter reports his symptoms began approximately one week ago after he fell injuring his chest and abdomen which is caused him to become more weak and unstable over time. He denies chest pain currently and he denies chest pain and triggered by activity. He does admit to still drinking ~3 beers daily just to get something down but he denies current symptoms of EtOH withdrawal or recent seizure activity. He admits to remittent hallucinations along with constipation and nausea with a short-shuffling gait but there is no report of associated vomiting, fever, chills, headache, focal neurologic deficits, tremor or rash. In the ER he was noted to have laboratory evidence of Hyponatremia of 125 mmol/L present on admission likely due to Beer Potomania in the setting of Chronic EtOH Abuse with impending EtOH withdrawal indicated by OZZIE <10.1 mg/dL and reported hallucinations with CT scan of abdomen pelvis with IV contrast revealing fatty liver with hepatic surface irregularity and ascites concerning for cirrhosis with apparent asymmetric wall thickening of the ascending colon and cecum (not as prominent on previous exam) with underlying mass unable to be excluded; with further evaluation recommended with colonoscopy complicated by mild Lactic Acidosis of 2.3 mmol/L present on admission and an elevated NT pro-BNP II of 4,108 pg/mL present on admission indicative of underlying AE CHF; of uncertain type with CTA of the chest with IV contrast that revealed no evidence of pulmonary embolism with small esophageal hiatal hernia and emphysema/COPD changes in up head CT without contrast that revealed no acute intracranial hemorrhage, midline shift or mass effect with generalized brain atrophy with small vessel ischemic/degenerative changes with all conditions combining to cause clinical evidence of Generalized Weakness with Ambulatory Dysfunction and Fall. He was then admitted to the PCU for ongoing care for a stay that is expected to extend beyond 2 midnights. [facility] Medical History (Updated 01/10/25 @ 06:[address] Nick Monk, DO) Acute ST elevation myocardial infarction History of stroke Pure hypercholesterolemia Old myocardial infarction Alcohol abuse Tobacco abuse Essential hypertension Presence of stent in coronary artery (~03/28/17) Atherosclerotic heart disease of [place] coronary artery without angina pectoris Home Medications ?Medication ?Instructions ?Recorded ?Last Taken ?Type hydroxyzine pamoate 25 mg capsule 25 mg PO TID PRN anxiety #21 caps 04/09/23 Unknown Rx (Vistaril) Allergy/AdvReac Type Severity Reaction Status Date / Time lisinopril Allergy COUGH Verified 01/09/25 16:11 Family History Father Heart disease Mother Alzheimers disease Brother COPD (chronic obstructive pulmonary disease) Brother Heart disease Sister Cancer Lung Surgical History History of tracheostomy History of gastrectomy Presence of coronary angioplasty implant and graft (~03/28/17) Social History housing: other details: Lives with a roommate. Smoking Status: Heavy Smoker (>10/day) alcohol intake: current alcohol intake frequency: 3 or more drinks per day Alcohol type: beer details: Daily. substance use type: does not use caffeine: Yes Type: coffee Number of servings: 2 ROS ROS Narrative Review of Systems: Constitutional: Patient denies fever or chills. Eyes: Patient admits to hallucinations that are progressively worsening. ENT: Patient denies runny nose, sore throat or ear pain. Resp: Patient denies shortness of breath or cough. CV: Patient admits to chest pain after recent fall as per HPI. He denies palpitations or heart racing. GI: Patient admits to abdominal pain and nausea with constipation after recent fall as per HPI. He denies vomiting or diarrhea. : Patient denies dysuria or hematuria. MSK: Patient admits to generalized weakness with ambulatory dysfunction and frequent falls as per HPI. Skin: Patient has multiple bed bug bites on neck, trunk and extremities. Psych: Patient denies symptoms of uncontrolled depression or anxiety but he does have a flat-depressed affect. Neuro: Patient denies headache, paresthesias or focal neurologic deficits. Allergy: Patient denies lip swelling, tongue swelling or urticaria. Hematology: Patient denies easy bleeding or easy bruisability. Endocrinology: Patient denies polyuria, polydipsia, polyphagia or heat/cold intolerance. 14 point ROS otherwise negative except for positives noted above in HPI. Vital Signs Vital Signs Vital Signs: 01/09/25 16:05 01/09/25 18:04 01/09/25 19:30 Temperature 99 F 98.6 F Temperature Source Oral Pulse Rate 98 95 91 Respiratory Rate 28 H 16 18 Blood Pressure 129/75 H 103/63 120/70 Blood Pressure Mean 93 76 86 Pulse Ox 100 100 99 Oxygen Delivery Method Room Air Room Air Weight Weight: 162 lb 7.691 oz Body Mass Index (BMI) 23.3 Physical Exam Const alert, oriented x3, no apparent distress and average body habitus Constitutional Narrative: Patient has flat-depressed affect with chronically ill appearance older than his stated age. General Appearance: cooperative HEENT normocephalic, head/scalp atraumatic, hearing grossly normal bilaterally and moist oral mucous membranes Eyes PERRL and EOMs intact bilaterally Neck no lymphadenopathy, supple and no JVD Resp normal respiratory effort, no retractions, no use of accessory muscles and clear to auscultation bilaterally Cardio regular rate and regular rhythm GI normal to inspection, nondistended, normoactive bowel sounds, soft to palpation, non-tender and non-distended Extremity normal to inspection, full ROM and no clubbing, cyanosis or edema Skin Skin Narrative: Patient has evidence of multiple bedbug bites on neck, trunk and extremities. Neuro oriented x3, CN's II-XII intact bilaterally, moves all extremities and no focal motor deficits Sensorium / Orientation: awake, alert, oriented to person, oriented to place and oriented to time Speech: speech normal Psych Psych Narrative: Patient has a depressed apathetic affect in spite of teaming with bedbugs. Mood & Affect: depressed Results Medical Records Data Attestation: I reviewed the patient's medical records Lab / Micro Data Attestation: I reviewed the patient's lab results. 01/10/25 06:06 01/09/25 23:35 Labs: Laboratory Results - last 24 hr 01/09/25 16:50: Lactic Acid 2.3 H*, Ethyl Alcohol < 10.1 01/09/25 17:35: Sodium 125 L, Potassium 4.3, Chloride 91 L, Carbon Dioxide 21.0, Anion Gap 13, BUN 25 H, Creatinine 0.85, Estim Creat Clear Calc 87.08, Est GFR (MDRD) Non-Af 95, BUN/Creatinine Ratio 28.8 H, Glucose 106 H, Calcium 9.5, Total Bilirubin 0.62, Direct Bilirubin 0.33 H, AST 22, ALT 13, Alkaline Phosphatase 62, Troponin T High Sens 11, NT pro BNP II 4108 H, Total Protein 6.2, Albumin 2.6 L, Globulin 3.6, Lipase 11 L Imaging Radiology Impression Brain CT 01/09/25 16:28 IMPRESSION: 1. Generalized brain atrophy. 2. Small vessel ischemic/degenerative changes. 3. No acute intracranial hemorrhage, midline shift or mass effect. If symptoms persist, further evaluation with MRI is recommended. Reading Location: [facility] Chest CTA 01/09/25 16:28 IMPRESSION: 1. No pulmonary embolism. 2. Small esophageal hiatal hernia. 3. Lung emphysema/COPD. Reading Location: [facility] Abdomen/Pelvis CT 01/09/25 16:29 IMPRESSION: 1. Fatty liver with hepatic surface irregularity and ascites, concerning for cirrhosis. 2. Apparent asymmetric wall thickening of the ascending colon and cecum. This was not as prominent in the prior exam. Underlying mass can not be excluded. Further evaluation with colonoscopy may be beneficial. 3. Small esophageal hiatal hernia. 4. Scattered calcified atherosclerotic disease of aorta measuring up to 3.7 cm diameter. 5. Fecal retention in the colon consistent with constipation. 6. Inguinal hernias, bilaterally. Reading Location: [facility] Assessment & Plan Assessment/Plan (1) Hyponatremia: (2) Alcohol abuse: (3) Ascites due to alcoholic cirrhosis: (4) Alcohol withdrawal: QUALIFIERS: Complication of substance-induced condition: with perceptual disturbance Qualified Code(s): F10.932 - Alcohol use, unspecified with withdrawal with perceptual disturbance (5) Hallucinations: (6) Abnormal CT scan, colon: (7) Medical non-compliance: (8) Constipation: QUALIFIERS: Constipation type: unspecified constipation type Qualified Code(s): K59.00 - Constipation, unspecified (9) CHF exacerbation: QUALIFIERS: Heart failure type: unspecified Qualified Code(s): I50.9 - Heart failure, unspecified (10) Lactic acidosis: (11) Bedbug bite: QUALIFIERS: Encounter type: initial encounter Qualified Code(s): W57.XXXA - Bitten or stung by nonvenomous insect and other nonvenomous arthropods, initial encounter (12) Generalized weakness: (13) Ambulatory dysfunction: (14) Fall: QUALIFIERS: Encounter type: initial encounter Qualified Code(s): W19.XXXA - Unspecified fall, initial encounter (15) Hypoalbuminemia: (16) Tobacco abuse: (17) Shuffling gait: PLAN: Plan 1. Hyponatremia of 125 mmol/L present on admission - Admit to PCU. Continue NS IV fluid and recheck BMP every 6 hours to allow for gradual change if no more than 8-10 mmol/L per 24 hours. Check urinalysis to evaluate specific gravity. Check urine and serum osmolality. Give ondansetron prn nausea and vomiting. Give low-dose acetaminophen prn for [id number]-jv-eezqvugy (level 1-5/10) pain or fever. Give morphine IV prn for severe (level 6-10/10) pain. 2. Beer Potomania likely causing #1 in the setting of Chronic EtOH Abuse with impending EtOH withdrawal indicated by OZZIE <10.1 mg/dL - EtOH Cessation will be strongly encouraged. Start phenobarbital taper with supplemental folic acid and multivitamin. 3. CT scan of abdomen pelvis with IV contrast revealing fatty liver with hepatic surface irregularity and Ascites concerning for Cirrhosis with apparent Asymmetric wall-thickening of the Ascending Colon and Cecum (not as prominent on previous exam) with underlying mass unable to be excluded; with further evaluation recommended with colonoscopy in the setting of chronic Medical Noncompliance complicating #1 & #2 - We will give Sadie-Lax and lactulose in an effort to relieve constipation evident on CT. Finally, we we will consult gastroenterology to see this patient on rounds in the a.m. regarding colonoscopy this admission with help appreciated in advance. 4. Elevated NT pro-BNP II of 4,108 pg/mL present on admission indicative of underlying AE CHF; of uncertain type (with no infiltrates on chest x-ray and no signs of peripheral edema) with possible underlying alcoholic cardiomyopathy compounding #1 - #3 - Give furosemide 40 mg IV x 1 (after urine tests have been obtained) with supplemental KCl and magnesium. Check echocardiogram to evaluate LVEF and check for signs of alcoholic cardiomyopathy. Serialize troponin. Recheck NT pro-BNP II level in the a.m. to follow trend. 5. Lactic Acidosis of 2.3 mmol/L present on admission attributable to #1 - #4 - Continue conservative treatment outlined above and serialize lactic acid to follow trend. 6. Active bedbug infestation with multiple bites exacerbating #1 - #5 - I personally spoke with pharmacist on-call for permethrin 1% cream per protocol to be given immediately to prevent contamination of environment, including staff and other patients. 7. Generalized Weakness with Ambulatory Dysfunction and Fall due to #1 - #6 - PT/OT and Case Management to consult and treat on rounds in the AM for further recommendations regarding potential rehabilitation (EtOH and physical) with help appreciated in advance. 8. Hypoalbuminemia of 2.6 g/dL present on admission with suspected protein-calorie malnutrition adding to the medical complexity of #1 - #7 - We we will consult clinical dietitian for formal malnutrition screening with help appreciated in advance. 9. Chronic tobacco abuse; subsequent COPD - Tobacco Cessation will be strongly encouraged with Nicotine patch offered to control cravings. 10. History of CVA; with short-shuffling gait - Head CT unrevealing for acute pathologic changes with MRI pending. 11. Essential hypertension - Patient noncompliant with antihypertensives. Give hydralazine IV as needed for systolic blood pressure greater than 160 mmHg. 12. Hyperlipidemia - Check lipid profile. 13. CAD; s/p STEMI with subsequent RCA stent (2012) with in-stent restenosis (2017) - Stable. Consider starting daily BASA after GI consultation. 14. Generalized anxiety; on as needed hydroxyzine 3 times daily - Maintain present therapy. 15. History of tracheostomy - Noted. 16. History of history of gastrectomy - Noted. 17. OA - Stable. 18. DVT/GI prophylaxis - Heparin 5,000U sq BID plus SCD's. Pantoprazole 40 mg IV daily until nausea subsides. Total time: Approximately (but not less than) 75 minutes. Charges/Coding Visit Charges Inpatient E&M: 91228 Init Hosp L3
[2025-01-09 20:00] VITALS: BP 122/68; PULSE 90; RESP 18; O2SAT 100
--- OUTSIDE RECORDS SUMMARY | 2025-01-09 20:19 | XMS RPT_ITS | CCD ---
Author Organization [facility] Care Team Providers Care Candy Attendant Name Role Phone UNKNOWN, PROVIDER Unavailable Unavailable [...] Nubia Licea Primary Care Unavailable Juan Manuel WHITEPRINTING MACHINE OPERATOR, Christen Primary Care Provider CHRISTEN ZAMBRANO Primary Care Unavailable CHRISTEN CHOWDARY Attending Unavailable CHRISTEN ZAMBRANO Primary Care Unavailable CHRISTEN CHOWDARY Referring Unavailable Allergies Allergy Classification Reported Allergen(s) Allergy Type Date of Onset Reaction(s) Facility (2 sources) Lisinopril Drug Allergy 05-02-2022 COUGH [facility] (1 source) Lisinopril Drug Allergy 03-01-2024 [facility] Repository Medications Current Medications Medication Drug Class(es) Dates Sig (Normalized) Sig (Original) [id number] 200 actuat albuterol 0.09 mg/actuat metered dose [...] disease (13 sources) Atherosclerotic heart disease of [place] coronary artery without angina pectoris; Translations: [Atherosclerotic heart disease of [place] coronary artery with unspecified angina pectoris] Onset: [...] 06-18-2024 Episodic Other aftercare (6 sources) 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 No assistant speech language pathologist was used. Cough This is a new [...] adenopathy. Skin: (more content not included)... Normal [facility] XR CHEST 2V FRONTAL/LATon XR CHEST [...] pleural effusions new from prior study . Infantryman: [facility] Transcribe Date/Time: Nov 11 2024 4:47P Dictated by : BALJIT QUIROZ MD This examination was interpreted and the report reviewed and electronically signed by: BALJIT QUIROZ MD on Nov 11 2024 4:50PM EST [id number] Normal [facility] XR Chest PA and Lateralon IMPRESSION: Small bilateral pleural effusions new from prior study . Infantryman: [email or web address] Transcribe Date/Time: Nov 11 2024 4:47P Dictated [...] soft tissues: Unremarkable. DIVISION OF RADIOLOGY Provider, [facility] Delores [place] - 11/11/2024 * * *Final Report* * [...] pleural effusions new from prior study . Infantryman: PSCLisa Transcribe Date/Time: Nov 11 2024 4:47P Dictated by : BALJIT QUIROZ MD This examination was interpreted and the report reviewed and electronically signed by: BALJIT QUIROZ MD on Nov 11 2024 4:50PM EST [facility] Radiology Study observation (narrative) [facility] XR Chest PA and LateralOrder ed By: Ccf Provider on 11-11-2024 [facility] CBC W/Diff, Automatedon 12-0 Absolute Lymph 1.85 X10 3/uL Normal 0.83-4.51 [facility] Comment on above: Performed By: #### L 500.4050, L100.0100, L500.4100, L501.9520 #### [facility] [address] [place], [address] Absolute Neut 2.9 X10 3/uL Normal 2.0-7.7 [facility] Comment on above: Performed By: #### L 500.4050, L100.0100, L500.4100, L501.9520 #### [facility] [address] [place], [address] Basophils/100 WBC (Bld) 0.9 % Normal 0-1 [facility] Comment on above: Performed By: #### L 500.4050, L100.0100, L500.4100, L501.9520 #### [facility] [address] [place], [address] Eosinophils/100 WBC (Bld) 4.4 % Normal 0-5 [facility] Comment on above: Performed By: #### L 500.4050, L100.0100, L500.4100, L501.9520 #### [facility] [address] [place], [address] Erythrocyte distribution width (RBC) [Ratio] 17.2 % High 11.6-14.6 [facility] Comment on above: Performed By: #### L 500.4050, L100.0100, L500.4100, L501.9520 #### [facility] [address] [place], [address] Hematocrit (Bld) [Volume fraction] 31.0 % Low 40-54 [facility] Comment on above: Performed By: #### L 500.4050, L100.0100, L500.4100, L501.9520 #### [facility] [address] [place], [address] Hemoglobin (Bld) [Mass/Vol] 9.3 g/dL Low 13.0-16.5 [facility] Comment on above: Performed By: #### L 500.4050, L100.0100, L500.4100, L501.9520 #### [facility] [address] [place], [address] IG% 0.200 Normal 0.0-0.9 [facility] Comment on above: Result Comment: IG% - Immature Granulocytes (promyelocytes, myelocytes and metamyelocytes) > 1% indicates that a LEFT SHIFT is Present. Performed By: #### L 500.4050, L100.0100, L500.4100, L501.9520 #### [facility] [address] [place], [address] Lymphocytes/100 WBC (Bld) 33.8 % Normal 19-41 [facility] Comment on above: Performed By: #### L 500.4050, L100.0100, L500.4100, L501.9520 #### [facility] [address] [place], [address] MCH (RBC) [Entitic mass] 25.4 pg Low 27.0-32.0 [facility] Comment on above: Performed By: #### L 500.4050, L100.0100, L500.4100, L501.9520 #### [facility] [address] [place], [address] MCHC (RBC) [Mass/Vol] 30.0 g/dL Low 32-36 [facility] Comment on above: Performed By: #### L 500.4050, L100.0100, L500.4100, L501.9520 #### [facility] [address] [place], [address] MCV (RBC) [Entitic vol] 84.7 fL Normal 80-94 [facility] Comment on above: Performed By: #### L 500.4050, L100.0100, L500.4100, L501.9520 #### [facility] [address] [place], [address] Monocytes/100 WBC (Bld) 8.6 % Normal 0-10 [facility] Comment on above: Performed By: #### L 500.4050, L100.0100, L500.4100, L501.9520 #### [facility] [address] [place], [address] Neutrophils/100 WBC (Bld) 52.1 % Normal 47-70 [facility] Comment on above: Performed By: #### L 500.4050, L100.0100, L500.4100, L501.9520 #### [facility] [address] [place], [address] Nucleated RBC (Bld) [#/Vol] 0 10*3/uL Normal 0-5 [facility] Comment on above: Performed By: #### L 500.4050, L100.0100, L500.4100, L501.9520 #### [facility] [address] [place], [address] Platelet mean volume (Bld) [Entitic vol] 10.2 fL Normal 6.2-12.0 [facility] Comment on above: Performed By: #### L 500.4050, L100.0100, L500.4100, L501.9520 #### [facility] [address] [place], [address] Platelets (Bld) [#/Vol] 209 10*3/uL Normal 150-450 [facility] Comment on above: Performed By: #### L 500.4050, L100.0100, L500.4100, L501.9520 #### [facility] [address] [place], [address] RBC (Bld) [#/Vol] 3.66 10*6/uL Low 4.6-6.2 [facility] Comment on above: Performed By: #### L 500.4050, L100.0100, L500.4100, L501.9520 #### [facility] [address] [place], [address] RDW SD 52.7 fl High 35.1-43.9 [facility] Comment on above: Performed By: #### L 500.4050, L100.0100, L500.4100, L501.9520 #### [facility] [address] [place], [address] WBC (Bld) [#/Vol] 5.5 10*3/uL Normal 4.4-11.0 [facility] Comment on above: Performed By: #### L 500.4050, L100.0100, L500.4100, L501.9520 #### [facility] [address] [place], [address] Comprehensive Metabolic Prof ilon 06-11-2024 Albumin [Mass/Vol] 2.4 g/dL Low 3.2-5.0 [facility] Comment on above: Performed By: #### L 500.4050, L100.0100, L500.4100, L501.9520 #### [facility] [address] [place], [address] Albumin/Globulin [Mass ratio] 0.5 {ratio} Low 0.9-2.4 [facility] Comment on above: Performed By: #### L 500.4050, L100.0100, L500.4100, L501.9520 #### [facility] [address] [place], [address] ALK P 117 U/L Normal 45-117 [facility] Comment on above: Performed By: #### L 500.4050, L100.0100, L500.4100, L501.9520 #### [facility] [address] [place], [address] ALT [Catalytic activity/Vol] 11 U/L Low 16-61 [facility] Comment on above: Performed By: #### L 500.4050, L100.0100, L500.4100, L501.9520 #### [facility] [address] [place], [address] AST [Catalytic activity/Vol] 24 U/L Normal 15-37 [facility] Comment on above: Performed By: #### L 500.4050, L100.0100, L500.4100, L501.9520 #### [facility] [address] [place], [address] Bilirubin [Mass/Vol] 0.30 mg/dL Normal 0.20-1.00 [facility] Comment on above: Result Comment: For patients on eltrombopag therapy, use of Dimension Rarden TBIL is not recommended. Performed By: #### L 500.4050, L100.0100, L500.4100, L501.9520 #### [facility] [address] [place], [address] BUN/CRE 8.2 RATIO Low 10-20 [facility] Comment on above: Performed By: #### L 500.4050, L100.0100, L500.4100, L501.9520 #### [facility] [address] [place], [address] CA,Total 8.6 mg/dL Normal 8.5-10.1 [facility] Comment on above: Performed By: #### L 500.4050, L100.0100, L500.4100, L501.9520 #### [facility] [address] [place], [address] Chloride [Moles/Vol] 105 mmol/L Normal 98-107 [facility] Comment on above: Performed By: #### L 500.4050, L100.0100, L500.4100, L501.9520 #### [facility] [address] [place], [address] CO2 [Moles/Vol] 22.0 mmol/L Normal 21.0-32.0 [facility] Comment on above: Performed By: #### L 500.4050, L100.0100, L500.4100, L501.9520 #### [facility] [address] [place], [address] Creatinine [Mass/Vol] 0.61 mg/dL Low 0.70-1.30 [facility] Comment on above: Result Comment: The validity of the calculated GFR GFRAA in patients over 70 years has not been determined. Clinical correlation is essential. Performed By: #### L 500.4050, L100.0100, L500.4100, L501.9520 #### [facility] [address] [place], [address] EST GFR - AA 169 mL/min Normal >60 [facility] Comment on above: Result Comment: Afri can Serbian GFR Calc Performed By: #### L 500.4050, L100.0100, L500.4100, L501.9520 #### [facility] [address] [place], [address] GAP 8 Normal 5-15 [facility] Comment on above: Performed By: #### L 500.4050, L100.0100, L500.4100, L501.9520 #### [facility] [address] [place], [address] GFR/1.73 sq M.predicted among non-blacks MDRD (S/P/Bld) [Vol rate/Area] 140 mL/min/{1.73_m2} Normal >60 [facility] Comment on above: Result Comment: Non- GFR Calc Performed By: #### L 500.4050, L100.0100, L500.4100, L501.9520 #### [facility] [address] [place], [address] Globulin (S) [Mass/Vol] 4.6 g/dL High 2.2-4.2 [facility] Comment on above: Performed By: #### L 500.4050, L100.0100, L500.4100, L501.9520 #### [facility] [address] [place], [address] Glucose [Mass/Vol] 86 mg/dL Normal 74-106 [facility] Comment on above: Performed By: #### L 500.4050, L100.0100, L500.4100, L501.9520 #### [facility] [address] [place], [address] Potassium [Moles/Vol] 4.0 mmol/L Normal 3.5-5.1 [facility] Comment on above: Performed By: #### L 500.4050, L100.0100, L500.4100, L501.9520 #### [facility] [address] [place], [address] Sodium [Moles/Vol] 135 mmol/L Low 136-145 [facility] Comment on above: Performed By: #### L 500.4050, L100.0100, L500.4100, L501.9520 #### [facility] [address] [place], [address] T PROT 7.0 g/dL Normal 6.4-8.2 [facility] Comment on above: Performed By: #### L 500.4050, L100.0100, L500.4100, L501.9520 #### [facility] [address] [place], [address] Urea nitrogen [Mass/Vol] 5 mg/dL Low 7-18 [facility] Comment on above: Performed By: #### L 500.4050, L100.0100, L500.4100, L501.9520 #### [facility] [address] [place], [address] Lipid Profileon 06-11-2024 Cholesterol [Mass/Vol] 113 mg/dL Normal 200 [facility] Comment on above: Result Comment: <200 mg/dL Desirable 200-240 mg/dL Borderline >240 mg/dL High Risk Performed By: #### L 500.4050, L100.0100, L500.4100, L501.9520 #### [facility] [address] [place], [address] Cholesterol in HDL [Mass/Vol] 44 mg/dL Normal [facility] Comment on above: Result Comment: The drugs N-Acetylcysteine and Metamizole may falsely depress this assay. Reference Range HDL <40 mg/dL Low HDL Cholesterol HDL >or= 60 mg/dL High HDL Cholesterol Performed By: #### L 500.4050, L100.0100, L500.4100, L501.9520 #### [facility] [address] [place], [address] Cholesterol in LDL [Mass/Vol] 57 mg/dL Normal 0-130 [facility] Comment on above: Performed By: #### L 500.4050, L100.0100, L500.4100, L501.9520 #### [facility] [address] [place], [address] Cholesterol in VLDL [Mass/Vol] 12 mg/dL Normal 5-40 [facility] Comment on above: Performed By: #### L 500.4050, L100.0100, L500.4100, L501.9520 #### [facility] [address] [place], [address] Triglyceride [Mass/Vol] 58 mg/dL Normal [facility] Comment on above: Result Comment: The drugs N-Acetylcysteine and Metamizole may falsely depress this assay. Serum Triglycerides Reference Interval Normal <150 mg/dL Borderline high 150 - 199 mg/dL High 200 - 499 mg/dL Very High > or = 500 mg/dL Performed By: #### L 500.4050, L100.0100, L500.4100, L501.9520 #### [facility] [address] [place], [address] Thyroid Stim Hormone (TSH)on 06-11-2024 TSH 1.080 uIU/mL Normal 0.358-3.740 [facility] Comment on above: Performed By: #### L 500.4050, L100.0100, L500.4100, L501.9520 #### [facility] [address] [place], [address] Emergency Department Summary on 03-01-2024 Emergency Department Summary [facility] Medical Records Department [address] [place] [address] Emergency Department Summary 03/01/24 MR#: [id number] Acct: [id number] Name: KLAUS PETER Rep #: [id number] : 1955 68 From: Jf Belle MD [...] thigh, 2. Psychiatric: No depression. No anxiety. [facility] Medical History (Updated 03/01/24 @ 10:59 by Jf Belle MD) Acute ST elevation myocardial infarction History of stroke Pure hypercholesterolemia Old myocardial infarction Alcohol abuse Tobacco abuse Essential hypertension Presence of stent in coronary artery ( 03/28/17) Atherosclerotic heart disease of [place] coronary artery without angina pectoris Home Medications [...] so she (more content not included)... Normal [facility] Hand Min 3 Viewson 4 Hand Min 3 Views [facility] Imaging Services [address] [place] [address] Hand Min 3 Views MR#: [id number] Acct: [id number] Name: KLAUS PETER Rep #: [id number] : 1955 M 68 From: Juan Núñez PCP: Dr. Nubia Licea Status: DEP ER Study: Hand Min 3 Views Date of Exam: 03/01/24 Exam# [id number] Ordering Dr: Jf Belle MD [id number] INDICATION: Dog bite, trauma EXAMINATION/TECHNIQUE: X-RAY - [...] Dr. Jf Belle MD; Dr. Nubia Licea Infantryman: Signed Normal [facility] XR Chest PA and Lateralon IMPRESSION: No evidence of active disease Infantryman: EDISON Transcribe Date/Time: Oct 12 2022 11:14A Dictated by : BALJIT QUIROZ MD This examination was interpreted and the report reviewed and electronically signed by: BALJIT QUIROZ MD on Oct 12 2022 11:14AM [facility] DIVISION OF RADIOLOGY * * [...] soft tissues: Unremarkable. DIVISION OF RADIOLOGY Provider, [facility] Delores [facility] - 10/12/2022 * * *Final Report* [...] IMPRESSION IMPRESSION: No evidence of active disease Infantryman: PSCB Transcribe Date/Time: Oct 12 2022 11:14A Dictated by : BALJIT QUIROZ MD This examination was interpreted and the report reviewed and electronically signed by: BALJIT QUIROZ MD on Oct 12 2022 11:14AM EST [facility] Radiology Study observation (narrative) [facility] XR Chest PA and LateralOrder ed By: Ccf Provider on 10-12-2022 [facility] Absolute lymphocyte counton 05-02-2022 Lymphocytes Auto (Unsp spec) [#/Vol] 1.91 10*3/uL 0.83-4.51 [facility] Work Phone: Basophil percentageon 2021 Basophils/100 WBC (Bld) 1.5 % 0-1 [facility] Work Phone: Chloride [Moles/Vol] 112 mmol/L 98-107 [facility] Work Phone: [phone] Eosinophils/100 WBC (Bld) 5.0 % 0-5 [facility] Work Phone: [phone] Glucose [Mass/Vol] 87 mg/dL 74-106 [facility] Work Phone: [phone] Neutrophils (Bld) [#/Vol] 1.9 10*3/uL 2.0-7.7 [facility] Work Phone: Neutrophils/100 WBC (Bld) 40.9 % 47-70 [facility] Work Phone: [phone] Potassium [Moles/Vol] 3.8 mmol/L 3.5-5.1 [facility] Work Phone: Sodium [Moles/Vol] 143 mmol/L 136-145 [facility] Work Phone: WBC (Bld) [#/Vol] 4.6 10*3/uL 4.4-11.0 [facility] Work Phone: Basophil percentage 0 SEEN /hpf 0-5 [facility] Work Phone: [phone] Bilirubin Test strip Ql (U)o n 05-02-2022 Bilirubin Ql (U) Negative Negative [facility] Work Phone: [phone] Blood erythrocytes count (nu mber/volume)on 05-02-2022 RBC (Bld) [#/Vol] 3.92 10*6/uL 4.6-6.2 [facility] Work Phone: Blood hemoglobin measurement (mass/volume)on 05-02-2022 Hemoglobin (Bld) [Mass/Vol] 10.2 g/dL 13.0-16.5 [facility] Work Phone: Blood lymphocytes/100 leukoc yteson 05-02-2022 Lymphocytes/100 WBC (Bld) 41.9 % 19-41 [facility] Work Phone: Blood manual differential co mment interpretation (narrative result)on 05-02-2022 Manual differential comment Lj (Bld) [Interp] SCANNED [facility] Work Phone: Blood monocytes/100 leukocyt eson 05-02-2022 Monocytes/100 WBC (Bld) 10.5 % 0-10 [facility] Work Phone: Blood platelet mean volumeon 05-02-2022 Platelet mean volume (Bld) [Entitic vol] 9.9 fL 6.2-12.0 [facility] Work Phone: Determination of erythrocyte mean corpuscular volume (MCV)on 05-02-2022 MCV (RBC) [Entitic vol] 86.0 fL 80-94 [facility] Work Phone: Hematocrit Auto (Bld) [Volum e fraction]on 05-02-2022 Hematocrit (Bld) [Volume fraction] 33.7 % 40-54 [facility] Work Phone: Hypochromatic red blood cell detectionon 05-02-2022 Hypochromia Ql (Bld) [facility] Ketones Test strip Ql (U)on 05-02-2022 Ketones Ql (U) Negative Negative [facility] Work Phone: Laboratory - Chemistry and C hemistry - challengeon 05-02-2022 CO2 [Moles/Vol] 24.0 mmol/L 21.0-32.0 [facility] Work Phone: Natriuretic peptide B (Bld) [Mass/Vol] 147.2 pg/mL 0-100 [facility] Work Phone: Urea nitrogen/Creatinine [Mass ratio] 10.6 mg/mg 10-20 [facility] Work Phone: Laboratory - Hematology and Cell countson 05-02-2022 Anisocytosis Ql (Bld) 1+ [facility] Work Phone: Erythrocyte distribution width (RBC) [Entitic vol] 63.4 fL 35.1-43.9 [facility] Work Phone: Erythrocyte distribution width (RBC) [Ratio] 20.4 % 11.6-14.6 [facility] Work Phone: Immature granulocytes/100 WBC (Bld) 0.200 % 0.0-0.9 [facility] Work Phone: Comment on above: IG% - Immature Granu locytes (promyelocytes, myelocytes and metamyelocytes) > 1% indicates that a LEFT SHIFT is Present. MCH (RBC) [Entitic mass] 26.0 pg 27.0-32.0 [facility] Work Phone: Nucleated RBC/100 WBC (Bld) [Ratio] 0 % 0-5 [facility] Work Phone: MCHC Auto (RBC) [Mass/Vol]on 05-02-2022 MCHC (RBC) [Mass/Vol] 30.3 g/dL 32-36 [facility] Work Phone: Mucus LM Ql (Urine sed)on Mucus Ql (Urine sed) 0 SEEN /hpf [facility] Work Phone: Nitrite Test strip Ql (U)on 05-02-2022 Nitrite Ql (U) Negative Negative [facility] Work Phone: No Panel Informationon 05-02 Estimated Creatinine Clearance Calc 146.27 ml/min [facility] Work Phone: Estimated GFR (MDRD) Amer 187 mL/min >60 [facility] Work Phone: Comment on above: GFR Calc Estimated GFR (MDRD) Non-Af Amer 155 mL/min >60 [facility] Work Phone: Comment on above: Non- GFR Calc Troponin I High Sensitivity 48 pg/mL 3.0-78.0 [facility] Work Phone: Comment on above: Please Note: New Ewelina t Units and Gender Specific Reference Ranges. For more information see Policy Stat Procedure Rarden High Sensitivity Troponin (TNIH) and attachments. Platelets bldon 05-02-2022 Platelets (Bld) [#/Vol] 358 10*3/uL 150-450 [facility] Work Phone: Protein Test strip Ql (U)on 05-02-2022 Protein Ql (U) Negative Negative [facility] Work Phone: Serum or plasma calcium devan urement (mass/volume)on 05-02-2022 Calcium [Mass/Vol] 8.2 mg/dL 8.5-10.1 [facility] Work Phone: Serum or plasma creatinine m easurement (mass/volume)on 05-02-2022 Creatinine [Mass/Vol] 0.56 mg/dL 0.70-1.30 [facility] Work Phone: Comment on above: The validity of the calculated GFR & GFRAA in patients over 70 years has not been determined. Clinical correlation is essential. Serum or plasma urea nitroge n measurement (mass/volume)on 05-02-2022 Urea nitrogen [Mass/Vol] 6 mg/dL 7-18 [facility] Work Phone: Squamous epithelial cells de tection in urine sediment by light microscopyon 05-02-2022 Epithelial cells.squamous LM Ql (Urine sed) 0-5 SEEN /hpf 0-5 [facility] Work Phone: Thin prep Papanicolaou smear with manual screeningon 05-02-2022 Thin prep Papanicolaou smear with manual screening 7 5-15 [facility] Work Phone: Urine blood detectionon 04-09 RBC Ql (U) Negative Negative [facility] Work Phone: RBC Ql (U) 0 SEEN /hpf 0-5 [facility] Work Phone: Urine clarityon 05-02-2022 Clarity (U) Clear Clear [facility] Work Phone: Urine color determinationon 05-02-2022 Color (U) Straw Yellow [facility] Work Phone: Urine glucose detectionon Glucose Ql (U) Normal mg/dl Normal [facility] Work Phone: Urine leukocyte esterase det ection by dipstickon 05-02-2022 Leukocyte esterase Test strip Ql (U) Negative Negative [facility] Work Phone: Urine pHon 05-02-2022 pH (U) 6.5 [pH] 5.0 - 8.0 [facility] Work Phone: Urine sediment bacteria coun t by microscopy (number/high power field)on 05-02-2022 Bacteria LM.HPF (Urine sed) [#/Area] 0 /[HPF] None Seen [facility] Work Phone: Urine specific gravity measu rementon 05-02-2022 Specific gravity (U) [Rel density] 1.005 1.002-1.030 [facility] Work Phone: Urobilinogen Auto test strip Ql (U)on 05-02-2022 Urobilinogen Ql (U) Normal mg/dl Normal [facility] Work Phone: Comp Metabolic Panelon 11-23 Alanine aminotransferase (ALT) 38 U/L Normal 13-69 [facility] [employer] Comment on above: Performed By: #### H [facility], CMP3 ####[facility] [address] [place] [address] Calcium 9.0 mg/dL Normal 8.4-10.2 [facility] Comment on above: Performed By: #### H KD CMP3 ####[place] [address] [place] [address] Alkaline phosphatase (ALP) 125 U/L Normal 38-126 [facility] Comment on above: Performed By: #### H KD, CMP3 ####[place] [address] [place] [address] Anion gap 9 Normal [facility] Comment on above: Performed By: #### H KD, CMP3 ####[place] [address] [place] [address] Aspartate aminotransferase (AST) 35 U/L Normal 15-46 [facility] Comment on above: Performed By: #### H KD CMP3 ####[place] [address] [place] [address] Bilirubin (total) 0.4 mg/dL Normal 0.2-1.3 [facility] Comment on above: Performed By: #### H KD CMP3 ####[place] [address] [place] [address] CO2 27 mmol/L Normal 22-30 [facility] Comment on above: Performed By: #### H KD CMP3 ####[place] [address] [place] [address] Creatinine 0.69 mg/dL Normal 0.52-1.25 [facility] Comment on above: Performed By: #### H KD CMP3 ####[place] [address] [place] [address] eGFR (black) mL/min/{1.73_m2} Normal >60 [facility] Comment on above: Performed By: #### H KD CMP3 ####[place] [address] [place] [address] eGFR (non-black) mL/min/{1.73_m2} Normal >60 [facility] Comment on above: Result Comment: Sour ce- MDRD equation with creatinine calibration to IDMS(NKDEP) eGFR not recommended for drug dose adjustment Performed By: #### H EMDF, CMP3 ####[facility] [place] [address] Glucose mass conc 89 mg/dL Normal 70-100 [facility] Comment on above: Performed By: #### H EMDF, CMP3 ####[facility] [place] [address] Protein 7.7 g/dL Normal 6.3-8.2 [facility] Comment on above: Performed By: #### H EMDF, CMP3 ####[facility] [place] [address] Urea nitrogen 10 mg/dL Normal 7-20 [facility] Comment on above: Performed By: #### H EMDF, CMP3 ####[facility] [place] [address] Potassium molar conc 4.5 mmol/L Normal 3.5-5.1 [facility] Comment on above: Performed By: #### H EMDF, CMP3 ####[place] [address] [place] [address] Sodium 140 mmol/L Normal 137-145 [facility] Comment on above: Performed By: #### H EMDF, CMP3 ####[facility] [place] [address] Albumin 4.1 g/dL Normal 3.5-5.0 [facility] Comment on above: Performed By: #### H EMDF, CMP3 ####[place] [address] [place] [address] Chloride 104 mmol/L Normal 98-107 [facility] Comment on above: Performed By: #### H EMDF, CMP3 ####[facility] [place] [address] Hemogram w/ Autodiffon 11-23 Abs Baso Cnt 0.0 10*3/uL Normal 0.0-0.2 [facility] Comment on above: Performed By: #### H EMDF, CMP3 ####[facility] [place] [address] Basophils/100 WBC Auto (Bld) 0.5 % Normal 0.0-2.0 [facility] Comment on above: Performed By: #### H EMDAurn CMP3 ####[place] [address] [place] [address] Eosinophils 0.1 10*3/uL Normal 0.0-0.5 [facility] Comment on above: Performed By: #### H EMDArun, CMP3 ####[place] [address] [place] [address] Eosinophils/100 leukocytes 1.4 % Normal 1.0-6.0 [facility] Comment on above: Performed By: #### H EMDArun CMP3 ####[place] [address] [place] [address] Erythrocyte distribution width Auto Ratio (RBC) 15.1 % High 11.5-14.5 [facility] Comment on above: Performed By: #### H EMDArun CMP3 ####[place] [address] [place] [address] Erythrocytes (RBC) 4.11 10*6/uL Low 4.40-5.90 [facility] Comment on above: Performed By: #### H EMDArun CMP3 ####[place] [address] [place] [address] Granulocytes/100 WBC (Bld) 64.1 % Normal 40.0-80.0 [facility] Comment on above: Performed By: #### H KD CMP3 ####[place] [address] [place] [address] Hematocrit (HCT) 38.3 % Low 40.0-52.0 [facility] Comment on above: Performed By: #### H KD CMP3 ####[place] [address] [place] [address] Hemoglobin mass conc (Bld) 12.5 g/dL Low 13.0-18.0 [facility] Comment on above: Performed By: #### H EMDArun CMP3 ####[place] [address] [place] [address] Lymphocytes 2.3 10*3/uL Normal 1.0-4.3 [facility] Comment on above: Performed By: #### H EMDArun CMP3 ####[place] [address] [place] [address] Lymphocytes/100 leukocytes 26.7 % Normal 20.0-40.0 [facility] Comment on above: Performed By: #### H EMDF, CMP3 ####[place] [address] [place] [address] MCH 30.4 pg Normal 26.0-34.0 [facility] Comment on above: Performed By: #### H EMDF, CMP3 ####[place] [address] [place] [address] MCHC mass conc (RBC) 32.7 % Normal 32.0-36.0 [facility] Comment on above: Performed By: #### H EMDF, CMP3 ####[address] [place] [address] MCV 93.1 fL Normal 80.0-98.0 [facility] Comment on above: Performed By: #### H EMDF, CMP3 ####[address] [place] [address] Monocytes 0.6 10*3/uL Normal 0.0-0.8 [facility] Comment on above: Performed By: #### H EMDF, CMP3 ####[address] [place] [address] Monocytes/100 leukocytes 7.3 % Normal 2.0-10.0 [facility] Comment on above: Performed By: #### H EMDF, CMP3 ####[address] [place] [address] Neutrophils 5.6 10*3/uL Normal 1.8-7.0 [facility] Comment on above: Performed By: #### H EMDF, CMP3 ####[address] [place] [address] Platelet mean volume (PMV) 8.3 fL Normal 7.4-10.4 [facility] Comment on above: Performed By: #### H EMDF, CMP3 ####[place] [address] [place] [address] Platelets 262 10*3/uL Normal 140-440 [facility] Comment on above: Performed By: #### H EMDF, CMP3 ####[facility] [place] [address] WBC (Leukocytes) 8.7 10*3/uL Normal 3.6-10.7 [facility] Comment on above: Performed By: #### H KAYLEE YI ####[facility] [place] [address] CR Chest Portableon 10-28-19 18 CR Chest Portable Patient Name: KLAUS FARRELL Diagnostic Radiology Exam Date/Time 10/27/2017 04:40:00 EDT Exam CR Chest Portable Ordering Physician ANNE-MARIE ANDREWS Accession Number [id number] CPT4 Codes 94139 () Reason For Exam left lower lobe [...] Transcribed Date and Time: 10/27/2017 9:36 Normal [facility] CR Chest Portableon 10-26-19 18 CR Chest Portable Patient Name: KLAUS FARRELL Diagnostic Radiology Exam Date/Time 10/25/2017 09:27:28 EDT Exam CR Chest Portable Ordering Physician ANNE-MARIE ANDREWS Accession Number [id number] CPT4 Codes 78559 () Reason For Exam aspiration Report CHEST: [...] Transcribed Date and Time: 10/25/2017 11:23 Normal [facility] CR Chest Portableon 10-25-19 18 CR Chest Portable Patient Name: KLAUS FARRELL Diagnostic Radiology Exam Date/Time 10/23/2017 23:45:59 EDT Exam CR Chest Portable Ordering Physician KATIA AYALA JUDITH A. Accession Number [id number] CPT4 Codes 31587 () Reason For Exam NG placement Report [...] Transcribed Date and Time: 10/24/2017 1:33 Normal [facility] CR Chest Portableon 10-23-19 18 CR Chest Portable Patient Name: KLAUS FARRELL Diagnostic Radiology Exam Date/Time 10/22/2017 04:28:56 EDT Exam CR Chest Portable Ordering Physician MD GIA, [facility] Accession Number [id number] CPT4 Codes 33934 () Reason For Exam CHF Report Portable [...] Transcribed Date and Time: 10/22/2017 4:36 Normal [facility] Echo Complete w/wo Contrasto n 10-22-2017 Echo Complete w/wo Contrast Patient Name: KLAUS PETER Ultrasound Exam Date/Time 10/22/2017 09:32:30 EDT Exam Echo Complete w/wo Contrast Ordering Physician FATUMA ASH Accession Number [id number] Reason For Exam angina Report TRANSTHORACIC ECHOCARDIOGRAM PATIENT: Klaus Peter STUDY DATE: 10/22/2017 : 1955 AGE: 62 HT/WT: 177.8 cm (70 94.4 kg in) (207.6 lb) GENDER: M BP: 161 / 98 LOCATION: [facility] PATIENT Inpatient [facility] STATUS: *ORDERING PHYSICIAN: * Fatuma Ash MD *READING PHYSICIAN: * Fatuma Ash MD *INTRANET DEVELOPER: Georgiana Langley --- --- INDICATIONS: Angina Pectoris, [...] 10/22/2017 12:22 pm Signed by: FATUMA ASH [facility] CR Chest Portableon 10-21-19 18 CR Chest Portable Patient Name: KLAUS FARRELL Diagnostic Radiology Exam Date/Time 10/20/2017 19:07:51 EDT Exam CR Chest Portable Ordering Physician MD GIA, [facility] Accession Number [id number] CPT4 Codes 92265 () Reason For Exam Trach Placement Report [...] Transcribed Date and Time: 10/20/2017 7:18 Normal [facility] CR Chest Portable Patient Name: KLAUS FARRELL Diagnostic Radiology Exam Date/Time 10/20/2017 10:07:51 EDT Exam CR Chest Portable [facility]ing [facility] Accession Number [id number] CPT4 Codes 59875 () Reason For Exam sob Report Reason [...] Transcribed Date and Time: 10/20/2017 10:34 Normal [facility] CR Neck Soft Tissueon 2017 CR Neck Soft Tissue Patient Name: KLAUS FARRELL Diagnostic Radiology Exam Date/Time 10/20/2017 10:07:51 EDT Exam CR Neck Soft Tissue Ordering Physician MD KARLA, GABRIELE Peterosn Accession Number [id number] CPT4 Codes 63038 () Reason For Exam stridor Report Reason [...] B Transcribed Date and Time: 10/20/2017 10:[address] [facility] [address] Soft Tissue Neck w/ Contr krystle 10-20-2017 CT Soft Tissue Neck w/ Contrast Patient Name: KLAUS PETER CT Exam Date/Time 10/20/2017 12:23:[address] Soft Tissue Neck w/ Contrast Ordering Physician MD KARAL, GABRIELE Peterson Accession Number [id number] CPT4 Codes 75873 (), Q9967 () Reason For Exam MASS [...] Transcribed Date and Time: 10/20/2017 1:44 Normal [facility] Diagnostic Catherizationon 0 03-28-2017 Diagnostic Catherization Patient Name: KLAUS PETERN: [id number] [facility] Pipe Bending Machine Operator Exam Date/Time 03/28/2017 13:28:46 EDT Exam Diagnostic Catherization Ordering Physician MD SKINNER JUSTIN Accession Number [id number] Reason For Exam Chest pain, unspecified Report [facility] --- --- CARDIAC CATHETERIZATION Patient: Klaus Peter [...] dose: Fluoroscopy dose: 91.1 cGy. Location: Catheterization [facility]. PROCEDURE: 1. Initial setup. The patient was [...] 2. Intravascular ultrasound evaluation, using a .014 [facility] Eye Hab[employer] catheter. 3. Stent placement. A 3.5 mm [...] pm Signed by: MD SKINNER JUSTIN Normal [facility] Diagnostic Catherization Patient Name: KLAUS PETER [facility] Pipe Bending Machine Operator Exam Date/Time 03/28/2017 06:16:03 EDT Exam Diagnostic Catherization Ordering Physician FATUMA ASH Accession Number [id number] Reason For Exam Chest pain, unspecified Report [facility] --- --- CARDIAC CATHETERIZATION Patient: Klaus Peter [...] 03/28/2017 1:32 pm Signed by: FATUMA ASH [facility] Echo Complete w/wo Contrasto n 03-28-2017 Echo Complete w/wo Contrast Patient Name: KLAUS PETER Ultrasound Exam Date/Time 03/28/2017 13:35:35 EDT Exam Echo Complete w/wo Contrast Ordering Physician FATUMA ASH Accession Number [id number] Reason For Exam angina Report TRANSTHORACIC ECHOCARDIOGRAM PATIENT: Klaus Peter STUDY DATE: 03/28/2017 : 1955 AGE: 61 HT/WT: 177.8 cm (70 87.5 kg in) (192.6 lb) GENDER: M BP: 144 / 97 LOCATION: [facility] PATIENT Observation [facility] STATUS: *ORDERING PHYSICIAN: * Fatuma Ash MD *READING PHYSICIAN: * Fatuma Ash MD *INTRANET DEVELOPER: * Sylwia Mendoza --- --- INDICATIONS: Angina [...] 03/29/2017 9:02 am Signed by: FATUMA ASH [facility] CR Chest Portableon 03-27-20 CR Chest Portable Patient Name: KLAUS FARRELL Diagnostic Radiology Exam Date/Time 03/26/2017 22:23:17 EDT Exam CR Chest Portable Ordering Physician MD [facility] Accession Number [id number] CPT4 Codes 72192 () Reason For Exam chest pain Report [...] ANTHONY Transcribed Date and Time: 03/26/2017 10:42 [facility] Vital Signs Date Time Vital Sign Value Performing Clinician Facility 11-11-2024 16:07-0400 Body temperature 97.59 [degF] Christen Chowdary PRESCRIPTIONIST.EIGHT ARM OPERATOR Work Phone: [facility] 11-11-2024 16:07-0400 Body weight 81.7 kg Christen Chowdary PRESCRIPTIONIST.EIGHT ARM OPERATOR Work Phone: [facility] 11-11-2024 16:07-0400 Diastolic blood pressure 72 mm[Hg] Christen Chowdary PRESCRIPTIONIST.EIGHT ARM OPERATOR Work Phone: [facility] 11-11-2024 16:07-0400 Heart rate 98 /min Christen Chowdary PRESCRIPTIONIST.EIGHT ARM OPERATOR Work Phone: [facility] 11-11-2024 16:07-0400 Respiratory rate 18 /min Christen Chowdary PRESCRIPTIONIST.EIGHT ARM OPERATOR Work Phone: [facility] 11-11-2024 16:07-0400 SaO2% (BldA) [Mass fraction] 95 % Christen Chowdary PRESCRIPTIONIST.EIGHT ARM OPERATOR Work Phone: [facility] 11-11-2024 16:07-0400 Systolic blood pressure 122 mm[Hg] Christen Chowdary PRESCRIPTIONIST.EIGHT ARM OPERATOR Work Phone: [facility] 04-09-2023 05:42-0400 Heart rate 79 /min [facility] 04-09-2023 05:42-0400 Respiratory rate 18 /min [facility] 04-09-2023 05:42-0400 SaO2% (BldA) [Mass fraction] 98 % [facility] 04-09-2023 04:52-0400 Body height 177.8 cm [facility] 04-09-2023 04:52-0400 Body mass index (BMI) [Ratio] 21.6 kg/m2 [facility] 04-09-2023 04:52-0400 Body temperature 97 [degF] [facility] 04-09-2023 04:52-0400 Body weight 68.4 kg [facility] 04-09-2023 04:52-0400 Diastolic blood pressure 106 mm[Hg] [facility] 04-09-2023 04:52-0400 Systolic blood pressure 151 mm[Hg] [facility] 05-02-2022 21:39-0400 Body temperature 97.8 [degF] [facility] Work Phone: 05-02-2022 21:39-0400 Diastolic blood pressure 63 mm[Hg] [facility] Work Phone: 05-02-2022 21:39-0400 Heart rate 86 /min [facility] Work Phone: 05-02-2022 21:39-0400 Respiratory rate 19 /min [facility] Work Phone: 05-02-2022 21:39-0400 SaO2% (BldA) [Mass fraction] 95 % [facility] Work Phone: 05-02-2022 21:39-0400 Systolic blood pressure 105 mm[Hg] [facility] Work Phone: 05-02-2022 17:49-0400 Body height 182.88 cm [facility] Work Phone: 05-02-2022 17:49-0400 Body mass index (BMI) [Ratio] 24.4 kg/m2 [facility] Work Phone: 05-02-2022 17:49-0400 Body weight 81.64 kg [facility] Work Phone: Encounters Encounter Date Encounter Type Care Provider Facility Start: 11-11-2024 End: 11-11-2024 Subsequent hospital visit by physician X[facility] Work Phone: Radiology Comment on above: Acute cough [R05.1] Start: 11-11-2024 End: 11-11-2024 Patient encounter procedure Christen Chowdary APRN.EIGHT ARM OPERATOR Work Phone: [facility] Care Comment on above: Acute cough (Primary Dx); COPD with exacerbation (HCC) Start: 11-11-2024 End: 11-11-2024 ambulatory CHRISTEN JUAN MANUEL Facility:[facility] Start: 11-11-2024 End: 11-11-2024 Follow-up encounter Flor HACKETT Work Phone: [facility] Start: 09-02-2024 End: 09-02-2024 ambulatory Cheyenne Bacon MA [facility] Start: 09-02-2024 End: 09-02-2024 Patient encounter procedure Cheyenne Bacon MA [facility] Comment on above: Population Health Na vigation Outreach ([employer] Unknown PCP/) Start: [facility] Start: 06-11-2024 End: 06-11-2024 ambulatory [facility] Facility:[facility] Start: 03-01-2024 End: 03-01-2024 Emergency department patient visit Jf Belle Facility:[facility] Start: 04-09-2023 End: 04-09-2023 Emergency department patient visit [facility] Work Phone: Start: 10-12-2022 End: 10-12-2022 Subsequent hospital visit by physician Xr [facility] Work Phone: Radiology Comment on above: Subacute cough [R05. 2] Start: 05-02-2022 Evaluation and manag ement of inpatient [facility] Start: 05-02-2022 observation encounter [facility] Work Phone: Start: 12-04-2017 Ambulatory Zaheer Garcia [facility] Start: 11-26-2017 Ambulatory Marek Berry [facility] Start: 11-23-2017 Emergency department patient visit PROVIDER UNKNOWN [facility] Start: 10-20-2017 Evaluation and manag ement of inpatient PROVIDER UNKNOWN [facility] Start: 03-28-2017 Evaluation and manag ement of inpatient PROVIDER UNKNOWN [facility] Procedures Date Procedure Procedure Detail Performing Clinician Start: 11-11-2024 Radiologic exam ches t 2 views Christen Chowdary APRN.CNP Work Phone: Start: 10-12-2022 Radiologic exam ches t 2 views Darien Tee MD Work Phone: Start: 05-02-2022 Plain chest X-ray Start: 12-13-2018 Lipid 1996 panel - S jama or Plasma [facility] Work Phone: Plan of Treatment Date Care Activity Detail Author Start: 03-01-2034 Urine microalbumin profile DTaP,Tdap,Td Vaccine (3 - Td or Tdap) [facility] Start: 2032 RSV Vaccine (1 - 1-dose 75+ series) RSV Vaccine (1 - 1-dose 75+ series) [facility] Start: 02-07-2029 Urine microalbumin profile DTaP,Tdap,Td Vaccine (2 - Td or Tdap) [facility] Start: 03-09-2025 Influenza vaccination Influenza Vaccine (Season Ended) [facility] Start: 07-09-2024 Advance Directive Discussion Advance Directive Discussion [facility] Start: 03-09-2024 Covid-19 Vaccine ( season) Covid-19 Vaccine ( season) [facility] Start: 03-09-2024 Influenza vaccination [facility] Start: 12-14-2023 Lipid panel Lipid Screening [facility] Start: 07-09-2023 Advance Directive Discussion Advance Directive Discussion [facility] Start: 06-27-2023 Pneumococcal Vaccine: 50+ (3 of 3 - PCV20 or PCV21) Pneumococcal Vaccine: 50+ (3 of 3 - PCV20 or PCV21) [facility] Start: 06-27-2023 Pneumococcal Vaccine: 65+ (3 of 3 - PPSV23 or PCV20) Pneumococcal Vaccine: 65+ (3 of 3 - PPSV23 or PCV20) [facility] Start: 05-02-2022 Following clinical pathway protocol [facility] Work Phone: Start: 05-02-2022 Troponin I measurement [facility] Work Phone: Start: 05-02-2022 [facility] Work Phone: Start: 12-13-2021 Diabetes Screening Diabetes Screening [facility] Start: 2012 Prostate specific antigen measurement Prostate Cancer Screening Discussion [facility] Start: 10-16-2007 Shingrix Vaccine (1 of 2) Shingrix Vaccine (1 of 2) [facility] Start: 2002 Prostate specific antigen measurement Prostate Cancer Screening Discussion [facility] Start: 2002 Screening for malignant neoplasm of colon [facility] Start: 10-16-1975 Anxiety Screening Anxiety Screening [facility] Start: 10-16-1975 Depression Screening Depression Screening [facility] Start: 10-16-1975 Hepatitis C screening Hepatitis C Screening [facility] Start: 1955 Abdominal aortic aneurysm screening Abdominal Aortic Aneurysm Screening [facility] Patient Education ED Anxiety Reaction [facility] Work Phone: Patient referral [facility] Work Phone: Troponin I measurement [facility] Work Phone: Immunizations Immunization Date Immunization Notes Care Provider Fa cility 02-07-2019 tetanus toxoid, redu hugh diphtheria toxoid, and acellular pertussis vaccine, adsorbed [facility] 04-08-2018 Influenza virus vaccine [facility] 04-08-2018 pneumococcal conjuga te vaccine, 13 valent [facility] 04-08-2018 influenza virus vaccine, unspecified formulation [facility] Work Phone: [facility] Payers Date Payer Category Payer Medicaid [id number] 2024 Self-pay [id number] 2022 Medicare 2022 Medicare (Managed Care) [employer] [id number] 2022 Medicare [id number] Medicare MEDICARE PART A B [id number] Medicare [employer] MEDICARE PPO [id number] Unknown [id number] Unknown [id number] Unknown [id number] Social History Date Type Detail Facility Start: 05-02-2022 End: 04-09-2023 Tobacco smoking status COIS Unknown if ever smoked [facility] Start: 02-20-2019 Heavy [facility] Start: 02-20-2019 None [facility] Start: 02-20-2019 Alone [facility] Start: 02-21-2019 Cigarettes [facility] Start: 1955 Sex Assigned At Male [facility] Start: 10-12-2022 [facility] History of tobacco use Cigarette Smoker [facility] Start: 10-12-2022 Tobacco use and exposure Smokeless tobacco non-user [facility] Start: 10-12-2022 History of Social function [facility] Start: 10-12-2022 Tobacco use panel [facility] Start: 1955 Sex assigned at Not on file [facility] Medical Equipment Procedure Code Equipment Code Equipment Origin al Text Equipment Identifier Dates ([id number]) Drug-eluting coronary artery stent, bioabsorbable-polyme r-coated ()[id number] FDA Start: 07-08-2021 ([id number]) Drug-eluting coronary artery stent, bioabsorbable-polyme r-coated ()[id number] FDA Start: 07-08-2021 Mental Status Date Assessment Result Facility 05-02-2022 Cognitive function Voice/Name [facility] Work Phone: Clinical Notes 10-12-2022 to 11-11-2024 Telephone Encounter - Zoila Langston RN - 11/11/2024 5:18 PM EDTTelephone Encounter - Zoila Langston RN - 11/11/2024 5:18 PM Reny Salcido Tech - 11/11/2024 4:40 PM EDT Note Date & Type Note Facility 11-11-2024 Telephone encount er Note PATIENT NOTIFIED OF INFORMATION [facility] 11-11-2024 Miscellaneous Notes Formattin g of this [...] evaluation of this. documented in this encounter [facility] 11-11-2024 Telephone encount er Note Called patient left voicemail to return call. If patient returns call, please let him know that chest x-ray revealed no pneumonia. Continue medications given at visit. His x-ray did reveal small amount of fluid on the lungs. He needs close follow-up with PCP within 1 week for evaluation of this. [facility] Work Phone: 11-11-2024 History of Presen t [...] PATIENT PRESENTS WITH AN IMPLANTABLE OR ATTACHED VALET PARKER: No RADIOLOGY DEPARTMENT: General X-ray: Exam(s) Completed: Chest X-Ray PERIPHERAL IV DATA: Not applicable SIGNED BY: Marcie Gilmore November 11, 2024 4:34 PM documented in this encounter [facility] 11-11-2024 Note HNO ID: [id number] Author: RENY SAMPSON Tech Service: ? Author [...] PATIENT PRESENTS WITH AN IMPLANTABLE OR ATTACHED VALET PARKER: No RADIOLOGY DEPARTMENT: General X-ray: Exam(s) Completed: Chest X-Ray PERIPHERAL IV DATA: Not applicable SIGNED BY: Marcie Gilmore November 11, 2024 4:34 PM [facility] 11-11-2024 Note HNO ID: [id number] Author: CHRISTEN CHOWDARY APRN.KATIA Service: ? Author [...] history is provided by the patient. No assistant speech language pathologist was used. Cough This is a new [...] to person, sb (more content not included)... [facility] 11-11-2024 History of Presen t illness [...] history is provided by the patient. No assistant speech language pathologist was used. Cough This is a new [...] red flags F/U with PCP Christen Chowdary APRN.EIGHT ARM OPERATOR MDM Procedures documented in this encounter [facility] 09-02-2024 Note HNO ID: [id number] Author: CHEYENNE BACON MA Service: ? Author Type: Food And Drug Research Scientist Type: Progress Notes Filed: 09/02/2024 12:40 Note Text: POPULATION HEALTH NAVIGATION OUTREACH Action/FYI Upon reviewing the patient's chart, it was found in Care Everywhere that his current PCP is EMILY Mcwilliams with [facility]. PCP field updated. Reason for Outreach Attribution: Unknown PCP Report Care Gaps due: N/A Patient Contacted: Unable or unnecessary to reach patient: PCP field updated Outside PCP Navigation Signature: Cheyenne Bacon MA September 02, 2024 12:39 PM [facility] 09-02-2024 History of Presen t illness Narrative POPULATION HEALTH NAVIGATION OUTREACH Action/FYI Upon reviewing the patient's chart, it was found in Care Everywhere that his current PCP is EMILY Mcwilliams with [facility]. PCP field updated. Reason for Outreach Attribution: Unknown PCP Report Care Gaps due: N/A Patient Contacted: Unable or unnecessary to reach patient: PCP field updated Outside PCP Navigation Signature: Cheyenne Bacon MA September 02, 2024 12:39 PM documented in this encounter [facility] 09-02-2024 Note Patient Outreach (NE TNAV) KLAUS PETER ([id number]) 1955 M Date Time Provider Department 09/02/24 CHEYENNE BACON [facility] During your visit today, we recorded the following information about you: Cheyenne Bacon MA 09/02/2024 12:40 PM Signed POPULATION HEALTH NAVIGATION OUTREACH Action/FYI Upon reviewing the patient's chart, it was found in Care Everywhere that his current PCP is EMILY Mwcilliams with [facility]. PCP field updated. Reason for Outreach Attribution: [...] Encounter Status:Closed by CHEYENNE BACON on 09/02/24 [facility] 04-09-2023 Discharge summary Note Date/Time April 09, 2023 5:06am [facility] Medical Records Department [address] [place] [address] Emergency Department Summary 04/09/23 MR#: [id number] Acct: [id number] Name: KLAUS PETER Rep #:[id number] : [id number] 67 From: Coleman Woodard PCP: Dr. Nubia Licea Status:PRE ER Location: ED HPI History of Present Illness Chief Complaint: Anxiety PFSH [facility] Medical History (Updated 05/11/22 @ 00:10 by Background Dasusi) Acute ST elevation myocardial infarction Alcohol abuse Atherosclerotic heart disease of [place] coronary artery without angina pectoris Essential hypertension [...] reviewed, Vital signs reviewed Constitutional: please see [facility] HENT: MMM Eyes: Pupils equal round and [...] History obtained from others: none Consults: none [facility] Narrative: Patient was initially mildly hypertensive [...] your Primary Care Provider. Call [facility] ([phone]) or report to the closest Emergency Room. Call 911 if necessary. 04/09/23 05 <Electronically signed by Coleman Coleman DO> Cosigner Signature (if applicable): CC: Dr. Nubia Licea ~ Signed [facility] Work Phone: [phone]) 301-428204-06-2023 History of Present illness Narrative* Danna Murdock [...] 12, 2022 10:55 AM [facility] noteNo assessment information availableW[facility]erm[facility] Work Phone: Evaluation note* Diagnosis Subacute cough Cough documented in this encounter [facility] note* Diagnosis Acute cough- Primary COPD with exacerbation (HCC) Obstructive chronic bronchitis with exacerbation Acute cough documented in this encounter [facility] note* Diagnosis [facility] Additional Instructions Thank you for [...] care physician for further outpatient evaluation and management.[facility] Work Phone: Reason for visit Narrative* Diagnostic Procedure Only (Routine) - Denied Specialty Diagnoses / Procedures Referred By Contac t Referred To Contact Radiology / [facility] Diagnoses Dx: Subacute cough [R05.2] Procedures XR CHEST Darien Tee MD [address] [place] [address] [facility] [address] [place] [address] Referral ID Status Reason Start Date Expiration Date Visits Re quested Visits Authorized [id number] Denied 10/12/2022 01/10/2023 1 0 [facility] Summary Purpose Family History No Family History Records Found Relationship Condition Age at Onset Recorded Date/T daniella father Cardiac disease Unknown mother Alzheimer's disease Unknown brother Chronic obstructive pulmonary disease Unk nown brother Cardiac disease Unknown sister Malignant neoplasm Unknown Advance Directives No Advanced Directives Records Found Advance Directive Response Recorded Date/ Time Living Will No May 02 6:57pm Power of Health Assistant No May 02, 2022 6:57pm Advance Directive Response Recorded Date/ Time Living Will No April 09 3 4:55am Power of Health Assistant No April 09 023 4:55am Chief Complaint and Reason for Visit Chief Complaint CHEST PAIN Chief Complaint anxiety Additional Source Comments (unrecognized sect ion and content) No Status Records FoundNo Status Records FoundNo Status Records Found INFORMATION SOURCE (unrecogn ized section and content) DATE CREATED AUTHOR 12/26/2017 [facility] DATE CREATED AUTHOR AUTHOR'S ORGANIZ ATION 08/10/2024 [facility] DATE CREATED AUTHOR AUTHOR'S ORGANIZ ATION 11/14/2024 [facility] Goals (unrecognized section and content) Goals [...] Coleman Coleman , DO Emergency Provider Active Candy Attendant Relationship Specialty Start Date End Date Christen Zambrano NP [address] [place] [address] PCP - General Family Medicine 09/02/24 Candy Attendant Relationship Specialty Start Date End Date Christen Zambrano NP [address] [place] [address] PCP - General Family Medicine 09/02/24 Candy Attendant Relationship Specialty Start Date End Date Christen Zambrano NP [address] [place] [address] PCP - General Family Medicine 09/02/24 Candy Attendant Relationship Specialty Start Date End Date Christen Zambrano NP [address] [place] [address] PCP - General Family Medicine 09/02/24 Source Comments (unrecognize d section and content) In the event this informatio n is protected by the Federal Confidentiality of Alcohol and Drug Abuse Patient Records regulations: The Federal rules restrict any use of the information to criminally investigate or prosecute any alcohol or drug abuse patient.[facility] the event this information is protected by the Federal Confidentiality of Alcohol and Drug Abuse Patient Records regulations: The Federal rules restrict any use of the information to criminally investigate or prosecute any alcohol or drug abuse patient.[facility] the event this information is protected by the Federal Confidentiality of Alcohol and Drug Abuse Patient Records regulations: The Federal rules restrict any use of the information to criminally investigate or prosecute any alcohol or drug abuse patient.[facility] the event this information is protected by the Federal Confidentiality of Alcohol and Drug Abuse Patient Records regulations: The Federal rules restrict any use of the information to criminally investigate or prosecute any alcohol or drug abuse patient.[facility] the event this information is protected by the Federal Confidentiality of Alcohol and Drug Abuse Patient Records regulations: The Federal rules restrict any use of the information to criminally investigate or prosecute any alcohol or drug abuse patient.[facility] Reason for Visit (unrecogniz ed section and [...] BE BASED ON THE PRIMARY CLINICAL RECORDS. [facility] [employer] [facility]. provides no warranty or guarantee of the accuracy or completeness of information in this document.
[2025-01-09 20:20] LABS: Troponin T High Sens 2 HR 11 ng/L (<=22)
--- NOTE | 2025-01-09 20:47 | ECHOD_ITS ---
Reason For Study Reason For Study: CONGESTIVE HEART FAILURE Procedure This was a 2D Doppler, Color Flow transthoracic echocardiogram. The study was technically difficult. No IV access to use Definity. Exam performed portable in patient room. Left Ventricle Normal LV size. The left ventricular ejection fraction is 45 %. [place] : Hypokinetic. Inferior [place] : Hypokinetic. Mid- Posterior: Mildly hypokinetic. Posterior-Basal: Mildly hypokinetic. There are regional wall motion abnormalities as specified. Right Ventricle Normal RV size. Normal systolic function. Atria Normal left atrium. Normal right atrium. Mitral Valve There is moderate mitral annular calcification. Tricuspid Valve Normal tricuspid valve. Aortic Valve The aortic valve is not well visualized. Pulmonic Valve The pulmonic valve is not well visualized. Great Vessels Normal aortic root. Pericardium/Pleural No pericardial effusion. Medication No IV access to utilize Definity. MMode/2D Measurements & Calculations LVIDd: 4.4 cm IVSd: 1.0 cm LVOT diam: 1.9 cm LVIDs: 3.2 cm LVPWd: 0.87 cm RVDd: 2.8 cm FS: 28.0 % LVOT area: 2.9 cm2 LAV(MOD-bp): 28.5 ml LVAd ap4: 25.3 cm2 SV(MOD-sp4): 29.2 ml LAV(MOD-bp) Indexed: 15.0 ml/m2 LVLd ap4: 7.7 cm SI(MOD-sp4): 15.4 ml/m2 LAV(MOD-sp2): 35.7 ml EDV(MOD-sp4): 67.5 ml LAV(MOD-sp4): 20.9 ml EDV(sp4-el): 70.9 ml LVAs ap4: 17.8 cm2 LVLs ap4: 6.7 cm ESV(MOD-sp4): 38.3 ml ESV(sp4-el): 40.0 ml EF(MOD-sp4): 43.2 % EF(sp4-el): 43.5 % SV(sp4-el): 30.9 ml LA A4 area: 10.5 cm2 LA dimension(2D): 3.2 cm RA A4 area: 8.1 cm2 TAPSE: 1.7 cm Time Measurements MV dec time: 0.14 sec Doppler Measurements & Calculations MV E max vargas: 72.2 cm/sec Lat Peak E' Vargas: 9.3 cm/sec MV dec slope: 509.9 cm/sec2 MV A max vargas: 117.6 cm/sec E/E' lat: 7.8 MV E/A: 0.61 Ao V2 max: 147.5 cm/sec LV V1 max: 95.8 cm/sec SV(LVOT): 52.6 ml Ao max P.7 mmHg LV V1 max P.7 mmHg Ao V2 mean: 111.4 cm/sec LV V1 mean P.1 mmHg Ao mean P.2 mmHg LV V1 mean: 70.0 cm/sec Ao V2 VTI: 28.0 cm LV V1 VTI: 18.0 cm AV (velocity ratio): 0.64 GREGORIA(I,D): 1.9 cm2 GREGORIA(V,D): 1.9 cm2 ECHO/Echo Complete Interpretation Summary The left ventricular ejection fraction is 45 %. Normal LV size. There are regional wall motion abnormalities as specified. There is moderate mitral annular calcification. Ordering Physician: Nick Monk Performed By: Iris Solis RDCS
[2025-01-09 20:56] LABS: Reflex Lactate? Y
[2025-01-09 21:03] LABS: Prothrombin Time (Protime)PT. 15.0 SECONDS (11.7-14.9)
[2025-01-09 21:23] LABS: Magnesium 2.0 mg/dL (1.5-2.2)
--- OUTSIDE RECORDS SUMMARY | 2025-01-09 21:29 | XMS RPT_ITS | CCD ---
Author Organization [facility] Care Team Providers Care Logistics And Planning Manager Name Role Phone UNKNOWN, PROVIDER Unavailable Unavailable Fracasso, Riky Unavailable Unavailable Karlian, Nixontojayah Unavailable Unavailable UNKNOWN, PROVIDER Unavailable Unavailable Fracasso, Riky Unavailable Unavailable Rupert Holland Unavailable Unavailable UNKNOWN, PROVIDER Unavailable Unavailable Fracasso, Riky Unavailable Unavailable PROVIDER, UNKNOWN Unavailable Unavailable Marek Berry Unavailable Unavailable UNKNOWN, PROVIDER Unavailable Unavailable Fracasso, Riky Unavailable Unavailable Zaheer Garcia Unavailable Unavailable UNKNOWN, PROVIDER Unavailable Unavailable Fracasso, Riky Unavailable Unavailable Unavailable Primary Care Provider Unavailabl e Sari VSC, Yasmeen Primary Care Unavailabl e Sari VSC, Yasmeen Referring Unavailabl e Sari VSC, Yasmeen Attending Unavailabl e Sari VSC, Yasmeen Primary Care Unavailabl e Sari VSC, Yasmeen Attending Unavailabl e Reodica, Jf Attending Unavailable Nubia Licea Primary Care Unavailable Sari DRIVE WORKER, Yasmeen Primary Care Provider SARI, YASMEEN Primary Care Unavailable CHOWDARYTAHIR GONZALEZYASMEEN Attending Unavailable SARI, YASMEEN Primary Care Unavailable CHOWDARY YASMEEN Referring Unavailable Dr. Coleman Coleman DO Emergency Provider Care Physician, No Primary Primary Care Provider Unavailable Dr. Nick Monk DO Admit Provider Unavail able Dr. Nick Monk DO Attending Provider Unav ailable Allergies Allergy Classification Reported Allergen(s) Allergy Type Date of Onset Reaction(s) Facility (3 sources) Lisinopril Drug Allergy 05-02-2022 COUGH [facility] Comment on above: COUGH (1 source) Lisinopril Drug Allergy 03-01-2024 [facility] Repository Medications Current Medications Medication Drug Class(es) Dates Sig (Normalized) Sig (Original) [id number] 200 actuat albuterol 0.09 mg/actuat metered dose [...] Active hydrOXYzine pamoate 25 mg oral capsule (2 sources) Antihistamine Start: 04-09-2023 take 1 capsule by mouth three times daily as needed for anxiety Hydroxyzine Pamoate (Vistaril) 25 mg capsule Active 25 mg PO THREE TIMES A DAY as needed for anxiety 21 April 09, 2023 12:00am predniSONE 10 mg [...] Sig (Original) aspirin 81 mg chewable tablet (6 sources) Platelet Aggregation Inhibitor, Nonsteroidal Anti-inflammatory Drug Start: 07-11-2021 End: 04-09-2023 take 1 tablet by mouth at breakfast Aspirin 81 mg tablet,chewable Discontinued 81 mg PO WITH BREAKFAST 90 July 21, 2021 5:01pm April 09, 2023 4:59am atorvastatin 80 mg oral tablet (9 sources) HMG-CoA Reductase Inhibitor Start: 07-11-2021 End: 04-09-2023 take 1 tablet by mouth at bedtime Atorvastatin 80 mg tablet Discontinued 80 mg PO AT BEDTIME 90 July 21, 2021 5:00pm April 09, 2023 4:59am pt lost hospital RX Start: 02-20-2019 End: 08-12-2019 take 1 tablet by mouth once daily Atorvastatin 20 MG tablet Discontinued 20 mg PO DAILY February 20, 2019 12:00am August 12, 2019 6:17pm clopidogrel 75 mg oral tablet (3 sources) P2Y12 Platelet Inhibitor Start: 02-20-2019 End: 08-12-2019 take 1 tablet by mouth once daily Clopidogrel 75 MG tablet Discontinued 75 mg PO DAILY February 20, 2019 12:00am August 12, 2019 6:17pm dexlansoprazole 30 mg delayed release oral capsule (3 sources) Proton Pump Inhibitor Start: 02-20-2019 End: 08-12-2019 take 1 capsule by mouth once daily Dexlansoprazole 30 MG capsule,biphase delayed releas Discontinued 30 mg PO DAILY February 20, 2019 12:00am August 12, 2019 6:17pm losartan potassium 25 mg oral tablet (9 sources) Angiotensin 2 Receptor Gonzalo Start: 07-11-2021 End: 04-09-2023 take 1 tablet by mouth once daily Losartan 25 mg tablet Discontinued 25 mg PO DAILY 90 July 21, 2021 5:00pm April 09, 2023 4:59am Pt lost hospital RX Start: 02-20-2019 End: 08-12-2019 take 1 tablet by mouth once daily Losartan 50 MG tablet Discontinued 50 mg PO DAILY February 20, 2019 12:00am August 12, 2019 6:16pm metoprolol tartrate 25 mg oral tablet (9 sources) beta-Adrenergic Gonzalo Start: 07-11-2021 End: 04-09-2023 take 1 tablet by mouth twice daily Metoprolol Tartrate 25 mg tablet Discontinued 25 mg PO TWICE A DAY 180 July 21, 2021 5:00pm April 09, 2023 4:59am pt lost hospital RX Start: 02-20-2019 End: 08-12-2019 take 1 tablet by mouth once daily Metoprolol Succinate 100 MG tablet extended release 24 hr Discontinued 100 mg PO DAILY February 20, 2019 12:00am August 12, 2019 6:17pm PARoxetine hydrochloride 40 mg oral tablet (3 sources) Serotonin Reuptake Inhibitor Start: 03-28-2019 End: 08-12-2019 take 1 tablet by mouth once daily Paroxetine Hcl 40 MG tablet Discontinued 40 mg PO DAILY 30 March 28, 2019 12:00am August 12, 2019 6:18pm ticagrelor 90 mg oral tablet (6 sources) Start: 07-11-2021 End: 04-09-2023 take 1 tablet by mouth twice daily Ticagrelor (Brilinta) 90 mg tablet Discontinued 90 mg PO TWICE A DAY 60 July 21, 2021 5:01pm April 09, 2023 4:59am Problems Active Problems Problem Classification Problem Date Documented Da te Episodic/Chronic Abdominal hernia (2 sources) Diaphragmatic hernia without obstruction or gangrene; Translations: [Diaphragmatic hernia without obstruction or gangrene] Onset: 8 Episodic Abdominal pain (2 sources) Unspecified abdominal pain; Translations: [Unspecified abdominal pain] Onset: 8 Episodic Acute cerebrovascular disease (3 sources) Cerebrovascular accident; Translations: [Cerebral infarction, unspecified] 01-24-2020 Chronic Acute myocardial infarction (2 sources) Non-ST elevation (NSTEMI) myocardial infarction; Translations: [Non-ST elevation (NSTEMI) myocardial infarction] Onset: 7 Chronic Administrative/social admission (3 sources) Repeated prescription; Translations: [Encounter for issue of repeat prescription] 03-29-2019 Episodic Alcohol-related disorders (5 sources) Alcohol dependence with withdrawal delirium; Translations: [Alcohol abuse] Onset: 8 05-02-2022 Chronic Alcohol-related disorders (3 sources) Alcohol intoxication; Translations: [Alcohol use, unspecified with intoxication, unspecified] 02-09-2019 Episodic Allergic reactions (4 sources) Allergy status to other drugs, medicaments and biological substances status; Translations: [Allergy status to narcotic agent status] Onset: 8 Episodic Anxiety disorders (7 sources) Other specified anxiety disorders; Translations: [Anxiety disorder, unspecified] Onset: 8 01-25-2020 Chronic Bacterial infection (2 sources) Personal history of Methicillin resistant Staphylococcus aureus infection; Translations: [Personal history of methicillin resis staph infection] Onset: 8 Episodic Chronic obstructive pulmonary disease and bronchiectasis (2 sources) Acute exacerbation of chronic obstructive airways disease; Translations: [Chronic obstructive pulmonary disease with (acute) exacerbation] Onset: 5 11-11-2024 Chronic Complications of surgical procedures or medical care (2 sources) Gastrostomy infection; Translations: [Gastrostomy infection] Onset: 8 Episodic Conditions associated with dizziness or vertigo (3 sources) Dizziness; Translations: [Dizziness and giddiness] 01-25-2020 Episodic Congestive heart failure; nonhypertensive (2 sources) Acute exacerbation of chronic congestive heart failure; Translations: [Heart failure, unspecified] 01-09-2025 Chronic Coronary atherosclerosis and other heart disease (16 sources) Atherosclerotic heart disease of [place] coronary artery without angina pectoris; Translations: [Atherosclerotic heart disease of [place] coronary artery with unspecified angina pectoris] Onset: 7 01-24-2020 Chronic Diabetes mellitus without complication (2 sources) Hyperglycemia, unspecified; Translations: [Hyperglycemia, unspecified] Onset: 8 Episodic Disorders of lipid metabolism (2 sources) Hyperlipidemia, unspecified; Translations: [Hyperlipidemia, unspecified] Onset: 8 Chronic E Codes: Fall (2 sources) Fall; Translations: [Unspecified fall, initial encounter] 01-09-2025 Episodic Essential hypertension (2 sources) Essential (primary) hypertension; Translations: [Essential (primary) hypertension] Onset: 8 Chronic External Injury - Fall (2 sources) Unspecified fall, initial encounter; Translations: [Unspecified fall, initial encounter] Onset: 8 Fluid and electrolyte disorders (4 sources) Hyponatremia; Translations: [Hypo-osmolality and hyponatremia] 01-09-2025 Episodic Malaise and fatigue (2 sources) Asthenia; Translations: [Weakness] 01-09-2025 Episodic Mood disorders (2 sources) Major depressive disorder, recurrent, unspecified; Translations: [Major depressive disorder, recurrent, unspecified] Onset: 7 Chronic Nonspecific chest pain (5 sources) Chest pain, unspecified; Translations: [Chest pain] Onset: 7 02-20-2019 Episodic Open wounds of extremities (2 sources) Open bite of left hand, initial encounter; Translations: [Dog bite of hand] Onset: 4 03-09-2024 Episodic Other aftercare (6 sources) guidance secretary (current) use of antithrombotics/antipl atelets; Translations: [Encounter for palliative care] Onset: 8 Episodic Other circulatory disease (2 sources) Personal history of transient ischemic attack (TIA), and cerebral infarction without residual deficits; Translations: [Prsnl hx of TIA (TIA), and cereb infrc w/o resid deficits] Onset: 8 Episodic Other fractures (2 sources) Fracture of other parts of neck, initial encounter; Translations: [Fracture of other parts of neck, initial encounter] Onset: 8 Episodic Other gastrointestinal disorders (2 sources) Encounter for attention to gastrostomy; Translations: [Encounter for attention to gastrostomy] Onset: 8 Chronic Other gastrointestinal disorders (4 sources) Dysphagia, oropharyngeal phase; Translations: [Dysphagia, unspecified] Onset: 8 Episodic Other gastrointestinal disorders (2 sources) Constipation; Translations: [Constipation, unspecified] 01-09-2025 Episodic Other injuries and conditions due to external causes (2 sources) History of falling; Translations: [History of falling] Onset: 8 Episodic Other lower respiratory disease (2 sources) Other specified respiratory disorders; Translations: [Other specified respiratory disorders] Onset: 8 Episodic Other lower respiratory disease (1 source) Cough; Translations: [Subacute cough] 10-12-2022 Episodic Other lower respiratory disease (2 sources) Cough; Translations: [Acute cough] 11-11-2024 Episodic Other nervous system disorders (2 sources) Walking disability; Translations: [Difficulty in walking, not elsewhere classified] 01-09-2025 Chronic Other nervous system disorders (2 sources) Shuffling gait; Translations: [Other abnormalities of gait and mobility] 01-09-2025 Episodic Other non-traumatic joint disorders (1 source) Pain in right shoulder; Translations: [Pain in right shoulder] Onset: 5 Episodic Other nutritional; endocrine; and metabolic disorders (2 sources) Obesity, unspecified; Translations: [Obesity, unspecified] Onset: 8 Chronic Other nutritional; endocrine; and metabolic disorders (2 sources) Hypoalbuminemia; Translations: [Other disorders of plasma-protein metabolism, not elsewhere classified] 01-09-2025 Chronic Other screening for suspected conditions (not mental disorders or infectious disease) (3 sources) Encounter for screening for diabetes mellitus; Translations: [Imaging of gastrointestinal tract abnormal] Onset: 5 01-09-2025 Episodic Other skin disorders (3 sources) Mass of neck; Translations: [Localized swelling, mass and lump, neck] 10-20-2017 Episodic Pleurisy; pneumothorax; pulmonary collapse (2 sources) Atelectasis; Translations: [Atelectasis] Onset: 8 Episodic Pneumonia (2 sources) Pneumonia due to Methicillin resistant Staphylococcus aureus; Translations: [Pneumonia due to Methicillin resistant Staphylococcus aureus] Onset: 8 Episodic Residual codes; unclassified (1 source) Left against medical advice; Translations: [Procedure and treatment not carried out because of patient's decision for other reasons] 03-09-2024 Episodic Residual codes; unclassified (2 sources) Patient noncompliance - general; Translations: [General patient noncompliance] 01-09-2025 Episodic Residual codes; unclassified (2 sources) Tobacco user; Translations: [Tobacco use] 01-09-2025 Episodic Respiratory failure; insufficiency; arrest (2 sources) Acute respiratory failure with hypoxia; Translations: [Acute respiratory failure with hypoxia] Onset: 8 Episodic Skin and subcutaneous tissue infections (2 sources) Cellulitis of abdominal wall; Translations: [Cellulitis of abdominal wall] Onset: 8 Episodic Spondylosis; intervertebral disc disorders; other back problems (2 sources) Cervicalgia; Translations: [Cervicalgia] Onset: 8 Episodic Substance-related disorders (2 sources) Nicotine dependence, cigarettes, uncomplicated; Translations: [Nicotine dependence, cigarettes, uncomplicated] Onset: 8 Chronic Unclassified (2 sources) Body mass index (BMI) 31.0-31.9, adult; Translations: [Body mass index (BMI) 31.0-31.9, adult] Onset: 8 Chronic Unclassified (4 sources) Physical restraint status; Translations: [Procedure and treatment not carried out, unspecified reason] Onset: 8 Episodic Unclassified (2 sources) Stenosis of coronary artery stent, initial encounter; Translations: [Stenosis of coronary artery stent, initial encounter] Onset: 7 Unclassified (2 sources) Acute respiratory distress; Translations: [Acute respiratory distress] Onset: 8 Unclassified (2 sources) Pain due to other internal prosthetic devices, implants and grafts, initial encounter; Translations: [Pain due to other internal prosth dev/grft, init] Onset: 8 Unclassified (2 sources) Pure hypercholesterolemia, unspecified; Translations: [Pure hypercholesterolemia, unspecified] Onset: 7 Unclassified (1 source) Acute cough; Translations: [Acute cough] Onset: 5 Past or Other Problems Problem Classification Problem Date Documented Da te Episodic/Chronic Coronary atherosclerosis and other heart disease (5 sources) Presence of coronary angioplasty implant and graft; Translations: [Past history of procedure] Onset: 12-04-2017 07-11-2021 Episodic Comment on above: . Acute inferior ST segment elevation myocardial infarction related to 100% acute thrombotic occlusion of previously stented proximal right coronary artery. There was LORNE 0 flow prior to the procedure2. With a combination of aspiration thrombectomy and balloon inflation, and stenting, final result with 0% residual stenosis and LORNE-3 flow. Results Test Name Value Interpretation Reference Range Facility Anion gap in Serum or Plasma Ordered By: Coleman Coleman on 01-09-2025 Anion gap [Moles/Vol] 13 mmol/L 5-15 [facility] BUN/creatinine ratioOrdered By: Coleman Coleman on 01-09-2025 Urea nitrogen/Creatinine [Mass ratio] 28.8 mg/mg High 10-20 [facility] Bilirubin directOrdered By: Coleman Coleman on 01-09-2025 Bilirubin.direct [Mass/Vol] 0.33 mg/dL High 0.00-0.30 [facility] Bilirubin, totalOrdered By: Coleman Coleman on 01-09-2025 Bilirubin [Mass/Vol] 0.62 mg/dL 0.00-1.30 [facility] Carbon dioxide, total [Moles /volume] in Central venous bloodOrdered By: Coleman Coleman on 01-09-2025 CO2 [Moles/Vol] 21.0 mmol/L 21.0-32.0 [facility] Chloride assayOrdered By: Armin Coleman on 01-09-2025 Chloride [Moles/Vol] 91 mmol/L Low 98-108 [facility] Glomerular filtration rate ( GFR) estimation/1.73 sq m using serum, plasma, or whole bOrdered By: Coleman Coleman on 01-09-2025 GFR/1.73 sq M.predicted among non-blacks MDRD (S/P/Bld) [Vol rate/Area] 95 mL/min/{1.73_m2} >60 [facility] Comment on above: mL/min/1.73m2 CKD-EP I Creatinine Equation (2020) International normalized rat io (INR) calculationOrdered By: Nick Montano on 01-09-2025 INR Coag (Bld) [Relative time] 1.2 {INR} [facility] Laboratory - Chemistry and C hemistry - challengeOrdered By: Coleman Coleman on 01-09-2025 AST [Catalytic activity/Vol] 22 U/L <38 [facility] Lactic acid measurementOrder ed By: Coleman Coleman on 01-09-2025 Lactate [Moles/Vol] 2.3 mmol/L High 0.0-2.0 [facility] Comment on above: Critical Result(s) C vic BAGLEY at: 1806 by: LISSETT Results read back by same. Lipase measurementOrdered By : Coleman Coleman on 01-09-2025 Lipase [Catalytic activity/Vol] 11 U/L Low 13-75 [facility] Comment on above: Please note:LIPASE r evised reference range effective 22. New Lipase methodology. Expected to produce lower values than the previous assay method. NEW Reference Range: 13 - 75 U/L Natriuretic peptide.B prohor mattie N-Terminal [Mass/volume] in Serum or PlasmaOrdered By: Coleman Coleman on 01-09-2025 Natriuretic peptide.B prohormone N-Terminal [Mass/Vol] 4108 pg/mL High <900 [facility] Comment on above: Heart Failure Unlike ly: < 300 pg/mLHeart Failure Likely< 50 Years: > 450 pg/mL50-75 Years: > 900 pg/mL>75 Years: > 1800 pg/mL Potassium measurement (mass/ volume)Ordered By: Coleman Coleman on 01-09-2025 Potassium (Unsp spec) [Mass/Vol] 4.3 mmol/L 3.3-5.1 [facility] Prothrombin timeOrdered By: Nick Montano on 01-09-2025 PT Coag (PPP) [Time] 15.0 s High 11.7-14.9 [facility] Serum creatinine measurement (mass/volume)Ordered By: Coleman Coleman on 01-09-2025 Creatinine [Mass/Vol] 0.85 mg/dL 0.70-1.20 [facility] Serum globulin measurementOr dered By: Coleman Coleman on 01-09-2025 Globulin (S) [Mass/Vol] 3.6 g/dL 2.2-4.2 [facility] Serum glucose measurement (m ass/volume)Ordered By: Coleman Coleman on 01-09-2025 Glucose [Mass/Vol] 106 mg/dL High 70-99 [facility] Serum or plasma alanine jose otransferase (ALT) measurementOrdered By: Coleman Coleman on 01-09-2025 ALT [Catalytic activity/Vol] 13 U/L <47 [facility] Serum or plasma albumin devan urement (mass/volume)Ordered By: Coleman Coleman on 01-09-2025 Albumin [Mass/Vol] 2.6 g/dL Low 3.4-4.8 [facility] Serum or plasma alkaline padmini sphatase measurementOrdered By: Coleman Coleman on 01-09-2025 ALP [Catalytic activity/Vol] 62 U/L 40-129 [facility] Serum or plasma calcium devan urement (mass/volume)Ordered By: Coleman Coleman on 01-09-2025 Calcium [Mass/Vol] 9.5 mg/dL 7.6-11.0 [facility] Serum or plasma ethanol devan urement (mass/volume)Ordered By: Coleman Coleman on 01-09-2025 Ethanol [Mass/Vol] mg/dL <10.1 [facility] Comment on above: This test is for med ica purposes only. The legal definition of intoxication varies according to local law. Serum or plasma urea nitroge n measurement (mass/volume)Ordered By: Coleman Coleman on 01-09-2025 Urea nitrogen [Mass/Vol] 25 mg/dL High 4-19 [facility] Sodium levelOrdered By: Eva Coleman on 01-09-2025 Sodium [Moles/Vol] 125 mmol/L Low 133-145 [facility] Total proteinOrdered By: Eneida Coleman on 01-09-2025 Protein [Mass/Vol] 6.2 g/dL 5.9-8.4 [facility] Troponin T.cardiac [Mass/vol ume] in Serum or Plasma by High sensitivity methodOrdered By: Coleman Coleman on 01-09-2025 Troponin T.cardiac High sensitivity method [Mass/Vol] 11 ng/L <22 [facility] Troponin T.cardiac High sensitivity method [Mass/Vol] 11 ng/L <22 [facility] CNOVon 11-11-2024 CNOV Office Visit (UCTR ) -------- RICHIESPRING BENITEZ ([id number]) 1955 M Date Time Provider Department 11/11/24 4:00 PM YASMEEN CHOWDARY [facility] During your visit today, we recorded the following information about you: Temperature Pulse Respiration Blood pressure 97.6 degrees 98/minute 18/minute 122/72 Weight 81.7 kg Yasmeen Chowdary APRN.[facility] 11/11/2024 4:29 PM Signed [facility] Subjective Spring Peter is a 69 year old male. [...] history is provided by the patient. No parts interpreter was used. Cough This is a new [...] adenopathy. Skin: (more content not included)... Normal [facility] XR CHEST 2V FRONTAL/LATon XR CHEST 2V [...] pleural effusions new from prior study . Primary Clinician: [facility] Transcribe Date/Time: Nov 11 2024 4:47P Dictated by : BALJIT QUIROZ MD This examination was interpreted and the report reviewed and electronically signed by: BALJIT QUIROZ MD on Nov 11 2024 4:50PM EST [id number] Normal [facility] XR Chest PA and Lateralon IMPRESSION: Small bilateral pleural effusions new from prior study . Primary Clinician: [facility] Transcribe Date/Time: Nov 11 2024 4:47P Dictated [...] soft tissues: Unremarkable. DIVISION OF RADIOLOGY Provider, Carin Delores Sousa - 11/11/2024 * * *Final Report* * [...] pleural effusions new from prior study . Primary Clinician: [facility] Transcribe Date/Time: Nov 11 2024 4:47P Dictated by : BALJIT QUIROZ MD This examination was interpreted and the report reviewed and electronically signed by: BALJIT QUIROZ MD on Nov 11 2024 4:50PM EST [facility] Radiology Study observation (narrative) [facility] XR Chest PA and LateralOrder ed By: [facility] Provider on 11-11-2024 [facility] CBC W/Diff, Automatedon 12-0 Absolute Lymph 1.85 X10 3/uL Normal 0.83-4.51 [facility] Comment on above: Performed By: #### L 500.4050, L100.0100, L500.4100, [id number] #### [facility] [address] [place], [address] Absolute Neut 2.9 X10 3/uL Normal 2.0-7.7 [facility] Comment on above: Performed By: #### L 500.4050, L100.0100, L500.4100, [id number] #### [facility] [address] [place], [address] Basophils/100 WBC (Bld) 0.9 % Normal 0-1 [facility] Comment on above: Performed By: #### L 500.4050, L100.0100, L500.4100, [id number] #### [facility] [address] [place], [address] Eosinophils/100 WBC (Bld) 4.4 % Normal 0-5 [facility] Comment on above: Performed By: #### L 500.4050, L100.0100, L500.4100, [id number] #### [facility] [address] [place], [address] Erythrocyte distribution width (RBC) [Ratio] 17.2 % High 11.6-14.6 [facility] Comment on above: Performed By: #### L 500.4050, L100.0100, L500.4100, [id number] #### [facility] [address] [place], [address] Hematocrit (Bld) [Volume fraction] 31.0 % Low 40-54 [facility] Comment on above: Performed By: #### L 500.4050, L100.0100, L500.4100, [id number] #### [facility] [address] [place], [address] Hemoglobin (Bld) [Mass/Vol] 9.3 g/dL Low 13.0-16.5 [facility] Comment on above: Performed By: #### L 500.4050, L100.0100, L500.4100, [id number] #### [facility] [address] [place], [address] IG% 0.200 Normal 0.0-0.9 [facility] Comment on above: Result Comment: IG% - Immature Granulocytes (promyelocytes, myelocytes and metamyelocytes) > 1% indicates that a LEFT SHIFT is Present. Performed By: #### L 500.4050, L100.0100, L500.4100, [id number] #### [facility] [address] [place], [address] Lymphocytes/100 WBC (Bld) 33.8 % Normal 19-41 [facility] Comment on above: Performed By: #### L 500.4050, L100.0100, L500.4100, [id number] #### [facility] [address] [place], [address] MCH (RBC) [Entitic mass] 25.4 pg Low 27.0-32.0 [facility] Comment on above: Performed By: #### L 500.4050, L100.0100, L500.4100, [id number] #### [facility] [address] [place], [address] MCHC (RBC) [Mass/Vol] 30.0 g/dL Low 32-36 [facility] Comment on above: Performed By: #### L 500.4050, L100.0100, L500.4100, [id number] #### [facility] [address] [place], [address] MCV (RBC) [Entitic vol] 84.7 fL Normal 80-94 [facility] Comment on above: Performed By: #### L 500.4050, L100.0100, L500.4100, [id number] #### [facility] [address] [place], [address] Monocytes/100 WBC (Bld) 8.6 % Normal 0-10 [facility] Comment on above: Performed By: #### L 500.4050, L100.0100, L500.4100, L501.9520 #### [facility] [address] [place], [address] Neutrophils/100 WBC (Bld) 52.1 % Normal 47-70 [facility] Comment on above: Performed By: #### L 500.4050, L100.0100, L500.4100, L501.9520 #### [facility] [address] [place], [address] Nucleated RBC (Bld) [#/Vol] 0 10*3/uL Normal 0-5 [facility] Comment on above: Performed By: #### L 500.4050, L100.0100, L500.4100, L501.9520 #### [facility] [address] [place], [address] Platelet mean volume (Bld) [Entitic vol] 10.2 fL Normal 6.2-12.0 [facility] Comment on above: Performed By: #### L 500.4050, L100.0100, L500.4100, L501.9520 #### [facility] [address] [place], [address] Platelets (Bld) [#/Vol] 209 10*3/uL Normal 150-450 [facility] Comment on above: Performed By: #### L 500.4050, L100.0100, L500.4100, L501.9520 #### [facility] [address] [place], [address] RBC (Bld) [#/Vol] 3.66 10*6/uL Low 4.6-6.2 [facility] Comment on above: Performed By: #### L 500.4050, L100.0100, L500.4100, L501.9520 #### [facility] [address] [place], [address] RDW SD 52.7 fl High 35.1-43.9 [facility] Comment on above: Performed By: #### L 500.4050, L100.0100, L500.4100, L501.9520 #### [facility] [address] [place], [address] WBC (Bld) [#/Vol] 5.5 10*3/uL Normal 4.4-11.0 [facility] Comment on above: Performed By: #### L 500.4050, L100.0100, L500.4100, L501.9520 #### [facility] [address] [place], [address] Comprehensive Metabolic Prof ilon 06-11-2024 Albumin [Mass/Vol] 2.4 g/dL Low 3.2-5.0 [facility] Comment on above: Performed By: #### L 500.4050, L100.0100, L500.4100, L501.9520 #### [facility] [address] [place], [address] Albumin/Globulin [Mass ratio] 0.5 {ratio} Low 0.9-2.4 [facility] Comment on above: Performed By: #### L 500.4050, L100.0100, L500.4100, L501.9520 #### [facility] [address] [place], [address] ALK P 117 U/L Normal 45-117 [facility] Comment on above: Performed By: #### L 500.4050, L100.0100, L500.4100, L501.9520 #### [facility] [address] [place], [address] ALT [Catalytic activity/Vol] 11 U/L Low 16-61 [facility] Comment on above: Performed By: #### L 500.4050, L100.0100, L500.4100, L501.9520 #### [facility] [address] [place], [address] AST [Catalytic activity/Vol] 24 U/L Normal 15-37 [facility] Comment on above: Performed By: #### L 500.4050, L100.0100, L500.4100, L501.9520 #### [facility] [address] [place], [address] Bilirubin [Mass/Vol] 0.30 mg/dL Normal 0.20-1.00 [facility] Comment on above: Result Comment: For patients on eltrombopag therapy, use of Dimension [place] TBIL is not recommended. Performed By: #### L 500.4050, L100.0100, L500.4100, L501.9520 #### [facility] [address] [place], [address] BUN/CRE 8.2 RATIO Low 10-20 [facility] Comment on above: Performed By: #### L 500.4050, L100.0100, L500.4100, L501.9520 #### [facility] [address] [place], [address] CA,Total 8.6 mg/dL Normal 8.5-10.1 [facility] Comment on above: Performed By: #### L 500.4050, L100.0100, L500.4100, L501.9520 #### [facility] [address] [place], [address] Chloride [Moles/Vol] 105 mmol/L Normal 98-107 [facility] Comment on above: Performed By: #### L 500.4050, L100.0100, L500.4100, L501.9520 #### [facility] [address] [place], [address] CO2 [Moles/Vol] 22.0 mmol/L Normal 21.0-32.0 [facility] Comment on above: Performed By: #### L 500.4050, L100.0100, L500.4100, L501.9520 #### [facility] [address] [place], [address] Creatinine [Mass/Vol] 0.61 mg/dL Low 0.70-1.30 [facility] Comment on above: Result Comment: The validity of the calculated GFR GFRAA in patients over 70 years has not been determined. Clinical correlation is essential. Performed By: #### L 500.4050, L100.0100, L500.4100, L501.9520 #### [facility] [address] [place], [address] EST GFR - AA 169 mL/min Normal >60 [facility] Comment on above: Result Comment: Afri can Afghan GFR Calc Performed By: #### L 500.4050, L100.0100, L500.4100, L501.9520 #### [facility] [address] [place], [address] GAP 8 Normal 5-15 [facility] Comment on above: Performed By: #### L 500.4050, L100.0100, L500.4100, L501.9520 #### [facility] [address] [place], [address] GFR/1.73 sq M.predicted among non-blacks MDRD (S/P/Bld) [Vol rate/Area] 140 mL/min/{1.73_m2} Normal >60 [facility] Comment on above: Result Comment: Non- GFR Calc Performed By: #### L 500.4050, L100.0100, L500.4100, L501.9520 #### [facility] [address] [place], [address] Globulin (S) [Mass/Vol] 4.6 g/dL High 2.2-4.2 [facility] Comment on above: Performed By: #### L 500.4050, L100.0100, L500.4100, L501.9520 #### [facility] [address] [place], [address] Glucose [Mass/Vol] 86 mg/dL Normal 74-106 [facility] Comment on above: Performed By: #### L 500.4050, L100.0100, L500.4100, L501.9520 #### [facility] [address] [place], [address] Potassium [Moles/Vol] 4.0 mmol/L Normal 3.5-5.1 [facility] Comment on above: Performed By: #### L 500.4050, L100.0100, L500.4100, L501.9520 #### [facility] [address] [place], [address] Sodium [Moles/Vol] 135 mmol/L Low 136-145 [facility] Comment on above: Performed By: #### L 500.4050, L100.0100, L500.4100, L501.9520 #### [facility] [address] [place], [address] T PROT 7.0 g/dL Normal 6.4-8.2 [facility] Comment on above: Performed By: #### L 500.4050, L100.0100, L500.4100, L501.9520 #### [facility] [address] [place], [address] Urea nitrogen [Mass/Vol] 5 mg/dL Low 7-18 [facility] Comment on above: Performed By: #### L 500.4050, L100.0100, L500.4100, L501.9520 #### [facility] [address] [place], [address] Lipid Profileon 06-11-2024 Cholesterol [Mass/Vol] 113 mg/dL Normal 200 [facility] Comment on above: Result Comment: <200 mg/dL Desirable 200-240 mg/dL Borderline >240 mg/dL High Risk Performed By: #### L 500.4050, L100.0100, L500.4100, L501.9520 #### [facility] [address] [place], [address] Cholesterol in HDL [Mass/Vol] 44 mg/dL Normal [facility] Comment on above: Result Comment: The drugs N-Acetylcysteine and Metamizole may falsely depress this assay. Reference Range HDL <40 mg/dL Low HDL Cholesterol HDL >or= 60 mg/dL High HDL Cholesterol Performed By: #### L 500.4050, L100.0100, L500.4100, L501.9520 #### [facility] [address] [place], [address] Cholesterol in LDL [Mass/Vol] 57 mg/dL Normal 0-130 [facility] Comment on above: Performed By: #### L 500.4050, L100.0100, L500.4100, L501.9520 #### [facility] [address] [place], [address] Cholesterol in VLDL [Mass/Vol] 12 mg/dL Normal 5-40 [facility] Comment on above: Performed By: #### L 500.4050, L100.0100, L500.4100, L501.9520 #### [facility] [address] [place], [address] Triglyceride [Mass/Vol] 58 mg/dL Normal [facility] Comment on above: Result Comment: The drugs N-Acetylcysteine and Metamizole may falsely depress this assay. Serum Triglycerides Reference Interval Normal <150 mg/dL Borderline high 150 - 199 mg/dL High 200 - 499 mg/dL Very High > or = 500 mg/dL Performed By: #### L 500.4050, L100.0100, L500.4100, L501.9520 #### [facility] [address] [place], [address] Thyroid Stim Hormone (TSH)on 06-11-2024 TSH 1.080 uIU/mL Normal 0.358-3.740 [facility] Comment on above: Performed By: #### L 500.4050, L100.0100, L500.4100, L501.9520 #### [facility] [address] [place], [address] Emergency Department Summary on 03-01-2024 Emergency Department Summary [facility] Medical Records Department [address] [place] [address] Emergency Department Summary 03/01/24 MR#: [id number] Acct: [id number] Name: SPRING PETER Rep #: [id number] : 1955 68 From: Jf Belle MD [...] thigh, 2. Psychiatric: No depression. No anxiety. [facility] Medical History (Updated 03/01/24 @ 10:59 by Jf Belle MD) Acute ST elevation myocardial infarction History of stroke Pure hypercholesterolemia Old myocardial infarction Alcohol abuse Tobacco abuse Essential hypertension Presence of stent in coronary artery ( 03/28/17) Atherosclerotic heart disease of [place] coronary artery without angina pectoris Home Medications [...] so she (more content not included)... Normal [facility] Hand Min 3 Viewson 4 Hand Min 3 Views [facility] Imaging Services [address] [place], [place] [id number] Hand Min 3 Views MR#: [id number] Acct: [id number] Name: SPRING PETER Rep #: [id number] : 1955 68 From: Juan Núñez PCP: Dr. Nubia Licea Status: DEP ER Study: Hand Min 3 Views Date of Exam: 03/01/24 Exam# [id number] Ordering Dr: Jf Belle MD [id number] INDICATION: Dog bite, trauma EXAMINATION/TECHNIQUE: X-RAY - [...] Dr. Jf Belle MD; Dr. Nubia Licea Primary Clinician: Signed Normal [facility] XR Chest PA and Lateralon IMPRESSION: No evidence of active disease Primary Clinician: EDISON Transcribe Date/Time: Oct 12 2022 11:14A Dictated by : BALJIT QUIROZ MD This examination was interpreted and the report reviewed and electronically signed by: BALJIT QUIROZ MD on Oct 12 2022 11:14AM [facility] DIVISION OF RADIOLOGY * * *Final Report* [...] soft tissues: Unremarkable. DIVISION OF RADIOLOGY Provider, [facility] - 10/12/2022 * * *Final Report* * [...] IMPRESSION IMPRESSION: No evidence of active disease Primary Clinician: PSCB Transcribe Date/Time: Oct 12 2022 11:14A Dictated by : BALJIT QUIROZ MD This examination was interpreted and the report reviewed and electronically signed by: BALJIT QUIROZ MD on Oct 12 2022 11:14AM EST [facility] Radiology Study observation (narrative) [facility] XR Chest PA and LateralOrder ed By: [facility] Provider on 10-12-2022 [facility] Absolute lymphocyte counton 05-02-2022 Lymphocytes Auto (Unsp spec) [#/Vol] 1.91 10*3/uL 0.83-4.51 [facility] Work Phone: Basophil percentageon 2021 Basophils/100 WBC (Bld) 1.5 % 0-1 [facility] Work Phone: Chloride [Moles/Vol] 112 mmol/L 98-107 [facility] Work Phone: Eosinophils/100 WBC (Bld) 5.0 % 0-5 [facility] Work Phone: Glucose [Mass/Vol] 87 mg/dL 74-106 [facility] Work Phone: Neutrophils (Bld) [#/Vol] 1.9 10*3/uL 2.0-7.7 [facility] Work Phone: Neutrophils/100 WBC (Bld) 40.9 % 47-70 [facility] Work Phone: Potassium [Moles/Vol] 3.8 mmol/L 3.5-5.1 [facility] Work Phone: Sodium [Moles/Vol] 143 mmol/L 136-145 [facility] Work Phone: WBC (Bld) [#/Vol] 4.6 10*3/uL 4.4-11.0 [facility] Work Phone: Basophil percentage 0 SEEN /hpf 0-5 [facility] Work Phone: Bilirubin Test strip Ql (U)o n 05-02-2022 Bilirubin Ql (U) Negative Negative [facility] Work Phone: Blood erythrocytes count (nu mber/volume)on 05-02-2022 RBC (Bld) [#/Vol] 3.92 10*6/uL 4.6-6.2 [facility] Work Phone: Blood hemoglobin measurement (mass/volume)on 05-02-2022 Hemoglobin (Bld) [Mass/Vol] 10.2 g/dL 13.0-16.5 [facility] Work Phone: Blood lymphocytes/100 leukoc yteson 05-02-2022 Lymphocytes/100 WBC (Bld) 41.9 % 19-41 [facility] Work Phone: Blood manual differential co mment interpretation (narrative result)on 05-02-2022 Manual differential comment Lj (Bld) [Interp] SCANNED [facility] Work Phone: Blood monocytes/100 leukocyt eson 05-02-2022 Monocytes/100 WBC (Bld) 10.5 % 0-10 [facility] Work Phone: Blood platelet mean volumeon 05-02-2022 Platelet mean volume (Bld) [Entitic vol] 9.9 fL 6.2-12.0 [facility] Work Phone: Determination of erythrocyte mean corpuscular volume (MCV)on 05-02-2022 MCV (RBC) [Entitic vol] 86.0 fL 80-94 [facility] Work Phone: Hematocrit Auto (Bld) [Volum e fraction]on 05-02-2022 Hematocrit (Bld) [Volume fraction] 33.7 % 40-54 [facility] Work Phone: Hypochromatic red blood cell detectionon 05-02-2022 Hypochromia Ql (Bld) [facility]: Ketones Test strip Ql (U)on 05-02-2022 Ketones Ql (U) Negative Negative [facility] Work Phone: Laboratory - Chemistry and C hemistry - challengeon 05-02-2022 CO2 [Moles/Vol] 24.0 mmol/L 21.0-32.0 [facility] Work Phone: [phone] Natriuretic peptide B (Bld) [Mass/Vol] 147.2 pg/mL 0-100 [facility] Work Phone: [phone] Urea nitrogen/Creatinine [Mass ratio] 10.6 mg/mg 10-20 [facility] Work Phone: [phone] Laboratory - Hematology and Cell countson 05-02-2022 Anisocytosis Ql (Bld) 1+ [facility] Work Phone: [phone] Erythrocyte distribution width (RBC) [Entitic vol] 63.4 fL 35.1-43.9 [facility] Work Phone: [phone] Erythrocyte distribution width (RBC) [Ratio] 20.4 % 11.6-14.6 [facility] Work Phone: [phone] Immature granulocytes/100 WBC (Bld) 0.200 % 0.0-0.9 [facility] Work Phone: [phone] Comment on above: IG% - Immature Granu locytes (promyelocytes, myelocytes and metamyelocytes) > 1% indicates that a LEFT SHIFT is Present. MCH (RBC) [Entitic mass] 26.0 pg 27.0-32.0 [facility] Work Phone: [phone] Nucleated RBC/100 WBC (Bld) [Ratio] 0 % 0-5 [facility] Work Phone: [phone] MCHC Auto (RBC) [Mass/Vol]on 05-02-2022 MCHC (RBC) [Mass/Vol] 30.3 g/dL 32-36 [facility] Work Phone: [phone] Mucus LM Ql (Urine sed)on Mucus Ql (Urine sed) 0 SEEN /hpf [facility] Work Phone: [phone] Nitrite Test strip Ql (U)on 05-02-2022 Nitrite Ql (U) Negative Negative [facility] Work Phone: [phone] Panel Informationon 05-02 Estimated Creatinine Clearance Calc 146.27 ml/min [facility] Work Phone: [phone] Estimated GFR (MDRD) Amer 187 mL/min >60 [facility] Work Phone: Comment on above: GFR Calc Estimated GFR (MDRD) Non-Af Amer 155 mL/min >60 [facility] Work Phone: Comment on above: Non- GFR Calc Troponin I High Sensitivity 48 pg/mL 3.0-78.0 [facility] Work Phone: Comment on above: Please Note: New Ewelina t Units and Gender Specific Reference Ranges. For more information see Policy Stat Procedure [place] High Sensitivity Troponin (TNIH) and attachments. Platelets bldon 05-02-2022 Platelets (Bld) [#/Vol] 358 10*3/uL 150-450 [facility] Work Phone: Protein Test strip Ql (U)on 05-02-2022 Protein Ql (U) Negative Negative [facility] Work Phone: Serum or plasma calcium devan urement (mass/volume)on 05-02-2022 Calcium [Mass/Vol] 8.2 mg/dL 8.5-10.1 [facility] Work Phone: Serum or plasma creatinine m easurement (mass/volume)on 05-02-2022 Creatinine [Mass/Vol] 0.56 mg/dL 0.70-1.30 [facility] Work Phone: Comment on above: The validity of the calculated GFR & GFRAA in patients over 70 years has not been determined. Clinical correlation is essential. Serum or plasma urea nitroge n measurement (mass/volume)on 05-02-2022 Urea nitrogen [Mass/Vol] 6 mg/dL 7-18 [facility] Work Phone: [phone] Squamous epithelial cells de tection in urine sediment by light microscopyon 05-02-2022 Epithelial cells.squamous LM Ql (Urine sed) 0-5 SEEN /hpf 0-5 [facility] Work Phone: [phone] Thin prep Papanicolaou smear with manual screeningon 05-02-2022 Thin prep Papanicolaou smear with manual screening 7 5-15 [facility] Work Phone: Urine blood detectionon 10-2 5-2022 RBC Ql (U) Negative Negative [facility] Work Phone: [phone] RBC Ql (U) 0 SEEN /hpf 0-5 [facility] Work Phone: [phone] Urine clarityon 05-02-2022 Clarity (U) Clear Clear [facility] Work Phone: [phone] Urine color determinationon 05-02-2022 Color (U) Straw Yellow [facility] Work Phone: [phone] Urine glucose detectionon Glucose Ql (U) Normal mg/dl Normal [facility] Work Phone: [phone] Urine leukocyte esterase det ection by dipstickon 05-02-2022 Leukocyte esterase Test strip Ql (U) Negative Negative [facility] Work Phone: [phone] Urine pHon 05-02-2022 pH (U) 6.5 [pH] 5.0 - 8.0 [facility] Work Phone: Urine sediment bacteria coun t by microscopy (number/high power field)on 05-02-2022 Bacteria LM.HPF (Urine sed) [#/Area] 0 /[HPF] None Seen [facility] Work Phone: Urine specific gravity measu rementon 05-02-2022 Specific gravity (U) [Rel density] 1.005 1.002-1.030 [facility] Work Phone: Urobilinogen Auto test strip Ql (U)on 05-02-2022 Urobilinogen Ql (U) Normal mg/dl Normal [facility] Work Phone: Comp Metabolic Panelon 11-23 Alanine aminotransferase (ALT) 38 U/L Normal 13-69 [facility] Comment on above: Performed By: #### H CHYNA YI3 ####[address] [place] [address] Calcium 9.0 mg/dL Normal 8.4-10.2 [facility] [email or web address] Comment on above: Performed By: #### H CHYNA IY3 ####[address] [place] [address] Alkaline phosphatase (ALP) 125 U/L Normal 38-126 [facility] Comment on above: Performed By: #### H EMDF, CMP3 ####[place] [address] [place] [address] Anion gap 9 Normal [facility] Comment on above: Performed By: #### H EMDF, CMP3 ####[place] [address] [place] [address] Aspartate aminotransferase (AST) 35 U/L Normal 15-46 [facility] Comment on above: Performed By: #### H EMDF, CMP3 ####[place] [address] [place] [address] Bilirubin (total) 0.4 mg/dL Normal 0.2-1.3 [facility] Comment on above: Performed By: #### H EMDF, CMP3 ####[place] [address] [place] [address] CO2 27 mmol/L Normal 22-30 [facility] Comment on above: Performed By: #### H EMDF, CMP3 ####[place] [address] [place] [address] Creatinine 0.69 mg/dL Normal 0.52-1.25 [facility] Comment on above: Performed By: #### H EMDF, CMP3 ####[place] [address] [place] [address] eGFR (black) mL/min/{1.73_m2} Normal >60 [facility] Comment on above: Performed By: #### H EMDF, CMP3 ####[place] [address] [place] [address] eGFR (non-black) mL/min/{1.73_m2} Normal >60 [facility] Comment on above: Result Comment: Sour ce- MDRD equation with creatinine calibration to IDMS(NKDEP) eGFR not recommended for drug dose adjustment Performed By: #### H EMDF, CMP3 ####[place] [address] [place] [address] Glucose mass conc 89 mg/dL Normal 70-100 [facility] Comment on above: Performed By: #### H EMDF, CMP3 ####[facility] [place] [address] Protein 7.7 g/dL Normal 6.3-8.2 [facility] Comment on above: Performed By: #### H EMDF, CMP3 ####[place] [address] [place] [address] Urea nitrogen 10 mg/dL Normal 7-20 [facility] Comment on above: Performed By: #### H EMDF, CMP3 ####[place] [address] [place] [address] Potassium molar conc 4.5 mmol/L Normal 3.5-5.1 [facility] Comment on above: Performed By: #### H EMDF, CMP3 ####[place] [address] [place] [address] Sodium 140 mmol/L Normal 137-145 [facility] Comment on above: Performed By: #### H EMDF, CMP3 ####[place] [address] [place] [address] Albumin 4.1 g/dL Normal 3.5-5.0 [facility] Comment on above: Performed By: #### H EMDArun CMP3 ####[place] [address] [place] [address] Chloride 104 mmol/L Normal 98-107 [facility] Comment on above: Performed By: #### H EMDF, CMP3 ####[place] [address] [place] [address] Hemogram w/ Autodiffon 11-23 Abs Baso Cnt 0.0 10*3/uL Normal 0.0-0.2 [facility] Comment on above: Performed By: #### H EMDF, CMP3 ####[place] [address] [place] [address] Basophils/100 WBC Auto (Bld) 0.5 % Normal 0.0-2.0 [facility] Comment on above: Performed By: #### H EMDF, CMP3 ####[place] [address] [place] [address] Eosinophils 0.1 10*3/uL Normal 0.0-0.5 [facility] Comment on above: Performed By: #### H EMDF, CMP3 ####[facility] [place] [address] Eosinophils/100 leukocytes 1.4 % Normal 1.0-6.0 [facility] Comment on above: Performed By: #### H EMDF, CMP3 ####[facility] [place] [address] Erythrocyte distribution width Auto Ratio (RBC) 15.1 % High 11.5-14.5 [facility] Comment on above: Performed By: #### H EMDF, CMP3 ####[facility] [place] [address] Erythrocytes (RBC) 4.11 10*6/uL Low 4.40-5.90 [facility] Comment on above: Performed By: #### H EMDF, CMP3 ####[place] [address] [place] [address] Granulocytes/100 WBC (Bld) 64.1 % Normal 40.0-80.0 [facility] Comment on above: Performed By: #### H EMDF, CMP3 ####[facility] [employer] [address] [place] [address] Hematocrit (HCT) 38.3 % Low 40.0-52.0 [facility] Comment on above: Performed By: #### H EMDF, CMP3 ####[facility] [employer] [id number] [place] [address] Hemoglobin mass conc (Bld) 12.5 g/dL Low 13.0-18.0 [facility] Comment on above: Performed By: #### H EMDF, CMP3 ####[facility] [place] [address] Lymphocytes 2.3 10*3/uL Normal 1.0-4.3 [facility] Comment on above: Performed By: #### H EMDF, CMP3 ####[facility] [place] [address] Lymphocytes/100 leukocytes 26.7 % Normal 20.0-40.0 [facility] Comment on above: Performed By: #### H EMDF, CMP3 ####[place] [address] [place] [address] MCH 30.4 pg Normal 26.0-34.0 [facility] Comment on above: Performed By: #### H EMDF, CMP3 ####[place] [address] [place] [address] MCHC mass conc (RBC) 32.7 % Normal 32.0-36.0 [facility] Comment on above: Performed By: #### H EMDF CMP3 ####[place] [address] [place] [address] MCV 93.1 fL Normal 80.0-98.0 [facility] Comment on above: Performed By: #### H EMDF CMP3 ####[place] [address] [place] [address] Monocytes 0.6 10*3/uL Normal 0.0-0.8 [facility] Comment on above: Performed By: #### H EMDF CMP3 ####[place] [address] [place] [address] Monocytes/100 leukocytes 7.3 % Normal 2.0-10.0 [facility] Comment on above: Performed By: #### H EMDArun CMP3 ####[place] [address] [place] [address] Neutrophils 5.6 10*3/uL Normal 1.8-7.0 [facility] Comment on above: Performed By: #### H EMDArun CMP3 ####[place] [address] [place] [address] Platelet mean volume (PMV) 8.3 fL Normal 7.4-10.4 [facility] Comment on above: Performed By: #### H EMDF CMP3 ####[place] [address] [place] [address] Platelets 262 10*3/uL Normal 140-440 [facility] Comment on above: Performed By: #### H EMDF, CMP3 ####[place] [address] [place] [address] WBC (Leukocytes) 8.7 10*3/uL Normal 3.6-10.7 [facility] Comment on above: Performed By: #### H [facility] ####[facility] [place] [address] CR Chest Portableon 10-28-19 18 CR Chest Portable Patient Name: SPRING FARRELL Diagnostic Radiology Exam Date/Time 10/27/2017 04:40:00 EDT Exam CR Chest Portable Ordering Physician ANNE-MARIE ANDREWS Accession Number [id number] CPT4 Codes 38688 () Reason For Exam left lower lobe [...] 10-26-19 18 CR Chest Portable Patient Name: SPRING FARRELL Diagnostic Radiology Exam Date/Time 10/25/2017 09:27:28 EDT Exam CR Chest Portable Ordering Physician ANNE-MARIE ANDREWS Accession Number [id number] CPT4 Codes 08290 () Reason For Exam aspiration Report CHEST: [...] 10-25-19 18 CR Chest Portable Patient Name: SPRING FARRELL Diagnostic Radiology Exam Date/Time 10/23/2017 23:45:59 EDT Exam CR Chest Portable Ordering Physician KATIA AYALA JUDITH A. Accession Number [id number] CPT4 Codes 73576 () Reason For Exam NG placement Report [...] 10-23-19 18 CR Chest Portable Patient Name: SPRING FARRELL Diagnostic Radiology Exam Date/Time 10/22/2017 04:28:56 EDT Exam CR Chest Portable Ordering Physician MD GIA, [facility] Accession Number [id number] CPT4 Codes 26288 () Reason For Exam CHF Report Portable [...] 10-22-2017 Echo Complete w/wo Contrast Patient Name: SPRING PETER Ultrasound Exam Date/Time 10/22/2017 09:32:30 EDT Exam Echo Complete w/wo Contrast Ordering Physician CASA ASH Accession Number [id number] Reason For Exam angina Report TRANSTHORACIC ECHOCARDIOGRAM PATIENT: Spring Peter STUDY DATE: 10/22/2017 : 1955 AGE: 62 HT/WT: 177.8 cm (70 94.4 kg in) (207.6 lb) GENDER: M BP: 161 / 98 LOCATION: [facility] PATIENT [facility] STATUS: *ORDERING PHYSICIAN: * Csaa Ash MD *READING PHYSICIAN: * Casa Ash MD *AUTOMOTIVE SALES MANAGER: * Georgiana Baldwin --- --- INDICATIONS: Angina Pectoris, Unspecified (I209). [...] outside specified reference range. Electronically signed by Casa Ash MD 10/22/2017 12:22 Final Dictated: 10/22/2017 12:23 pm Dictating Physician: CASA ASH Signed Date and Time: 10/22/2017 12:22 pm Signed by: CASA ASH [facility] CR Chest Portableon 10-21-19 18 CR Chest Portable Patient Name: SPRING FARRELL Diagnostic Radiology Exam Date/Time 10/20/2017 19:07:51 EDT Exam CR Chest Portable Ordering Physician MD GIA, [facility] Accession Number [id number] CPT4 Codes 53019 () Reason For Exam Trach Placement Report [...] [facility] Patient Name: SPRING FARRELL Diagnostic Radiology Exam Date/Time 10/20/2017 10:07:51 EDT Exam CR Chest Portable Ordering Physician MD ACOSTA THERESA A. Accession Number [id number] CPT4 Codes 72358 () Reason For Exam sob Report Reason [...] 2017 CR Neck Soft Tissue Patient Name: SPRING FARRELL Diagnostic Radiology Exam Date/Time 10/20/2017 10:07:51 EDT Exam CR Neck Soft Tissue Ordering Physician MD ACOSTA THERESA A. Accession Number [id number] CPT4 Codes 64489 () Reason For Exam stridor Report Reason [...] is recommended. Findings were communicated to Dr. Acosta in the ED on 10/20/2017 at 10:49 AM. Report Dictated on Final Dictating Physician: MD BABB LAUREN B Signed Date and Time: 10/20/2017 10:50 am Signed by: MD BABB LAUREN B Transcribed Date and Time: 10/20/2017 10:51 Normal [facility] CT Soft Tissue Neck w/ Contr krystle 10-20-2017 CT Soft Tissue Neck w/ Contrast Patient Name: SPRING PETER CT Exam Date/Time 10/20/2017 12:23:[address] Soft Tissue Neck w/ Contrast Ordering Physician MD ACOSTA THERESA A. Accession Number [id number] CPT4 Codes 30458 (), Q9967 () Reason For Exam MASS [...] left. The findings were discussed with Dr. Acosta of the emergency department at approximately 1:30 PM on 10/20/2017. Report Dictated on Final Dictating Physician: DO ALICEA ANTHONY Signed Date and Time: 10/20/2017 1:43 pm Signed by: DO ALICEA ANTHONY Transcribed Date and Time: 10/20/2017 1:44 Normal [facility] Diagnostic Catherizationon 0 03-28-2017 Diagnostic Catherization Patient Name: SPRING PETER [facility] Patient Safety Sitter Exam Date/Time 03/28/2017 13:28:46 EDT Exam Diagnostic Catherization Ordering Physician MD SKINNER JUSTIN Accession Number [id number] Reason For Exam Chest pain, unspecified Report [facility] --- --- CARDIAC CATHETERIZATION Patient: Spring Peter Procedure Date: 03/28/2017 : 1955 Age: [...] copy dose: Fluoroscopy dose: 91.1 cGy. Location: [facility]. PROCEDURE: 1. Initial setup. The patient was [...] 2. Intravascular ultrasound evaluation, using a .014 [facility] catheter. 3. Stent placement. A 3.5 mm [facility] Patient Name: SPRING EPTER [facility] Patient Safety Sitter Exam Date/Time 03/28/2017 06:16:03 EDT Exam Diagnostic Catherization Ordering Physician CASA ASH Accession Number [id number] Reason For Exam Chest pain, unspecified Report [facility] --- --- CARDIAC CATHETERIZATION Patient: Spring Peter Procedure Date: 03/28/2017 : 1955 Age: 61 Gender: M Patient Type: I Procedure physician: Casa Ash MD Fellow: Referring Physician: Casa Ash MD --- --- INDICATIONS: Angina. --- [...] --+ + Prepared and electronically signed by Casa Ash MD 03/28/2017 13:31 Final Dictated: 03/28/2017 1:32 pm Dictating Physician: CASA ASH Signed Date and Time: 03/28/2017 1:32 pm Signed by: CASA ASH [facility] Echo Complete w/wo Contrasto n 03-28-2017 Echo Complete w/wo Contrast Patient Name: SPRING PETER Ultrasound Exam Date/Time 03/28/2017 13:35:35 EDT Exam Echo Complete w/wo Contrast Ordering Physician CASA ASH Accession Number [id number] Reason For Exam angina Report TRANSTHORACIC ECHOCARDIOGRAM PATIENT: Spring Peter STUDY DATE: 03/28/2017 : 1955 AGE: 61 HT/WT: 177.8 cm (70 87.5 kg in) (192.6 lb) GENDER: M BP: 144 / 97 LOCATION: [facility] PATIENT Observation [facility] STATUS: *ORDERING PHYSICIAN: * Casa Ash MD *READING PHYSICIAN: * Casa Ash MD *AUTOMOTIVE SALES MANAGER: * Sylwia Mendoza --- --- INDICATIONS: Angina [...] outside specified reference range. Electronically signed by Casa Ash MD 03/29/2017 09:01 Final Dictated: 03/30/2017 1:04 am Dictating Physician: CASA ASH Signed Date and Time: 03/29/2017 9:02 am Signed by: CASA ASH [facility] CR Chest Portableon 03-27-20 CR Chest Portable Patient Name: SPRING FARRELL Diagnostic Radiology Exam Date/Time 03/26/2017 22:23:17 EDT Exam CR Chest Portable Ordering Physician MD CHU MICHAEL JAMES Accession Number [id number] CPT4 Codes 86656 () Reason For Exam chest pain Report [...] ANTHONY Transcribed Date and Time: 03/26/2017 10:42 [facility] Vital Signs Date Time Vital Sign Value Performing Clinician Facility 01-09-2025 20:00-0400 Diastolic blood pressure 68 mm[Hg] Dr. Coleman Coleman DO Work Phone: [facility] 01-09-2025 20:00-0400 Heart rate 90 /min Dr. Coleman Coleman DO Work Phone: [facility] 01-09-2025 20:00-0400 Respiratory rate 18 /min Dr. Coleman Coleman DO Work Phone: [facility] 01-09-2025 20:00-0400 SaO2% (BldA) [Mass fraction] 100 % Dr. Coleman Coleman DO Work Phone: [facility] 01-09-2025 20:00-0400 Systolic blood pressure 122 mm[Hg] Dr. Coleman Coleman DO Work Phone: [facility] 01-09-2025 19:30-0400 Body temperature 98.6 [degF] Dr. Coleman Coleman DO Work Phone: [phone] [place] [address] 01-09-2025 16:05-0400 Body height 177.[address] Coleman Coleman DO Work Phone: [facility] 01-09-2025 16:05-0400 Body mass index (BMI) [Ratio] 23.3 kg/m2 Dr. Coleman Coleman DO Work Phone: [facility] 01-09-2025 16:05-0400 Body weight 73.[address] Coleman Coleman DO Work Phone: [facility] 11-11-2024 16:07-0400 Body temperature 97.59 [degF] Yasmeen Chowdary CIRCUIT MANAGER.GROUND SUPPORT EQUIPMENT FITTER Work Phone: [facility] 11-11-2024 16:07-0400 Body weight 81.7 kg Yasmeen Chowdary CIRCUIT MANAGER.GROUND SUPPORT EQUIPMENT FITTER Work Phone: [facility] 11-11-2024 16:07-0400 Diastolic blood pressure 72 mm[Hg] Yasmeen Chowdary CIRCUIT MANAGER.GROUND SUPPORT EQUIPMENT FITTER Work Phone: [facility] 11-11-2024 16:07-0400 Heart rate 98 /min Yasmeen Chowdary CIRCUIT MANAGER.GROUND SUPPORT EQUIPMENT FITTER Work Phone: [facility] 11-11-2024 16:07-0400 Respiratory rate 18 /min Yasmeen Chowdary CIRCUIT MANAGER.GROUND SUPPORT EQUIPMENT FITTER Work Phone: [facility] 11-11-2024 16:07-0400 SaO2% (BldA) [Mass fraction] 95 % Yasmeen Chowdary CIRCUIT MANAGER.GROUND SUPPORT EQUIPMENT FITTER Work Phone: [facility] 11-11-2024 16:07-0400 Systolic blood pressure 122 mm[Hg] Yasmeen Chowdary CIRCUIT MANAGER.GROUND SUPPORT EQUIPMENT FITTER Work Phone: [facility] 04-09-2023 05:42-0400 Heart rate 79 /min [facility] 04-09-2023 05:42-0400 Respiratory rate 18 /min [facility] 04-09-2023 05:42-0400 SaO2% (BldA) [Mass fraction] 98 % [facility] 04-09-2023 04:52-0400 Body height 177.[address] [facility] 04-09-2023 04:52-0400 Body mass index (BMI) [Ratio] 21.6 kg/m2 [facility] 04-09-2023 04:52-0400 Body temperature 97 [degF] [facility] 04-09-2023 04:52-0400 Body weight 68.[address] [facility] 04-09-2023 04:52-0400 Diastolic blood pressure 106 mm[Hg] [facility] 04-09-2023 04:52-0400 Systolic blood pressure 151 mm[Hg] [facility] 05-02-2022 21:39-0400 Body temperature 97.8 [degF] [facility] Work Phone: 05-02-2022 21:39-0400 Diastolic blood pressure 63 mm[Hg] [facility] Work Phone: 05-02-2022 21:39-0400 Heart rate 86 /min [facility] Work Phone: 05-02-2022 21:39-0400 Respiratory rate 19 /min [facility] Work Phone: 05-02-2022 21:39-0400 SaO2% (BldA) [Mass fraction] 95 % [facility] Work Phone: 05-02-2022 21:39-0400 Systolic blood pressure 105 mm[Hg] [facility] Work Phone: 05-02-2022 17:49-0400 Body height 182.[address] [facility] Work Phone: 05-02-2022 17:49-0400 Body mass index (BMI) [Ratio] 24.4 kg/m2 [facility] Work Phone: 05-02-2022 17:49-0400 Body weight 81.[address] [facility] Work Phone: Encounters Encounter Date Encounter Type Care Provider Facility Start: 01-09-2025 Evaluation and manag ement of inpatient Dr. Nick Monk [facility] Work Phone: Start: 11-11-2024 End: 11-11-2024 Subsequent hospital visit by physician Xr [facility] Work Phone: Radiology Comment on above: Acute cough [R05.1] Start: 11-11-2024 End: 11-11-2024 Patient encounter procedure Yasmeen Chowdary CIRCUIT MANAGER.GROUND SUPPORT EQUIPMENT FITTER Work Phone: [facility] Comment on above: Acute cough (Primary Dx); COPD with exacerbation (HCC) Start: 11-11-2024 End: 11-11-2024 ambulatory [facility] Facility:[facility] Start: 11-11-2024 End: 11-11-2024 Follow-up encounter Flor HACKETT Work Phone: [facility] Start: 09-02-2024 End: 09-02-2024 ambulatory Cheyenne Bacon MA [facility] Start: 09-02-2024 End: 09-02-2024 [facility] [place] Comment on above: Population Health Na vigation Outreach ([employer] Unknown PCP/) Start: 08-08-2024 ambulatory Yasmeen Zambrano [facility] Fa cility:[facility] Start: 06-11-2024 End: 06-11-2024 ambulatory Yasmeen Zambrano [facility] Facility:[facility] Start: 03-01-2024 End: 03-01-2024 Emergency department patient visit Jf Belle Facility:[facility] Start: 04-09-2023 End: 04-09-2023 Emergency department patient visit [facility] Work Phone: Start: 10-12-2022 End: 10-12-2022 Subsequent hospital visit by physician Xr [facility] Work Phone: Radiology Comment on above: Subacute cough [R05. 2] Start: 05-02-2022 Evaluation and manag ement of inpatient [facility] Start: 05-02-2022 observation encounter [facility] Work Phone: Start: 12-04-2017 Ambulatory Zaheer Garcia [facility] Start: 11-26-[address] [facility] Start: 11-23-2017 Emergency department patient visit PROVIDER UNKNOWN [facility] Start: 10-20-2017 Evaluation and manag ement of inpatient PROVIDER UNKNOWN [facility] Start: 03-28-2017 Evaluation and manag ement of inpatient PROVIDER UNKNOWN [facility] Procedures Date Procedure Procedure Detail Performing Clinician Start: 01-09-[address] Coleman Coleman DO Work Phone: Start: 01-09-2025 Computed tomography of abdomen and pelvis with intravenous contrast Dr. Coleman Coleman DO Work Phone: Start: 01-09-2025 CT angiography of ch est with contrast Dr. Coleman Coleman DO Work Phone: Start: 01-09-2025 CT of head without contrast Dr. Coleman Coleman DO Work Phone: Start: 11-11-2024 Radiologic exam ches t 2 views Yasmeen Chowdary CIRCUIT MANAGER.GROUND SUPPORT EQUIPMENT FITTER Work Phone: Start: 10-12-2022 Radiologic exam ches t 2 views Darien J Tee MD Work Phone: Start: 05-02-2022 Plain chest X-ray Start: 12-13-2018 Lipid 1996 panel - S jama or Plasma [facility] Work Phone: Plan of Treatment Date Care Activity Detail Author Start: 03-01-2034 Urine microalbumin profile DTaP,Tdap,Td Vaccine (3 - Td or Tdap) [facility] Start: 2032 RSV Vaccine (1 - 1-dose 75+ series) RSV Vaccine (1 - 1-dose 75+ series) [facility] Start: 02-07-2029 Urine microalbumin profile DTaP,Tdap,Td Vaccine (2 - Td or Tdap) [facility] Start: 03-09-2025 Influenza vaccination Influenza Vaccine (Season Ended) [facility] Start: 01-09-2025 MRI of brain without contrast Brain without Contrast [facility] Start: 01-09-2025 Osmolality of Urine [facility] Start: 01-09-2025 Urinalysis complete panel - Urine [facility] Start: 01-09-2025 Verification routine [facility] Start: 01-09-2025 Admission procedure [facility] Start: 01-09-2025 Hospital admission, emergency, from emergency room, medical nature [facility] Start: 01-09-2025 Osmolality measurement, serum [facility] Start: 01-09-2025 [facility] Start: 07-09-2024 Advance Directive Discussion Advance Directive Discussion [facility] Start: 03-09-2024 Covid-19 Vaccine ( season) Covid-19 Vaccine ( season) [facility] Start: 03-09-2024 Influenza vaccination Influenza Vaccine (#1) [facility] Start: 12-14-2023 Lipid panel Lipid Screening [facility] Start: 07-09-2023 Advance Directive Discussion Advance Directive Discussion [facility] Start: 06-27-2023 Pneumococcal Vaccine: 50+ (3 of 3 - PCV20 or PCV21) Pneumococcal Vaccine: 50+ (3 of 3 - PCV20 or PCV21) [facility] Start: 06-27-2023 Pneumococcal Vaccine: 65+ (3 of 3 - PPSV23 or PCV20) Pneumococcal Vaccine: 65+ (3 of 3 - PPSV23 or PCV20) [facility] Start: 05-02-2022 Following clinical pathway protocol [facility] Work Phone: Start: 05-02-2022 Troponin I measurement [facility] Work Phone: Start: 05-02-2022 [facility] Work Phone: Start: 12-13-2021 Diabetes Screening Diabetes Screening [facility] Start: 2012 Prostate specific antigen measurement Prostate Cancer Screening Discussion [facility] Start: 10-16-2007 Shingrix Vaccine (1 of 2) Shingrix Vaccine (1 of 2) [facility] Start: 2002 Prostate specific antigen measurement Prostate Cancer Screening Discussion [facility] Start: 2002 Screening for malignant neoplasm of colon [facility] Start: 10-16-1975 Anxiety Screening Anxiety Screening [facility] Start: 10-16-1975 Depression Screening Depression Screening [facility] Start: 10-16-1975 Hepatitis C screening Hepatitis C Screening [facility] Start: 1955 Abdominal aortic aneurysm screening Abdominal Aortic Aneurysm Screening [facility] Amphetamines [Presen ce] in Urine by Screen method >1000 ng/mL [facility] Anion gap in Serum o r Plasma [facility] Benzodiazepine measurement, urine [facility] Bilirubin measuremen t, urine [facility] BUN/Creatinine ratio [facility] Calcium [Mass/volume ] in Serum or Plasma [facility] Carbon dioxide, tota l [Moles/volume] in Central venous blood [facility] Cocaine measurement, urine [facility] Creatinine [Mass/vol ume] in Serum or Plasma [facility] fentaNYL [Presence] in Urine by Screen method [facility] Folate [Moles/volume ] in Serum or Plasma [facility] Glucose [Mass/volume ] in Serum or Plasma [facility] Hemoglobin [Presence ] in Urine [facility] Hemoglobin A1c/Hemoglobin.total in Blood [facility] Lactic acid measurement [facility] Magnesium measurement [facility] Measurement of keton es in urine using dipstick [facility] Measurement of renal function [facility] Methadone measuremen t, urine [facility] Microscopic urinalysis [facility] Natriuretic peptide. B prohormone N-Terminal [Mass/volume] in Serum or Plasma [facility] Patient Education ED Anxiety Reaction [facility] Work Phone: Patient referral [facility] Work Phone: pH of Urine [facility] Phencyclidine [Prese nce] in Urine [facility] Potassium measurement [facility] Serum chloride measurement [facility] Sodium measurement [facility] Specific gravity of Urine [facility] Troponin I measurement [facility] Work Phone: Troponin T.cardiac [Mass/volume] in Serum or Plasma by High sensitivity method [facility] Urea nitrogen [Mass/volume] in Serum or Plasma [facility] Urine blood test [facility] Urine cannabinoid measurement [facility] Urine dipstick for glucose [facility] Urine dipstick for leukocyte esterase [facility] Urine dipstick for nitrite [facility] Urine dipstick for protein [facility] Urine examination [facility] Urine microscopy: epithelial cells [facility] Urine Microscopy: wh ite cells [facility] Urine opiate measurement [facility] Urobilinogen [Presen ce] in [facility] Immunizations Immunization Date Immunization Notes Care Provider Ashley olvera 03-01-2024 tetanus toxoid, redu hugh diphtheria toxoid, and acellular pertussis vaccine, adsorbed Dr. Coleman Coleman DO Work Phone: [facility] 02-07-2019 tetanus toxoid, redu hugh diphtheria toxoid, and acellular pertussis vaccine, adsorbed [facility] 04-08-2018 Influenza virus vaccine [facility] 04-08-2018 pneumococcal conjuga te vaccine, 13 valent [facility] 04-08-2018 influenza virus vaccine, unspecified formulation Xr [facility] Work Phone: [facility] Payers Date Payer Category Payer Medicaid [id number] 2024 Self-pay [id number] 2022 Medicare 2022 Medicare (Managed Care) [employer] [id number] 2022 Medicare [id number] Medicare [id number] Medicare [employer] MEDICARE PPO [id number] Unknown [id number] Unknown [id number] Unknown [id number] Social History Date Type Detail Facility Start: 05-02-2022 End: 04-09-2023 Tobacco smoking status NHIS Unknown if ever smoked [facility] Start: 02-20-2019 Heavy [facility] Start: 02-20-2019 None [facility] Start: 02-20-2019 Alone [facility] Start: 02-21-2019 Cigarettes [facility] Start: 1955 Sex Assigned At Male W [facility] Start: 10-12-2022 Tobacco smoking stat us TNIS Smokes tobacco daily [facility] History of tobacco use Cigarette Smoker C [facility] Start: 10-12-2022 Tobacco use and exposure Smokeless tobacco non-user [facility] Start: 10-12-2022 History of Social function [facility] Start: 10-12-2022 Tobacco use panel [facility] Start: 1955 Sex assigned at Not on file C [facility] Start: 01-09-2025 [facility] Medical Equipment Procedure Code Equipment Code Equipment Origin al Text Equipment Identifier Dates ([id number]) Drug-eluting coronary artery stent, bioabsorbable-polyme r-coated ()[id number] FDA Start: 07-08-2021 ([id number]) Drug-eluting coronary artery stent, bioabsorbable-polyme r-coated ()[id number] FDA Start: 07-08-2021 Mental Status Date Assessment Result Facility 01-09-2025 Cognitive function Level Of Cons ciousness Awake;Alert;Appropriate;Follow s Commands [facility] Work Phone: 05-02-2022 Cognitive function Voice/Name [facility] Work Phone: Clinical Notes 10-12-2022 to 01-09-2025 Note Date & Type Note Facility 01-09-2025 Discharge summary [facility] 01-09-2025 Radiology Diagnostic study note [facility] Imaging Services [address] [place], [place] [address] Abdomen/Pelvis W IV Cont ONLY MR#: [id number] Acct: [id number] Name: SPRING PETER Rep #: [id number] : 1955 M 69 From: Sarah Ji MD PCP: Care Physician,No Primary Status: REG ER Study:Abdomen/Pelvis W IV Cont ONLY Date of E xam: 01/09/25 Exam# [id number] Ordering Dr: Honorio Coleman DO EXAM: CT Abdomen and Pelvis With Intravenous Contrast CLINICAL INDICATION: ABDOMINAL PAIN TECHNIQUE: Axial computed tomography images of the abdomen and pelvis with intravenous contrast. This CT exam was performed using one or more of the following dose reduction techniques: automated exposure control, adjustment of the mA and/or kV according to patient size, and/or use of iterative reconstruction technique. COMPARISON: CT Abdomen Pelvis dated 02/07/2019 FINDINGS: LUNG BASES: Partially visualized lung emphysema. No consolidation. MEDIASTINUM: Small esophageal hiatal hernia. ABDOMEN: LIVER: See below. GALLBLADDER AND BILE DUCTS: Unremarkable. No calcified stones. No ductal dilation. PANCREAS: Unremarkable. No mass. No ductal dilation. SPLEEN: Unremarkable. No splenomegaly. ADRENALS: Unremarkable. No mass. KIDNEYS AND URETERS: Unremarkable. No solid mass. No hydronephrosis. STOMACH AND BOWEL: Apparent asymmetric wall thickening of the ascending colon and cecum. This was not as prominent in the prior exam. Underlying mass can not be excluded. Further evaluation with colonoscopymay be beneficial. Fecal retention in the colon consistent with constipation. No obstruction. PELVIS: APPENDIX: No findings to suggest acute appendicitis. BLADDER: Unremarkable. No mass. REPRODUCTIVE: Unremarkable as visualized. ABDOMEN and PELVIS: INTRAPERITONEAL SPACE: Fatty liver with hepatic surface irregularity and ascites, concerning for cirrhosis. No free air. BONES/JOINTS: No acute fracture. No dislocation. SOFT TISSUES: Inguinal hernias, bilaterally. VASCULATURE: Scattered calcified atherosclerotic disease of aorta measuring up to 3.7 cm diameter. No abdominal aortic aneurysm. LYMPH NODES: Unremarkable. No enlarged lymph nodes. CT/Abdomen/Pelvis W IV Cont ONLY IMPRESSION: 1. Fatty liver with hepatic surface irregularity and ascites, concerning for cirrhosis. 2. Apparent asymmetric wall thickening of the ascending colon and cecum. This was not as prominent in the prior exam. Underlying mass can not be excluded. Further evaluation with colonoscopy may bebeneficial. 3. Small esophageal hiatal hernia. 4. Scattered calcified atherosclerotic disease of aorta measuring up to 3.7 cm diameter. 5. Fecal retention in the colon consistent with constipation. 6. Inguinal hernias, bilaterally. Reading Location: [facility] CC: Dr. Coleman Coleman, DO; No Primary Care Physician ~ Primary Clinician: Signed [facility] 01-09-2025 Radiology Diagnostic study note [facility] Imaging Services [address] [place] [address] CTA Chest W/WO Contrast MR#: [id number] Acct: [id number] Name: SPRING PETER Rep #: [id number] : 1955 M 69 From: Sarah Ji MD PCP: Care Physician,No Primary Status: REG ER Study:CTA Chest W/WO Contrast Date of Exam: 01/09/25 Exam# [id number] Ordering Dr: Honorio Coleman DO EXAM: CT Angiography Chest Without and With Intravenous Contrast CLINICAL INDICATION: CHEST PAIN TECHNIQUE: Axial computed tomographic angiography images of the chest without and with intravenous contrast. This CT exam was performed using one or more of the following dose reduction techniques: automated exposure control, adjustment of the mA and/or kV according to patient size, and/or use of iterative reconstruction technique. MIP reconstructed images were created and reviewed. COMPARISON: No relevant prior studies available. FINDINGS: PULMONARY ARTERIES: Unremarkable. No pulmonary embolism. AORTA: No acute findings. No thoracic aortic aneurysm. LUNGS AND PLEURAL SPACES: Lung emphysema/COPD. No mass. No consolidation. Nosignificant effusion. No pneumothorax. HEART: Unremarkable. No cardiomegaly. No significant pericardial effusion. No evidence of RV dysfunction. MEDIASTINUM: Small esophageal hiatal hernia. BONES/JOINTS: No acute fracture. No dislocation. SOFT TISSUES: Unremarkable. LYMPH NODES: Unremarkable. No enlarged lymph nodes. INTRAPERITONEAL SPACE: Partially visualized ascites. Possible cirrhosis. CT/CTA Chest W/WO Contrast IMPRESSION: 1. No pulmonary embolism. 2. Small esophageal hiatal hernia. 3. Lung emphysema/COPD. Reading Location: [facility] CC: Dr. Coleman Coleman DO; No Primary Care Physician ~ Primary Clinician: Signed [facility] 01-09-2025 Radiology Diagnostic study note [facility] Imaging Services [address] [place] [address] Brain/Head without Contrast MR#: [id number] Acct: [id number] Name: SPRING PETER Rep #: [id number] : 1955 M 69 From: Sarah Ji MD PCP: Care Physician,No Primary Status: REG ER Study:Brain/Head without Contrast Date of Exa m: 01/09/25 Exam# [id number] Ordering Dr: Honorio Coleman DO EXAM: CT Head Without Intravenous Contrast CLINICAL INDICATION: FALL, HEAD TRAUMA TECHNIQUE: Axial computed tomography images of the head/brain without intravenous contrast. This CT exam was performed using one or more of the following dose reduction techniques: automated exposure control, adjustment of the mA and/or kV according to patient size, and/or use of iterative reconstruction technique. COMPARISON: CT Head dated 01/24/2020 FINDINGS: BRAIN AND EXTRA-AXIAL SPACES: The cerebral and cerebellar sulci are prominent consistent with brain atrophy. Areas of decreased attenuation in the deep cerebral white matter are consistent with small vessel ischemic/degenerative changes. No acute intracranial hemorrhage, midline shift or mass effect. If symptoms persist, further evaluation with MRI is recommended. BONES/JOINTS: Unremarkable. No acute fracture. SOFT TISSUES: Unremarkable. SINUSES: Unremarkable as visualized. No acute sinusitis. MASTOID AIR CELLS: Unremarkable as visualized. No mastoid effusion. CT/Brain/Head without Contrast IMPRESSION: 1. Generalized brain atrophy. 2. Small vessel ischemic/degenerative changes. 3. No acute intracranial hemorrhage, midline shift or mass effect. If symptoms persist, further evaluation with MRI is recommended. Reading Location: [facility] CC: Dr. Coleman Coleman DO; No Primary Care Physician ~ Primary Clinician: Signed [facility] 01-09-2025 Discharge summary Note Date/Time January 09, 2025 8:57pm [facility] Medical Records Department [address] [place] [address] Emergency Department Summary 01/09/25 MR#: [id number] Acct: [id number] Name: SPRING PETER Rep #:[id number] : 1955 69 From: Coleman Woodard PCP: Care Physician,No Primary Status :ADM IN Location: [place] [address] HPI History of Present Illness Chief Complaint: Weakness [facility] Medical History (Updated 01/09/25 @ 20:[address] Nick Monk DO) Acute ST elevation myocardial infarction History of stroke Pure hypercholesterolemia Old myocardial infarction Alcohol abuse Tobacco abuse Essential hypertension Presence of stent in coronary artery (~03/28/17) Atherosclerotic heart disease of [place] coronary artery without angina pectoris Home Medications ?Medication ?Instructions ?Recorded ?Last Taken ?Type hydroxyzine pamoate 25 mg capsule 25 mg PO TID PRN anx iety #21 caps 04/09/23 Unknown Rx (Vistaril) Allergy/AdvReac Type Severity Reaction Status Date / Time lisinopril Allergy COUGH Verified 01/09/25 16:11 Family History Father Heart disease Mother Alzheimers [...] 2 EXAM Physical Exam Const Vital Signs: 01/09/25 16:05 01/09/25 18:04 01/09/25 19:30 Temperature 99 F 98.6 F Temperature Source Oral Pulse Rate 98 95 91 Respiratory Rate 28 H 16 18 Blood Pressure 129/75 H 103/63 120/70 Blood Pressure Mean 93 76 86 Pulse Ox 100 100 99 Oxygen Delivery Method Room Air Room Air 01/09/25 20:00 Temperature Temperature Source Pulse Rate 90 Respiratory Rate 18 Blood Pressure 122/68 H Blood Pressure Mean 86 Pulse Ox 100 Oxygen Delivery Method Room Air MDM MDM MDM Narrative Medical decision making narrative: HISTORY OF PRESENT ILLNESS: Chief complaint: Weakness 69-year-old male history of CAD status post coronary angioplasty, alcohol abuse,CVA, hyperlipidemia, hypertension, history of tobacco use presents with weakness. Notes diffuse weakness and difficulty ambulating. Notes he fell approxi-1 week ago injuring his chest abdomen. Notes chest pain currently. Is not pressure is not exertional. Also complains of nausea. Denies focal weakness. Denies vomiting or diarrhea. Denies urinary complaints. Denies cough fever or chills. Denies any bleeding diathesis. States he is not taking his medicines in months. REVIEW OF SYSTEMS: Pertinent positives: Weakness, fall Pertinent negatives: As per HPI PHYSICAL EXAM: Nursing triage notes reviewed, Vital signs reviewed Constitutional: please see [facility] HENT: MMM, no intraoral lesions Eyes: Pupils equal round and reactive to light, Extraocular muscles intact Neck: No stridor, no JVD, full neck ROM, no cervical spine step-offs deformities Lungs: Clear to auscultation, No wheezing or [...] masses, no auscultated abdominal bruit : No CVAT, pelvis stable to compression Extremities: No edema Back: No T or L-spine step-offs or deformities Neuro: No new focal neurological deficits, cranial nerves II through XII intact,5/5 strength in all present extremities. Intact sensation to light touch in all present extremities, 2+ reflexes bilateral patella tendons. Short shuffling gait but non-ataxic. Skin: No rash or lesions noted MEDICAL DECISION MAKING: Chief Complaint: please see [facility] External records reviewed: Reviewed prior stress test. Stress test from 2021 shows Factors affecting care: As per [facility] Social determinants of health: none History obtained from others: Family Consults: Internal medicine (Dr. Vaughn, Dr. Johnson) [facility] Narrative: The patient was initially hemodynamically stable, tachypneic, afebrile saturating under percent room air. Exam initially with no focal cardiopulmonaryabnormalities I considered the following differential diagnosis: ICH, infectious etiologies, electrolyte disturbance, dehydration, UTI, CHF, PE, alcohol intoxication, CVA, intra-abdominal pathologies amongst others I obtained a broad lab and imaging workup to further determine if the patient was suffering from a life-threatening etiology. Initially resuscitated the patient with 1 L normal saline gave Tylenol and Zofran for symptomatic control of nausea and pain. ALL IMAGES (IF OBTAINED) HAVE BEEN PERSONALLY REVIEWED AND INTERPRETED BY MYSELF. EKG with normal sinus rhythm rate of 97, left axis deviation, slightly prolongedQT interval, no obvious STEMI CT PE study negative for PE or signs of heart failure CT scan of the brain negative for ICH CT abdomen pelvis shows evidence of possible liver cirrhosis Lactate elevated consistent with endorgan hypoperfusion consistent with liver dysfunction BMP with hyponatremia, no acute kidney injury LFTs show no evidence of hepatobiliary pathology. BNP elevated consistent with volume overload Serum alcohol negative Lipase is wnl indicating no pancreatic inflammation. High-sensitivity troponin is negative, no evidence of myocardial ischemia The synthesis of the patient's history, physical exam, lab and images suggest likely sequelae of chronic alcohol use and med noncompliance including beer Potomania (hyponatremia), dehydration and heart failure. Given the patient's difficulty ambulating, frequent falls, evidence of medication noncompliance and signs of hyponatremia I opted to offer patient admission. Will discuss with hospitalist. Initially paged Dr. Vaughn at approximately 6:50 PM he requested that I paged the overnight hospitalist as theshift was over in 10 minutes to assure continuity of care. Will repage hospitalist at 7:[address] Johnson who agreed to admit the patient to PCU. The patient and/or family, caregivers express understanding. [...] care time today provided was at least 0 minutes. This excludes separately billable procedures. Critical care time (if documented) is secondary to the patient having high probability of clinically significant/life threatening deterioration in the patient's condition which required my urgent intervention. Impression: 1. Diffuse weakness 2. Elevated lactate 3. Hyponatremia 4. Med noncompliance 5. Liver cirrhosis Dispo: Admit to PCU This note was generated with [employer] dictation software. It may contain incorrectwords, spelling, and punctuation that were not noted in review of the chart prior to si Lab Data Labs: Laboratory Results - last 24 hr 01/09/25 01/09/25 01/09/25 16:50 17:35 19:39 Sodium 125 L Potassium 4.3 Chloride 91 L Carbon Dioxide 21.0 Anion Gap 13 BUN 25 H Creatinine 0.85 Estim Creat Clear Calc 87.08 Est GFR (MDRD) Non-Af 95 BUN/Creatinine Ratio 28.8 H Glucose 106 H Lactic Acid 2.3 H* Calcium 9.5 Total Bilirubin 0.62 Direct Bilirubin 0.33 H AST 22 ALT 13 Alkaline Phosphatase 62 Troponin T High Sens 11 Troponin T Hi Sens 2 Hr 11 NT pro BNP II 4108 H Total Protein 6.2 Albumin 2.6 L Globulin 3.6 Lipase 11 L Ethyl Alcohol < 10.1 Radiography Diagnostic Testing: Clinical Impression(s) from Imaging Studies Brain CT 01/09/25 16:28 IMPRESSION: 1. Generalized brain atrophy. 2. Small vessel ischemic/degenerative changes. 3. No acute intracranial hemorrhage, midline shift or mass effect. If symptoms persist, further evaluation with MRI is recommended. Reading Location: [facility] Chest CTA 01/09/25 16:28 IMPRESSION: 1. No pulmonary embolism. 2. Small esophageal hiatal hernia. 3. Lung emphysema/COPD. Reading Location: [facility] Abdomen/Pelvis CT 01/09/25 16:29 IMPRESSION: 1. Fatty liver with hepatic surface irregularity and ascites, concerning for cirrhosis. 2. Apparent asymmetric wall thickening of the ascending colon and cecum. This was not as prominent in the prior exam. Underlying mass can not be excluded. Further evaluation with colonoscopy may bebeneficial. 3. Small esophageal hiatal hernia. 4. Scattered calcified atherosclerotic disease of aorta measuring up to 3.7 cm diameter. 5. Fecal retention in the colon consistent with constipation. 6. Inguinal hernias, bilaterally. Reading Location: [facility] Discharge Plan Triage Chief Complaint: Weakness ED Provider: Coleman Coleman Dx/Rx/DC Orders Primary Care Provider: Care Physician,No Primary What to do if you have Problems For any increased pain, shortness of breath, bleeding, nausea or vomiting, chestpain, or any unexpected problems, contact your Primary Care Provider. Call [facility] ([phone]) or report to the closest Emergency Room. Call 911 if necessary. 01/09/252056 <Electronically signed by Coleman Coleman DO> Cosigner Signature (if applicable): CC: No Primary Care Physician ~ Signed [facility] Work Phone: 1(686) 878-884707-04-2025 Evaluation note* Diagnosis Onset Date Resolution Status Admit Date Abnormal CT scan, colon acute J amrita 2024 8:15pm Alcohol abuse acute January 09, 025 8:15pm Ambulatory dysfunction acute Ju ly 2024 8:15pm Constipation acute January 09 8:15pm Fall acute January 09, 2025 8:15pm Generalized weakness acute January 09, 2025 8:15pm Hypoalbuminemia acute January 09, 2025 8:15pm Hyponatremia acute January 09 8:15pm Lactic acidosis acute January 09, 2025 8:15pm Medical non-compliance acute Ju ly 2024 8:15pm Shuffling gait acute January 09, 2025 8:15pm Tobacco abuse acute January 09 025 8:15pm CHF exacerbation chronic January 8:15pm [facility] Work Phone: 1(173) 226-107905-06-2025 Telephone encounter Note* Telephone Encounter - Zoila Langston RN - 11/11/2024 5:18 PM EDT PATIENT NOTIFIED OF INFORMATION [facility]05-06-2025 Miscellaneous Notes* Telephone Encounter - Zoila Langston RN - 11/11/2024 5:18 PM EDT PATIENT NOTIFIED OF INFORMATION * Telephone Encounter - Flor Alberto PA - 11/11/2024 5:01 PM EDT Called patient left voicemail to return call. If patient returns call, please let him know that chest x-ray revealed no pneumonia. Continue medications given at visit. His x-ray did reveal small amount of fluid on the lungs. He needs close follow-up with PCP within 1 week for evaluation of this. documented in this encounterC[facility] Telephone encounter Note * Telephone Encounter - Flor Alberto PA - 11/11/2024 5:01 PM EDT Called patient left voicemail to return call. If patient returns call, please let him know that chest x-ray revealed no pneumonia. Continue medications given at visit. His x-ray did reveal small amount of fluid on the lungs. He needs close follow-up with PCP within 1 week for evaluation of this. [facility] Work Phone: [phone]) 510-544805-06-2025 History of Present illness Narrative* Reny Sampson Tech - 11/11/2024 4:40 PM EDT Radiology Service Progress Note PATIENT NAME: Spring Peter DATE OF SERVICE: November 11, 2024 [...] PATIENT PRESENTS WITH AN IMPLANTABLE OR ATTACHED HEEL BURNISHER: No RADIOLOGY DEPARTMENT: General X-ray: Exam(s) Completed: Chest X-Ray PERIPHERAL IV DATA: Not applicable SIGNED BY: Marcie Gilmore November 11, 2024 4:34 PM documented in this encounterCleveland [facility]-2025 NoteHNO ID: [id number] Author: RENY SAMPSON Tech Service: ? Author Type: Technologist Type: Progress Notes Filed: 11/11/2024 16:47 Note Text: Radiology Service Progress Note PATIENT NAME: Spring Peter DATE OF SERVICE: November 11, 2024 [...] PATIENT PRESENTS WITH AN IMPLANTABLE OR ATTACHED HEEL BURNISHER: No RADIOLOGY DEPARTMENT: General X-ray: Exam(s) Completed: Chest X-Ray PERIPHERAL IV DATA: Not applicable SIGNED BY: Marcie Gilmore November 11, 2024 4:34 [facility]05-06-2025 NoteHNO ID: [id number] Author: YASMEEN CHOWDARY APRN.GROUND SUPPORT EQUIPMENT FITTER Service: ? Author Type: Nurse Practitioner Type: Progress Notes Filed: 11/11/2024 16:29 Note Text: [facility] Subjective Spring Peter is a 69 year old male. [...] history is provided by the patient. No parts interpreter was used. Cough This is a new [...] oriented to person, sb (more content not included)...[facility]05-06-2025 History of Present illness Narrative* Yasmeen Chowdary, JUNITO.GROUND SUPPORT EQUIPMENT FITTER - 11/11/2024 4:15 PM EDT [facility] Subjective Spring Peter is a 69 year old male. [...] history is provided by the patient. No parts interpreter was used. Cough This is a new problem. The current episode started more than 1 week ago. The problem occurs constantly. The problem has been gradually worsening. The cough is Productive of sputum. There has been no fever. Associated symptoms include rhinorrhea, shortness of breath and wheezing. Pertinent negativesinclude no chest pain, no chills, no sweats, [...] pneumonia Discussed red flags F/U with PCP Yasmeen Chowdary APRN.GROUND SUPPORT EQUIPMENT FITTER MDM Procedures documented in this encounterC[facility]02-25-2025 NoteHNO ID: [id number] Author: CHEYENNE BACON MA Service: ? Author Type: Truck Sales Manager Type: Progress Notes Filed: 09/02/2024 12:40 Note Text: POPULATION HEALTH NAVIGATION OUTREACH Action/FYI Upon reviewing the patient's chart, it was found in Care Everywhere that his current PCP is EMILY Mcwilliams with [facility]. PCP field updated. Reason for Outreach Attribution: Unknown PCP Report Care Gaps due: N/A Patient Contacted: Unable or unnecessary to reach patient: PCP field updated Outside PCP Navigation Signature: Cheyenne Bacon MA September 02, 2024 12:39 [facility]02-25-2025 History of Present illness Narrative* Cheyenne Bacon MA - 09/02/2024 12:37 PM EST POPULATION HEALTH NAVIGATION OUTREACH Action/FYI Upon reviewing the patient's chart, it was found in Care Everywhere that his current PCP is EMILY Cabezas with [facility]. PCP field updated. Reason for Outreach Attribution: Unknown PCP Report Care Gaps due: N/A Patient Contacted: Unable or unnecessary to reach patient: PCP field updated Outside PCP Navigation Signature: Cheyenne Bacon MA September 02, 2024 12:39 PM documented in this encounterC[facility]-2025 NotePatient Outreach (NETNAV) SPRING PETER ([id number]) 1955 Date Time Provider Department 09/02/24 CHEYENNE BACON NETNAV During your visit today, we recorded the following information about you: Cheyenne Bacon MA 09/02/2024 12:40 PM Signed POPULATION HEALTH NAVIGATION OUTREACH Action/FYI Upon reviewing the patient's chart, it was found in Care Everywhere that his current PCP is EMILY Mcwilliams with [facility]. PCP field updated. Reason for Outreach Attribution: [...] (None) Encounter Status:Closed by CHEYENNE BACON on 09/02/24[facility]10-02-2023 Discharge summary Author Coleman Coleman [facility] April 09, 2023 5:19am Note Date/Time April 09, 2023 5: 06am [facility] Medical Records Department [address] [place] [address] Emergency Department Summary 04/09/23 MR#: [id number] Acct: [id number] Name: SPRING PETER Rep #:[id number] : 1955 67 From: Coleman Woodard PCP: Dr. Nubia Licea Status:PRE ER Location: ED HPI History of Present Illness Chief Complaint: Anxiety PFSH PFS Medical History (Updated 05/11/22 @ 00:10 by Background Dasusi) Acute ST elevation myocardial infarction Alcohol abuse Atherosclerotic heart disease of [place] coronary artery without angina pectoris Essential hypertension [...] 99 Oxygen Delivery Method Room Air MDM [facility] MDM Narrative Medical decision making narrative: HISTORY [...] reviewed, Vital signs reviewed Constitutional: please see mdm HENT: MMM Eyes: Pupils equal round and [...] History obtained from others: none Consults: none [facility] Narrative: Patient was initially mildly hypertensive [...] your Primary Care Provider. Call [facility] ([phone]) or report to the closest Emergency Room. Call 911 if necessary. 04/09/23 0519 <Electronically signed by Coleman Coleman DO> Cosigner Signature (if applicable): CC: Dr. Nubia Licea ~ Signed [facility] Work Phone: 1([phone]) 410-480104-06-2023 History of Present illness Narrative* Danna Murdock, RT(R) - 10/12/2022 10:40 AM EDT Radiology Service Progress Note PATIENT NAME: Spring Peter DATE OF SERVICE: October 12, 2022 [...] 12, 2022 10:55 AM documented in [facility] encounterOhio[facility] noteNo assessment information availableWCleveland Clinic [facility] Work Phone: Evaluation note* Diagnosis Subacute cough Cough documented in this encounter [facility] note* Diagnosis Acute cough- Primary COPD with exacerbation (HCC) Obstructive chronic bronchitis with exacerbation Acute cough documented in this encounter [facility] note* Diagnosis Acute cough [facility] Additional Instructions Thank you [...] care physician for further outpatient evaluation and management.[facility] Work Phone: Reason for referral (narrative)No reason for referral information availableWCleveland Clinic [facility] Work Phone: Reason for visit Narrative* Diagnostic Procedure Only (Routine) - Denied Specialty Diagnoses / Procedures Referred By Chayito t Referred To Contact Radiology / [facility] Diagnoses Dx: Subacute cough [R05.2] Procedures XR CHEST Tee, Darien J, MD [address] [place] [address] [facility] [address] [place] [address] Referral ID Status Reason Start Date Expiration Date Visits Re quested Visits Authorized [id number] Denied 10/12/2022 01/10/2023 1 0 [facility] Summary Purpose Family History Relationship Condition Age at Onset Recorded Date/T daniella father Cardiac disease Unknown mother Alzheimer's disease Unknown brother Chronic obstructive pulmonary disease Unk nown brother Cardiac disease Unknown sister Malignant neoplasm Unknown Advance Directives Advance Directive Response Recorded Date/ Time Living Will No May 02 6:57pm Power of Retail Warehouse Supervisor No May 02, 2022 6:57pm Advance Directive Response Recorded Date/ Time Living Will No April 09 4:55am Power of Retail Warehouse Supervisor No April 09 4:55am Advance Directive Response Recorded Date/ Time Do you have a [facility] Power of Retail Warehouse Supervisor? Yes January 09, 2025 4:11pm Chief Complaint and Reason for Visit Chief Complaint CHEST PAIN Chief Complaint anxiety Chief Complaint Admit Date HYPONATREMIA, WEAKNESS January 09, 2025 8: 15pm Reason for Visit Admit Date Abnormal CT scan, colon January 09, 2025 8 :15pm Alcohol abuse January 09, 2025 8:15p m Ambulatory dysfunction January 09, 2025 8: 15pm Constipation January 09, 2025 8:15p m Fall January 09, 2025 8:15p m Generalized weakness January 09, 2025 8:15 pm Hypoalbuminemia January 09, 2025 8:15p m Hyponatremia January 09, 2025 8:15p m Lactic acidosis January 09, 2025 8:15p m Medical non-compliance January 09, 2025 8: 15pm Shuffling gait January 09, 2025 8:15p m Tobacco abuse January 09, 2025 8:15p m CHF exacerbation January 09, 2025 8:15p m Additional Source Comments (unrecognized sect ion and content) No Status Records FoundNo Status Records FoundNo Status Records Found INFORMATION SOURCE (unrecogn ized section and content) DATE CREATED AUTHOR 12/26/2017 [facility] DATE CREATED AUTHOR AUTHOR'S ORGANIZ ATION 08/10/[address] [facility] DATE CREATED AUTHOR AUTHOR'S ORGANIZ ATION 11/14/2024 [facility] Goals (unrecognized section and content) Goals may be documented in a n alternate sectionGoals may be documented in an alternate sectionGoals may be documented in an alternate section Care Teams (unrecognized sec tion and content) Team Status: Active Member Role Status Dates Dr. Riky Seals DO Family Provider Active Dr. Nubia Licea Primary Care Provider Active Team Status: Inactive Member Role Status Dates Dr. Nubia Licea Primary Care Provider Active Dr. Coleman Coleman DO Emergency Provider Active Logistics And Planning Manager Relationship Specialty Start Date End Date Yasmeen Zambrano NP [address] [place] [address] PCP - General Family Medicine 09/02/24 [employer] And Planning Manager Relationship Specialty Start Date End Date Yasmeen Zambrano NP [address] [place] [address] PCP - General Family Medicine 09/02/24 Logistics And Planning Manager Relationship Specialty Start Date End Date Yasmeen Zambrano NP [address] [place] [address] PCP - General Family Medicine 09/02/24 Logistics And Planning Manager Relationship Specialty Start Date End Date Yasmeen Zambrano NP [address] [place] [address] PCP - General Family Medicine 09/02/24 Team Status: Active Member Role/Relationship Status Dates No Primary Care Physician Primary Care Provider Active Team Status: Active Member Role/Relationship Status Dates Dr. Coleman Coleman DO Emergency Provider Active Start: January 09, 2025 No Primary Care Physician Primary Care Provider Active Start: January 09, 2025 Dr. Nick Monk DO Admit Provider Active Start: January 09, 2025 Dr. Nick Monk DO Attending Provider Active Start: January 09, 2025 Source Comments (unrecognize d section and content) In the event this informatio n is protected by the Federal Confidentiality of Alcohol and Drug Abuse Patient Records regulations: The Federal rules restrict any use of the information to criminally investigate or prosecute any alcohol or drug abuse patient.[facility] the event this information is protected by the Federal Confidentiality of Alcohol and Drug Abuse Patient Records regulations: The Federal rules restrict any use of the information to criminally investigate or prosecute any alcohol or drug abuse patient.[facility] GeneralIn the event this information is protected by the Federal Confidentiality of Alcohol and Drug Abuse Patient Records regulations: The Federal rules restrict any use of the information to criminally investigate or prosecute any alcohol or drug abuse patient.[facility] GeneralIn the event this information is protected by the Federal Confidentiality of Alcohol and Drug Abuse Patient Records regulations: The Federal rules restrict any use of the information to criminally investigate or prosecute any alcohol or drug abuse patient.[facility] GeneralIn the event this information is protected by the Federal Confidentiality of Alcohol and Drug Abuse Patient Records regulations: The Federal rules restrict any use of the information to criminally investigate or prosecute any alcohol or drug abuse patient.[facility] Reason for Visit (unrecogniz ed section and [...] BE BASED ON THE PRIMARY CLINICAL RECORDS. [facility]. provides no warranty or guarantee of the accuracy or completeness of information in this document.
[2025-01-09 21:48] LABS: FOLATES,SERUM (FOLIC ACID) 8.40 ng/mL (4.60-34.80)
[2025-01-09 21:54] VITALS: BMI 19.1
[2025-01-09 22:00] VITALS: BP 113/81; PULSE 93; RESP 16; TEMP 36.7; O2SAT 100
[2025-01-09] MEDS: Magnesium Chloride 64 MG Delay Rel.Tablet 128 MG PO (22:18)
[2025-01-09] MEDS: Heparin Injection (Vial) 5,000 UNIT/ML VIAL 5000 UNIT SC (22:18)
[2025-01-09] MEDS: Potassium Chloride Oral Tablet 20 MEQ PO (22:19)
[2025-01-09] MEDS: 0.9% Saline Lock 10 ML Syringe IV (22:19)
[2025-01-09] MEDS: Permethrin 1% 1 APPLIC Bottle TOPICAL (22:19)
[2025-01-09] MEDS: 0.9% Normal Saline (1000mL) 1,000 ML 50 ML IV (22:20)
[2025-01-09] MEDS: Pantoprazole Sodium 40 MG in 0.9% Normal Saline (100mL MB+) 100 ML 330 MG IV (22:20)
[2025-01-09 22:31] LABS: Osmolality, Serum 267 mOsm/KG (280-301)
[2025-01-09 22:35] LABS: Vitamin B12 787 pg/mL (180-914)
[2025-01-09 23:13] LABS: Mucous, Urine 0 SEEN /hpf (<or=2+); Red Blood Cells-Urine 0 SEEN /hpf (0-5); Squamous Epithelial Cells - UA 0 SEEN /hpf (0-5)
[2025-01-09 23:20] LABS: Color, Urine Yellow (Yellow); Glucose, Dipstick Normal (Normal); Ketone-Dipstick 5 mg/dl (Negative); Leukocyte Esterase-Dipstick Negative /ul (Negative); Nitrite-Dipstick Negative (Negative); Occult Blood-Urine Negative /ul (Negative); Protein-Dipstick 15 mg/dl (Negative); Specific Gravity, Urine 1.010 (1.002-1.030); Urine Bilirubin Dipstick Negative (Negative)
[2025-01-09 23:23] LABS: Osmolality, Urine 472 mOsm/KG
[2025-01-09 23:49] LABS: Barbiturate Urine NEGATIVE (< 200 ng/mL); Benzodiazepine Urine NEGATIVE (< 200 ng/mL); PCP Urine NEGATIVE (< 25 ng/mL); THC Urine NEGATIVE (< 50 ng/mL)
[2025-01-10 01:08] LABS: Troponin T High Sens 4 HR 12 ng/L (<=22)
[2025-01-10 01:21] LABS: Anion Gap 15 (5-15); BUN 24 mg/dL (4-19); BUN/Creat Ratio 24.9 RATIO (10-20); Calcium,Total 9.2 mg/dL (7.6-11.0); Carbon Dioxide 19.6 mmol/L (21.0-32.0); Chloride 90 mmol/L (98-108); Estimated Creatinine Clearance 66.85 ml/min (50-250); Glucose 108 mg/dL (70-99); Potassium 4.4 mmol/L (3.3-5.1)
[2025-01-10 02:05] VITALS: BP 125/75; PULSE 89; RESP 15; TEMP 36.8; O2SAT 100
[2025-01-10 03:58] VITALS: BMI 21.8
[2025-01-10 05:35] VITALS: BP 112/68; PULSE 93; RESP 16; TEMP 36.9; O2SAT 100
[2025-01-10 06:36] LABS: Hematocrit 28.3 % (40-54); Hemoglobin 8.2 g/dL (13.0-16.5); Immature Granulocytes Count 0.070 X10^3/uL (0.0-0.0); Mean Corp Hgb Conc 29.0 g/dL (32-36); Mean Corpuscular Volume 79.5 fL (80-94); Mean Platelet Vol. 11.3 fl (6.2-12.0); NRBC Flagged by Analyzer 0 % (0-5); POSITIVE MORPHOLOGY YES; Platelet Count 190 K/mm3 (150-450); RBC Distribution Width CV 20.1 % (11.6-14.6); RBC Distribution Width SD 57.0 fl (35.1-43.9); Red Blood Count 3.56 M/mm3 (4.6-6.2); White Blood Count 11.3 K/mm3 (4.4-11.0)
[2025-01-10 06:56] LABS: Differential Indicated SCAN CRITERIA MET
[2025-01-10 07:05] LABS: AST(SGOT) 27 U/L (<=37); Alanine Aminotransfer ALT/SGPT 13 U/L (<=46); Albumin, Serum 2.7 g/dL (3.4-4.8); Alkaline Phosphatase 63 U/L (40-129); Anion Gap 13 (5-15); BUN 24 mg/dL (4-19); BUN/Creat Ratio 23.7 RATIO (10-20); Calcium,Total 8.9 mg/dL (7.6-11.0); Carbon Dioxide 19.7 mmol/L (21.0-32.0); Chloride 93 mmol/L (98-108); Cholesterol 78 mg/dL (<=200); Estimated Creatinine Clearance 73.28 ml/min (50-250); Globulin 3.8 g/dL (2.2-4.2); Glucose 97 mg/dL (70-99); Low Density Lipoprotein Calc. 38 mg/dL; Potassium 4.3 mmol/L (3.3-5.1); Pro- Brain NATRIURETIC PEPTIDE 4605 pg/mL (<=900); Triglycerides 97 mg/dL; Very Low Density Lipoprotein 19 mg/dL (5-40); cholesterol:hdl ratio screen 3.83
--- NOTE | 2025-01-10 07:41 | PN.HOSP_ITS ---
Reason for Visit Reason for Visit: Diagnoses Hypo-osmolality and hyponatremia (01/09/25) Acidosis, unspecified (01/09/25) Other disorders of plasma-protein metabolism, not elsewhere classified (01/09/25) Alcohol abuse, uncomplicated (01/09/25) Alcohol use, unspecified with withdrawal with perceptual disturbance (01/09/25) Atherosclerotic heart disease of [place] coronary artery without angina pectoris (01/09/25) Heart failure, unspecified (01/09/25) Constipation, unspecified (01/09/25) Alcoholic cirrhosis of liver with ascites (01/09/25) Difficulty in walking, not elsewhere classified (01/09/25) Other abnormalities of gait and mobility (01/09/25) Hallucinations, unspecified (01/09/25) Weakness (01/09/25) Abnormal findings on diagnostic imaging of other parts of digestive tract (01/09/25) Unspecified fall, initial encounter (01/09/25) Bitten or stung by nonvenomous insect and other nonvenomous arthropods, initial encounter (01/09/25) Tobacco use (01/09/25) Patient's noncompliance with other medical treatment and regimen due to unspecified reason (01/09/25) Coronary angioplasty status (01/09/25) Objective Data Objective Data Vital Signs: Vital Signs Temp Pulse Resp BP Pulse Ox O2 Del Method 98.4 F 93 16 112/68 100 Room Air 01/10/25 05:35 01/10/25 05:35 01/10/25 05:35 01/10/25 05:35 01/10/25 05:35 01/10/25 05:52 Oxygen Delivery Method Room Air Weight: 160 lb 14.999 oz Body Mass Index (BMI) 21.8 Intake & Output: Intake and Output for Last 24 Hours 01/08/25 01/09/25 01/10/25 23:59 23:59 23:59 Intake Total 610 / 610 100 / 100 Output Total 0 / 0 600 / 600 Balance 610 / 610 -500 / -500 Lab / Micro Data 01/10/25 06:06 01/10/25 06:06 Labs: Laboratory Results - last 24 hr 01/09/25 16:50: PT 15.0 H, INR 1.2, Hemoglobin A1c 4.4, Serum Osmolality 267 L, Lactic Acid 2.3 H*, Serum Folate 8.40, Ethyl Alcohol < 10.1 01/09/25 17:35: Sodium 125 L, Potassium 4.3, Chloride 91 L, Carbon Dioxide 21.0, Anion Gap 13, BUN 25 H, Creatinine 0.85, Estim Creat Clear Calc 87.08, Est GFR (MDRD) Non-Af 95, BUN/Creatinine Ratio 28.8 H, Glucose 106 H, Calcium 9.5, Magnesium 2.0, Total Bilirubin 0.62, Direct Bilirubin 0.33 H, AST 22, ALT 13, Alkaline Phosphatase 62, Troponin T High Sens 11, NT pro BNP II 4108 H, Total Protein 6.2, Albumin 2.6 L, Globulin 3.6, Lipase 11 L 01/09/25 19:39: Troponin T Hi Sens 2 Hr 11, Vitamin B12 787 01/09/25 21:25: Lactic Acid 1.9 01/09/25 23:06: Urine Color Yellow, Urine Clarity Clear, Urine pH 5.0, Ur Specific [place] 1.010, Urine Protein 15 H, Urine Glucose (UA) Normal, Urine Ketones 5 H, Urine Occult Blood Negative, Urine Nitrite Negative, Urine Bilirubin Negative, Urine Urobilinogen Normal, Ur Leukocyte Esterase Negative, Urine RBC 0 SEEN, Urine WBC 0-5 SEEN, Ur Squamous Epith Cells 0 SEEN, Urine Bacteria RARE, Hyaline Casts 5-10 SEEN, Urine Mucus 0 SEEN, Urine Osmolality 472, Urine Opiates Screen NEGATIVE, U Buprenorphine Qual NEGATIVE, Ur Oxycodone Screen NEGATIVE, Urine Methadone Screen NEGATIVE, Urine Fentanyl Screen NEGATIVE, Ur Barbiturates Screen NEGATIVE, Ur Phencyclidine Scrn NEGATIVE, Ur Amphetamines Screen NEGATIVE, U Benzodiazepines Scrn NEGATIVE, Urine Cocaine Screen NEGATIVE, U Cannabinoids Screen NEGATIVE 01/09/25 23:35: Sodium 125 L, Potassium 4.4, Chloride 90 L, Carbon Dioxide 19.6 L, Anion Gap 15, BUN 24 H, Creatinine 0.97, Estim Creat Clear Calc 66.85, Est GFR (MDRD) Non-Af 86, BUN/Creatinine Ratio 24.9 H, Glucose 108 H, Calcium 9.2, Troponin T Hi Sens 4Hr 12 01/10/25 06:06: WBC 11.3 H, RBC 3.56 L, Hgb 8.2 L, Hct 28.3 L, MCV 79.5 L, MCH 23.0 L, MCHC 29.0 L, RDW Std Deviation 57.0 H, RDW Coeff of Madelin 20.1 H, Plt Count 190, MPV 11.3, Immature Gran % (Auto) 0.600, Neut % (Auto) 82.0 H, Lymph % (Auto) 10.1 L, Otoe % (Auto) 7.0, Eos % (Auto) 0.2, Baso % (Auto) 0.1, Absolute Neuts (auto) 9.2 H, Absolute Lymphs (auto) 1.14, Nucleated RBC % 0, Sodium 126 L , Potassium 4.3, Chloride 93 L, Carbon Dioxide 19.7 L, Anion Gap 13, BUN 24 H, Creatinine 1.01, Estim Creat Clear Calc 73.28, Est GFR (MDRD) Non-Af 82, B UN/Creatinine Ratio 23.7 H, Glucose 97, Calcium 8.9, Total Bilirubin 0.55, AST 27, ALT 13, Alkaline Phosphatase 63, NT pro BNP II 4605 H, Total Protein 6.5, A lbumin 2.7 L, Globulin 3.8, Albumin/Globulin Ratio 0.7 L, Triglycerides 97, Cholesterol 78, LDL Cholesterol, Calc 38, VLDL Cholesterol 19, HDL Cholesterol 20 L, Cholesterol/HDL Ratio 3.83, TSH 2.210 Radiography Diagnostic Testing: Radiology Impression Brain CT 01/09/25 16:28 IMPRESSION: 1. Generalized brain atrophy. 2. Small vessel ischemic/degenerative changes. 3. No acute intracranial hemorrhage, midline shift or mass effect. If symptoms persist, further evaluation with MRI is recommended. Reading Location: [facility] Chest CTA 01/09/25 16:28 IMPRESSION: 1. No pulmonary embolism. 2. Small esophageal hiatal hernia. 3. Lung emphysema/COPD. Reading Location: [facility] Abdomen/Pelvis CT 01/09/25 16:29 IMPRESSION: 1. Fatty liver with hepatic surface irregularity and ascites, concerning for cirrhosis. 2. Apparent asymmetric wall thickening of the ascending colon and cecum. This was not as prominent in the prior exam. Underlying mass can not be excluded. Further evaluation with colonoscopy may be beneficial. 3. Small esophageal hiatal hernia. 4. Scattered calcified atherosclerotic disease of aorta measuring up to 3.7 cm diameter. 5. Fecal retention in the colon consistent with constipation. 6. Inguinal hernias, bilaterally. Reading Location: [facility] Assessment & Plan Assessment/Plan (1) Hyponatremia: (2) Alcohol abuse: (3) Ascites due to alcoholic cirrhosis: (4) Alcohol withdrawal: QUALIFIERS: Complication of substance-induced condition: with perceptual disturbance Qualified Code(s): F10.932 - Alcohol use, unspecified with withdrawal with perceptual disturbance (5) Hallucinations: (6) Abnormal CT scan, colon: (7) Medical non-compliance: (8) Constipation: QUALIFIERS: Constipation type: unspecified constipation type Q ualified Code(s): K59.00 - Constipation, unspecified (9) CHF exacerbation: QUALIFIERS: Heart failure type: unspecified Qualified Code(s): I 50.9 - Heart failure, unspecified (10) Lactic acidosis: (11) Bedbug bite: QUALIFIERS: Encounter type: initial encounter Qualified Code(s): W57.XXXA - Bitten or stung by nonvenomous insect and other nonvenomous arthropods, initial encounter (12) Generalized weakness: (13) Ambulatory dysfunction: (14) Fall: QUALIFIERS: Encounter type: initial encounter Qualified Code(s): W19.XXXA - Unspecified fall, initial encounter (15) Hypoalbuminemia: (16) Tobacco abuse: (17) Shuffling gait: PLAN: Plan 69-year-old gentleman was brought to ED by EMS with complaint of generalized weakness, not able to only himself anymore. In ED patient was found to have difficulty ambulating, fell down about a week ago, injuring his chest and abdomen. Patient denied chest pain or exertional chest pain as per H&P. Drinks 3 beers daily but no acute symptoms of alcohol withdrawal. Patient has abdominal pain and abdominal swelling for some time. Has not moved for more than a week. 1. Hyponatremia of 125 mmol/L present on admission - Admit to PCU. clinically, patient looks intravascularly dehydrated and extravascular/interstitial fluid with third spacing. Had 1 L of IV bolus and 40 mL of IV furosemide. Continue IV fluid. 2. Beer Potomania likely causing #1 in the setting of Chronic EtOH Abuse with impending EtOH withdrawal indicated by OZZIE <10.1 mg/dL - EtOH Cessation will be strongly encouraged. Patient on phenobarbital taper with supplemental folic acid and multivitamin. 3. Mild abdominal pain and distention exact etiology unclear but possible due to asymmetric wall thickening of ascending colon and cecum, constipation: CT scan of the abdomen pelvis with IV contrast initially reviewed with the images. It shows asymmetric wall thickening of ascending colon and cecum with possibility of possible underlying mass. Patient not mobile for more than a week. Lactulose 20 g was given at night. Lactulose repeat 20 g now and then continue MiraLAX after that. Senna S2 tablet twice daily. Dulcolax 20 g oral and 10 mg rectal suppository. Monitor bowel movement. GI consulted Lactic acidosis corrected 4. Possibility of decompensated cirrhosis most likely due to alcohol with ascites: CT of the abdomen also shows hepatic surface irregularity , Small in size ascites with suggestive of cirrhosis: Blood pressure and heart rate normal. When patient she starts having bowel movement, can have diuresis. Liver chemistry normal limit. TB 0.55, albumin 2.7, hypoalbuminemia. B12 and folic acid normal. 5. CAD with history of STEMI status postcardiac stent in 2017: Elevated NT pro- BNP II of 4,108 pg/mL, probably due to hypervolemia from third spacing with possibility of acute exacerbation of CHF: 2D echo is ordered. Legs are not swollen. Lungs no crepitations. Serial troponins are negative 6. Lactic Acidosis of 2.3 mmol/L present on admission probably due to intravascular dehydration/volume depletion 7. Active bedbug infestation with multiple bites: Patient was started on permethrin 1% cream after discussion with pharmacist by admitting hospitalist 8. Generalized Weakness with Ambulatory Dysfunction and Fall: PT OT and case management for discharge plan 9. Chronic tobacco abuse; subsequent COPD - Tobacco Cessation is encouraged with Nicotine patch offered to control cravings. 10. Short shuffling/gait probably due to chronic alcohol use, generalized malnutrition and weakness of muscle/musculoskeletal system. PT and OT is ordered: Patient not having any acute lateralizing signs of stroke. He is a chronic alcoholic therefore possible drunk and gait/shortness of legate. Patient can have MRI later on if clinical scenario changes or outpatient MRI for that. For now the main priority is abdominal pain/distention, constipation and metabolic derangements, hyponatremia 11. Essential hypertension - Patient noncompliant with antihypertensives. Give hydralazine IV as needed for systolic blood pressure greater than 160 mmHg. 12. Hyperlipidemia - lipid panel Other comorbidities include generalized anxiety dating arthritis, mild chronic malnutrition from chronic alcohol DVT/GI prophylaxis - Heparin 5,000U sq BID plus SCD's. Pantoprazole 40 mg IV daily until nausea subsides. Laboratory Results 01/09/25 16:50: PT 15.0 H, INR 1.2, Hemoglobin A1c 4.4, Serum Osmolality 267 L, Lactic Acid 2.3 H*, Serum Folate 8.40, Ethyl Alcohol < 10.1 01/09/25 17:35: Sodium 125 L, Potassium 4.3, Chloride 91 L, Carbon Dioxide 21.0, Anion Gap 13, BUN 25 H, Creatinine 0.85, Estim Creat Clear Calc 87.08, Est GFR (MDRD) Non-Af 95, BUN/Creatinine Ratio 28.8 H, Glucose 106 H, Calcium 9.5, Magnesium 2.0, Total Bilirubin 0.62, Direct Bilirubin 0.33 H, AST 22, ALT 13, Alkaline Phosphatase 62, Troponin T High Sens 11, NT pro BNP II 4108 H, Total Protein 6.2, Albumin 2.6 L, Globulin 3.6, Lipase 11 L 01/09/25 19:39: Troponin T Hi Sens 2 Hr 11, Vitamin B12 787 01/09/25 21:25: Lactic Acid 1.9 01/09/25 23:06: Urine Color Yellow, Urine Clarity Clear, Urine pH 5.0, Ur Specific [place] 1.010, Urine Protein 15 H, Urine Glucose (UA) Normal, Urine serial no troponin ketones 5 H, Urine Occult Blood Negative, Urine Nitrite Negative, Urine Bilirubin Negative, Urine Urobilinogen Normal, Ur Leukocyte Esterase Negative, Urine RBC 0 SEEN, Urine WBC 0-5 SEEN, Ur Squamous Epith Cells 0 SEEN, Urine Bacteria RARE, Hyaline Casts 5-10 SEEN, Urine Mucus 0 SEEN, Urine Osmolality 472, Urine Opiates Screen NEGATIVE, U Buprenorphine Qual NEGATIVE, Ur Oxycodone Screen NEGATIVE, Urine Methadone Screen NEGATIVE, Urine Fentanyl Screen NEGATIVE, Ur Barbiturates Screen NEGATIVE, Ur Phencyclidine Scrn NEGATIVE, Ur Amphetamines Screen NEGATIVE, U Benzodiazepines Scrn NEGATIVE, Urine Cocaine Screen NEGATIVE, U Cannabinoids Screen NEGATIVE 01/09/25 23:35: Sodium 125 L, Potassium 4.4, Chloride 90 L, Carbon Dioxide 19.6 L, Anion Gap 15, BUN 24 H, Creatinine 0.97, Estim Creat Clear Calc 66.85, Est GFR (MDRD) Non-Af 86, BUN/Creatinine Ratio 24.9 H, Glucose 108 H, Calcium 9.2, Troponin T Hi Sens 4Hr 12 01/10/25 06:06: WBC 11.3 H, RBC 3.56 L, Hgb 8.2 L, Hct 28.3 L, MCV 79.5 L, MCH 23.0 L, MCHC 29.0 L, RDW Std Deviation 57.0 H, RDW Coeff of Madelin 20.1 H, Plt Count 190, MPV 11.3, Immature Gran % (Auto) 0.600, Neut % (Auto) 82.0 H, Lymph % (Auto) 10.1 L, Otoe % (Auto) 7.0, Eos % (Auto) 0.2, Baso % (Auto) 0.1, Absolute Neuts (auto) 9.2 H, Absolute Lymphs (auto) 1.14, Nucleated RBC % 0, Hypochromasia 1+, Anisocytosis 1+, Sodium 126 L, Potassium 4.3, Chloride 93 L, C arbon Dioxide 19.7 L, Anion Gap 13, BUN 24 H, Creatinine 1.01, Estim Creat Clear Calc 73.28, Est GFR (MDRD) Non-Af 82, BUN/Creatinine Ratio 23.7 H, Glucose 97, Calcium 8.9, Total Bilirubin 0.55, AST 27, ALT 13, Alkaline Phosphatase 63, NT pro BNP II 4605 H, Total Protein 6.5, Albumin 2.7 L, Globulin 3.8, A lbumin/Globulin Ratio 0.7 L, Triglycerides 97, Cholesterol 78, LDL Cholesterol, Calc 38, VLDL Cholesterol 19, HDL Cholesterol 20 L, Cholesterol/HDL Ratio 3.83, TSH 2.210 Charges/Coding Addendum Addendum: Total time of the visit including total time spent in counseling or coordination of care, (more than 50% of the total time, spent in obtaining medical information from nurses and other ancillary care providers ,explaining to the patient about labs, imaging, diagnosis and management of active complex medical conditions), multiple active medical issues including hyponatremia, pain, distention, ascites, chronic alcohol use and decreased functional status, review of labs and imaging is 35 minutes. Visit Charges Inpatient E&M: 71832 Subs Hosp L3
[2025-01-10 08:01] LABS: Anisocytosis 1+; Hypochromasia 1+
[2025-01-10 09:35] VITALS: BP 130/90; PULSE 98; RESP 18; TEMP 36.7; O2SAT 99
--- NOTE | 2025-01-10 11:06 | CASEMGMT ---
SW Assessment: Face to Face with pt for initial transition planning/care coordination assessment. SW introduced self and role at [facility], pt voices understanding and consents to assessment. Pt is A&O x4 and answers all questions appropriately at this time. Care providers, pharmacy, and demographics verified/updated. Pt brother Neymar and brother's , Jacinto, both present in room; pt agreeable to them staying, calling them his caregivers. Admitting Dx: Hyponatremia, 2/2 beer potomania PCP: none; pt reports sees random people at [facility] Specialists:none Preferred Pharmacy: [facility] [address] Insurance: [facility] Prescription Benefit: yes LNOK: son, Santana, lives in [place] & has 4 young kids. Brother, Neymar lives in [place] & acts as caregiver Living Arrangements: Pt lives in an apartment that pt reports is falling down. Pt reports that he has not had a working shower for over a year, the floors are falling into the basement, there are holes in the apartment saxena. Pt reports his apartment was sprayed yesterday for bed bugs. Pt has lived in apartment 6.5 years. Pt reports that his physical condition has declined since spring. Pt cannot swallow and has trouble eating. Due to the lack of nutrition,pt reports that he has become very weak and is unable to walk. Pt does not cook his own food; pt caregivers report he eats 2-3 bites of [employer] food a day. Pt reports he has difficulty with self care and care of home due to weakness. Pt gets food stamps. Pt reports that he drinks for calories, but reports that he does not feel symptomatology is related to ETOH use as much as swallowing/GI issues. Transportation: Pt brother transports pt DME: [facility] HHC/SNF: none, but would like SNF or [place] at discharge Pt Goal: Return to higher level of function; regain ability to eat Plan: [place] vs SNF SW remains available to follow. MAGAN Davis
[2025-01-10] MEDS: Pantoprazole Sodium 40 MG in 0.9% Normal Saline (100mL MB+) 100 ML 330 MG IV (11:20)
[2025-01-10] MEDS: Senna/Docusate Sodium 1 Tablet 2 TABLET PO (11:23)
[2025-01-10] MEDS: Heparin Injection (Vial) 5,000 UNIT/ML VIAL 5000 UNIT SC ×2 (11:26→21:20)
[2025-01-10] MEDS: Magnesium Chloride 64 MG Delay Rel.Tablet 128 MG PO ×2 (11:26→21:19)
[2025-01-10] MEDS: Thiamine Hydrochloride 100 MG Tablet PO (11:27)
[2025-01-10 15:35] VITALS: BP 142/84; PULSE 95; RESP 18; TEMP 36.7; O2SAT 98
--- NOTE | 2025-01-10 16:58 | CASEMGMT ---
Social Work- A list of SNF providers including quality and resource use data and consistent with the patient?s preferred geographic region, medical needs, and insurance network were provided from the [facility] Guide. Pt to make three selections. SW remains available to follow. MAGAN Davis
[2025-01-10 20:17] LABS: Microalbumin,Random Urine < 12.0 mg/L (NO RANGE EST.); Protein, Urine (Random) 15.9 mg/dL (0.0-12.0)
[2025-01-10 20:32] LABS: Creatinine, Urine (random) 146.00 mg/dL (39.00-259.00); Protein:Creat Ratio 109 mg/g CRE (0-200)
[2025-01-10 21:12] VITALS: BP 135/80; PULSE 103; RESP 18; TEMP 36.6; O2SAT 99
[2025-01-11 03:07] VITALS: BP 127/76; PULSE 95; RESP 18; TEMP 36.4; O2SAT 100
[2025-01-11 04:49] VITALS: BMI 22.2
[2025-01-11 05:51] LABS: Hematocrit 27.8 % (40-54); Hemoglobin 8.1 g/dL (13.0-16.5); Immature Granulocytes Count 0.080 X10^3/uL (0.0-0.0); Mean Corp Hgb Conc 29.1 g/dL (32-36); Mean Corpuscular Volume 81.0 fL (80-94); Mean Platelet Vol. 11.2 fl (6.2-12.0); NRBC Flagged by Analyzer 0 % (0-5); POSITIVE MORPHOLOGY YES; Platelet Count 186 K/mm3 (150-450); RBC Distribution Width CV 20.3 % (11.6-14.6); RBC Distribution Width SD 58.5 fl (35.1-43.9); Red Blood Count 3.43 M/mm3 (4.6-6.2); White Blood Count 10.8 K/mm3 (4.4-11.0)
[2025-01-11 05:57] LABS: Differential Indicated SCAN CRITERIA MET
[2025-01-11 06:14] LABS: Anion Gap 13 (5-15); BUN 22 mg/dL (4-19); BUN/Creat Ratio 22.3 RATIO (10-20); Calcium,Total 9.2 mg/dL (7.6-11.0); Carbon Dioxide 19.8 mmol/L (21.0-32.0); Chloride 94 mmol/L (98-108); Estimated Creatinine Clearance 77.87 ml/min (50-250); Glucose 94 mg/dL (70-99); Potassium 3.9 mmol/L (3.3-5.1)
[2025-01-11 07:04] LABS: Anisocytosis 1+
[2025-01-11 07:20] VITALS: O2SAT 91
--- NOTE | 2025-01-11 07:26 | CON.PCM.RE_ITS ---
Assessment & Plan Assessment/Plan (1) Hyponatremia: PLAN: Plan Assessment/Plan: The patient is a 69-year-old male with past history of hypertension, CAD status post CO and PCI, COPD, stroke, hyperlipidemia, generalized anxiety disorder, and alcohol use disorder. Patient presents to hospital on 01/09/2025 with generalized weakness, difficulty ambulating, frequent falls and inability to care for self. During workup in ED, patient was found to have hyponatremia with serum sodium of 125 mmol/L on 01/09/2025. Nephrology is asked to see the patient because of hyponatremia. Hyponatremia. Patient presented to hospital on 01/09/2025 with serum sodium of 125 mmol/L. There is no prior history of persistent hyponatremia. My suspicion is that hyponatremia is related to both volume/solute depletion as well as cirrhosis. Urine osmolality is greater than 100 mOsm/kg which is consistent with this theory. Moreover, urine sodium is less than 20 mmol/L which is again suggestive of hyponatremia from decreased EBV related to volume/solute depletion and cirrhosis. Serum sodium is better today at 127 mmol/L. He has no severe symptoms of hyponatremia. Therefore, there is no need for hypertonic saline. Goal is to encourage patient to push oral protein intake which will help the kidney excrete more free water thus raising serum sodium. If MAP is less than 70 mmHg, we can give him boluses of isotonic IV fluid as well. For now, I would recommend keeping him on fluid restriction of 1.5 L/day or less. We should follow serum sodium 3 times per day until serum sodium is consistently above 130 mmol/L. HPI Consult Data Date of Consult: 01/11/25 HPI Narrative Reason for Consultation: Hyponatremia HPI Narrative: The patient is a 69-year-old male with past history of hypertension, CAD status post CO and PCI, COPD, stroke, hyperlipidemia, generalized anxiety disorder, and alcohol use disorder. Patient presents to hospital on 01/09/2025 with generalized weakness, difficulty ambulating, frequent falls and inability to care for self. During workup in ED, patient was found to have hyponatremia with serum sodium of 125 mmol/L on 01/09/2025. Nephrology is asked to see the patient because of hyponatremia. Patient denies headache, nausea, or vomiting. Appetite has been poor prior to presentation to the hospital. CT abdomen on 01/09/2025 does show findings suggestive of liver cirrhosis there is moderate amount of ascites as well. Patient denies current headache, nausea or vomiting. Prior to admission, his appetite has been poor. However, there is no nausea, vomiting or diarrhea prior to admission either. Patient denies chest pain, dyspnea, orthopnea or edema. Patient was not taking any medications prior to presentation to the hospital. He denies cijt-hur-taydhna use of medication such as NSAIDs. [facility] Medical History (Updated 01/10/25 @ 06:[address] Nick Monk DO) Acute ST elevation myocardial infarction History of stroke Pure hypercholesterolemia Old myocardial infarction Alcohol abuse Tobacco abuse Essential hypertension Presence of stent in coronary artery (~03/28/17) Atherosclerotic heart disease of [place] coronary artery without angina pectoris Home Medications ?Medication ?Instructions ?Recorded ?Last Taken ?Type hydroxyzine pamoate 25 mg capsule 25 mg PO TID PRN anx iety #21 caps 04/09/23 Unknown Rx (Vistaril) Allergy/AdvReac Type Severity Reaction Status Date / Time lisinopril Allergy COUGH Verified 01/09/25 16:11 Family History Father Heart disease Mother Alzheimers disease Brother COPD (chronic obstructive pulmonary disease) Brother Heart disease Sister Cancer Lung Surgical History History of tracheostomy History of gastrectomy Presence of coronary angioplasty implant and graft (~03/28/17) Social History housing: other details: Lives with a roommate. Smoking Status: Heavy Smoker (>10/day) alcohol intake: current alcohol intake frequency: 3 or more drinks per day Alcohol type: beer details: Daily. substance use type: does not use caffeine: Yes Type: coffee Number of servings: 2 ROS ROS Narrative As per HPI, otherwise noncontributory. Physical Exam Narrative General: Alert and oriented x3, NAD. Slow to answer questions. HEENT: Normocephalic, atraumatic. Mucous membrane moist without erythema. PERRLA, EOMI. Hearing is intact. Neck: Supple, no JVD. Trachea is midline. No thyromegaly or lymphadenopathy. Cardiovascular: Normal S1, S2. No rubs, murmurs, or gallops. Respiratory: Lungs are clear to auscultation bilaterally. No wheezing, rhonchi, or rales. Abdomen: Distended, normal bowel sounds, nontender, no guarding or rebound. Extremities: No clubbing, cyanosis, or edema. Musculoskeletal: Full passive range of motion, no joint swelling. Psychiatric: Normal mood and affect. Skin: Warm and dry, no rash. Neurologic: Cranial nerve II to XII are grossly intact. No focal neurologic deficits. Medical Records Data Medical Nutrition Assessment Dietitian: Malnutrition Criteria Met Start: 01/10/25 11:46 Freq: Status: Active Protocol: Document 01/10/25 11:46 [facility] (Rec: 01/10/25 11:46 [facility] [id number]) Nutrition Malnutrition Evidence of Yes Malnutrition Exists Malnutrition (severe Acute Illness/Injury ): Evidenced By Suboptimal Energy Intake (Severe),Weight Loss (Severe), Physical Changes (Moderate) Clinical Problem Altered Nutrient-Related Laboratory Values Etiology related to beer potomania Signs/Symptoms as evidenced by Na 126 Status Active Problem Acute Disease or Injury Related Malnutrition Etiology 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 Pt appears to have muscle wasting in face/arms/legs Status Active Problem Recommendation Dietitian Will liberalize diet to regular d/t signs and symptoms Recommendations/ of malnutrition Changes Will continue ensure plus high protein tid w/ medpass for increased nutrition if consumed Will add fortified foods w/ meals tid as able May need to consider short term nutrition support if po intake fails to improve and if in accord to pt/family wishes. Lab / Micro Data 01/11/25 04:37 01/11/25 04:37 Labs: Laboratory Results - last 24 hr 01/09/25 07:14: Urine Color Cancelled, Urine Clarity Cancelled, Urine pH Cancelled, Ur Specific [place] Cancelled, U Specif Grav (Refrac) Cancelled, Urine Protein Cancelled, Urine Glucose (UA) Cancelled, Urine Ketones Cancelled, Urine Occult Blood Cancelled, Urine Nitrite Cancelled, Urine Bilirubin Cancelled, Urine Urobilinogen Cancelled, Ur Leukocyte Esterase Cancelled, Urine RBC Cancelled, Urine WBC Cancelled, Ur Squamous Epith Cells Cancelled, Ur Transition Epith Cell Cancelled, Ur Renal Epithelial Cell Cancelled, Calcium Oxalate Crystal Cancelled, Uric Acid Crystals Cancelled, Triple Phos Crystals Cancelled, Other Crystals Cancelled, Amorphous Sediment Cancelled, Urine Bacteria Cancelled, Hyaline Casts Cancelled, Fine Granular Casts Cancelled, Coarse Granular Casts Cancelled, Waxy Casts Cancelled, RBC Casts Cancelled, WBC Casts Cancelled, Urine Mucus Cancelled, Urine Trichomonas Cancelled, Urine Yeast Cancelled 01/10/25 06:06: Hypochromasia 1+, Anisocytosis 1+ 01/10/25 19:20: Ur Random Microalbumin < 12.0, U Random Total Protein 15.9 H, Ur Random Sodium < 20, Urine Creatinine 146.00, Protein/Creatinin Ratio 109, Urine Potassium 30.7, Urine Chloride < 20 01/11/25 04:37: WBC 10.8, RBC 3.43 L, Hgb 8.1 L, Hct 27.8 L, MCV 81.0, MCH 23.6 L, MCHC 29.1 L, RDW Std Deviation 58.5 H, RDW Coeff of [place] 20.3 H, Plt Count 186, MPV 11.2, Immature Gran % (Auto) 0.700, Neut % (Auto) 82.6 H, Lymph % (Auto) 10.0 L, [place] % (Auto) 6.4, Eos % (Auto) 0.2, Baso % (Auto) 0.1, Absolute Neuts (auto) 8.9 H, Absolute Lymphs (auto) 1.08, Nucleated RBC % 0, Anisocytosis 1+, Sodium 127 L, Potassium 3.9, Chloride 94 L, Carbon Dioxide 19.8 L, Anion Gap 13, BUN 22 H, Creatinine 0.97, Estim Creat Clear Calc 77.87, Est GFR (MDRD) Non- Af 85, BUN/Creatinine Ratio 22.3 H, Glucose 94, Calcium 9.2
[2025-01-11 09:05] VITALS: BP 108/71; PULSE 82; RESP 16; TEMP 36.4; O2SAT 97
[2025-01-11] MEDS: Pantoprazole Sodium 40 MG in 0.9% Normal Saline (100mL MB+) 100 ML 330 MG IV (09:37)
[2025-01-11] MEDS: Magnesium Chloride 64 MG Delay Rel.Tablet 128 MG PO ×2 (09:52→23:40)
[2025-01-11] MEDS: Thiamine Hydrochloride 100 MG Tablet PO (09:52)
[2025-01-11] MEDS: Heparin Injection (Vial) 5,000 UNIT/ML VIAL 5000 UNIT SC ×2 (09:52→23:38)
--- NOTE | 2025-01-11 10:59 | PCM.PN.HOSP ---
Reason for Visit Reason for Visit: Diagnoses Hypo-osmolality and hyponatremia (01/09/25) Acidosis, unspecified (01/09/25) Other disorders of plasma-protein metabolism, not elsewhere classified (01/09/25) Alcohol abuse, uncomplicated (01/09/25) Alcohol use, unspecified with withdrawal with perceptual disturbance (01/09/25) Atherosclerotic heart disease of [place] coronary artery without angina pectoris (01/09/25) Heart failure, unspecified (01/09/25) Constipation, unspecified (01/09/25) Alcoholic cirrhosis of liver with ascites (01/09/25) Difficulty in walking, not elsewhere classified (01/09/25) Other abnormalities of gait and mobility (01/09/25) Hallucinations, unspecified (01/09/25) Weakness (01/09/25) Abnormal findings on diagnostic imaging of other parts of digestive tract (01/09/25) Unspecified fall, initial encounter (01/09/25) Bitten or stung by nonvenomous insect and other nonvenomous arthropods, initial encounter (01/09/25) Tobacco use (01/09/25) Patient's noncompliance with other medical treatment and regimen due to unspecified reason (01/09/25) Coronary angioplasty status (01/09/25) Objective Data Objective Data Vital Signs: Vital Signs Temp Pulse Resp BP Pulse Ox O2 Del Method 97.6 F L 95 18 127/76 H 100 Room Air 01/11/25 03:07 01/11/25 03:07 01/11/25 03:07 01/11/25 03:07 01/11/25 03:07 01/11/25 08:04 Oxygen Delivery Method Room Air Weight: 164 lb 3.91 oz Body Mass Index (BMI) 22.2 Intake & Output: Intake and Output for Last 24 Hours 01/09/25 01/10/25 01/11/25 23:59 23:59 23:59 Intake Total 610 / 610 1680 / 1680 100 / 100 Output Total 0 / 0 850 / 850 200 / 200 Balance 610 / 610 830 / 830 -100 / -100 Medical Nutrition Assessment Dietitian: Malnutrition Criteria Met Start: 01/10/25 11:46 Freq: Status: Active Protocol: Document 01/10/25 11:46 [facility] (Rec: 01/10/25 11:46 [facility] [id number]) Nutrition Malnutrition Evidence of Yes Malnutrition Exists Malnutrition (severe Acute Illness/Injury ): Evidenced By Suboptimal Energy Intake (Severe),Weight Loss (Severe), Physical Changes (Moderate) Clinical Problem Altered Nutrient-Related Laboratory Values Etiology related to beer potomania Signs/Symptoms as evidenced by Na 126 Status Active Problem Acute Disease or Injury Related Malnutrition Etiology related to issues w/ vomiting and 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 Pt appears to have muscle wasting in face/arms/legs Status Active Problem Recommendation Dietitian Will liberalize diet to regular d/t signs and symptoms Recommendations/ of malnutrition Changes Will continue ensure plus high protein tid w/ medpass for increased nutrition if consumed Will add fortified foods w/ meals tid as able May need to consider short term nutrition support if po intake fails to improve and if in accord to pt/family wishes. Lab / Micro Data 01/11/25 04:37 01/11/25 04:37 Labs: Laboratory Results - last 24 hr 01/10/25 19:20: Ur Random Microalbumin < 12.0, U Random Total Protein 15.9 H, Ur Random Sodium < 20, Urine Creatinine 146.00, Protein/Creatinin Ratio 109, Urine Potassium 30.7, Urine Chloride < 20 01/11/25 04:37: WBC 10.8, RBC 3.43 L, Hgb 8.1 L, Hct 27.8 L, MCV 81.0, MCH 23.6 L, MCHC 29.1 L, RDW Std Deviation 58.5 H, RDW Coeff of [place] 20.3 H, Plt Count 186, MPV 11.2, Immature Gran % (Auto) 0.700, Neut % (Auto) 82.6 H, Lymph % (Auto) 10.0 L, [place] % (Auto) 6.4, Eos % (Auto) 0.2, Baso % (Auto) 0.1, Absolute Neuts (auto) 8.9 H, Absolute Lymphs (auto) 1.08, Nucleated RBC % 0, Anisocytosis 1+, Sodium 127 L, Potassium 3.9, Chloride 94 L, Carbon Dioxide 19.8 L, Anion Gap 13, BUN 22 H, Creatinine 0.97, Estim Creat Clear Calc 77.87, Est GFR (MDRD) Non-Af 85, BUN/Creatinine Ratio 22.3 H, Glucose 94, Calcium 9.2 01/09/25 23:06: Urine Color Yellow, Urine Clarity Clear, Urine pH 5.0, Ur Specific [place] 1.010, Urine Protein 15 H, Urine Glucose (UA) Normal, Urine Ketones 5 H, Urine Occult Blood Negative, Urine Nitrite Negative, Urine Bilirubin Negative, Urine Urobilinogen Normal, Ur Leukocyte Esterase Negative, Urine RBC 0 SEEN, Urine WBC 0-5 SEEN, Ur Squamous Epith Cells 0 SEEN, Urine Bacteria RARE, Hyaline Casts 5-10 SEEN, Urine Mucus 0 SEEN, Urine Osmolality 472, Urine Opiates Screen NEGATIVE, U Buprenorphine Qual NEGATIVE, Ur Oxycodone Screen NEGATIVE, Urine Methadone Screen NEGATIVE, Urine Fentanyl Screen NEGATIVE, Ur Barbiturates Screen NEGATIVE, Ur Phencyclidine Scrn NEGATIVE, Ur Amphetamines Screen NEGATIVE, U Benzodiazepines Scrn NEGATIVE, Urine Cocaine Screen NEGATIVE, U Cannabinoids Screen NEGATIVE Physical Exam Narrative Seen and examined. Patient has loss of appetite, decreased oral intake for last 6 months. He was about 175 pounds 6 months ago and currently 162 pound now therefore lost about 13 pounds in about 6 months. Patient had decent amount of bowel movement and had to strain. Physical exam General: Alert, Oriented x3, Cooperative. BMI 22.3 kg/m? HEENT: Atraumatic, PERRLA, EOMI, Normocephalic. Oral: No Gingival or Mucosal Lesions/ Ulcerations Neck: Supple, No JVD, Negative Carotid Bruits Chest wall/Lungs: Air entry diminished in bilateral lung bases. No crepitation/rhonchi Cardiovascular: Regular rhythm, no intensity heart sounds, No M/G/R Abdomen: Bowel Sounds Present, Soft, mild tenderness over right lower quadrant, distended/ascites. : No dysuria. No renal angle tenderness. No suprapubic tenderness. Extremities: No edema, Capillary Refill Less than 3 Seconds Skin: No rashes, No breakdown Musculoskeletal: No Tenderness to Palpation of Joints or Extremities. Decreased muscle mass of extremities, costovertebral muscles and craniofacial muscles, mild chronic malnutrition Neurological: Cranial nerves II-XII grossly intact, DTR 2+/4. No acute focal neurological deficit. Psych/Mental Status: Flat affect. Low pitched voice Assessment & Plan Assessment/Plan (1) Hyponatremia: (2) Alcohol abuse: (3) Ascites due to alcoholic cirrhosis: (4) Alcohol withdrawal: QUALIFIERS: Complication of substance-induced condition: with perceptual disturbance Qualified Code(s): F10.932 - Alcohol use, unspecified with withdrawal with perceptual disturbance (5) Hallucinations: (6) Abnormal CT scan, colon: (7) Medical non-compliance: (8) Constipation: QUALIFIERS: Constipation type: unspecified constipation type Qualified Code(s): K59.00 - Constipation, unspecified (9) CHF exacerbation: QUALIFIERS: Heart failure type: unspecified Qualified Code(s): I50.9 - Heart failure, unspecified (10) Lactic acidosis: (11) Bedbug bite: QUALIFIERS: Encounter type: initial encounter Qualified Code(s): W57.XXXA - Bitten or stung by nonvenomous insect and other nonvenomous arthropods, initial encounter (12) Generalized weakness: (13) Ambulatory dysfunction: (14) Fall: QUALIFIERS: Encounter type: initial encounter Qualified Code(s): W19.XXXA - Unspecified fall, initial encounter (15) Hypoalbuminemia: (16) Tobacco abuse: (17) Shuffling gait: PLAN: Plan 69-year-old gentleman was brought to ED by EMS with complaint of generalized weakness, not able to only himself anymore. In ED patient was found to have difficulty ambulating, fell down about a week ago, injuring his chest and abdomen. Patient denied chest pain or exertional chest pain as per H&P. Drinks 3 beers daily but no acute symptoms of alcohol withdrawal. Patient has abdominal pain and abdominal swelling for some time. Has not moved for more than a week. 1. Hyponatremia of 125 mmol/L present on admission - Admit to PCU. clinically, patient looks intravascularly dehydrated and extravascular/interstitial fluid with third spacing. Had 1 L of IV bolus and 40 mL of IV furosemide. Continue IV fluid. 01/11: Patient's sodium was normal 143 in April 2022, 135 in January 2024 and admitted with 125 sodium. His urine is very yellow/mustard colored and tongue dry, clinically looks dry therefore IV fluid normal saline 75 mL/h started total 2 L. Nephrology consult reviewed. Probable differential be decreased effective renal blood/plasma flow due to volume depletion/hypovolemia, cirrhosis/HRS. Urine sodium is low less than 20. Reevaluate sodium tomorrow 2. Beer Potomania likely causing #1 in the setting of Chronic EtOH Abuse with impending EtOH withdrawal indicated by OZZIE <10.1 mg/dL - EtOH Cessation will be strongly encouraged. Patient on phenobarbital taper with supplemental folic acid and multivitamin. I do not think patient is on withdrawal, patient looks more lethargic and slow therefore phenobarb discontinued 3. Mild abdominal pain and distention exact etiology unclear but possible due to asymmetric wall thickening of ascending colon and cecum, constipation: CT scan of the abdomen pelvis with IV contrast initially reviewed with the images. It shows asymmetric wall thickening of ascending colon and cecum with possibility of possible underlying mass. Patient not mobile for more than a week. Lactulose 20 g was given at night. Lactulose repeat 20 g now and then continue MiraLAX after that. Senna S2 tablet twice daily. Dulcolax 20 g oral and 10 mg rectal suppository. Monitor bowel movement. GI consulted Lactic acidosis corrected 01/06: Patient still has mild abdominal pain but better than yesterday mainly on right side. GI consulted. Patient will need colonoscopy. Continue stool softener. 4. Possibility of decompensated cirrhosis most likely due to alcohol with ascites: CT of the abdomen also shows hepatic surface irregularity , Small in size ascites with suggestive of cirrhosis: Blood pressure and heart rate normal. When patient she starts having bowel movement, can have diuresis. Liver chemistry normal limit. TB 0.55, albumin 2.7, hypoalbuminemia. B12 and folic acid normal. 5. CAD with history of STEMI status postcardiac stent in 2017: Elevated NT pro-BNP II of 4,108 pg/mL, probably due to hypervolemia from third spacing with possibility of acute exacerbation of CHF: 2D echo is ordered. Legs are not swollen. Lungs no crepitations. Serial troponins are negative 6. Lactic Acidosis of 2.3 mmol/L present on admission probably due to intravascular dehydration/volume depletion 7. Active bedbug infestation with multiple bites: Patient was started on permethrin 1% cream after discussion with pharmacist by admitting hospitalist 8. Generalized Weakness with Ambulatory Dysfunction and Fall: PT OT and case management for discharge plan 9. Chronic tobacco abuse; subsequent COPD - Tobacco Cessation is encouraged with Nicotine patch offered to control cravings. 10. Short shuffling/gait probably due to chronic alcohol use, generalized malnutrition and weakness of muscle/musculoskeletal system. PT and OT is ordered: Patient not having any acute lateralizing signs of stroke. He is a chronic alcoholic therefore possible drunk and gait/shortness of legate. Patient can have MRI later on if clinical scenario changes or outpatient MRI for that. For now the main priority is abdominal pain/distention, constipation and metabolic derangements, hyponatremia 11. Essential hypertension - Patient noncompliant with antihypertensives. Give hydralazine IV as needed for systolic blood pressure greater than 160 mmHg. 12. Hyperlipidemia - lipid panel except HDL within normal limit. HDL 20. TSH normal. Other comorbidities include generalized anxiety disorder, mild chronic mild malnutrition from chronic alcohol DVT/GI prophylaxis - Heparin 5,000U sq BID plus SCD's. Pantoprazole 40 mg IV daily until nausea subsides. Total time of the visit including total time spent in counseling or coordination of care, (more than 50% of the total time, spent in obtaining medical information from nurses and other ancillary care providers ,explaining to the patient about labs, imaging, diagnosis and management of active complex medical conditions), discussion with wall man, GI, review of labs and imaging is 35 minutes. Laboratory Results 01/09/25 16:50: PT 15.0 H, INR 1.2, Hemoglobin A1c 4.4, Serum Osmolality 267 L, Lactic Acid 2.3 H*, Serum Folate 8.40, Ethyl Alcohol < 10.1 01/09/25 17:35: Sodium 125 L, Potassium 4.3, Chloride 91 L, Carbon Dioxide 21.0, Anion Gap 13, BUN 25 H, Creatinine 0.85, Estim Creat Clear Calc 87.08, Est GFR (MDRD) Non-Af 95, BUN/Creatinine Ratio 28.8 H, Glucose 106 H, Calcium 9.5, Magnesium 2.0, Total Bilirubin 0.62, Direct Bilirubin 0.33 H, AST 22, ALT 13, Alkaline Phosphatase 62, Troponin T High Sens 11, NT pro BNP II 4108 H, Total Protein 6.2, Albumin 2.6 L, Globulin 3.6, Lipase 11 L 01/09/25 19:39: Troponin T Hi Sens 2 Hr 11, Vitamin B12 787 01/09/25 21:25: Lactic Acid 1.9 01/09/25 23:06: Urine Color Yellow, Urine Clarity Clear, Urine pH 5.0, Ur Specific [place] 1.010, Urine Protein 15 H, Urine Glucose (UA) Normal, Urine serial no troponin ketones 5 H, Urine Occult Blood Negative, Urine Nitrite Negative, Urine Bilirubin Negative, Urine Urobilinogen Normal, Ur Leukocyte Esterase Negative, Urine RBC 0 SEEN, Urine WBC 0-5 SEEN, Ur Squamous Epith Cells 0 SEEN, Urine Bacteria RARE, Hyaline Casts 5-10 SEEN, Urine Mucus 0 SEEN, Urine Osmolality 472, Urine Opiates Screen NEGATIVE, U Buprenorphine Qual NEGATIVE, Ur Oxycodone Screen NEGATIVE, Urine Methadone Screen NEGATIVE, Urine Fentanyl Screen NEGATIVE, Ur Barbiturates Screen NEGATIVE, Ur Phencyclidine Scrn NEGATIVE, Ur Amphetamines Screen NEGATIVE, U Benzodiazepines Scrn NEGATIVE, Urine Cocaine Screen NEGATIVE, U Cannabinoids Screen NEGATIVE 01/09/25 23:35: Sodium 125 L, Potassium 4.4, Chloride 90 L, Carbon Dioxide 19.6 L, Anion Gap 15, BUN 24 H, Creatinine 0.97, Estim Creat Clear Calc 66.85, Est GFR (MDRD) Non-Af 86, BUN/Creatinine Ratio 24.9 H, Glucose 108 H, Calcium 9.2, Troponin T Hi Sens 4Hr 12 01/10/25 06:06: WBC 11.3 H, RBC 3.56 L, Hgb 8.2 L, Hct 28.3 L, MCV 79.5 L, MCH 23.0 L, MCHC 29.0 L, RDW Std Deviation 57.0 H, RDW Coeff of [place] 20.1 H, Plt Count 190, MPV 11.3, Immature Gran % (Auto) 0.600, Neut % (Auto) 82.0 H, Lymph % (Auto) 10.1 L, [place] % (Auto) 7.0, Eos % (Auto) 0.2, Baso % (Auto) 0.1, Absolute Neuts (auto) 9.2 H, Absolute Lymphs (auto) 1.14, Nucleated RBC % 0, Hypochromasia 1+, Anisocytosis 1+, Sodium 126 L, Potassium 4.3, Chloride 93 L, Carbon Dioxide 19.7 L, Anion Gap 13, BUN 24 H, Creatinine 1.01, Estim Creat Clear Calc 73.28, Est GFR (MDRD) Non-Af 82, BUN/Creatinine Ratio 23.7 H, Glucose 97, Calcium 8.9, Total Bilirubin 0.55, AST 27, ALT 13, Alkaline Phosphatase 63, NT pro BNP II 4605 H, Total Protein 6.5, Albumin 2.7 L, Globulin 3.8, Albumin/Globulin Ratio 0.7 L, Triglycerides 97, Cholesterol 78, LDL Cholesterol, Calc 38, VLDL Cholesterol 19, HDL Cholesterol 20 L, Cholesterol/HDL Ratio 3.83, TSH 2.210 Laboratory Results 01/10/25 19:20: Ur Random Microalbumin < 12.0, U Random Total Protein 15.9 H, Ur Random Sodium < 20, Urine Creatinine 146.00, Protein/Creatinin Ratio 109, Urine Potassium 30.7, Urine Chloride < 20 01/11/25 04:37: WBC 10.8, RBC 3.43 L, Hgb 8.1 L, Hct 27.8 L, MCV 81.0, MCH 23.6 L, MCHC 29.1 L, RDW Std Deviation 58.5 H, RDW Coeff of [place] 20.3 H, Plt Count 186, MPV 11.2, Immature Gran % (Auto) 0.700, Neut % (Auto) 82.6 H, Lymph % (Auto) 10.0 L, [place] % (Auto) 6.4, Eos % (Auto) 0.2, Baso % (Auto) 0.1, Absolute Neuts (auto) 8.9 H, Absolute Lymphs (auto) 1.08, Nucleated RBC % 0, Anisocytosis 1+, Sodium 127 L, Potassium 3.9, Chloride 94 L, Carbon Dioxide 19.8 L, Anion Gap 13, BUN 22 H, Creatinine 0.97, Estim Creat Clear Calc 77.87, Est GFR (MDRD) Non-Af 85, BUN/Creatinine Ratio 22.3 H, Glucose 94, Calcium 9.2 Charges/Coding Visit Charges Inpatient E&M: 67395 Subs Hosp L3
[2025-01-11] MEDS: 0.9% Normal Saline (1000mL) 1,000 ML 75 ML IV (11:56)
[2025-01-11] MEDS: Ensure Plus High Protein 120 ML LIQUID PO ×2 (11:57→17:07)
[2025-01-11 15:05] VITALS: BP 117/75; PULSE 96; RESP 16; TEMP 36.6; O2SAT 94
[2025-01-11 19:00] VITALS: PULSE 103
[2025-01-12 00:46] VITALS: BP 111/78; PULSE 99; RESP 19; TEMP 36.8; O2SAT 96
[2025-01-12] MEDS: 0.9% Normal Saline (1000mL) 1,000 ML 75 ML IV (01:41)
[2025-01-12 03:00] VITALS: PULSE 104
[2025-01-12 03:03] VITALS: BMI 21.8
[2025-01-12 06:20] VITALS: BP 119/65; PULSE 100; RESP 16; TEMP 36.9; O2SAT 100
[2025-01-12 06:28] LABS: Hematocrit 25.8 % (40-54); Hemoglobin 7.4 g/dL (13.0-16.5); Immature Granulocytes Count 0.110 X10^3/uL (0.0-0.0); Mean Corp Hgb Conc 28.7 g/dL (32-36); Mean Corpuscular Volume 81.4 fL (80-94); Mean Platelet Vol. 11.7 fl (6.2-12.0); NRBC Flagged by Analyzer 0 % (0-5); POSITIVE MORPHOLOGY YES; Platelet Count 173 K/mm3 (150-450); RBC Distribution Width CV 20.2 % (11.6-14.6); RBC Distribution Width SD 59.0 fl (35.1-43.9); Red Blood Count 3.17 M/mm3 (4.6-6.2); White Blood Count 15.6 K/mm3 (4.4-11.0)
[2025-01-12 06:39] LABS: Differential Indicated SCAN CRITERIA MET
[2025-01-12 06:54] LABS: Anion Gap 9 (5-15); BUN 19 mg/dL (4-19); BUN/Creat Ratio 19.7 RATIO (10-20); Calcium,Total 8.5 mg/dL (7.6-11.0); Carbon Dioxide 22.0 mmol/L (21.0-32.0); Chloride 97 mmol/L (98-108); Estimated Creatinine Clearance 75.52 ml/min (50-250); Glucose 112 mg/dL (70-99); Potassium 4.3 mmol/L (3.3-5.1)
[2025-01-12 07:08] LABS: Acanthocytes RARE; Anisocytosis 2+; Differential Comment SCANNED; Polychromasia 1+
[2025-01-12 07:09] LABS: Tear Drop Cell RARE
--- NOTE | 2025-01-12 09:56 | PCM.PN.HOSP ---
Reason for Visit Reason for Visit: Diagnoses Hypo-osmolality and hyponatremia (01/09/25) Acidosis, unspecified (01/09/25) Other disorders of plasma-protein metabolism, not elsewhere classified (01/09/25) Alcohol abuse, uncomplicated (01/09/25) Alcohol use, unspecified with withdrawal with perceptual disturbance (01/09/25) Atherosclerotic heart disease of [place] coronary artery without angina pectoris (01/09/25) Heart failure, unspecified (01/09/25) Constipation, unspecified (01/09/25) Alcoholic cirrhosis of liver with ascites (01/09/25) Difficulty in walking, not elsewhere classified (01/09/25) Other abnormalities of gait and mobility (01/09/25) Hallucinations, unspecified (01/09/25) Weakness (01/09/25) Abnormal findings on diagnostic imaging of other parts of digestive tract (01/09/25) Unspecified fall, initial encounter (01/09/25) Bitten or stung by nonvenomous insect and other nonvenomous arthropods, initial encounter (01/09/25) Tobacco use (01/09/25) Patient's noncompliance with other medical treatment and regimen due to unspecified reason (01/09/25) Coronary angioplasty status (01/09/25) Subjective Subjective Feels unwell and weak. Objective Data Objective Data Vital Signs: Vital Signs Temp Pulse Resp BP Pulse Ox O2 Del Method 36.9 C 100 16 119/65 100 Room Air 01/12/25 06:20 01/12/25 06:20 01/12/25 06:20 01/12/25 06:20 01/12/25 06:20 01/12/25 08:47 Oxygen Delivery Method Room Air Weight: 73 kg Body Mass Index (BMI) 21.8 Intake & Output: Intake and Output for Last 24 Hours 01/10/25 01/11/25 01/12/25 23:59 23:59 23:59 Intake Total 1680 / 1680 340 / 340 1000 / 1000 Output Total 850 / 850 500 / 500 50 / 50 Balance 830 / 830 -160 / -160 950 / 950 Medical Nutrition Assessment Dietitian: Malnutrition Criteria Met Start: 01/10/25 11:46 Freq: Status: Active Protocol: Document 01/10/25 11:46 SLA (Rec: 01/10/25 11:46 SLA [id number]) Nutrition Malnutrition Evidence of Yes Malnutrition Exists Malnutrition (severe Acute Illness/Injury ): Evidenced By Suboptimal Energy Intake (Severe),Weight Loss (Severe), Physical Changes (Moderate) Clinical Problem Altered Nutrient-Related Laboratory Values Etiology related to beer potomania Signs/Symptoms as evidenced by Na 126 Status Active Problem Acute Disease or Injury Related Malnutrition Etiology 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 Pt appears to have muscle wasting in face/arms/legs Status Active Problem Recommendation Dietitian Will liberalize diet to regular d/t signs and symptoms Recommendations/ of malnutrition Changes Will continue ensure plus high protein tid w/ medpass for increased nutrition if consumed Will add fortified foods w/ meals tid as able May need to consider short term nutrition support if po intake fails to improve and if in accord to pt/family wishes. Lab / Micro Data 01/12/25 06:00 01/12/25 06:00 Labs: Laboratory Results - last 24 hr 01/11/25 14:02: Sodium 126 L 01/11/25 22:15: Sodium 127 L 01/12/25 06:00: WBC 15.6 H, RBC 3.17 L, Hgb 7.4 L, Hct 25.8 L, MCV 81.4, MCH 23.3 L, MCHC 28.7 L, RDW Std Deviation 59.0 H, RDW Coeff of Madelin 20.2 H, Plt Count 173, MPV 11.7, Immature Gran % (Auto) 0.700, Neut % (Auto) 86.9 H, Lymph % (Auto) 5.8 L, [place] % (Auto) 6.4, Eos % (Auto) 0.1, Baso % (Auto) 0.1, Absolute Neuts (auto) 13.6 H, Absolute Lymphs (auto) 0.91, Nucleated RBC % 0, Differential Comment SCANNED, Platelet Estimate ADEQUATE, Polychromasia 1+, Anisocytosis 2+, Tear Drop Cells RARE, Ovalocytes 1+, Acanthocytes (Spur) RARE, Sodium 127 L, Potassium 4.3, Chloride 97 L, Carbon Dioxide 22.0, Anion Gap 9, BUN 19, Creatinine 0.98, Estim Creat Clear Calc 75.52, Est GFR (MDRD) Non-Af 84, BUN/Creatinine Ratio 19.7, Glucose 112 H, Calcium 8.5 Physical Exam Const alert and no apparent distress HEENT head/scalp atraumatic and moist oral mucous membranes Resp normal respiratory effort, no retractions, no use of accessory muscles and clear to auscultation bilaterally Cardio regular rate, regular rhythm, S1 normal heart sound and S2 normal heart sound GI normal to inspection, nondistended, normoactive bowel sounds, soft to palpation, non-tender and non-distended Extremity normal to inspection and full ROM Assessment & Plan Assessment/Plan (1) Hyponatremia: PLAN: stable through admission. Had been 135 in June 2024. TSH WNL. Cortisol WNL. Urine Osm 472, Urine Sodium <20 likely 2/2 cirrhosis monitor PLAN: Plan Cirrhosis: complicates care and recovery CAD: h/o PCI. Bed bugs; on permetrhin cream. alcohol abuse: thiamine and folate. VTE prophylaxis: heparin. Charges/Coding Visit Charges Inpatient E&M: 25359 Subs Hosp L2
[2025-01-12] MEDS: Pantoprazole Sodium 40 MG in 0.9% Normal Saline (100mL MB+) 100 ML 330 MG IV (09:58)
[2025-01-12] MEDS: Ensure Plus High Protein 120 ML LIQUID PO ×2 (09:58→14:12)
[2025-01-12] MEDS: Polyethylene Glycol 3350 17 GM PACKET PO ×2 (10:05→22:42)
[2025-01-12] MEDS: Thiamine Hydrochloride 100 MG Tablet PO (10:05)
[2025-01-12] MEDS: Heparin Injection (Vial) 5,000 UNIT/ML VIAL 5000 UNIT SC ×2 (10:09→22:48)
--- NOTE | 2025-01-12 10:44 | CASEMGMT ---
Social Work SW met w/pt in room in regard to discharge plan. Pt was asleep, SW woke up pt. SW spoke w/pt about going somewhere for rehab. Pt initially said no, after speaking w/pt further however, he is agreeable to go to SNF for rehab. SW had provided a list to pt on the weekend. Pt is not certain where he would want to go for rehab, states he is not too familiar w/[place]. Initially pt agreeable to go to a facility in [place], and to send the referrals in star order. Pt states his brother does help him w/medical decisions, however pt's brother is at work today as per pt. SW did go ahead and call pt's brother anyway, and he did answer. SW spoke w/brother Neymar and sister in law Dimple about SNF choices, as pt does not seem to have an opinion other than for the facility to be in [place]. Dimple asked for referrals to [facility] and then [facility], as they live in [place](SW will correct demographics). SW explained will speak w/pt and if he is agreeable will start referral process. SW spoke w/pt again, reviewed the choices made by Neymar and Dimple, explained these are closer to where they live. Pt is agreeable to this. SW let d/c financial planning analyst know, she will send referrals. SW also asked PT/OT to let SW know if pt does not want to participate in therapy again, explained that pt will need to participate so we can get precert. LUIS Lorenzo
--- NOTE | 2025-01-12 11:00 | CASEMGMT ---
Discharge Planning Referral sent to [facility]. Trisha Henderson DC Planning Asst.
[2025-01-12 11:22] VITALS: BP 117/70; PULSE 98; RESP 16; TEMP 36.6; O2SAT 98
[2025-01-12 13:15] LABS: CORTISOL AM 31.10 ug/dL (6.02-18.40)
[2025-01-12 13:24] LABS: Osmolality, Serum 276 mOsm/KG (280-301)
--- NOTE | 2025-01-12 14:56 | CASEMGMT ---
Social Work SW attempted to speak w/pt, he is sleeping. SW called pt's brother Neymar, let him know pt was accepted at [facility] and precert was started. SW explained that [facility], their other choice, is not in network. Neymar in agreement w/[facility], would transport pt if pt is able, but also agreeable for pt to go by ambulance if needed. SW will continue to follow. LUIS Lorenzo
[2025-01-12] MEDS: 0.9% Saline Lock 10 ML Syringe IV (15:37)
--- NOTE | 2025-01-12 16:25 | PCM.PN.REN ---
Subjective Subjective Complains of generalized body pains Objective Data Objective Data Vital Signs: Vital Signs Temp Pulse Resp BP Pulse Ox O2 Del Method 97.9 F 98 16 117/70 98 Room Air 01/12/25 11:22 01/12/25 11:22 01/12/25 11:22 01/12/25 11:22 01/12/25 11:22 01/12/25 11:22 Oxygen Delivery Method Room Air Weight: 73 kg Body Mass Index (BMI) 21.8 Intake & Output: Intake and Output for Last 24 Hours 01/10/25 01/11/25 01/12/25 23:59 23:59 23:59 Intake Total 1680 / 1680 340 / 340 2700.00 / 2700.00 Output Total 850 / 850 500 / 500 50 / 50 Balance 830 / 830 -160 / -160 2650.00 / 2650.00 Medical Nutrition Assessment Dietitian: Malnutrition Criteria Met Start: 01/10/25 11:46 Freq: Status: Active Protocol: Document 01/10/25 11:46 ORTIZ (Rec: 01/10/25 11:46 ORTIZ [id number]) Nutrition Malnutrition Evidence of Yes Malnutrition Exists Malnutrition (severe Acute Illness/Injury ): Evidenced By Suboptimal Energy Intake (Severe),Weight Loss (Severe), Physical Changes (Moderate) Clinical Problem Altered Nutrient-Related Laboratory Values Etiology related to beer potomania Signs/Symptoms as evidenced by Na 126 Status Active Problem Acute Disease or Injury Related Malnutrition Etiology related to 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 Pt appears to have muscle wasting in face/arms/legs Status Active Problem Recommendation Dietitian Will liberalize diet to regular d/t signs and symptoms Recommendations/ of malnutrition Changes Will continue ensure plus high protein tid w/ medpass for increased nutrition if consumed Will add fortified foods w/ meals tid as able May need to consider short term nutrition support if po intake fails to improve and if in accord to pt/family wishes. Lab / Micro Data 01/12/25 06:00 01/12/25 06:00 Labs: Laboratory Results - last 24 hr 01/11/25 22:15: Sodium 127 L 01/12/25 06:00: WBC 15.6 H, RBC 3.17 L, Hgb 7.4 L, Hct 25.8 L, MCV 81.4, MCH 23.3 L, MCHC 28.7 L, RDW Std Deviation 59.0 H, RDW Coeff of Madelin 20.2 H, Plt Count 173, MPV 11.7, Immature Gran % (Auto) 0.700, Neut % (Auto) 86.9 H, Lymph % (Auto) 5.8 L, [place] % (Auto) 6.4, Eos % (Auto) 0.1, Baso % (Auto) 0.1, Absolute Neuts (auto) 13.6 H, Absolute Lymphs (auto) 0.91, Nucleated RBC % 0, Differential Comment SCANNED, Platelet Estimate ADEQUATE, Polychromasia 1+, Anisocytosis 2+, Tear Drop Cells RARE, Ovalocytes 1+, Acanthocytes (Spur) RARE, Sodium 127 L, Potassium 4.3, Chloride 97 L, Carbon Dioxide 22.0, Anion Gap 9, BUN 19, Creatinine 0.98, Estim Creat Clear Calc 75.52, Est GFR (MDRD) Non-Af 84, BUN/Creatinine Ratio 19.7, Glucose 112 H, Calcium 8.5 01/12/25 11:15: Serum Osmolality 276 L, Cortisol AM Sample 31.10 H Radiography Diagnostic Testing: Radiology Impression Abdomen/Pelvis CT 01/09/25 16:29 IMPRESSION: 1. Fatty liver with hepatic surface irregularity and ascites, concerning for cirrhosis. 2. Apparent asymmetric wall thickening of the ascending colon and cecum. This was not as prominent in the prior exam. Underlying mass can not be excluded. Further evaluation with colonoscopy may be beneficial. 3. Small esophageal hiatal hernia. 4. Scattered calcified atherosclerotic disease of aorta measuring up to 3.7 cm diameter. 5. Fecal retention in the colon consistent with constipation. 6. Inguinal hernias, bilaterally. Reading Location: [facility] Physical Exam Narrative Alert awake oriented x 3 no obvious distress no pallor no icterus no JVD s1s2 no murmurs lungs clear abdomen soft no organomegaly Assessment & Plan Assessment/Plan (1) Hyponatremia: PLAN: Plan Assessment/Plan: The patient is a 69-year-old male with past history of hypertension, CAD status post [place] and PCI, COPD, stroke, hyperlipidemia, generalized anxiety disorder, and alcohol use disorder. Patient presents to hospital on 01/09/2025 with generalized weakness, difficulty ambulating, frequent falls and inability to care for self. During workup in ED, patient was found to have hyponatremia with serum sodium of 125 mmol/L on 01/09/2025. Nephrology is asked to see the patient because of hyponatremia. Hyponatremia. Patient presented to hospital on 01/09/2025 with serum sodium of 125 mmol/L. There is no prior history of persistent hyponatremia. Urine sodium less than 20, urine osmolality 470. Likely hypervolemic hyponatremia. Extensive alcohol use disorder. Sodium today 127 which is reasonable. If any worse, would give IV albumin. Asymptomatic from hyponatremia. His main complaint today is generalized body aches. Management as per primary
[2025-01-12 17:33] VITALS: BP 113/74; PULSE 102; RESP 17; TEMP 36.6; O2SAT 97
[2025-01-12 22:35] VITALS: BP 108/73; PULSE 99; RESP 18; TEMP 36.5; O2SAT 100
[2025-01-12] MEDS: Magnesium Chloride 64 MG Delay Rel.Tablet 128 MG PO (22:36)
[2025-01-12] MEDS: Senna/Docusate Sodium 1 Tablet 2 TABLET PO (22:36)
[2025-01-13 03:31] VITALS: BMI 20.9
[2025-01-13 04:26] VITALS: BP 120/75; PULSE 96; RESP 18; TEMP 36.4; O2SAT 100
[2025-01-13 06:08] LABS: Hematocrit 23.7 % (40-54); Hemoglobin 7.2 g/dL (13.0-16.5); Immature Granulocytes Count 0.060 X10^3/uL (0.0-0.0); Mean Corp Hgb Conc 30.4 g/dL (32-36); Mean Corpuscular Volume 79.3 fL (80-94); Mean Platelet Vol. 11.4 fl (6.2-12.0); NRBC Flagged by Analyzer 0 % (0-5); POSITIVE MORPHOLOGY YES; Platelet Count 155 K/mm3 (150-450); RBC Distribution Width CV 20.3 % (11.6-14.6); RBC Distribution Width SD 56.3 fl (35.1-43.9); Red Blood Count 2.99 M/mm3 (4.6-6.2); White Blood Count 12.3 K/mm3 (4.4-11.0)
[2025-01-13 06:32] LABS: Anion Gap 9 (5-15); BUN 19 mg/dL (4-19); BUN/Creat Ratio 22.7 RATIO (10-20); Calcium,Total 8.4 mg/dL (7.6-11.0); Carbon Dioxide 20.2 mmol/L (21.0-32.0); Chloride 99 mmol/L (98-108); Estimated Creatinine Clearance 83.50 ml/min (50-250); Glucose 110 mg/dL (70-99); Potassium 4.2 mmol/L (3.3-5.1)
[2025-01-13 06:33] LABS: Differential Indicated SCAN CRITERIA MET
[2025-01-13 07:48] LABS: Anisocytosis 1+; Polychromasia 1+
--- NOTE | 2025-01-13 08:37 | PN.HOSP_ITS ---
Reason for Visit Reason for Visit: Diagnoses Hypo-osmolality and hyponatremia (01/09/25) Acidosis, unspecified (01/09/25) Other disorders of plasma-protein metabolism, not elsewhere classified (01/09/25) Alcohol abuse, uncomplicated (01/09/25) Alcohol use, unspecified with withdrawal with perceptual disturbance (01/09/25) Atherosclerotic heart disease of [place] coronary artery without angina pectoris (01/09/25) Heart failure, unspecified (01/09/25) Constipation, unspecified (01/09/25) Alcoholic cirrhosis of liver with ascites (01/09/25) Difficulty in walking, not elsewhere classified (01/09/25) Other abnormalities of gait and mobility (01/09/25) Hallucinations, unspecified (01/09/25) Weakness (01/09/25) Abnormal findings on diagnostic imaging of other parts of digestive tract (01/09/25) Unspecified fall, initial encounter (01/09/25) Bitten or stung by nonvenomous insect and other nonvenomous arthropods, initial encounter (01/09/25) Tobacco use (01/09/25) Patient's noncompliance with other medical treatment and regimen due to unspecified reason (01/09/25) Coronary angioplasty status (01/09/25) Subjective Subjective Saying that he cannot have a bowel movement. Friends are present at his bedside and stated that he appeared to be more confused than baseline. Objective Data Objective Data Vital Signs: Vital Signs Temp Pulse Resp BP Pulse Ox O2 Del Method 36.4 C L 96 18 120/75 100 Room Air 01/13/25 04:26 01/13/25 04:26 01/13/25 04:26 01/13/25 04:26 01/13/25 04:26 01/13/25 07:42 Oxygen Delivery Method Room Air Weight: 70 kg Body Mass Index (BMI) 20.9 Intake & Output: Intake and Output for Last 24 Hours 01/11/25 01/12/25 01/13/25 23:59 23:59 23:59 Intake Total 340 / 340 2700.00 / 2700.00 Output Total 500 / 500 150 / 150 Balance -160 / -160 2550.00 / 2550.00 Medical Nutrition Assessment Dietitian: Malnutrition Criteria Met Start: 01/10/25 11:46 Freq: Status: Active Protocol: Document 01/10/25 11:46 ORTIZ (Rec: 01/10/25 11:46 [facility] [id number]) Nutrition Malnutrition Evidence of Yes Malnutrition Exists Malnutrition (severe Acute Illness/Injury ): Evidenced By Suboptimal Energy Intake (Severe),Weight Loss (Severe), Physical Changes (Moderate) Clinical Problem Altered Nutrient-Related Laboratory Values Etiology related to beer potomania Signs/Symptoms as evidenced by Na 126 Status Active Problem Acute Disease or Injury Related Malnutrition 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 Pt appears to have muscle wasting in face/arms/legs Status Active Problem Recommendation Dietitian Will liberalize diet to regular d/t signs and symptoms Recommendations/ of malnutrition Changes Will continue ensure plus high protein tid w/ medpass for increased nutrition if consumed Will add fortified foods w/ meals tid as able May need to consider short term nutrition support if po intake fails to improve and if in accord to pt/family wishes. Lab / Micro Data 01/13/25 05:45 01/13/25 05:45 Labs: Laboratory Results - last 24 hr 01/12/25 11:15: Serum Osmolality 276 L, Cortisol AM Sample 31.10 H 01/12/25 16:50: Sodium 126 L 01/13/25 05:45: WBC 12.3 H, RBC 2.99 L, Hgb 7.2 L, Hct 23.7 L, MCV 79.3 L, MCH 24.1 L, MCHC 30.4 L D, RDW Std Deviation 56.3 H, RDW Coeff of Madelin 20.3 H, Plt Count 155, MPV 11.4, Immature Gran % (Auto) 0.500, Neut % (Auto) 84.5 H, Lymph % (Auto) 8.2 L, [place] % (Auto) 6.6, Eos % (Auto) 0.1, Baso % (Auto) 0.1, Absolute Neuts (auto) 10.4 H, Absolute Lymphs (auto) 1.00, Nucleated RBC % 0, Platelet Estimate A, Polychromasia 1+, Anisocytosis 1+, Sodium 128 L, Potassium 4.2, Chloride 99, Carbon Dioxide 20.2 L, Anion Gap 9, BUN 19, Creatinine 0.85, Estim Creat Clear Calc 83.50, Est GFR (MDRD) Non-Af 95, BUN/Creatinine Ratio 22.7 H, G lucose 110 H, Calcium 8.4 Radiography Diagnostic Testing: Radiology Impression Abdomen/Pelvis CT 01/09/25 16:29 IMPRESSION: 1. Fatty liver with hepatic surface irregularity and ascites, concerning for cirrhosis. 2. Apparent asymmetric wall thickening of the ascending colon and cecum. This was not as prominent in the prior exam. Underlying mass can not be excluded. Further evaluation with colonoscopy may be beneficial. 3. Small esophageal hiatal hernia. 4. Scattered calcified atherosclerotic disease of aorta measuring up to 3.7 cm diameter. 5. Fecal retention in the colon consistent with constipation. 6. Inguinal hernias, bilaterally. Reading Location: [facility] Physical Exam Const Constitutional Narrative: Up in chair. Afebrile. Nontoxic. HEENT head/scalp atraumatic and moist oral mucous membranes Resp normal respiratory effort, no retractions, no use of accessory muscles and clear to auscultation bilaterally Cardio regular rate, regular rhythm, S1 normal heart sound and S2 normal heart sound GI normal to inspection, nondistended, normoactive bowel sounds, soft to palpation, non-tender and non-distended Neuro Sensorium / Orientation: awake and alert Assessment & Plan Assessment/Plan (1) Hyponatremia: PLAN: stable through admission. Had been 135 in June 2024. TSH WNL. Cortisol WNL. Urine Osm 472, Urine Sodium <20 likely 2/2 cirrhosis monitor PLAN: Plan Cirrhosis: complicates care and recovery. Friends today stated that he appeared to be more confused and at baseline. Will check an ammonia level. CAD: h/o PCI. Bed bugs; on permetrhin cream. alcohol abuse: thiamine and folate. Constipation: Will add lactulose. VTE prophylaxis: heparin. Dispo: to SNF. Charges/Coding Visit Charges Inpatient E&M: 14055 Subs Hosp L2
--- NOTE | 2025-01-13 10:00 | CASEMGMT ---
Social Work Pt interested in completing, HCPOA. He would like to put his brother and sister in law as POA. He would prefer they be here when he does the paperwork, they may be here this afternoon. SW will check back this afternoon w/pt to see if his brother is here to complete the documents. SW did also let him know [facility] accepted him and precert was started, pt is agreeable. SW will continue to follow. LUIS Lorenzo
[2025-01-13 10:09] VITALS: BP 117/72; PULSE 98; RESP 17; TEMP 36.7; O2SAT 100
[2025-01-13] MEDS: Thiamine Hydrochloride 100 MG Tablet PO (10:12)
[2025-01-13] MEDS: Magnesium Chloride 64 MG Delay Rel.Tablet 128 MG PO (10:12)
[2025-01-13] MEDS: Polyethylene Glycol 3350 17 GM PACKET PO (10:12)
[2025-01-13] MEDS: Ensure Plus High Protein 120 ML LIQUID PO ×2 (10:12→16:51)
[2025-01-13] MEDS: Senna/Docusate Sodium 1 Tablet 2 TABLET PO (10:12)
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
--- NOTE | 2025-01-13 12:20 | PN.RENAL_ITS ---
Subjective Subjective no new events Objective Data Objective Data Vital Signs: Vital Signs Temp Pulse Resp BP Pulse Ox O2 Del Method 98.1 F 98 17 117/72 100 Room Air 01/13/25 10:09 01/13/25 10:09 01/13/25 10:09 01/13/25 10:09 01/13/25 10:01/13/25 10:09 Oxygen Delivery Method Room Air Weight: 70 kg Body Mass Index (BMI) 20.9 Intake & Output: Intake and Output for Last 24 Hours 01/11/25 01/12/25 01/13/25 23:59 23:59 23:59 Intake Total 340 / 340 2700.00 / 2700.00 Output Total 500 / 500 150 / 150 Balance -160 / -160 2550.00 / 2550.00 Medical Nutrition Assessment Dietitian: Malnutrition Criteria Met Start: 01/10/25 11:46 Freq: Status: Active Protocol: Document 01/10/25 11:46 ORTIZ (Rec: 01/10/25 11:46 ORTIZ [id number]) Nutrition Malnutrition Evidence of Yes Malnutrition Exists Malnutrition (severe Acute Illness/Injury ): Evidenced By Suboptimal Energy Intake (Severe),Weight Loss (Severe), Physical Changes (Moderate) Clinical Problem Altered Nutrient-Related Laboratory Values Etiology related to beer potomania Signs/Symptoms as evidenced by Na 126 Status Active Problem Acute Disease or Injury Related Malnutrition Etiology related 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 Pt appears to have muscle wasting in face/arms/legs Status Active Problem Recommendation Dietitian Will liberalize diet to regular d/t signs and symptoms Recommendations/ of malnutrition Changes Will continue ensure plus high protein tid w/ medpass for increased nutrition if consumed Will add fortified foods w/ meals tid as able May need to consider short term nutrition support if po intake fails to improve and if in accord to pt/family wishes. Lab / Micro Data 01/13/25 05:45 01/13/25 05:45 Labs: Laboratory Results - last 24 hr 01/12/25 11:15: Serum Osmolality 276 L, Cortisol AM Sample 31.10 H 01/12/25 16:50: Sodium 126 L 01/13/25 05:45: WBC 12.3 H, RBC 2.99 L, Hgb 7.2 L, Hct 23.7 L, MCV 79.3 L, MCH 24.1 L, MCHC 30.4 L D, RDW Std Deviation 56.3 H, RDW Coeff of Madelin 20.3 H, Plt Count 155, MPV 11.4, Immature Gran % (Auto) 0.500, Neut % (Auto) 84.5 H, Lymph % (Auto) 8.2 L, [place] % (Auto) 6.6, Eos % (Auto) 0.1, Baso % (Auto) 0.1, Absolute Neuts (auto) 10.4 H, Absolute Lymphs (auto) 1.00, Nucleated RBC % 0, Platelet Estimate A, Polychromasia 1+, Anisocytosis 1+, Sodium 128 L, Potassium 4.2, Chloride 99, Carbon Dioxide 20.2 L, Anion Gap 9, BUN 19, Creatinine 0.85, Estim Creat Clear Calc 83.50, Est GFR (MDRD) Non-Af 95, BUN/Creatinine Ratio 22.7 H, G lucose 110 H, Calcium 8.4 Physical Exam Narrative Alert awake oriented x 3 no obvious distress no pallor no icterus no JVD s1s2 no murmurs lungs clear abdomen soft no organomegaly Assessment & Plan Assessment/Plan (1) Hyponatremia: PLAN: Plan Assessment/Plan: The patient is a 69-year-old male with past history of hypertension, CAD status post [place] and PCI, COPD, stroke, hyperlipidemia, generalized anxiety disorder, and alcohol use disorder. Patient presents to hospital on 01/09/2025 with generalized weakness, difficulty ambulating, frequent falls and inability to care for self. During workup in ED, patient was found to have hyponatremia with serum sodium of 125 mmol/L on 01/09/2025. Nephrology is asked to see the patient because of hyponatremia. Hyponatremia. Patient presented to hospital on 01/09/2025 with serum sodium of 125 mmol/L. There is no prior history of persistent hyponatremia. Urine sodium less than 20, urine osmolality 470. Likely hypervolemic hyponatremia. Extensive alcohol use disorder. Sodium today 128
--- NOTE | 2025-01-13 13:48 | CASEMGMT ---
Social Work Pt's brother was here however SW was in a meeting. SW attempted to meet w/pt to complete LW/POA, however pt is asleep. SW will attempt to see pt again later today. LUIS Lorenzo
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
--- NOTE | 2025-01-13 15:01 | CASEMGMT ---
Discharge Planning Christina has obtained auth to admit. SW updated. Trisha Henderson DC Planning Asst.
--- NOTE | 2025-01-13 15:18 | CASEMGMT ---
Addendum entered by Sharona Ramos 01/13/25 16:41: Social Work SW called pt's brother Neymar, let him know pt was approved and is going to [facility], will be picked up at 7pm. Neymar states understanding, in agreement w/pt going to [facility] today. SW did speak w/APS earlier, Paulie states to have SNF call when pt goes home from SNF. SW sent a message to [facility] in [facility], letting them know pt would like to do POA papers but was not up for it today, and that APS should be called should he go home from [facility], due to pt's home conditions. LUIS Lorenzo Addendum entered by Sharona Ramos 01/13/25 15:54: Social Work Hospital exemption completed in the [facility] system. LUIS Lorenzo Original Note: Social Work Pt was approved by insurance to go to [facility] today. SW woke pt, let him know. Pt asked if he could go tomorrow, SW explained he is medically ready, so will go today. SW asked pt about completing LW/POA, pt states, it can wait. SW will ask [facility] about completing the documents. SW will continue to follow. LUIS Lorenzo
--- NOTE | 2025-01-13 15:33 | TREXTCAR_ITS ---
Diet Diet Order/Speech Therapy: INPATIENT Hospital Diet / Speech Therapy Order(s) 01/10/25 11:32 Diet: Regular - General Food consistency:: Regular Liquid Consistency:: Regular/Thin Type of Dietary Supplement:: Magic Cup Dessert w/ L Fluid restriction:: 1500 mL Diet Comments: fortified foods w/ meals as able Routine Orders/Code Status Routine Lab Work: BMP (Mondays) Code Status: Full Code DC O2, CPAP, BIPAP needs Home O2 Discharge instructions: No Therapies Weight Bearing: Full weight bearing Physical Therapy: Eval and Treat Occupational Therapy: Eval and Treat Problem/Diagnosis (1) Hyponatremia: Status: Acute Code(s): E87.1 - Hypo-osmolality and hyponatremia Plan: stable through admission. Had been 135 in June 2024. TSH WNL. Cortisol WNL. Urine Osm 472, Urine Sodium <20 likely 2/2 cirrhosis monitor Plan Cirrhosis: complicates care and recovery. Friends today stated that he appeared to be more confused and at baseline. Will check an ammonia level. CAD: h/o PCI. Bed bugs; on permetrhin cream. alcohol abuse: thiamine and folate. Constipation: Will add lactulose. VTE prophylaxis: heparin. Dispo: to SNF. Allergies/Procedures Done in Hospital Allergies lisinopril Allergy (Verified 01/09/25 16:11) COUGH COUGH Procedures: None Type of Care/Length of Stay Estimated LOS: Convalescent Care Less Than 30 days Type of Care Needed: Skilled Rehab Potential: Fair Prognosis: Fair Additional Orders/Day of Discharge Day of Discharge: 01/13/25 Dietary and Speech Recommendations Dietitian Recommendations/Changes: Continue regular diet and 120mL ensure plus high protein 3 times per day w/ medpass. Continue fortified foods w/ meals as able. Will add magic cup w/ lunch tray. May need to consider TF support if weight continues to decline and PO remains suboptimal at meals. Discharge Plan Admission Admit Date/Time: 01/09/25 20:34 Primary Reason for Your Visit: hyponatremia. Attending Provider: Oumar Shetty Primary Care Provider: Care Physician,No Primary Consulting Providers: Nick Monk; Annamarie Melendez; Uvaldo Castro Discharge Orders/Prescriptions Prescriptions: New thiamine HCl (vitamin B1) 100 mg Tablet 100 mg PO DAILYCM Qty: 0 0RF folic acid 1 mg Tablet 1 mg PO DAILY@0800 Qty: 0 0RF lactulose 10 gram/15 mL Solution 20 g PO BID Qty: 0 0RF Rx Instructions: hold for greater than 2 loose stools per day. Ensure Plus High Protein 0.08 gram-1.5 kcal/mL Liquid 120 ml PO TIDCM Qty: 0 0RF Discontinued hydroxyzine pamoate [Vistaril] 25 mg capsule 25 mg PO TID PRN (Reason: anxiety) Qty: 21 0RF Referrals / Follow Up: Care Physician,No Primary [Primary Care Provider] - Yasmeen Zambrano, WELDER ASSISTANT-C [[facility]] - Within 2 Weeks Disposition Disposition (needs filled in before D/C Order can be placed): [facility] Facility
--- NOTE | 2025-01-13 15:39 | PCM.DC.SUM ---
Providers Date of Admission: 01/09/25 Primary Care Physician: Ariane Primary Care Phys Consultations 01/09/25 21:16 Consult: Gastroenterology Routine Consulting Provider: [facility] Reason for Consult: Cirrhosis, ascites and a sending colon wall thickening on CT. EMERGENT Consult: No Notified: Yes Date Notified: 01/09/25 Time Notified: 20:38 Method of Notification: Text 01/10/25 12:56 Consult: Nephrology Routine Consulting Provider: Annamarie Melendez Reason for Consult: Na 126, alcoholic, decompensated cirrhosis with ascites. Intravas vol deple EMERGENT Consult: No Notified: Yes Date Notified: 01/10/25 Time Notified: 12:56 Method of Notification: Verbal Reason For Visit: HYPONATREMIA, 2/2 BEER POTOMANIA Diagnosis Discharge Diagnosis (1) Hyponatremia: Status: Acute Code(s): E87.1 - Hypo-osmolality and hyponatremia Plan: stable through admission. Had been 135 in June 2024. TSH WNL. Cortisol WNL. Urine Osm 472, Urine Sodium <20 likely 2/2 cirrhosis monitor Plan Cirrhosis: complicates care and recovery. Friends today stated that he appeared to be more confused and at baseline. Will check an ammonia level. CAD: h/o PCI. Bed bugs; on permetrhin cream. alcohol abuse: thiamine and folate. Constipation: Will add lactulose. VTE prophylaxis: heparin. Dispo: to SNF. Medications at Discharge Home Medications folic acid 1 mg tablet 1 mg PO DAILY@0800 #0 tabs 01/13/25 food supplemt, lactose-reduced 0.08 gram-1.5 kcal/mL oral liquid (Ensure Plus High Protein) 120 ml PO TIDCM #0 mL 01/13/25 lactulose 10 gram/15 mL oral solution 20 g (30 mL) PO BID #0 mL 01/13/25 thiamine HCl (vitamin B1) 100 mg tablet 100 mg PO DAILYCM #0 tabs 01/13/25 Hospital Course Operations None Procedures None Summary of Care Provided Minutes Spent on Discharge: 32 Hospital Course: This is a six 9-year-old male with history of alcoholism presents with weakness. Sodium is also noted to be low. Patient underwent a workup regards to his hyponatremia and seem to be more related with his cirrhosis than anything. Patient had an uncomplicated course regards to his alcohol withdrawal., Given this he also had bedbugs. Patient barely has been living in [facility] and lives with individuals who may be using drugs at his facility. Friend came to his room today and expressed concerns for that. These concerns were addressed with case management to see if APS would need to be involved. Patient will be discharged in stable condition. I did order an ammonia level which is currently still pending at this time this dictation. Patient has been having issues in regards to constipation patient will have a lactulose available. Medical Records Data Medical Nutrition Assessment Dietitian: Malnutrition Criteria Met Start: 01/10/25 11:46 Freq: Status: Active Protocol: Document 01/13/25 14:42 RMA (Rec: 01/13/25 14:43 RMA [id number]) Nutrition Malnutrition Evidence of Yes Malnutrition Exists Malnutrition (severe Chronic ): Evidenced By Suboptimal Energy Intake (Severe),Weight Loss (Severe), Physical Changes (Moderate) Clinical Problem Acute Disease or Injury Related Malnutrition Etiology Severe protein-calorie malnutrition in the context of chronic alcohol abuse related to inadequate oral intake of nutrient-dense foods Signs/Symptoms as evidenced by oral intake meeting < 75% of est nutritional needs x 1 month, unintentional wt loss of 5 % x ~ 2 wks, BMI 20.9, muscle wasting in face/arms/legs Status Active Problem Recommendation Dietitian Continue regular diet and 120mL ensure plus high Recommendations/ protein 3 times per day w/ medpass. Changes Continue fortified foods w/ meals as able. Will add magic cup w/ lunch tray. May need to consider TF support if weight continues to decline and PO remains suboptimal at meals. Weight / BMI Weight Weight: 70 kg Body Mass Index (BMI) 20.9 ABG / Lab / Microbiology Data 01/13/25 05:45 01/13/25 05:45 Laboratory: Laboratory Results - last 24 hr 01/12/25 16:50: Sodium 126 L 01/13/25 05:45: WBC 12.3 H, RBC 2.99 L, Hgb 7.2 L, Hct 23.7 L, MCV 79.3 L, MCH 24.1 L, MCHC 30.4 L D, RDW Std Deviation 56.3 H, RDW Coeff of Madelin 20.3 H, Plt Count 155, MPV 11.4, Immature Gran % (Auto) 0.500, Neut % (Auto) 84.5 H, Lymph % (Auto) 8.2 L, Cuming % (Auto) 6.6, Eos % (Auto) 0.1, Baso % (Auto) 0.1, Absolute Neuts (auto) 10.4 H, Absolute Lymphs (auto) 1.00, Nucleated RBC % 0, Platelet Estimate A, Polychromasia 1+, Anisocytosis 1+, Sodium 128 L, Potassium 4.2, Chloride 99, Carbon Dioxide 20.2 L, Anion Gap 9, BUN 19, Creatinine 0.85, Estim Creat Clear Calc 83.50, Est GFR (MDRD) Non-Af 95, BUN/Creatinine Ratio 22.7 H, Glucose 110 H, Calcium 8.4 Radiography Diagnostic Testing: Radiology Impression Echocardiogram 01/09/25 20:47 Interpretation Summary The left ventricular ejection fraction is 45 %. Normal LV size. There are regional wall motion abnormalities as specified. There is moderate mitral annular calcification. Ordering Physician: Nick Monk Performed By: Iris Solis RDCS D/C Instructions DC O2, CPAP, BIPAP Needs Home O2 Discharge instructions: No Meaningful Use Info Meaningful Use Meaningful Use Diagnoses (Choose all that apply): None applicable Ischemic Stroke Statin Dosing Therapy Reference: STATIN DOSE THERAPY REFERENCE: * Patients > 75 years receive moderate or high dose statin therapy. * Patients 75 years or YOUNGER should receive HIGH intensity statin dose unless contraindicated. You will be required to document reason for non-treatment if statin daily dose does not meet guidelines. HIGH DOSE STATIN THERAPY DAILY Atorvastatin > than or = to 40 mg Rosuvastatin > than or = to 20 mg Amlodipine + Atorvastatin > than or = to 2.5/40 mg Ezetimibe + Simvastatin 10/80 mg Simvastatin 80mg Discharge Plan Admission Admit Date/Time: 01/09/25 20:34 Primary Reason for Your Visit: hyponatremia. Attending Provider: Oumar Shetty Primary Care Provider: Care Physician,No Primary Consulting Providers: Nick Monk; Annamarie Melendez; Uvaldo Castro Discharge Orders/Prescriptions Prescriptions: New thiamine HCl (vitamin B1) 100 mg Tablet 100 mg PO DAILYCM Qty: 0 0RF folic acid 1 mg Tablet 1 mg PO DAILY@0800 Qty: 0 0RF lactulose 10 gram/15 mL Solution 20 g PO BID Qty: 0 0RF Rx Instructions: hold for greater than 2 loose stools per day. Ensure Plus High Protein 0.08 gram-1.5 kcal/mL Liquid 120 ml PO TIDCM Qty: 0 0RF Discontinued hydroxyzine pamoate [Vistaril] 25 mg capsule 25 mg PO TID PRN (Reason: anxiety) Qty: 21 0RF Referrals / Follow Up: Care Physician,No Primary [Primary Care Provider] - Yasmeen Zambrano, GRADES 9 THRU 12 VISITING TEACHER-C [[facility]] - Within 2 Weeks Disposition Disposition (needs filled in before D/C Order can be placed): Group Home Facility Charges/Coding Visit Charges Inpatient E&M: 42876 Disch Hosp >30min
--- NOTE | 2025-01-13 16:09 | CASEMGMT ---
Discharge Planning Discharge orders, signed med list, and transport time sent to [facility]. Physicians will transport pt by wheelchair at 7p. Nursing and SW updated. SW will update pt and family. Trisha Henderson DC Planning Asst.
[2025-01-13 16:35] VITALS: BP 126/72; PULSE 97; RESP 18; TEMP 36.5; O2SAT 100
--- NOTE | 2025-01-13 18:04 | NURSING ---
Report called to CLAUDIO Sims at [facility].
[2025-01-13 19:03] LABS: Ammonia 13.8 umol/L (16-60)
== END 2025-01-13 20:00 | disposition skilled nursing facility (03) | DRG 640 ==
LOC: ED 17:18 → PCU 21:27
PROVIDERS: Internal Medicine; Internal Medicine Nephrology; Admitting Provider Internal Medicine; Emergency Provider Emergency Medicine
DX: E87.1 Hypo-osmolality and hyponatremia (principal); E43 Unspecified severe protein-calorie malnutrition; F10.232 Alcohol dependence with withdrawal with perceptual disturbance; K70.31 Alcoholic cirrhosis of liver with ascites; E78.00 Pure hypercholesterolemia, unspecified; F17.210 Nicotine dependence, cigarettes, uncomplicated; B88.8 Other specified infestations; I10 Essential (primary) hypertension; I25.2 Old myocardial infarction; I25.10 Atherosclerotic heart disease of native coronary artery without angina pectoris; K59.00 Constipation, unspecified; F41.1 Generalized anxiety disorder; R29.6 Repeated falls; Z95.5 Presence of coronary angioplasty implant and graft; Y90.0 Blood alcohol level of less than 20 mg/100 ml; Z68.20 Body mass index [BMI] 20.0-20.9, adult; Z91.148 Patient's other noncompliance with medication regimen for other reason; Z79.899 Other long term (current) drug therapy; Z86.73 Personal history of transient ischemic attack (TIA), and cerebral infarction without residual deficits
CPT/HCPCS: 36415; 70450; 71275; 74177; 80048; 80053; 80061; 80076; 80307; 81001; 82043; 82077; 82140; 82436; 82533; 82570; 82607; 82746; 83036; 83605; 83690; 83735; 83880; 83930; 83935; 84133; 84156; 84295; 84300; 84443; 84484; 85025; 85610; 92526; 92610; 93005; 93306; 97116; 97162; 97165; 97530; 97535; 97802; 97803; 99285; Q9957; Q9967; A4216; J1938; J2405